=== PATIENT | male | born 1955 | race Caucasian/White ===

== ENCOUNTER 2018-08-01 08:44 | Emergency (ER) | payer OTHER ==
[2018-08-01] MEDS ORDERED: Ondansetron INJ* 2 MG/ML VIAL IV ONE (09:15)
[2018-08-01] MEDS ORDERED: NS 0.9% 1000 ML** 1,000 ML IV ONE (09:15)
[2018-08-01] MEDS ORDERED: Morphine 4 MG/ML VIAL (1 ml) 4 MG/ML VIAL IV ONE (09:15)
--- NOTE | 2018-08-01 09:15 | ED ---
Abdominal Pain/Male - HPI Summary HPI Summary: A 63 y/o male presents to [facility] with a chief complaint of abdominal pain over the past several months, worsening over the past few days. The patient reports that he has been trying to self-medicate with Tums and Pepto-Bismol, but reports no relief. The patient has a Hx of cirrhosis and claims that he stopped EtOH use cold turkey for 5-6 years, but the last few months he started drinking again to deal with pain from surgeries. At triage he rated his pain as a 4/10 in severity. He claims that he has pain from a right inguinal hernia and a knee replacement. His right inguinal hernia was operated on by Dr. Dacosta, who has reportedly retired. The patient reports left sided abdominal pain two months ago , and had a CT and x-rays done. Reportedly, Dr. Tomas, surgery, "saw something but did not believe it was something worth following up on". In the ED the patient reports feeling fatigued but denies N/V, blood in stool, fevers, chills , CP or SOB. The patient reports missing an appointment with Dr. Guillory, GI, on 07/28/18 and reports that he has not been seen by GI in a long time. He denies smoking cigarettes but admits to marijuana use. - History of Current Complaint Chief Complaint: EDAbdPain Stated Complaint: ABD PAIN Time Seen by Provider: 08/01/18 08:56 Hx Obtained From: Patient Onset/Duration: Gradual Onset, Lasting Weeks, Still Present Timing: Constant, Lasting Weeks Severity Initially: Mild Severity Currently: Moderate Pain Intensity: 4 Pain Scale Used: 0-10 Numeric Location: Diffuse Radiates: No Character: Other: - unable to describe Aggravating Factor(s): Nothing Alleviating Factor(s): Nothing Associated Signs And Symptoms: Negative: Fever, Chest Pain, Blood in Stool, Nausea, Vomiting - Allergies/Home Medications Allergies/Adverse Reactions: Allergies Allergy/AdvReac Type Severity Reaction Status Date / Time amoxicillin Allergy Fatigue Verified 08/01/18 08:50 Home Medications: Home Medications Metoprolol Succinate 1 tab PO DAILY 08/01/18 [History Confirmed 08/01/18] amLODIPine TAB* [Norvasc 5 mg TAB*] 10 mg PO DAILY 08/01/18 [History Confirmed 08/01/18] PMH/Surg Hx/FS Hx/Imm Hx Endocrine/Hematology History: Reports: Hx Anticoagulant Therapy - previous coumadin use, Hx Anemia - RECENT DIAGNOSIS,ON IRON SUPPLEMENT Denies: Hx Diabetes Cardiovascular History: Reports: Hx Deep Vein Thrombosis - used to be on coumadin Denies: Hx Hypertension Respiratory History: Reports: Hx Pulmonary Embolism - HX OF DVT AND PE - COUMADIN THERPHY FINISHED 2011, Other Respiratory Problems/Disorders - PNEUMONIA 2011 GI History: Reports: Hx Cirrhosis - Hx OF, 2011 (ALCOHOLIC, NONE SINCE 2011), Hx Gall Bladder Disease - CT shows gall stones and thickining, Hx Jaundice, Other GI Disorders - HX OF DIVERTICULOSIS OF COLON History: Reports: Other Problems/Disorders - PROSTATE ABNORMALITY Musculoskeletal History: Reports: Hx Arthritis - LEFT KNEE,, Other Musculoskeletal History - broken right hand 02/2014 Sensory History: Reports: Hx Contacts or Glasses - GLASSES FOR DISTANCE, 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 Opthamlomology History: Reports: Hx Contacts or Glasses - GLASSES FOR DISTANCE Psychiatric History: Reports: Hx Substance Abuse - smoke marijuana, ALCOHOLISM, Other Psychiatric Issues/Disorders - Recovering alcoholic - Surgical History Surgery Procedure, Year, and Place: 2014 right inguinal hernia repair- [facility] Hx Anesthesia Reactions: No Infectious Disease History: No Infectious Disease History: Denies: Hx Hepatitis, Hx Human Immunodeficiency Virus (HIV), Hx Shingles, Hx Tuberculosis, Traveled Outside the [place] in Last 30 Days - Family History Known Family History: Positive: Other Family History: Mother - breast CA. Father - Cardiac dz. - Social History Alcohol Use: "almost every day" Alcohol Amount: NONE SINCE 2011 (WAS HEAVY DRINKER) Hx Substance Use: Yes Substance Use Type: Reports: Marijuana Substance Use Comment - Amount & Last Used: OCCASSIONAL Hx Tobacco Use: No Smoking Status (MU): Never Smoked Tobacco Have You Smoked in the Last Year: No Review of Systems Positive: Fatigue. Negative: Fever, Chills Negative: Chest Pain Negative: Shortness Of Breath Gastrointestinal: Negative - blood in stool Positive: Abdominal Pain. Negative: Vomiting, Nausea All Other Systems Reviewed And Are Negative: Yes Physical Exam - Summary Physical Exam Summary: GENERAL: Patient is a well-developed and nourished M who is lying comfortable in the stretcher. Patient is not in any acute respiratory distress. HEAD AND FACE: Normocephalic EYES: PERRLA, EOMI x 2. EARS: Hearing grossly intact. MOUTH: Oropharynx within normal limits. NECK: Supple, trachea is midline, no adenopathy, no JVD, no carotid bruit. CHEST: Symmetric, no tenderness at palpation LUNGS: Clear to auscultation bilaterally. No wheezing or crackles. CVS: Regular rate and rhythm, S1 and S2 present, no murmurs or gallops appreciated. ABDOMEN: Mild diffuse tenderness to palpation. No rebound or guarding. Bowel sounds are normal. No abnormal abdominal pulsations. EXTREMITIES: Full ROM in all major joints, no edema, no cyanosis or clubbing. NEURO: Alert and oriented x 3. No acute neurological deficits. Speech is normal and follows commands. SKIN: Dry and warm Triage Information Reviewed: Yes Vital Signs On Initial Exam: Initial Vitals Temp Pulse Resp BP Pulse Ox 98.7 F 122 16 163/112 97 08/01/18 08:46 08/01/18 08:46 08/01/18 08:46 08/01/18 08:46 08/01/18 08:46 Vital Signs Reviewed: Yes Diagnostics - Vital Signs Vital Signs Temp Pulse Resp BP Pulse Ox 08/01/18 08:46 98.7 F 122 16 163/112 97 - Laboratory Result Diagrams: 08/01/18 09:23 08/01/18 09:23 Lab Statement: Any lab studies that have been ordered have been reviewed, and results considered in the medical decision making process. - CT abdomen/pelvis CT Interpretation Completed By: Radiologist Summary of CT Findings: 1. MILD THICKENING OF THE WALL OF THE SIGMOID COLON SUGGESTIVE OF COLITIS. 2. CIRRHOTIC MORPHOLOGY OF THE LIVER AND FINDINGS SUGGESTIVE OF PORTAL HYPERTENSION. 3. CHOLELITHIASIS. 4. HEPATIC AND RENAL CYSTS. ED physician has reviewed this imaging report. - EKG 09:04 Cardiac Rate: NL - 94 bpm EKG Rhythm: Sinus Rhythm Summary of EKG Findings: NSR at 94 bpm, normal axis. Re-Evaluation - Re-Evaluation First Eval Re-Evaluation Time: 11:54 Change: Unchanged Comment: Discussed results and plan for DC. Abdominal Pain Male Course/Dx - Course Course Of Treatment: A 63 y/o male presents to [facility] with a chief complaint of abdominal pain over the past several months, worsening over the past few days. The physical exam revealed mild, diffuse diffuse tenderness to palpation with no rebound or guarding. In the ED course the patient was given Ativan PO, Morphine IV, Zofran IV and Sodium Chloride IV. EKG at 09:04 showed NSR at 94 bpm , normal axis. Bloodwork, chemistries and urines obtained and are WNL. Serum alcohol 32. CT abdomen/pelvis impression: 1. MILD THICKENING OF THE WALL OF THE SIGMOID COLON SUGGESTIVE OF COLITIS. 2. CIRRHOTIC MORPHOLOGY OF THE LIVER AND FINDINGS SUGGESTIVE OF PORTAL HYPERTENSION. 3. CHOLELITHIASIS. 4. HEPATIC AND RENAL CYSTS. The patient will be treated with Moxifloxacin because he is alergic to penicillin and is an alcoholic. The patient will be discharged and follow up with GI and his PCP. I discussed results with patient, and he reports feeling better. He is hemodynamically stable and safe for discharge. Strict return precautions given and he will otherwise follow up with his PCP. - Diagnoses Provider Diagnoses: Cholelithiasis, Colitis, Liver cirrhosis Discharge - Sign-Out/Discharge Documenting (check all that apply): Patient Departure - DC Patient Received Moderate/Deep Sedation with Procedure: No - Discharge Plan Condition: Stable Disposition: HOME Prescriptions: Moxifloxacin HCl 400 mg PO DAILY 10 Days #10 tablet Patient Education Materials: Cirrhosis (ED), Colitis (ED) Referrals: Jose Luis Manning DO [Doctor of Osteopathy] - (1-3 days) Bella Ervin MD [Primary Care Provider] - (1-3 days) Additional Instructions: Follow up with your primary care physician and GI in 1-3 days. RETURN TO THE EMERGENCY DEPARTMENT FOR CHANGING OR WORSENING SYMPTOMS. - Billing Disposition and Condition Condition: STABLE Disposition: Home - Attestation Statements Document Initiated by Donavan: Yes Documenting Scribe: Amanuel Gallagher Provider For Whom Donavan is Documenting (Include Credential): Ramone Arredondo MD Scribe Attestation: Amanuel Mcgill, scribed for Ramone Arredondo MD on 08/01/18 at 171. Scribe Documentation Reviewed: Yes Provider Attestation: The documentation as recorded by the Amanuel busby accurately reflects the service I personally performed and the decisions made by me, Aliza Arredondo MD Status of Scribe Document: Viewed
[2018-08-01] MEDS ORDERED: LORazepam TAB(*) 1 MG PO ONE (09:16)
[2018-08-01 09:39] LABS: ABS Eosinophils 0.1 10^3/ul (0-0.6); ABS Monocytes 0.3 10^3/ul (0-0.8); ABS Neutrophils 3.6 10^3/ul (1.5-7.7); Hematocrit 45 % (42-52); Hemoglobin 15.5 g/dL (14.0-18.0); Lymphocyte % 19.6 %; Mean Corpuscular HGB Conc 35 g/dL (31-36); Mean Corpuscular Hemoglobin 31 pg (27-31); Mean Corpuscular Volume 89 fL (80-94); Mean Platelet Volume 8.6 fL (7.4-10.4); Nucleated Red Blood Cells % 0.4; Platelet Count 148 10^3/uL (150-450); Red Blood Count 5.06 10^6 /uL (4.18-5.48); Red Cell Distribution Width 15 % (10-15)
[2018-08-01 09:40] LABS: Urine Appearance Clear; Urine Bilirubin Negative (Negative); Urine Blood Negative (Negative); Urine Color Straw; Urine Glucose Negative (Negative); Urine Ketones Negative (Negative); Urine Nitrite Negative (Negative); Urine Protein Negative (Negative); Urine Specific Gravity 1.002 (1.010-1.030); Urine Urobilinogen Negative (Negative)
--- OUTSIDE RECORDS SUMMARY | 2018-08-01 09:43 | XMS REPORT | Continuity of Care Document ---
:1955 External Reference #:[id number] Author Name ZainaClaire Care Team Providers Name Role Phone Bella Ervin M.D. Primary Care Physician Unavailable Payers Date Identification Numbers Payment Provider Subscriber Effective: 2015 Policy Number: [id number] [place] Timothy Linda PayID: [id number] [address] [address] [place] [address] Problems Active Problems Provider Date Alcoholic cirrhosis Vasyl Alfred M.D. Onset: 06/14/2012 Cholelithiasis without obstruction Randy Ramirez M.D.,FACP Onset: 2018 Chronic diastolic heart failure Vasyl Alfred M.D. Onset: 06/14/2012 Inguinal hernia without obstruction Vasyl Alfred M.D. Onset: 06/21/2012 AND without gangrene Insomnia Vasyl Alfred M.D. Onset: 07/05/2012 Diverticular disease of colon Vasyl Alfred M.D. Onset: 12/12/2012 Osteoarthritis of knee Vasyl Alfred M.D. Onset: 03/08/2014 Essential hypertension Vasyl Alfred M.D. Onset: 02/05/2016 Obstructive sleep apnea syndrome Dodie Rowley DNP, RN, Onset: 04/28/2017 GERENTOLOGICAL PHYSIOTHERAPIST-BC Inactive Problems Hypo-osmolality and or hyponatremia Vasyl Alfred M.D. Onset: 06/21/2012 Inactive: 08/06/2014 Hepatic encephalopathy Vasyl Alfred M.D. Onset: 07/05/2012 Inactive: 08/06/2014 Low blood pressure reading Vasyl Alfred M.D. Onset: 08/07/2012 Inactive: 08/06/2014 Pain of breast Vasyl Alfred M.D. Onset: 08/07/2012 Inactive: 08/06/2014 Lymphedema Vasyl Alfred M.D. Onset: 08/29/2012 Inactive: 08/06/2014 Disorder of skin and/or subcutaneous tissue Vasyl Alfrde M.D. Onset: 10/2012 Inactive: 08/06/2014 Joint effusion of the lower leg Vasyl Alfred M.D. Onset: 12/12/2012 Inactive: 08/06/2014 Contusion of hand Vasyl Alfred M.D. Onset: 01/22/2014 Inactive: 08/06/2014 Other Secondary Thrombocytopenia Vasyl Alfred M.D. Onset: 05/01/2014 Inactive: 08/06/2014 H/O: sexual function problem Vasyl Alfred M.D. Onset: 01/22/2014 Inactive: 02/24/2017 Localized, primary osteoarthritis Vasyl Alfred M.D. Onset: 08/06/2014 Inactive: 02/24/2017 Other secondary thrombocytopenia Vasyl Alfred M.D. Onset: 11/26/2014 Inactive: 02/24/2017 Knee joint effusion Mavis Martin M.D. Onset: 08/15/2015 Inactive: 02/24/2017 Arthroplasty of knee Mavis Martin M.D. Onset: 10/13/2015 Inactive: 02/24/2017 Knee pain Vasyl Alfred M.D. Onset: 02/05/2016 Inactive: 02/24/2017 Lyme disease Vasyl Alfred M.D. Onset: 01/11/2017 Inactive: 02/24/2017 Resolved Problems Thromboembolic disorder Vasyl Alfred M.D. Onset: 06/14/2012 Resolved: 05/12/2018 Anemia Vasyl Alfred M.D. Onset: 06/21/2012 Resolved: 05/12/2018 Other Pancytopenia Vasyl Alfred M.D. Onset: 09/18/2012 Resolved: 05/12/2018 Acquired thrombocytopenia Vasyl Alfred M.D. Onset: 03/26/2014 Resolved: 05/12/2018 Anemia of chronic disease Vasyl Alfred M.D. Onset: 11/26/2014 Resolved: 05/12/2018 Family History Date Family Member(s) Observation Comments General Heart Disease General Cancer General Diabetes Father Heart Disease Mother Breast Cancer Siblings 7 1 sister , 2 sisters and 4 brothers living. Social History Type Date Description Comments Sex Unknown Marital Status Single Lives With Alone Occupation Construction Occupation Medically Retired Tobacco Use Start: Unknown Never Smoked Cigarettes Smoking Status Reviewed: 07/06/18 Never Smoked Cigarettes ETOH Use 2011 Has consumed alcohol in the past Tobacco Use Start: Unknown Patient has never smoked Recreational Drug Use Sporadically uses Marijuana Exercise Type/Frequency Exercises regularly Allergies, Adverse Reactions, Alerts Active Allergies Reaction Severity Comments Date Amoxicillin 06/14/2012 Medications Active Medications SIG Qnty Indications Ordering Provider Date Tramadol HCL 1 tablet by mouth 90tabs Bella Ervin MD 07/04/2018 50mg every 6 - 8 hours Tablets as needed for pain Hydrocodone-Acetamin 1 tab by mouth 30tabs M25.562 Bella Ervin MD 2018 ophen every 8- 12 hours 10-325mg as needed for Tablets severe pain only. take sparingly Daily-Bella take 1 tablet by 30tabs Bella Ervin MD 08/25/2017 Tablets mouth every day Amlodipine Besylate 1 by mouth every 30tabs I10 Gideon Bonilla, 2017 day M.DGila 10mg Tablets Metoprolol Succinate 1 by mouth every 30tabs I10 Bella Ervin MD 2016 ER day 100mg Tablets ER 24HR History Medications Tramadol HCL 1 by mouth every 90tabs Bella Ervin MD 04/26/2018 - 50mg 6-8 hours as needed 05/12/2018 Tablets for pain Multi Complete daily 30caps Vasyl 09/23/2017 - Kishor Alfred 03/20/2018 Capsules Zolpidem Tartrate 1 tab daily at 14tabs G47.00 Randy Holliday 11/11/2016 - 5mg bedtime Kishor Ramirez,FACP 03/22/2017 Tablets Ferrous Gluconate 1 by mouth 2x a day 180tabs Vasyl 09/23/2016 - Kishor Alfred 01/11/2017 324(37.5Fe) mg Tablets Amlodipine Besylate 1 by mouth every 30tabs [place] 05/27/2016 - 5mg day Kishor Alfred 06/28/2017 Tablets Amlodipine Besylate 1 by mouth every 30tabs Vasyl 04/16/2016 - day Kishor Alfred 05/27/2016 10mg Tablets Metoprolol Succinate 1 by mouth every 30tabs [place] 03/24/2016 - ER day . Kishor Alfred 11/11/2016 50mg Tablets ER 24HR Amlodipine Besylate 1 by mouth twice 60tabs Vasyl 03/08/2016 - 5mg daily Kishor Alfred 04/16/2016 Tablets Amlodipine Besylate 1 by mouth every 30tabs [place] 03/04/2016 - 5mg day in am Kishor Alfred 03/08/2016 Tablets Hydrocodone-Acetamino 1 tab by mouth 30tabs M25.56 Bella Ervin MD 2016 - phen every 8- 12 hours 2 05/12/2018 10-325mg Tablets as needed for severe pain only. take sparingly Metoprolol Succinate 1 by mouth every 30tabs Alfredo Segundo 02/25/2016 - ER day CAROL 03/02/2016 50mg Tablets ER 24HR Metoprolol Tartrate 1 by mouth twice a 60tabs I10 [place] 02/05/2016 - day Kishor Alfred 03/02/2016 25mg Tablets Oxycodone-Acetaminoph 1 tabs by mouth 60tabs [place] 01/14/2016 - en every 12 hours as Kishor Alfred 03/02/2016 5-325mg Tablets needed for pain MS Contin Take one tablet by 28tabs Gerber Sanchez 10/03/2015 - 30mg Tablets mouth two times a M.D. 01/06/2016 ER day for 14 days Docusate Sodium 1 by mouth up to 3 60caps M17.12 [place] 09/19/2015 - 100mg times a day as CAROL Mast 01/06/2016 Capsules needed for constipation Coumadin 1 by mouth daily 45tabs M17.12 [place] 09/19/2015 - 2mg Tablets post operatively or CAROL Mast 01/06/2016 as directed by cat/. do not take this medication prior to surgery Oxycodone-Acetaminoph 1 by mouth every 6 45tabs M17.12 Mavisla nena [place], 09/18 - en hours as needed for M.DGila 01/11/2016 5-325mg Tablets pain. Hydrocodone-Acetamino 12h as needed 60tabs M17.9 [place] 07/08/2015 - phen Kishor Alfred 01/06/2016 7.5-325mg Tablets Multi For Him 50+ 1 by mouth every 30tabs [place] 06/12/2015 - day Kishor Alfred 06/12/2015 Tablets Multi For Him 50+ 1 by mouth every 30tabs [place] 06/10/2015 - day Kishor Alfred 06/10/2015 Tablets Multi For Him once a day 30caps [place] 06/10/2015 - Capsules Kishor Alfred 06/10/2015 Multi Complete daily 30caps [place] 06/10/2015 - Kishor Alfred 08/29/2017 Capsules Multi For Him 50+ once a day 30tabs [place] 05/06/2015 - Kishor Alfred 06/10/2015 Tablets Lidocaine HCL apply 4 times a day 1units M25.56 [place] 05/06/2015 - 2% Gel 2 Kishor Alfred 09/18/2015 Doxycycline Hyclate 2 tabs today 2caps [place] 02/20/2015 - Kishor Alfred 05/06/2015 100mg Capsules Colace 1 by mouth every 60caps Kranthi Lugo NP 05/09/2014 - 50mg Capsules day 11/25/2014 Multi Vitamin Daily once daily 30tabs [place] 04/05/2014 - Kishor Alfred 05/06/2015 Tablets Thiamine HCL 1 by mouth every 30tabs [place] 04/05/2014 - 100mg day Kishor Alfred 08/06/2014 Tablets Vitamin B-12 once daily 30tabs [place] 03/29/2014 - Natural Kishor Alfred 08/06/2014 500mcg Tablets Voltaren apply 4gm twice 1tube [place] 03/27/2014 - 1% Gel daily to knee Kishor Alfred 09/18/2015 Hydrocodone-Acetamino Take 1 Tablet By 60tabs M17.9 Randy Holliday 2014 - phen Mouth Every 12 Kishor Ramirez,[facility] 07/08/2015 5-325mg Tablets Hours as Needed - Maximum Daily Dose Of 2 Per Day Clindamycin HCL tid 21caps 923.20 [place] 01/22/2014 - 150mg Kishor Alfred 03/08/2014 Capsules Hydrocodone-Acetamino 1 tab every 12h as 10tabs [place] 01/22/2014 - phen needed Kishor Alfred 03/08/2014 5-325mg Tablets Doxycycline Hyclate 1 by mouth 2x per 20tabs 919.4 Hayley Bird 2013 - day 10 days MOle 01/22/[address] Ferrous Gluconate 1 by mouth 2x a day 180tabs [place] 04/17/2013 - Kishor Alfred 09/23/2016 324(38Fe) mg Tablets Thiamine HCL 1 po qd 30tabs 611.71 [place] 09/18/2012 - 100mg Kishor Alfred 12/12/2012 Tablets Spironolactone 1 po qd 30tabs 457.1 [place] 08/29/2012 - 50mg Kishor Alfred 09/18/2012 Tablets Spironolactone once a day 30tabs 572.2 [place] 08/07/2012 - 25mg Kishor Alfred 08/29/2012 Tablets Amitriptyline HCL take 1 to 2 tablets 60tabs G47.00 [place] 07/05/2012 - 10mg by mouth at bedtime Kishor Alfred 06/25/2016 Tablets as needed Feosol once daily 90tabs 285.9 [place] 06/21/2012 - 200(65Fe) mg Kishor Alfred 08/29/2012 Tablets Furosemide 1 po qam 90tabs Unknown - 20mg Tablets 06/21/2012 Spironolactone 1 po qd 90tabs [place] - 50mg Kishor Alfred 08/07/2012 Tablets Potassium Chloride CR 1 po qd 90tabs Unknown - 06/21/2012 20Meq Tablets ER Propranolol HCL 1 po bid 180tabs Unknown - 10mg 08/07/2012 Tablets Thiamine HCL 1 po qd 30tabs Unknown - 100mg 09/18/2012 Tablets Tamsulosin HCL 1 by mouth every 30caps Hayley Bird, - 0.4mg day Kishor 08/07/2013 Capsules Warfarin Sodium take as directed 90tabs [place] - 2mg Kishor Alfred 08/29/2012 Tablets Lactulose 1 bid 1Bottle Unknown - 15 Solution 08/07/2012 Multi For Him 1 po qd 30caps Unknown - Capsules 05/01/2014 Ferrous Sulfate 1 by mouth every Unknown - day 08/06/2014 Tablets Diclofenac Sodium apply 1 grams on 100gm [place] - 1% wrists as needed Kishor Alfred 11/09/2016 Gel for pain. Medications Administered in Office Medication SIG Qnty Indications Ordering Provider Date Influenza,Unspecified Unknown 10/25/2017 Injection Depomedrol 40MG Mavis Martin M.D. 08/15/2015 Injection Depomedrol 80MG CAYLA Mtz 02/06/2014 Injection Depomedrol 80MG Jasen Estrada M.D. 01/08/2013 Injection Immunizations CPT Code Status Date Vaccine Reaction Lot # [id number] Given 07/28/2017 Zoster (Shingles) Vaccine (HZV), Recombinant, Subunit, Adjuvanted 79009 Given 01/11/2017 Influenza Virus Vaccine, no reaction, pt [id number] Quadrivalent, Split, tolerated well Preservative Free [id number] Given 04/20/2016 Zoster (Zostavax) [id number] Given 05/06/2015 Pneumonia Vaccine [id number] Vital Signs Date Vital Result Comment 07/06/2018 9:50am Heart Rate 76 /min BP Systolic 126 mmHg BP Diastolic 80 mmHg Respiratory Rate 18 /min Body Temperature 97.9 F 05/29/2018 10:25am Height 68 inches 5'8" Weight 156.00 lb Heart Rate 72 /min BP Systolic Sitting 122 mmHg BP Diastolic Sitting 82 mmHg Respiratory Rate 18 /min Body Temperature 97.3 F BMI (Body Mass Index) 23.7 kg/m2 05/12/2018 3:55pm Height 68 inches 5'8" Weight 151.25 lb Heart Rate 99 /min BP Systolic 139 mmHg BP Diastolic 87 mmHg Body Temperature 97.8 F O2 % BldC Oximetry 97 % BMI (Body Mass Index) 23.0 kg/m2 03/20/2018 9:48am Height 68 inches 5'8" Weight 160.00 lb Heart Rate 76 /min BP Systolic 134 mmHg BP Diastolic 82 mmHg O2 % BldC Oximetry 95 % BMI (Body Mass Index) 24.3 kg/m2 10/03/2017 1:28pm Heart Rate 72 /min BP Systolic 130 mmHg BP Diastolic 84 mmHg Respiratory Rate 18 /min Body Temperature 98.2 F 09/20/2017 8:21am Height 68 inches 5'8" Weight 150.00 lb Heart Rate 98 /min BP Systolic 140 mmHg BP Diastolic 80 mmHg O2 % BldC Oximetry 98 % BMI (Body Mass Index) 22.8 kg/m2 08/30/2017 8:05am Height 68 inches 5'8" Weight 150.00 lb Heart Rate 72 /min BP Systolic Sitting 142 mmHg BP Diastolic Sitting 90 mmHg Body Temperature 98.0 F O2 % BldC Oximetry 99 % BMI (Body Mass Index) 22.8 kg/m2 08/19/2017 10:46am Height 68 inches 5'8" Weight 160.00 lb BP Systolic 146 mmHg BP Diastolic 84 mmHg Body Temperature 97.5 F BMI (Body Mass Index) 24.3 kg/m2 08/02/2017 3:05pm Heart Rate 76 /min Respiratory Rate 16 /min Body Temperature 98.4 F 06/28/2017 8:05am Height 69 inches 5'9" Weight 156.00 lb Heart Rate 71 /min BP Systolic 140 mmHg BP Diastolic 98 mmHg O2 % BldC Oximetry 97 % BMI (Body Mass Index) 23.0 kg/m2 06/27/2017 8:00am Height 69 inches 5'9" Weight 158.12 lb Heart Rate 72 /min BP Systolic Sitting 140 mmHg Lue reg cuff BP Diastolic Sitting 100 mmHg Lue reg cuff Respiratory Rate 16 /min O2 % BldC Oximetry 97 % On Ra BMI (Body Mass Index) 23.3 kg/m2 04/28/2017 10:21am Height 69 inches 5'9" Weight 157.31 lb Heart Rate 72 /min BP Systolic Sitting 138 mmHg Lue reg cuff BP Diastolic Sitting 100 mmHg Lue reg cuff Respiratory Rate 18 /min O2 % BldC Oximetry 96 % On Ra BMI (Body Mass Index) 23.2 kg/m2 04/28/2017 7:56am Weight 157.00 lb Heart Rate 74 /min BP Systolic 140 mmHg BP Diastolic 90 mmHg Body Temperature 97.6 F O2 % BldC Oximetry 98 % 03/23/2017 8:08am Height 68 inches 5'8" Weight 166.00 lb Heart Rate 72 /min BP Systolic Sitting 120 mmHg BP Diastolic Sitting 90 mmHg Respiratory Rate 14 /min O2 % BldC Oximetry 96 % BMI (Body Mass Index) 25.2 kg/m2 Neck Circumference in inches 15.25 02/24/2017 8:03am Height 68 inches 5'8" Weight 161.25 lb Heart Rate 75 /min BP Systolic Sitting 146 mmHg BP Diastolic Sitting 86 mmHg Body Temperature 97.8 F O2 % BldC Oximetry 95 % BMI (Body Mass Index) 24.5 kg/m2 01/11/2017 8:54am Weight 159.00 lb Heart Rate 81 /min BP Systolic Sitting 140 mmHg BP Diastolic Sitting 82 mmHg O2 % BldC Oximetry 94 % 11/11/2016 7:57am Weight 153.25 lb Heart Rate 63 /min BP Systolic Sitting 142 mmHg BP Diastolic Sitting 90 mmHg Body Temperature 97.8 F O2 % BldC Oximetry 98 % 09/10/2016 8:47am Height 68 inches 5'8" Weight 151.00 lb Heart Rate 62 /min BP Systolic 126 mmHg BP Diastolic 78 mmHg Body Temperature 97.5 F O2 % BldC Oximetry 98 % BMI (Body Mass Index) 23.0 kg/m2 06/25/2016 9:31am Weight 159.00 lb Heart Rate 82 /min BP Systolic Sitting 156 mmHg BP Diastolic Sitting 90 mmHg Body Temperature 98.8 F O2 % BldC Oximetry 98 % 04/02/2016 8:28am Height 68 inches 5'8" Weight 157.00 lb Heart Rate 66 /min BP Systolic Sitting 144 mmHg BP Diastolic Sitting 94 mmHg Body Temperature 98.0 F O2 % BldC Oximetry 94 % BMI (Body Mass Index) 23.9 kg/m2 03/02/2016 10:19am Height 68 inches 5'8" Weight 152.00 lb Heart Rate 66 /min BP Systolic Sitting 160 mmHg BP Diastolic Sitting 84 mmHg Body Temperature 98.2 F O2 % BldC Oximetry 98 % BMI (Body Mass Index) 23.1 kg/m2 02/25/2016 8:11am Height 68 inches 5'8" Weight 150.00 lb BP Systolic Sitting 190 mmHg BP Diastolic Sitting 110 mmHg Respiratory Rate 18 /min Pain Level 3 BMI (Body Mass Index) 22.8 kg/m2 02/19/2016 8:25am Height 68 inches 5'8" Weight 152.12 lb Heart Rate 82 /min BP Systolic Sitting 144 mmHg BP Diastolic Sitting 106 mmHg Body Temperature 98.3 F O2 % BldC Oximetry 94 % BMI (Body Mass Index) 23.1 kg/m2 02/05/2016 9:16am Weight 149.25 lb Heart Rate 104 /min BP Systolic Sitting 174 mmHg BP Diastolic Sitting 110 mmHg Body Temperature 98.3 F O2 % BldC Oximetry 98 % 01/12/2016 2:39pm Heart Rate 107 /min BP Systolic 149 mmHg BP Diastolic 81 mmHg Pain Level 3 01/06/2016 8:27am Weight 149.50 lb Heart Rate 79 /min BP Systolic Sitting 166 mmHg BP Diastolic Sitting 97 mmHg Body Temperature 98.4 F O2 % BldC Oximetry 96 % 11/12/2015 8:16am Height 68 inches 5'8" Weight 149.00 lb Pain Level 3 BMI (Body Mass Index) 22.7 kg/m2 10/22/2015 8:29am Height 68 inches 5'8" Weight 149.00 lb Body Temperature 98.6 F Pain Level 4 BMI (Body Mass Index) 22.7 kg/m2 10/13/2015 10:43am Height 68 inches 5'8" Weight 149.00 lb Body Temperature 97.9 F BMI (Body Mass Index) 22.7 kg/m2 09/19/2015 11:15am Height 68 inches 5'8" Weight 149.00 lb Heart Rate 76 /min BP Systolic 152 mmHg BP Diastolic 94 mmHg BMI (Body Mass Index) 22.7 kg/m2 09/15/2015 1:18pm Height 68 inches 5'8" Weight 141.00 lb Heart Rate 70 /min BP Systolic Sitting 140 mmHg BP Diastolic Sitting 90 mmHg O2 % BldC Oximetry 98 % BMI (Body Mass Index) 21.4 kg/m2 09/08/2015 3:24pm Height 68 inches 5'8" Weight 141.38 lb Heart Rate 88 /min BP Systolic Sitting 132 mmHg BP Diastolic Sitting 78 mmHg O2 % BldC Oximetry 96 % BMI (Body Mass Index) 21.5 kg/m2 08/15/2015 2:54pm Height 68 inches 5'8" Weight 150.00 lb Heart Rate 93 /min BP Systolic 123 mmHg BP Diastolic 74 mmHg Pain Level 8 BMI (Body Mass Index) 22.8 kg/m2 07/08/2015 9:56am Height 65 inches 5'5" Weight 150.00 lb Heart Rate 104 /min BP Systolic Sitting 130 mmHg BP Diastolic Sitting 78 mmHg Body Temperature 98.0 F O2 % BldC Oximetry 98 % BMI (Body Mass Index) 25.0 kg/m2 05/06/2015 9:55am Height 65 inches 5'5" Weight 151.00 lb Heart Rate 80 /min BP Systolic Sitting 156 mmHg BP Diastolic Sitting 110 mmHg Body Temperature 98.7 F O2 % BldC Oximetry 98 % BMI (Body Mass Index) 25.1 kg/m2 11/26/2014 12:58pm Height 65 inches 5'5" Weight 145.38 lb Heart Rate 84 /min BP Systolic Sitting 124 mmHg BP Diastolic Sitting 72 mmHg Body Temperature 98.3 F O2 % BldC Oximetry 95 % BMI (Body Mass Index) 24.2 kg/m2 08/06/2014 8:41am Height 64.5 inches 5'4.50" Weight 146.25 lb Heart Rate 65 /min BP Systolic Sitting 151 mmHg BP Diastolic Sitting 95 mmHg Body Temperature 98.3 F O2 % BldC Oximetry 98 % BMI (Body Mass Index) 24.7 kg/m2 05/01/2014 9:59am Height 69 inches 5'9" Weight 144.38 lb Heart Rate 86 /min BP Systolic Sitting 138 mmHg BP Diastolic Sitting 90 mmHg O2 % BldC Oximetry 98 % BMI (Body Mass Index) 21.3 kg/m2 04/24/2014 9:02am Height 69 inches 5'9" Weight 152.00 lb Pain Level 10 BMI (Body Mass Index) 22.4 kg/m2 03/08/2014 8:12am Height 68 inches 5'8" Weight 139.00 lb Heart Rate 73 /min BP Systolic Sitting 118 mmHg BP Diastolic Sitting 78 mmHg Body Temperature 98.9 F O2 % BldC Oximetry 96 % BMI (Body Mass Index) 21.1 kg/m2 02/06/2014 8:35am Height 68 inches 5'8" Weight 143.00 lb Heart Rate 84 /min BP Systolic 155 mmHg BP Diastolic 76 mmHg BMI (Body Mass Index) 21.7 kg/m2 01/24/2014 3:06pm Height 68 inches 5'8" Weight 143.00 lb Heart Rate 70 /min BP Systolic 128 mmHg BP Diastolic 75 mmHg BMI (Body Mass Index) 21.7 kg/m2 01/22/2014 2:47pm Weight 143.50 lb Heart Rate 86 /min BP Systolic Sitting 122 mmHg BP Diastolic Sitting 70 mmHg Pain Level 2 O2 % BldC Oximetry 97 % 08/07/2013 1:47pm Weight 148.00 lb Heart Rate 94 /min BP Systolic Sitting 132 mmHg BP Diastolic Sitting 69 mmHg Body Temperature 99.0 F 07/17/2013 9:57am Weight 145.00 lb Heart Rate 84 /min BP Systolic Sitting 122 mmHg BP Diastolic Sitting 74 mmHg 04/26/2013 2:07pm Height 65 inches 5'5" Weight 144.75 lb Heart Rate 87 /min BP Systolic Sitting 138 mmHg BP Diastolic Sitting 71 mmHg Body Temperature 97.8 F O2 % BldC Oximetry 98 % BMI (Body Mass Index) 24.1 kg/m2 04/19/2013 9:35am Height 65 inches 5'5" Weight 146.00 lb Heart Rate 97 /min BP Systolic Sitting 118 mmHg BP Diastolic Sitting 75 mmHg Body Temperature 97.0 F BMI (Body Mass Index) 24.3 kg/m2 12/12/2012 7:58am Height 65.5 inches 5'5.50" Weight 141.50 lb Heart Rate 92 /min BP Systolic Sitting 118 mmHg BP Diastolic Sitting 70 mmHg BMI (Body Mass Index) 23.2 kg/m2 10/30/2012 8:08am Height 65.75 inches 5'5.75" Weight 160.00 lb Heart Rate 86 /min BP Systolic Sitting 152 mmHg BP Diastolic Sitting 90 mmHg BMI (Body Mass Index) 26.0 kg/m2 09/18/2012 9:13am Height 65.75 inches 5'5.75" Weight 145.75 lb Heart Rate 110 /min BP Systolic Sitting 138 mmHg BP Diastolic Sitting 74 mmHg BMI (Body Mass Index) 23.7 kg/m2 08/29/2012 2:54pm Weight 156.00 lb Heart Rate 112 /min BP Systolic Sitting 118 mmHg BP Diastolic Sitting 65 mmHg 08/07/2012 8:08am Weight 147.00 lb Heart Rate 82 /min BP Systolic Sitting 96 mmHg BP Diastolic Sitting 662 mmHg 07/05/2012 10:17am Weight 146.25 lb Heart Rate 85 /min BP Systolic Sitting 110 mmHg BP Diastolic Sitting 64 mmHg O2 % BldC Oximetry 96 % 06/21/2012 10:59am Weight 141.00 lb Heart Rate 100 /min BP Systolic Sitting 114 mmHg BP Diastolic Sitting 70 mmHg 06/14/2012 10:22am Height 65 inches 5'5" Weight 142.50 lb Heart Rate 98 /min BP Systolic Sitting 115 mmHg BP Diastolic Sitting 71 mmHg BMI (Body Mass Index) 23.7 kg/m2 Results Test Date Facility Test Result H/L Range Note Basic Metabolic 06/16/2018 [facility] Sodium 141 mmol/L N 135- 145 Panel [address] [place] [address] [phone] Potassium 3.9 mmol/L N 3.5-5.0 Chloride 108 mmol/L N 101-111 Co2 Carbon Dioxide 24 mmol/L N 22-32 Anion Gap 9 mmol/L N 2-11 Glucose 82 mg/dL N 70-100 Blood Urea Nitrogen 17 mg/dL N 6-24 Creatinine 0.96 mg/dL N 0.67-1.17 BUN/Creatinine Ratio 17.7 N 8-20 Calcium 9.0 mg/dL N 8.6-10.3 Egfr Non- 79.4 >60 Egfr 96.0 >60 1 Liver Function 06/16/2018 [facility] Total Protein 7.1 g/dL N 6.4-8.9 Panel [address] [place] [address] [phone] Albumin 4.5 g/dL N 3.2-5.2 Globulin 2.6 g/dL N 2-4 Albumin/Globulin Ratio 1.7 N 1-3 Total Bilirubin 0.30 mg/dL N 0.2-1.0 Direct Bilirubin 0.10 mg/dL N 0.03-0.18 Indirect Bilirubin 0.2 mg/dL Low 0.3-1.0 Alkaline Phosphatase 77 U/L N 34-104 Alt 15 U/L N 7-52 Ast 19 U/L N 13-39 Drug Abuse 06/16/2018 [facility] Urine Presumptive Abnormal Cutoff: 2 W/Confirm, Ur [address] Alcohol Posi <SEE [address] [place] [address] NOTE> mg/dL [phone] Urine Amphetamine Negative ng/mL 3 Urine Barbiturates Negative ng/mL 4 Urine Benzodiazepines Negative ng/mL 5 Urine Cocaine Negative ng/mL 6 Urine Methadone Negative ng/mL Negative 7 Urine Opiates Negative ng/mL Negative 8 Urine Phencyclidine Negative ng/mL Cutoff: 25 Urine Tetrahydrocannabinol Presumptive Posi <SEE NOTE> ng/mL Abnormal Cutoff : 50 9 THC Confirmation 06/16/2018 [facility] Urine Carboxy 225 ng/mL [address] [place] [address] [phone] Urine THC Interpretation Positive. 11 Ethanol, Urine 06/16/2018 [facility] Ethanol-by 85 mg/dL Cutoff: [address] [place] [address] [phone] Urine Etoh Interpretation Positive. 12 CBC Auto Diff 06/16/2018 [facility] White Blood 4.8 10^3/uL N 3.5-10.[address] [place] [address] [phone] Red Blood Count 4.38 10^6/uL N 4.18-5.48 Hemoglobin 13.3 g/dL Low 14.0-18.0 Hematocrit 39 % N 36-46 Mean Corpuscular Volume 89 fL N 80-94 Mean Corpuscular Hemoglobin 30 pg N 27-31 Mean Corpuscular HGB Conc 34 g/dL N 31-36 Red Cell Distribution Width 15 % N 10.5-15 Platelet Count 122 10^3/uL Low 150-450 Mean Platelet Volume 9.6 fL N 7.4-10.4 Abs Neutrophils 2.9 10^3/uL N 1.5-7.7 Abs Lymphocytes 1.4 10^3/uL N 1.0-4.8 Abs Monocytes 0.4 10^3/uL N 0-0.8 Abs Eosinophils 0.1 10^3/uL N 0-0.6 Abs Basophils 0 10^3/uL N 0-0.2 Abs Nucleated RBC 0 10^3/uL Granulocyte % 60.4 % Lymphocyte % 28.3 % Monocyte % 8.6 % Eosinophil % 2.2 % Basophil % 0.5 % Nucleated Red Blood Cells % 0.1 Laboratory test 04/10/2018 [facility] Testosterone 175.53 Low 240-[address] Total ng/[place] [address] [phone] PSA Diagnostic 0.249 ng/mL 0-4.0 13 Liver Function 03/24/2018 [facility] Total Protein 7.3 g/dL N 6.4-8.[address] [place] [address] [phone] Albumin 4.6 g/dL N 3.2-5.2 Globulin 2.7 g/dL N 2-4 Albumin/Globulin Ratio 1.7 N 1-3 Total Bilirubin 0.50 mg/dL N 0.2-1.0 Direct Bilirubin 0.10 mg/dL N 0.03-0.18 Indirect Bilirubin 0.4 mg/dL N 0.3-1.0 Alkaline Phosphatase 80 U/L N 34-104 Alt 13 U/L N 7-52 Ast 18 U/L N 13-39 CBC Auto Diff 03/24/2018 [facility] White Blood 5.3 10^3/uL N 3.5-10.[address] [place] [address] [phone] Red Blood Count 4.92 10^6/uL N 4.00-5.40 Hemoglobin 14.4 g/dL N 14.0-18.0 Hematocrit 43 % N 42-52 Mean Corpuscular Volume 88 fL N 80-94 Mean Corpuscular Hemoglobin 29 pg N 27-31 Mean Corpuscular HGB Conc 33 g/dL N 31-36 Red Cell Distribution Width 13 % N 10.5-15 Platelet Count 181 10^3/uL N 150-450 Mean Platelet Volume 9.4 fL N 7.4-10.4 Abs Neutrophils 3.6 10^3/uL N 1.5-7.7 Abs Lymphocytes 1.2 10^3/uL N 1.0-4.8 Abs Monocytes 0.4 10^3/uL N 0-0.8 Abs Eosinophils 0 10^3/uL N 0-0.6 Abs Basophils 0 10^3/uL N 0-0.2 Abs Nucleated RBC 0 10^3/uL Granulocyte % 67.9 % Lymphocyte % 23.1 % Monocyte % 7.8 % Eosinophil % 0.6 % Basophil % 0.6 % Nucleated Red Blood Cells % 0 Drug Abuse 03/24/2018 [facility] Urine Negative Cutoff: 10 W/Confirm, Ur [address] Alcohol mg/dL [place] [id number] [phone] Urine Amphetamine Negative ng/mL 14 Urine Barbiturates Negative ng/mL 15 Urine Benzodiazepines Negative ng/mL 16 Urine Cocaine Negative ng/mL 17 Urine Methadone Negative ng/mL Negative 18 Urine Opiates Negative ng/mL Negative 19 Urine Phencyclidine Negative ng/mL Cutoff: 25 Urine Tetrahydrocannabinol Presumptive Posi <SEE NOTE> ng/mL Abnormal Cutoff : 50 20 THC Confirmation 03/24/2018 [facility] Urine Carboxy >500.0 ng/ mL [address] [place] [address] [phone] Urine THC Interpretation Positive. 22 Drug Abuse 08/30/2017 [facility] Urine Amphetamine Negative ng/ mL 23, 24 [address] [place] [address] [phone] Urine Barbiturates Negative ng/mL 25 Urine Benzodiazepines Negative ng/mL 26 Urine Cocaine Negative ng/mL 27 Urine Phencyclidine Negative ng/mL Cutoff: 25 Urine Tetrahydrocannabinol Presumptive Posi <SEE NOTE> Abnormal Cutoff: 50 28 ng/mL Creatinine, Urine 110.1 mg/dL Specific [place] 1.010 pH 6.7 Oxidants Negative 29 Adulterants Comment Normal Codeine, Ur Not Detected ng/mL Cutoff: 25 30 Lvnbvwa-3-jenn-glucuronide, Ur Not Detected ng/mL 31 Morphine, Ur Not Detected ng/mL Cutoff: 25 32 Wqplqosu-0-zrbg-glucuronide, U Not Detected ng/mL 33 6-monoacetylmorphine, Ur Not Detected ng/mL Cutoff: 25 34 Hydrocodone, Ur Present ng/mL Abnormal Cutoff: 25 35 Norhydrocodone, Ur Present ng/mL Abnormal Cutoff: 25 36 Dihydrocodeine, Ur Present ng/mL Abnormal Cutoff: 25 37 Hydromorphone, Ur Present ng/mL Abnormal Cutoff: 25 38 Ofmdztbgyumfk5wlplegjmaiuupcs Present ng/mL Abnormal 39 Oxycodone, Ur Present ng/mL Abnormal Cutoff: 25 40 Noroxycodone, Ur Present ng/mL Abnormal Cutoff: 25 41 Oxymorphone, Ur Present ng/mL Abnormal Cutoff: 25 42 Slangnvnxho-0-qxsa-glucuronide Present ng/mL Abnormal 43 Noroxymorphone, Ur Present ng/mL Abnormal Cutoff: 25 44 Fentanyl, Ur Not Detected ng/mL Cutoff: 2 45 Norfentanyl, Ur Not Detected ng/mL Cutoff: 2 46 Meperidine, Ur Not Detected ng/mL Cutoff: 25 47 Normeperidine, Ur Not Detected ng/mL Cutoff: 25 48 Naloxone, Ur Not Detected ng/mL Cutoff: 25 49 Jbvogage-5-vubk-glucuronide, U Not Detected ng/mL 50 Methadone, Ur Not Detected ng/mL Cutoff: 25 51 Eddp, Ur Not Detected ng/mL Cutoff: 25 52 Propoxyphene, Ur Not Detected ng/mL Cutoff: 25 53 Norpropoxyphene, Ur Not Detected ng/mL Cutoff: 25 54 Tramadol, Ur Not Detected ng/mL Cutoff: 25 55 O-desmethyltramadol, Ur Not Detected ng/mL Cutoff: 25 56 Tapentadol, Ur Not Detected ng/mL Cutoff: 25 57 N-desmethyltapentadol, Ur Not Detected ng/mL Cutoff: 50 58 Apegqgsrmx-ukps-btjqhqwczlz, U Not Detected ng/mL 59 Buprenorphine, Ur Not Detected ng/mL Cutoff: 5 60 Norbuprenorphine, Ur Not Detected ng/mL Cutoff: 5 61 Norbuprenorphine glucuronide Not Detected ng/mL Cutoff: 20 62 Opioid Interpretation See Comment 63 THC Confirmation 08/30/2017 [facility] Urine Carboxy >500.0 ng/ mL [address] [place] [address] [phone] Urine THC Interpretation Positive. 65 Xray 08/30/2017 [facility] Foot Left 3+ <pending> [address] [place] [address] [phone] Comp Metabolic 08/29/2017 [facility] Sodium 143 mmol/L N 135- [address] [place] [address] [phone] Potassium 4.2 mmol/L N 3.5-5.0 Chloride 107 mmol/L N 101-111 Co2 Carbon Dioxide 31 mmol/L N 22-32 Anion Gap 5 mmol/L N 2-11 Glucose 72 mg/dL N 70-100 Blood Urea Nitrogen 11 mg/dL N 6-24 Creatinine 0.92 mg/dL N 0.67-1.17 BUN/Creatinine Ratio 12.0 N 8-20 Calcium 9.1 mg/dL N 8.6-10.3 Total Protein 7.1 g/dL N 6.4-8.9 Albumin 4.3 g/dL N 3.2-5.2 Globulin 2.8 g/dL N 2-4 Albumin/Globulin Ratio 1.5 N 1-3 Total Bilirubin 0.50 mg/dL N 0.2-1.0 Alkaline Phosphatase 67 U/L N 34-104 Alt 13 U/L N 7-52 Ast 19 U/L N 13-39 Egfr Non- 83.6 >60 Egfr 101.2 >60 66 Laboratory test 01/15/2017 [facility] Lyme Disease Negative Negative [address] [place] [address] [phone] CBC Auto Diff 01/04/2017 [facility] White Blood 6.0 10^3/uL N 3.5-10.[address] [place] [address] [phone] Red Blood Count 4.96 10^6/uL N 4.0-5.4 Hemoglobin 14.7 g/dL N 14.0-18.0 Hematocrit 44 % N 42-52 Mean Corpuscular Volume 88 fL N 80-94 Mean Corpuscular Hemoglobin 30 pg N 27-31 Mean Corpuscular HGB Conc 34 g/dL N 31-36 Red Cell Distribution Width 13 % N 10.5-15 Platelet Count 145 10^3/uL Low 150-450 Mean Platelet Volume 9 um3 N 7.4-10.4 Abs Neutrophils 4.6 10^3/uL N 1.5-7.7 Abs Lymphocytes 1.0 10^3/uL N 1.0-4.8 Abs Monocytes 0.3 10^3/uL N 0-0.8 Abs Eosinophils 0 10^3/uL N 0-0.6 Abs Basophils 0 10^3/uL N 0-0.2 Abs Nucleated RBC 0 10^3/uL Granulocyte % 76.3 % N 38-83 Lymphocyte % 17.2 % Low 25-47 Monocyte % 5.3 % N 1-9 Eosinophil % 0.8 % N 0-6 Basophil % 0.4 % N 0-2 Nucleated Red Blood Cells % 0.1 Comp Metabolic Panel 01/04/2017 [facility] Sodium 138 mmol/L N 133-145 [address] [place] [address] [phone] Potassium 4.0 mmol/L N 3.5-5.0 Chloride 104 mmol/L N 101-111 Co2 Carbon Dioxide 26 mmol/L N 22-32 Anion Gap 8 mmol/L N 2-11 Glucose 104 mg/dL High 70-100 Blood Urea Nitrogen 12 mg/dL N 6-24 Creatinine 0.82 mg/dL N 0.67-1.17 BUN/Creatinine Ratio 14.6 N 8-20 Calcium 9.7 mg/dL N 8.6-10.3 Total Protein 7.5 g/dL N 6.4-8.9 Albumin 4.6 g/dL N 3.2-5.2 Globulin 2.9 g/dL N 2-4 Albumin/Globulin Ratio 1.6 N 1-3 Total Bilirubin 0.70 mg/dL N 0.2-1.0 Alkaline Phosphatase 72 U/L N 34-104 Alt 17 U/L N 7-52 Ast 20 U/L N 13-39 Egfr Non- 95.8 >60 Egfr 123.3 >60 68 Lipid Profile 01/04/2017 [facility] Triglycerides 115 mg/dL 69 (Trig/Chol/HDL) [address] [place] [address] [phone] Cholesterol 177 mg/dL 70 HDL Cholesterol 41.1 mg/dL 71 LDL Cholesterol 113 mg/dL 72 Laboratory test 01/04/2017 [facility] PSA Screening 0.151 ng/mL N 0-4.000 73 finding [address] [place] [address] [phone] Comp Metabolic 09/09/2016 [facility] Sodium 138 mmol/L N 133- 145 Panel [address] [place] [address] [phone] Potassium 4.1 mmol/L N 3.5-5.0 Chloride 104 mmol/L N 101-111 Co2 Carbon Dioxide 27 mmol/L N 22-32 Anion Gap 7 mmol/L N 2-11 Glucose 97 mg/dL N 70-100 Blood Urea Nitrogen 14 mg/dL N 6-24 Creatinine 0.83 mg/dL N 0.67-1.17 BUN/Creatinine Ratio 16.9 N 8-20 Calcium 9.4 mg/dL N 8.6-10.3 Total Protein 7.3 g/dL N 6.4-8.9 Albumin 4.4 g/dL N 3.2-5.2 Globulin 2.9 g/dL N 2-4 Albumin/Globulin Ratio 1.5 N 1-3 Total Bilirubin 0.70 mg/dL N 0.2-1.0 Alkaline Phosphatase 71 U/L N 34-104 Alt 13 U/L N 7-52 Ast 17 U/L N 13-39 Egfr Non- 94.5 N >60 Egfr 121.5 N >60 74 CBC Auto Diff 09/09/2016 [facility] White Blood 5.0 10^3/uL N 3.5-10.[address] [place] [address] [phone] Red Blood Count 4.72 10^6/uL N 4.0-5.4 Hemoglobin 14.4 g/dL N 14.0-18.0 Hematocrit 43 % N 42-52 Mean Corpuscular Volume 91 fL N 80-94 Mean Corpuscular Hemoglobin 31 pg N 27-31 Mean Corpuscular HGB Conc 34 g/dL N 31-36 Red Cell Distribution Width 14 % N 10.5-15 Platelet Count 119 10^3/uL Low 150-450 Mean Platelet Volume 10 um3 N 7.4-10.4 Abs Neutrophils 3.5 10^3/uL N 1.5-7.7 Abs Lymphocytes 1.0 10^3/uL N 1.0-4.8 Abs Monocytes 0.3 10^3/uL N 0-0.8 Abs Eosinophils 0.1 10^3/uL N 0-0.6 Abs Basophils 0 10^3/uL N 0-0.2 Abs Nucleated RBC 0 10^3/uL N Granulocyte % 70.4 % N 38-83 Lymphocyte % 20.9 % Low 25-47 Monocyte % 6.6 % N 1-9 Eosinophil % 1.6 % N 0-6 Basophil % 0.5 % N 0-2 Nucleated Red Blood Cells % 0.1 N Lipid Profile 09/09/2016 [facility] Triglycerides 122 mg/dL N 75 (Trig/Chol/HDL) [address] [place] [address] [phone] Cholesterol 144 mg/dL N 76 HDL Cholesterol 38.6 mg/dL N 77 LDL Cholesterol 81 mg/dL N 78 Laboratory 09/09/2016 [facility] Hepatitis C Nonreactive N Nonreactive test finding [address] [place] [address] [phone] Drug Abuse 20 03/02/2016 [facility] Urine Negative N [address] Amphetamine ng/[place] [address] [phone] Urine Barbiturates Negative ng/mL N 80 Urine Benzodiazepines Negative ng/mL N 81 Urine Cocaine Negative ng/mL N 82 Urine Phencyclidine Negative ng/mL N Cutoff: 25 Urine Tetrahydrocannabinol Presumptive Posi <SEE NOTE> ng/mL N Cutoff: 50 83 Creatinine 126.0 mg/dL N Specific [place] 1.014 N pH 5.8 N Oxidants Negative N 84 Adulterants Comment Normal N Codeine, Ur Not Detected ng/mL N Cutoff: 25 85 Ponxkzd-5-qauq-glucuronide, Ur Not Detected ng/mL N 86 Morphine, Ur Present ng/mL N Cutoff: 25 87 Aqgtvtrr-6-kjlq-glucuronide, U Present ng/mL N 88 6-monoacetylmorphine, Ur Not Detected ng/mL N Cutoff: 25 89 Hydrocodone, Ur Not Detected ng/mL N Cutoff: 25 90 Norhydrocodone, Ur Not Detected ng/mL N Cutoff: 25 91 Dihydrocodeine, Ur Not Detected ng/mL N Cutoff: 25 92 Hydromorphone, Ur Not Detected ng/mL N Cutoff: 25 93 Xceysiofolovn0jwhkbcmceakiane Present ng/mL N 94 Oxycodone, Ur Present ng/mL N Cutoff: 25 95 Noroxycodone, Ur Present ng/mL N Cutoff: 25 96 Oxymorphone, Ur Present ng/mL N Cutoff: 25 97 Cnagmkcyvsp-7-vpvc-glucuronide Present ng/mL N 98 Noroxymorphone, Ur Present ng/mL N Cutoff: 25 99 Fentanyl, Ur Not Detected ng/mL N Cutoff: 2 100 Norfentanyl, Ur Not Detected ng/mL N Cutoff: 2 101 Meperidine, Ur Not Detected ng/mL N Cutoff: 25 102 Normeperidine, Ur Not Detected ng/mL N Cutoff: 25 103 Naloxone, Ur Not Detected ng/mL N Cutoff: 25 104 Kllkkker-0-qvrs-glucuronide, U Not Detected ng/mL N 105 Methadone, Ur Not Detected ng/mL N Cutoff: 25 106 Eddp, Ur Not Detected ng/mL N Cutoff: 25 107 Propoxyphene, Ur Not Detected ng/mL N Cutoff: 25 108 Norpropoxyphene, Ur Not Detected ng/mL N Cutoff: 25 109 Tramadol, Ur Not Detected ng/mL N Cutoff: 25 110 O-desmethyltramadol, Ur Not Detected ng/mL N Cutoff: 25 111 Tapentadol, Ur Not Detected ng/mL N Cutoff: 25 112 N-desmethyltapentadol, Ur Not Detected ng/mL N Cutoff: 50 113 Kqwtltokel-pqxp-uaufctzhomi, U Not Detected ng/mL N 114 Buprenorphine, Ur Not Detected ng/mL N Cutoff: 5 115 Norbuprenorphine, Ur Not Detected ng/mL N Cutoff: 5 116 Norbuprenorphine glucuronide Not Detected ng/mL N Cutoff: 20 117 Opioid Interpretation See Comment N 118 THC Confirmation 03/02/2016 [facility] Urine Carboxy >500.0 ng/ mL N [address] [place] [address] [phone] Urine THC Interpretation Positive. N 120 Comp Metabolic Panel 02/04/2016 [facility] Sodium 138 mmol/L N 133-[address] [place] [address] [phone] Potassium 4.1 mmol/L N 3.5-5.0 Chloride 105 mmol/L N 101-111 Co2 Carbon Dioxide 28 mmol/L N 22-32 Anion Gap 5 mmol/L N 2-11 Glucose 88 mg/dL N 70-100 Blood Urea Nitrogen 7 mg/dL N 6-24 Creatinine 0.89 mg/dL N 0.67-1.17 BUN/Creatinine Ratio 7.9 Low 8-20 Calcium 9.7 mg/dL N 8.6-10.3 Total Protein 7.4 g/dL N 6.4-8.9 Albumin 4.5 g/dL N 3.2-5.2 Globulin 2.9 g/dL N 2-4 Albumin/Globulin Ratio 1.6 N 1-3 Total Bilirubin 0.70 mg/dL N 0.2-1.0 Alkaline Phosphatase 67 U/L N 34-104 Alt 10 U/L N 7-52 Ast 15 U/L N 13-39 Egfr Non- 87.5 N >60 Egfr 112.5 N >60 121 CBC Auto Diff 02/04/2016 [facility] White Blood 6.2 10^3/uL N 3.5-10.[address] [place] [address] [phone] Red Blood Count 5.02 10^6/uL N 4.0-5.4 Hemoglobin 14.3 g/dL N 14.0-18.0 Hematocrit 42 % N 42-52 Mean Corpuscular Volume 84 fL N 80-94 Mean Corpuscular Hemoglobin 29 pg N 27-31 Mean Corpuscular HGB Conc 34 g/dL N 31-36 Red Cell Distribution Width 15 % N 10.5-15 Platelet Count 171 10^3/uL N 150-450 Mean Platelet Volume 9 um3 N 7.4-10.4 Abs Neutrophils 3.8 10^3/uL N 1.5-7.7 Abs Lymphocytes 1.8 10^3/uL N 1.0-4.8 Abs Monocytes 0.6 10^3/uL N 0-0.8 Abs Eosinophils 0.1 10^3/uL N 0-0.6 Abs Basophils 0 10^3/uL N 0-0.2 Abs Nucleated RBC 0 10^3/uL N Granulocyte % 60.6 % N 38-83 Lymphocyte % 28.8 % N 25-47 Monocyte % 8.9 % N 1-9 Eosinophil % 1.3 % N 0-6 Basophil % 0.4 % N 0-2 Nucleated Red Blood Cells % 0.1 N Urinalysis Profile 09/19/2015 [facility] Urine Color Yellow N [address] [place] [address] [phone] Urine Appearance Clear N Urine Specific [place] 1.010 N 1.010-1.030 Urine pH 6.0 N 5-9 Urine Urobilinogen Negative N Negative Urine Ketones Negative N Negative Urine Protein Negative N Negative Urine Leukocytes Negative N Negative Urine Blood Negative N Negative Urine Nitrite Negative N Negative Urine Bilirubin Negative N Negative Urine Glucose Negative N Negative CBC No Diff 09/19/2015 [facility] White Blood 5.3 10^3/uL N 3.5-10.[address] [place] [address] [phone] Red Blood Count 4.52 10^6/uL N 4.0-5.4 Hemoglobin 13.1 g/dL Low 14.0-18.0 Hematocrit 39 % Low 42-52 Mean Corpuscular Volume 86 fL N 80-94 Mean Corpuscular Hemoglobin 29 pg N 27-31 Mean Corpuscular HGB Conc 34 g/dL N 31-36 Red Cell Distribution Width 14 % N 10.5-15 Platelet Count 111 10^3/uL Low 150-450 Mean Platelet Volume 9 um3 N 7.4-10.4 Comp Metabolic Panel 09/19/2015 [facility] Sodium 139 mmol/L N 133-145 [address] [place] [address] [phone] Potassium 4.2 mmol/L N 3.5-5.0 Chloride 104 mmol/L N 101-111 Co2 Carbon Dioxide 30 mmol/L N 22-32 Anion Gap 5 mmol/L N 2-11 Glucose 88 mg/dL N 70-100 Blood Urea Nitrogen 11 mg/dL N 6-24 Creatinine 0.84 mg/dL N 0.67-1.17 BUN/Creatinine Ratio 13.1 N 8-20 Calcium 9.0 mg/dL N 8.6-10.3 Total Protein 6.9 g/dL N 6.4-8.9 Albumin 4.3 g/dL N 3.2-5.2 Globulin 2.6 g/dL N 2-4 Albumin/Globulin Ratio 1.7 N 1-3 Total Bilirubin 0.60 mg/dL N 0.2-1.0 Alkaline Phosphatase 84 U/L N 34-104 Alt 11 U/L N 7-52 Ast 15 U/L N 13-39 Egfr Non- 93.5 N >60 Egfr 120.3 N >60 123 Inr/Protime 09/19/2015 [facility] Inr 1.04 N 0.89-1.11 [address] [place] [address] [phone] Laboratory test 09/19/2015 [facility] Partial 29.2 seconds N 26.0-36.[address] [place] [address] Time PTT [phone] Type & Screen 09/19/2015 [facility] Patient A Positive N [address] [place] [address] [phone] Antibody Screen NEGATIVE N Urine Culture And 09/19/2015 [facility] Urine Culture SEE RESULT [address] [place] [address] [phone] Comp Metabolic 09/05/2015 [facility] Sodium 138 mmol/L N 133- [address] [place], [place] [id number] [phone] Potassium 3.8 mmol/L N 3.5-5.0 Chloride 103 mmol/L N 101-111 Co2 Carbon Dioxide 28 mmol/L N 22-32 Anion Gap 7 mmol/L N 2-11 Glucose 97 mg/dL N 70-100 Blood Urea Nitrogen 9 mg/dL N 6-24 Creatinine 0.81 mg/dL N 0.67-1.17 BUN/Creatinine Ratio 11.1 N 8-20 Calcium 9.8 mg/dL N 8.6-10.3 Total Protein 7.6 g/dL N 6.4-8.9 Albumin 4.7 g/dL N 3.2-5.2 Globulin 2.9 g/dL N 2-4 Albumin/Globulin Ratio 1.6 N 1-3 Total Bilirubin 0.90 mg/dL N 0.2-1.0 Alkaline Phosphatase 82 U/L N 34-104 Alt 16 U/L N 7-52 Ast 22 U/L N 13-39 Egfr Non- 97.5 N >60 Egfr 125.4 N >60 126 CBC Auto Diff 09/05/2015 [facility] White Blood 5.2 10^3/uL N 3.5-10.[address] [place] [address] [phone] Red Blood Count 5.27 10^6/uL N 4.0-5.4 Hemoglobin 15.1 g/dL N 14.0-18.0 Hematocrit 45 % N 42-52 Mean Corpuscular Volume 86 fL N 80-94 Mean Corpuscular Hemoglobin 29 pg N 27-31 Mean Corpuscular HGB Conc 34 g/dL N 31-36 Red Cell Distribution Width 14 % N 10.5-15 Platelet Count 133 10^3/uL Low 150-450 Mean Platelet Volume 9 um3 N 7.4-10.4 Abs Neutrophils 3.9 10^3/uL N 1.5-7.7 Abs Lymphocytes 1.0 10^3/uL N 1.0-4.8 Abs Monocytes 0.3 10^3/uL N 0-0.8 Abs Eosinophils 0 10^3/uL N 0-0.6 Abs Basophils 0 10^3/uL N 0-0.2 Abs Nucleated RBC 0.01 10^3/uL N Granulocyte % 75.0 % N 38-83 Lymphocyte % 18.4 % Low 25-47 Monocyte % 5.7 % N 1-9 Eosinophil % 0.6 % N 0-6 Basophil % 0.3 % N 0-2 Nucleated Red Blood Cells % 0.2 N Laboratory test 09/05/2015 [facility] PSA Screening 0.112 ng/mL N 0-4.000 [address] [place], [place] [id number] [phone] Laboratory test 08/15/2015 [facility] Body Fluid None Seen N [address] Crystals [place], [place] [address] [phone] Body Fluid C&S 08/15/2015 [facility] Body Fluid SEE RESULT [address] [place] [address] Stain [phone] Acid Fast 08/15/2015 [facility] Acid Fast SEE RESULT 130 Culture & Smear [address] [place] [address] Smear [phone] Laboratory test 08/15/2015 [facility] Anaerobic SEE RESULT [address] [place] [address] [phone] Body Fluid Cell 08/15/2015 [facility] Body Fluid Synovial N Count [address] Source Fluid [place], [place] [address] [phone] Body Fluid WBC 67666 /mcL N 132 Body Fluid RBC 0 /mcL N Body Fluid Neutrophils 88 % N Body Fluid Lymph 5 % N Body Fluid [place] 7 % N Body Fluid NRBC 1 N Body Fluid Total Cells Counted 100 N Body Fluid Appearance Cloudy N Body Fluid Color Yellow N Body Fluid Volume 60 mL N Body Fluid Comment (SEE NOTE) N 133 Fluid Reviewed By MD (SEE NOTE) N 134 Laboratory test 08/15/2015 [facility] Fungal Cult Other SEE RESULT [address] [place] [address] [phone] Laboratory test 08/15/2015 [facility] Fungal Cult Other SEE RESULT [address] [place] [address] [phone] Laboratory test 08/15/2015 [facility] Fungal Cult Other SEE RESULT [address] [place] [address] [phone] Laboratory test 08/15/2015 [facility] Mycobacterial See Comment N [address] [place] [address] [phone] CBC Auto Diff 07/07/2015 [facility] White Blood Count 5.1 10^3/ uL N 3.5- [address] 10.8 [place] [address] [phone] Red Blood Count 4.99 10^6/uL N 4.0-5.4 Hemoglobin 14.7 g/dL N 14.0-18.0 Hematocrit 43 % N 42-52 Mean Corpuscular Volume 87 fL N 80-94 Mean Corpuscular Hemoglobin 29 pg N 27-31 Mean Corpuscular HGB Conc 34 g/dL N 31-36 Red Cell Distribution Width 14 % N 10.5-15 Platelet Count 118 10^3/uL Low 150-450 Mean Platelet Volume 9 um3 N 7.4-10.4 Abs Neutrophils 3.6 10^3/uL N 1.5-7.7 Abs Lymphocytes 1.1 10^3/uL N 1.0-4.8 Abs Monocytes 0.3 10^3/uL N 0-0.8 Abs Eosinophils 0.1 10^3/uL N 0-0.6 Abs Basophils 0 10^3/uL N 0-0.2 Abs Nucleated RBC 0.01 10^3/uL N Granulocyte % 70.2 % N 38-83 Lymphocyte % 21.1 % Low 25-47 Monocyte % 6.4 % N 1-9 Eosinophil % 1.4 % N 0-6 Basophil % 0.9 % N 0-2 Nucleated Red Blood Cells % 0.1 N Comp Metabolic Panel 07/07/2015 [facility] Sodium 138 mmol/L N 133-[address] [place] [address] [phone] Potassium 4.1 mmol/L N 3.5-5.0 Chloride 105 mmol/L N 101-111 Co2 Carbon Dioxide 28 mmol/L N 22-32 Anion Gap 5 mmol/L N 2-11 Glucose 113 mg/dL High 70-100 Blood Urea Nitrogen 10 mg/dL N 6-24 Creatinine 0.80 mg/dL N 0.67-1.17 BUN/Creatinine Ratio 12.5 N 8-20 Calcium 9.3 mg/dL N 8.6-10.3 Total Protein 7.0 g/dL N 6.4-8.9 Albumin 4.2 g/dL N 3.2-5.2 Globulin 2.8 g/dL N 2-4 Albumin/Globulin Ratio 1.5 N 1-3 Total Bilirubin 1.00 mg/dL N 0.2-1.0 Alkaline Phosphatase 71 U/L N 34-104 Alt 14 U/L N 7-52 Ast 18 U/L N 13-39 Egfr Non- 98.9 N >60 Egfr 127.2 N >60 139 Laboratory test 05/27/2015 [facility] Troponin-I 0.00 ng/mL N <0.03 [address] (TnI) [place] [address] [phone] CBC Auto Diff 11/26/2014 [facility] White Blood 7.2 N 4.8- 10.[address] Count 10^3/[place] [address] [phone] Red Blood Count 4.83 10^6/uL N 4.0-5.4 Hemoglobin 14.4 g/dL N 14.0-18.0 Hematocrit 43 % N 42-52 Mean Corpuscular Volume 90 fL N 80-94 Mean Corpuscular Hemoglobin 30 pg N 27-31 Mean Corpuscular HGB Conc 33 g/dL N 31-36 Red Cell Distribution Width 14 % N 10.5-15 Platelet Count 153 10^3/uL N 150-450 Mean Platelet Volume 9 um3 N 7.4-10.4 Abs Neutrophils 5.0 10^3/uL N 1.5-7.7 Abs Lymphocytes 1.3 10^3/uL N 1.0-4.8 Abs Monocytes 0.6 10^3/uL N 0-0.8 Abs Eosinophils 0.3 10^3/uL N 0-0.6 Abs Basophils 0 10^3/uL N 0-0.2 Abs Nucleated RBC 0.03 10^3/uL N Granulocyte % 69.0 % N 38-83 Lymphocyte % 17.5 % Low 25-47 Monocyte % 9.0 % N 1-9 Eosinophil % 4.0 % N 0-6 Basophil % 0.5 % N 0-2 Nucleated Red Blood Cells % 0.4 N Lipid Profile 11/26/2014 [facility] Triglycerides 72 mg/dL N 142 (Trig/Chol/HDL) [address] [place], [place] [address] [phone] Cholesterol 155 mg/dL N 143 HDL Cholesterol 48.6 mg/dL N 144 LDL Cholesterol 92 mg/dL N 145 Laboratory test 11/26/2014 [facility] Glucose 98 mg/dL N 70- [address] [place], [place] [address] [phone] Laboratory test 08/14/2014 [facility] PSA Screening 0.138 N 0- 4.000 146, finding [address] ng/mL 147 [place], [place] [id number] [phone] Glucose 104 mg/dL High 70-100 148 Comp Metabolic Panel 08/01/2014 [facility] Sodium 137 mmol/L N 133-[address] [place], [place] [id number] [phone] Potassium 3.9 mmol/L N 3.5-5.0 Chloride 104 mmol/L N 101-111 Co2 Carbon Dioxide 27 mmol/L N 22-32 Anion Gap 6 mmol/L N 2-11 Glucose 136 mg/dL High 70-100 Blood Urea Nitrogen 9 mg/dL N 6-24 Creatinine 0.92 mg/dL N 0.67-1.17 BUN/Creatinine Ratio 9.8 N 8-20 Calcium 8.8 mg/dL N 8.6-10.3 Total Protein 7.1 g/dL N 6.4-8.9 Albumin 4.2 g/dL N 3.2-5.2 Globulin 2.9 g/dL N 2-4 Albumin/Globulin Ratio 1.4 N 1-3 Total Bilirubin 0.70 mg/dL N 0.2-1.0 Alkaline Phosphatase 85 U/L N 34-104 Alt 17 U/L N 7-52 Ast 25 U/L N 13-39 Egfr Non- 84.5 N >60 Egfr 108.7 N >60 149 CBC Auto Diff 08/01/2014 [facility] White Blood 5.4 10^3/uL N 4.8-10.[address] [place] [address] [phone] Red Blood Count 4.45 10^6/uL N 4.0-5.4 Hemoglobin 13.2 g/dL Low 14.0-18.0 Hematocrit 40 % Low 42-52 Mean Corpuscular Volume 90 fL N 80-94 Mean Corpuscular Hemoglobin 30 pg N 27-31 Mean Corpuscular HGB Conc 33 g/dL N 31-36 Red Cell Distribution Width 15 % N 10.5-15 Platelet Count 115 10^3/uL Low 150-450 Mean Platelet Volume 9 um3 N 7.4-10.4 Abs Neutrophils 3.0 10^3/uL N 1.5-7.7 Abs Lymphocytes 1.6 10^3/uL N 1.0-4.8 Abs Monocytes 0.5 10^3/uL N 0-0.8 Abs Eosinophils 0.2 10^3/uL N 0-0.6 Abs Basophils 0 10^3/uL N 0-0.2 Abs Nucleated RBC 0 10^3/uL N Granulocyte % 56.1 % N 38-83 Lymphocyte % 30.3 % N 25-47 Monocyte % 9.2 % High 1-9 Eosinophil % 3.8 % N 0-6 Basophil % 0.6 % N 0-2 Nucleated Red Blood Cells % 0 N Comp Metabolic Panel 04/18/2014 [facility] Sodium 136 mmol/L N 133-[address] [place] [address] [phone] Potassium 3.5 mmol/L N 3.5-5.0 Chloride 104 mmol/L N 101-111 Co2 Carbon Dioxide 27 mmol/L N 22-32 Anion Gap 5 mmol/L N 2-11 Glucose 93 mg/dL N 70-100 Blood Urea Nitrogen 8 mg/dL N 6-24 Creatinine 0.72 mg/dL N 0.67-1.17 BUN/Creatinine Ratio 11.1 N 8-20 Calcium 9.4 mg/dL N 8.6-10.3 Total Protein 7.1 g/dL N 6.4-8.9 Albumin 4.1 g/dL N 3.2-5.2 Globulin 3.0 g/dL N 2-4 Albumin/Globulin Ratio 1.4 N 1-3 Total Bilirubin 0.90 mg/dL N 0.2-1.0 Alkaline Phosphatase 95 U/L N 34-104 Alt 19 U/L N 7-52 Ast 26 U/L N 13-39 Egfr Non- 112.1 N >60 Egfr 144.2 N >60 150 CBC Auto Diff 04/18/2014 [facility] White Blood 7.5 10^3/uL N 4.8-10.[address] [place] [address] [phone] Red Blood Count 4.55 10^6/uL N 4.0-5.4 Hemoglobin 13.9 g/dL Low 14.0-18.0 Hematocrit 41 % Low 42-52 Mean Corpuscular Volume 90 fL N 80-94 Mean Corpuscular Hemoglobin 31 pg N 27-31 Mean Corpuscular HGB Conc 34 g/dL N 31-36 Red Cell Distribution Width 15 % N 10.5-15 Platelet Count 106 10^3/uL Low 150-450 Mean Platelet Volume 9 um3 N 7.4-10.4 Abs Neutrophils 5.2 10^3/uL N 1.5-7.7 Abs Lymphocytes 1.6 10^3/uL N 1.0-4.8 Abs Monocytes 0.6 10^3/uL N 0-0.8 Abs Eosinophils 0.1 10^3/uL N 0-0.6 Abs Basophils 0 10^3/uL N 0-0.2 Abs Nucleated RBC 0.01 10^3/uL N Granulocyte % 68.9 % N 38-83 Lymphocyte % 21.5 % Low 25-47 Monocyte % 7.8 % N 1-9 Eosinophil % 1.4 % N 0-6 Basophil % 0.4 % N 0-2 Nucleated Red Blood Cells % 0.1 N CBC Auto Diff 03/22/2014 [facility] White Blood 4.8 10^3/uL N 4.8-10.[address] [place] [address] [phone] Red Blood Count 4.09 10^6/uL N 4.0-5.4 Hemoglobin 12.6 g/dL Low 14.0-18.0 Hematocrit 36 % Low 42-52 Mean Corpuscular Volume 89 fL N 80-94 Mean Corpuscular Hemoglobin 31 pg N 27-31 Mean Corpuscular HGB Conc 35 g/dL N 31-36 Red Cell Distribution Width 14 % N 10.5-15 Platelet Count 91 10^3/uL Low 150-450 Mean Platelet Volume 9 um3 N 7.4-10.4 Abs Neutrophils 3.0 10^3/uL N 1.5-7.7 Abs Lymphocytes 1.2 10^3/uL N 1.0-4.8 Abs Monocytes 0.5 10^3/uL N 0-0.8 Abs Eosinophils 0.1 10^3/uL N 0-0.6 Abs Basophils 0 10^3/uL N 0-0.2 Abs Nucleated RBC 0.01 10^3/uL N Granulocyte % 62.7 % N 38-83 Lymphocyte % 24.9 % Low 25-47 Monocyte % 9.4 % High 1-9 Eosinophil % 2.3 % N 0-6 Basophil % 0.7 % N 0-2 Nucleated Red Blood Cells % 0.2 N Comp Metabolic Panel 03/22/2014 [facility] Sodium 138 mmol/L N 133-145 [address] [place] [address] [phone] Potassium 3.8 mmol/L N 3.5-5.0 Chloride 105 mmol/L N 101-111 Co2 Carbon Dioxide 30 mmol/L N 22-32 Anion Gap 3 mmol/L N 2-11 Glucose 71 mg/dL N 70-100 Blood Urea Nitrogen 8 mg/dL N 6-24 Creatinine 0.86 mg/dL N 0.67-1.17 BUN/Creatinine Ratio 9.3 N 8-20 Calcium 8.9 mg/dL N 8.6-10.3 Total Protein 6.6 g/dL N 6.4-8.9 Albumin 4.0 g/dL N 3.2-5.2 Globulin 2.6 g/dL N 2-4 Albumin/Globulin Ratio 1.5 N 1-3 Total Bilirubin 0.60 mg/dL N 0.2-1.0 Alkaline Phosphatase 101 U/L N 34-104 Alt 18 U/L N 7-52 Ast 25 U/L N 13-39 Egfr Non- 91.7 N >60 Egfr 117.9 N >60 151 Laboratory test 03/22/2014 [facility] Pathologist (SEE N [address] Review NOTE) [place] [address] [phone] Testosterone 03/22/2014 [facility] Free 6.5 Abnormal 9-3 153 Free & Total [address] Testosterone ng/dL 0 [place] [address] ng/dl [phone] Testosterone 501 ng/dL N 240-950 154 Laboratory test 02/06/2014 [facility] Fluid Crystals None Seen N [address] [place], [place] [id number] [phone] Body Fluid C&S 02/06/2014 [facility] Body Fluid (SEE NOTE) [address] [place] [place] [address] Stain [phone] Comp Metabolic 01/22/2014 [facility] Sodium 138 mmol/L N 133- [address] 5 [place] [address] [phone] Potassium 3.8 mmol/L N 3.5-5.0 157 Chloride 106 mmol/L N 101-111 Co2 Carbon Dioxide 26 mmol/L N 22-32 Anion Gap 6 mmol/L N 2-11 Glucose 87 mg/dL N 70-100 Blood Urea Nitrogen 9 mg/dL N 6-24 Creatinine 0.63 mg/dL Low 0.67-1.17 BUN/Creatinine Ratio 14.3 N 8-20 Calcium 9.0 mg/dL N 8.6-10.3 Total Protein 6.8 g/dL N 6.4-8.9 Albumin 3.8 g/dL N 3.2-5.2 Globulin 3.0 g/dL N 2-4 Albumin/Globulin Ratio 1.3 N 1-3 Total Bilirubin 1.10 mg/dL High 0.2-1.0 Alkaline Phosphatase 96 U/L N 34-104 Alt 22 U/L N 7-52 Ast 28 U/L N 13-39 Egfr Non- 131.3 N >60 Egfr 168.8 N >60 158 CBC Auto Diff 01/22/2014 [facility] White Blood 6.2 10^3/uL N 4.8-10.[address] [place] [address] [phone] Red Blood Count 4.34 10^6/uL N 4.0-5.4 Hemoglobin 13.2 g/dL Low 14.0-18.0 Hematocrit 39 % Low 42-52 Mean Corpuscular Volume 89 fL N 80-94 Mean Corpuscular Hemoglobin 31 pg N 27-31 Mean Corpuscular HGB Conc 34 g/dL N 31-36 Red Cell Distribution Width 15 % N 10.5-15 Platelet Count 101 10^3/uL Low 150-450 Mean Platelet Volume 9 um3 N 7.4-10.4 Abs Neutrophils 4.1 10^3/uL N 1.5-7.7 Abs Lymphocytes 1.4 10^3/uL N 1.0-4.8 Abs Monocytes 0.5 10^3/uL N 0-0.8 Abs Eosinophils 0.2 10^3/uL N 0-0.6 Abs Basophils 0 10^3/uL N 0-0.2 Abs Nucleated RBC 0 10^3/uL N Granulocyte % 65.9 % N 38-83 Lymphocyte % 22.1 % Low 25-47 Monocyte % 8.8 % N 1-9 Eosinophil % 2.5 % N 0-6 Basophil % 0.7 % N 0-2 Nucleated Red Blood Cells % 0.1 N Testosterone Free 01/22/2014 [facility] Free Testosterone 12 ng/ dL N 9-30 159 & Total [address] [facility] ng/[place] [address] [phone] Testosterone 831 ng/dL N 240-950 160 Lipid Profile 07/17/2013 [facility] Triglycerides 48 mg/dL N 161 (Trig/Chol/HDL) [address] [place] [address] [phone] Cholesterol 155 mg/dL N 162 HDL Cholesterol 62.7 mg/dL N 163 LDL Cholesterol 83 mg/dL N 164 Iron & Iron Binding 04/26/2013 [facility] Iron 105 g/dL 50- 212 [address]acity [address] [place] [address] [phone] Unsaturated Iron Binding 139 g/dL Total Iron Binding Capacity 244 g/dL Low 250-450 % Iron Saturation 43 % 15-55 Laboratory test 04/26/2013 [facility] Ferritin 123.8 ng/mL 24 -336 finding [address] [place] [address] [phone] Folate 13.73 ng/mL >3.99 Vitamin B12 526 pg/mL 180-914 165 Platelet Count 04/25/2013 [facility] Platelet Count 79 10^3/uL Low 150-[address] [place] [address] [phone] Mean Platelet Volume 8 um3 7.4-10.4 Comp Metabolic Panel 04/19/2013 [facility] Sodium 138 mmol/L 133-[address] [place] [address] [phone] Potassium 3.9 mmol/L 3.7-5.6 Chloride 107 mmol/L 101-111 Co2 Carbon Dioxide 27 mmol/L 22-32 Anion Gap 4 mmol/L 2-11 Glucose 82 mg/dL 70-100 Blood Urea Nitrogen 9 mg/dL 6-24 Creatinine 0.64 mg/dL Low 0.67-1.17 BUN/Creatinine Ratio 14.1 8-20 Calcium 8.2 mg/dL Low 8.6-10.3 Total Protein 6.2 g/dL Low 6.4-8.9 Albumin 3.2 g/dL 3.2-5.2 Globulin 3.0 g/dL 2-4 Albumin/Globulin Ratio 1.1 1-3 Total Bilirubin 1.10 mg/dL High 0.2-1.0 Alkaline Phosphatase 102 U/L 34-104 Alt 18 U/L 7-52 Ast 28 U/L 13-39 Egfr Non- 128.9 >60 Egfr 165.8 >60 166 CBC Auto 04/19/2013 [facility] White Blood 3.1 10^3/uL Low 4.8 -10.[address] [place] [address] [phone] Red Blood Count 3.62 10^6/uL Low 4.0-5.4 Hemoglobin 11.8 g/dL Low 14.0-18.0 Hematocrit 34 % Low 42-52 Mean Corpuscular Volume 93 fL 80-94 Mean Corpuscular Hemoglobin 33 pg High 27-31 Mean Corpuscular HGB Conc 35 g/dL 31-36 Red Cell Distribution Width 15 % 10.5-15 Platelet Count (SEE NOTE) 10^3/uL 150-450 167 Abs Neutrophils 1.7 10^3/uL 1.5-7.7 Abs Lymphocytes 0.9 10^3/uL Low 1.0-4.8 Abs Monocytes 0.3 10^3/uL 0-0.8 Abs Eosinophils 0.1 10^3/uL 0-0.6 Abs Basophils 0 10^3/uL 0-0.2 Abs Nucleated RBC 0 10^3/uL Granulocyte % 55.7 % 38-83 Lymphocyte % 30.0 % 25-47 Monocyte % 8.9 % 1-9 Eosinophil % 4.3 % 0-6 Basophil % 1.1 % 0-2 Nucleated Red Blood Cells % 0.2 Laboratory test 04/19/2013 [facility] Activated 37.9 High 24.0 -36.[address] [place] [address] Thrombo Time [phone] Coagulation Factor II 43 % Abnormal 75 - 145 168 Ammonia 49 mol/L 16-53 Laboratory test 04/19/2013 [facility] In House Hemoglobin A1c 4.5 Low 5-7 finding Comp Metabolic 12/19/2012 [facility] Sodium 135 mmol/L 133- [address] [place] [address] [phone] Potassium 3.7 mmol/L 3.5-5.0 Chloride 105 mmol/L 101-111 Co2 Carbon Dioxide 27.0 mmol/L 22-32 Anion Gap 3.0 mmol/L 2-11 Glucose 121 mg/dL High 70-100 Blood Urea Nitrogen 8 mg/dL 6-24 Creatinine 0.80 mg/dL 0.50-1.40 BUN/Creatinine Ratio 10.0 8-20 Calcium 8.7 mg/dL 8.1-9.9 Total Protein 6.7 g/dL 6.2-8.1 Albumin 3.0 g/dL Low 3.6-5.4 Globulin 3.7 g/dL 2-4 Albumin/Globulin Ratio 0.8 Low 1-3 Total Bilirubin 1.8 mg/dL High 0.4-1.5 Alkaline Phosphatase 98 U/L 30-110 Alt 21 U/L 14-54 Ast 35 U/L 12-42 Egfr Non- 100.0 >60 Egfr 128.6 >60 169 Laboratory test 12/19/2012 [facility] PSA Screening 0.169 0- 4.000 [address] ng/[place] [address] [phone] Lyme Disease Serology Negative Negative 171 Surgical 11/14/2012 [facility] S RUN DATE: [address] 11/15/ <[place] [address] NOTE> [phone] CBC Auto Diff 11/09/2012 [facility] White Blood 3.4 10^3/uL Low 4.8-[address] Count .8 [place] [address] [phone] Red Blood Count 3.06 10^6/uL Low 4.0-5.4 Hemoglobin 10.6 g/dL Low 14.0-18.0 Hematocrit 30 % Low 42-52 Mean Corpuscular Volume 100 fL High 80-94 Mean Corpuscular Hemoglobin 35 pg High 27-31 Mean Corpuscular HGB Conc 35 g/dL 31-36 Red Cell Distribution Width 17 % High 10.5-15 Platelet Count 104 10^3/uL Low 150-450 Mean Platelet Volume 8 um3 7.4-10.4 Abs Neutrophils 1.6 10^3/uL 1.5-7.7 Abs Lymphocytes 1.1 10^3/uL 1.0-4.8 Abs Monocytes 0.4 10^3/uL 0-0.8 Abs Eosinophils 0.2 10^3/uL 0-0.6 Abs Basophils 0.1 10^3/uL 0-0.2 Abs Nucleated RBC 0.01 10^3/uL Granulocyte % 47.7 % 38-83 Lymphocyte % 33.6 % 25-47 Monocyte % 10.9 % High 1-9 Eosinophil % 6.2 % High 0-6 Basophil % 1.6 % 0-2 Nucleated Red Blood Cells % 0.2 Inr/Protime 11/09/2012 [facility] Inr 1.36 High 0.87-0.[address] [place] [address] [phone] Comp Metabolic 11/09/2012 [facility] Sodium 134 mmol/L 133- [address] [place] [address] [phone] Potassium 3.9 mmol/L 3.5-5.0 Chloride 104 mmol/L 101-111 Co2 Carbon Dioxide 27.0 mmol/L 22-32 Anion Gap 3.0 mmol/L 2-11 Glucose 108 mg/dL High 70-100 Blood Urea Nitrogen 7 mg/dL 6-24 Creatinine 0.80 mg/dL 0.50-1.40 BUN/Creatinine Ratio 8.8 8-20 Calcium 8.5 mg/dL 8.1-9.9 Total Protein 6.7 g/dL 6.2-8.1 Albumin 2.6 g/dL Low 3.6-5.4 Globulin 4.1 g/dL High 2-4 Albumin/Globulin Ratio 0.6 Low 1-3 Total Bilirubin 2.3 mg/dL High 0.4-1.5 Alkaline Phosphatase 101 U/L 30-110 Alt 16 U/L 14-54 Ast 39 U/L 12-42 Egfr Non- 100.0 >60 Egfr 128.6 >60 173 Laboratory test finding 11/09/2012 [facility] LDH 224 U/L High 95-185 [address] [place] [address] [phone] Iron & Iron Binding 11/09/2012 [facility] Iron 72 g/dL 45- 182 Capacity [address] [place] [address] [phone] Unsaturated Iron Binding 95 g/dL Total Iron Binding Capacity 167 g/dL Low 250-450 % Iron Saturation 43 % 15-55 Laboratory test 11/09/2012 [facility] Vitamin B12 653 pg/mL 180-914 finding [address] [place] [address] [phone] CBC No Diff 10/10/2012 [facility] White Blood 3.1 Low 4.8- 10.[address] [place] [address] Count 10^3/[place] [address] [phone] Red Blood Count 3.06 10^6/uL Low 4.0-5.4 Hemoglobin 10.3 g/dL Low 14.0-18.0 Hematocrit 30 % Low 42-52 Mean Corpuscular Volume 98 fL High 80-94 Mean Corpuscular Hemoglobin 34 pg High 27-31 Mean Corpuscular HGB Conc 34 g/dL 31-36 Red Cell Distribution Width 17 % High 10.5-15 Platelet Count 94 10^3/uL Low 150-450 Mean Platelet Volume 8 um3 7.4-10.4 Inr/Protime 10/10/2012 [facility] Inr 1.31 High 0.87-0.97 [address] [place] [address] [phone] Laboratory test 10/10/2012 [facility] Ammonia 49 umol/L High 9 -[address] [place] [address] [phone] Comp Metabolic 10/10/2012 [facility] Sodium 139 mmol/L 133- [address] [place] [address] [phone] Potassium 3.6 mmol/L 3.5-5.0 Chloride 108 mmol/L 101-111 Co2 Carbon Dioxide 25.0 mmol/L 22-32 Anion Gap 6.0 mmol/L 2-11 Glucose 120 mg/dL High 70-100 Blood Urea Nitrogen 9 mg/dL 6-24 Creatinine 0.80 mg/dL 0.50-1.40 BUN/Creatinine Ratio 11.3 8-20 Calcium 8.6 mg/dL 8.1-9.9 Total Protein 6.6 g/dL 6.2-8.1 Albumin 2.7 g/dL Low 3.6-5.4 Globulin 3.9 g/dL 2-4 Albumin/Globulin Ratio 0.7 Low 1-3 Total Bilirubin 2.5 mg/dL High 0.4-1.5 Alkaline Phosphatase 87 U/L 30-110 Alt 17 U/L 14-54 Ast 35 U/L 12-42 Egfr Non- 100.0 >60 Egfr 128.6 >60 174 Cell Morphology 09/18/2012 [facility] Macrocytosis 1+ [address] [place] [address] [phone] CBC Auto Diff 09/18/2012 [facility] White Blood Count 4.1 Low 4.8-[address] 10^3/uL .8 [place] [address] [phone] Red Blood Count 3.20 10^6/uL Low 4.0-5.4 Hemoglobin 10.4 g/dL Low 14.0-18.0 Hematocrit 31 % Low 42-52 Mean Corpuscular Volume 96 fL High 80-94 Mean Corpuscular Hemoglobin 32 pg High 27-31 Mean Corpuscular HGB Conc 34 g/dL 31-36 Red Cell Distribution Width 18 % High 10.5-15 Platelet Count 105 10^3/uL Low 150-450 Mean Platelet Volume 8 um3 7.4-10.4 Abs Neutrophils 2.3 10^3/uL 1.5-7.7 Abs Lymphocytes 1.2 10^3/uL 1.0-4.8 Abs Monocytes 0.5 10^3/uL 0-0.8 Abs Eosinophils 0.1 10^3/uL 0-0.6 Abs Basophils 0 10^3/uL 0-0.2 Abs Nucleated RBC 0 10^3/uL Granulocyte % 56.3 % 38-83 Lymphocyte % 28.8 % 25-47 Monocyte % 11.5 % High 1-9 Eosinophil % 2.6 % 0-6 Basophil % 0.8 % 0-2 Nucleated Red Blood Cells % 0 Laboratory test 09/18/2012 [facility] Ammonia 28 umol/L 9-35 finding [address] [place] [address] [phone] Comp Metabolic Panel 09/18/2012 [facility] Sodium 133 mmol/L 133-145 [address] [place] [address] [phone] Potassium 3.7 mmol/L 3.5-5.0 Chloride 105 mmol/L 101-111 Co2 Carbon Dioxide 24.0 mmol/L 22-32 Anion Gap 4.0 mmol/L 2-11 Glucose 111 mg/dL High 70-100 Blood Urea Nitrogen 11 mg/dL 6-24 Creatinine 0.70 mg/dL 0.50-1.40 BUN/Creatinine Ratio 15.7 8-20 Calcium 8.8 mg/dL 8.1-9.9 Total Protein 7.0 g/dL 6.2-8.1 Albumin 2.8 g/dL Low 3.6-5.4 Globulin 4.2 g/dL High 2-4 Albumin/Globulin Ratio 0.7 Low 1-3 Total Bilirubin 3.0 mg/dL High 0.4-1.5 Alkaline Phosphatase 89 U/L 30-110 Alt 22 U/L 14-54 Ast 49 U/L High 12-42 Egfr Non- 116.7 >60 Egfr 150.0 >60 175 Clotest 09/05/2012 [facility] Clotest (SEE NOTE) [address] [place] [address] [phone] Laboratory test 08/29/2012 [facility] Inr 1.40 High 0.87-0. finding [address] [place] [address] [phone] Comp Metabolic 08/29/2012 [facility] Sodium 138 mmol/L 133- 145 Panel [address] [place] [address] [phone] Potassium 3.7 mmol/L 3.5-5.0 Chloride 107 mmol/L 101-111 Co2 Carbon Dioxide 26.0 mmol/L 22-32 Anion Gap 5.0 mmol/L 2-11 Glucose 152 mg/dL High 70-100 Blood Urea Nitrogen 8 mg/dL 6-24 Creatinine 1.00 mg/dL 0.50-1.40 BUN/Creatinine Ratio 8.0 8-20 Calcium 8.7 mg/dL 8.1-9.9 Total Protein 6.3 g/dL 6.2-8.1 Albumin 2.7 g/dL Low 3.6-5.4 Globulin 3.6 g/dL 2-4 Albumin/Globulin Ratio 0.8 Low 1-3 Total Bilirubin 2.9 mg/dL High 0.4-1.5 Alkaline Phosphatase 86 U/L 30-110 Alt 19 U/L 14-54 Ast 42 U/L 12-42 Egfr Non- 77.3 >60 Egfr 99.4 >60 177 Iron & Iron Binding 08/29/2012 [facility] Iron 87 g/dL 45- 182 Capacity [address] [place] [address] [phone] Unsaturated Iron Binding 69 g/dL Total Iron Binding Capacity 156 g/dL Low 250-450 % Iron Saturation 56 % High 15-55 Laboratory test 08/29/2012 [facility] Ferritin 305 ng/mL 24- 336 finding [address] [place] [address] [phone] CBC With Manual 08/29/2012 [facility] White Blood 3.0 Low 4.8- 10.[address] Count 10^3/[place] [address] [phone] Red Blood Count 3.41 10^6/uL Low 4.0-5.4 Hemoglobin 10.9 g/dL Low 14.0-18.0 Hematocrit 33 % Low 42-52 Mean Corpuscular Volume 95 fL High 80-94 Mean Corpuscular Hemoglobin 32 pg High 27-31 Mean Corpuscular HGB Conc 34 g/dL 31-36 Red Cell Distribution Width 17 % High 10.5-15 Platelet Count 80 10^3/uL Low 150-450 Mean Platelet Volume 9 um3 7.4-10.4 Abs Neutrophils 1.4 10^3/uL Low 1.5-7.7 Abs Lymphocytes 1.1 10^3/uL 1.0-4.8 Abs Monocytes 0.3 10^3/uL 0-0.8 Abs Eosinophils 0.1 10^3/uL 0-0.6 Abs Basophils 0 10^3/uL 0-0.2 Abs Nucleated RBC 0 10^3/uL Neutrophil % 54 % 38-83 Lymphocytes % 29 % 25-47 Monocytes % 8 % 0-13 Eosinophils % 2 % 0-6 Basophil % 2 % 0-2 Reactive Lymph % 4 % 0-6 Metamyelocytes % 1 % 0-2 Macrocytosis 1+ Hypochromasia 1+ [place] Cells 1+ Elliptocyte 1+ Laboratory test 08/07/2012 [facility] Ammonia 38 umol/L High 9 -35 [address] [place] [address] [phone] CBC Auto Diff 08/07/2012 [facility] White Blood 4.9 10^3/uL 4.8-10.[address] [place] [address] [phone] Red Blood Count 3.56 10^6/uL Low 4.0-5.4 Hemoglobin 11.4 g/dL Low 14.0-18.0 Hematocrit 33 % Low 42-52 Mean Corpuscular Volume 93 fL 80-94 Mean Corpuscular Hemoglobin 32 pg High 27-31 Mean Corpuscular HGB Conc 34 g/dL 31-36 Red Cell Distribution Width 18 % High 10.5-15 Platelet Count 97 10^3/uL Low 150-450 Mean Platelet Volume 8 um3 7.4-10.4 Abs Neutrophils 2.7 10^3/uL 1.5-7.7 Abs Lymphocytes 1.5 10^3/uL 1.0-4.8 Abs Monocytes 0.6 10^3/uL 0-0.8 Abs Eosinophils 0.2 10^3/uL 0-0.6 Abs Basophils 0.1 10^3/uL 0-0.2 Abs Nucleated RBC 0.01 10^3/uL Granulocyte % 54.0 % 38-83 Lymphocyte % 30.0 % 25-47 Monocyte % 11.6 % High 1-9 Eosinophil % 3.3 % 0-6 Basophil % 1.1 % 0-2 Nucleated Red Blood Cells % 0.2 Comp Metabolic Panel 08/07/2012 [facility] Sodium 138 mmol/L 133-145 [address] [place] [address] [phone] Potassium 4.2 mmol/L 3.5-5.0 Chloride 108 mmol/L 101-111 Co2 Carbon Dioxide 25.0 mmol/L 22-32 Anion Gap 5.0 mmol/L 2-11 Glucose 93 mg/dL 70-100 Blood Urea Nitrogen 9 mg/dL 6-24 Creatinine 0.70 mg/dL 0.50-1.40 BUN/Creatinine Ratio 12.9 8-20 Calcium 9.1 mg/dL 8.1-9.9 Total Protein 6.7 g/dL 6.2-8.1 Albumin 2.4 g/dL Low 3.6-5.4 Globulin 4.3 g/dL High 2-4 Albumin/Globulin Ratio 0.6 Low 1-3 Total Bilirubin 2.9 mg/dL High 0.4-1.5 Alkaline Phosphatase 76 U/L 30-110 Alt 20 U/L 14-54 Ast 41 U/L 12-42 Egfr Non- 116.7 >60 Egfr 150.0 >60 179 Laboratory 08/03/2012 [facility] Ammonia 23 umol/L 9-35 test finding [address] [place] [address] [phone] Inr/Protime 07/25/2012 [facility] Inr 2.48 High 0.87-0.97 [address] [place] [address] [phone] Stool For 07/21/2012 [facility] Stool Occult (SEE NOTE) 180 Blood 101 [facility] [address] [phone] Cell 07/05/2012 [facility] RBC Morphology Normal Normal Morphology [address] [place] [address] [phone] Laboratory 07/05/2012 [facility] Ammonia 32 umol/L 9-35 test finding [address] [place] [address] [phone] CBC Auto Diff 07/05/2012 [facility] White Blood 4.6 Low 4.8- 10.[address] Count 10^3/[place] [address] [phone] Red Blood Count 3.35 10^6/uL Low 4.0-5.4 Hemoglobin 10.5 g/dL Low 14.0-18.0 Hematocrit 31 % Low 42-52 Mean Corpuscular Volume 93 fL 80-94 Mean Corpuscular Hemoglobin 31 pg 27-31 Mean Corpuscular HGB Conc 34 g/dL 31-36 Red Cell Distribution Width 20 % High 10.5-15 Platelet Count 123 10^3/uL Low 150-450 Mean Platelet Volume 8 um3 7.4-10.4 Abs Neutrophils 2.7 10^3/uL 1.5-7.7 Abs Lymphocytes 1.2 10^3/uL 1.0-4.8 Abs Monocytes 0.4 10^3/uL 0-0.8 Abs Eosinophils 0.2 10^3/uL 0-0.6 Abs Basophils 0.1 10^3/uL 0-0.2 Abs Nucleated RBC 0 10^3/uL Granulocyte % 58.1 % 38-83 Lymphocyte % 26.7 % 25-47 Monocyte % 8.5 % 1-9 Eosinophil % 4.8 % 0-6 Basophil % 1.9 % 0-2 Nucleated Red Blood Cells % 0 Inr/Protime 07/03/2012 [facility] Inr 2.28 High 0.87-0.[address] [place] [address] [phone] Comp Metabolic 07/03/2012 [facility] Sodium 134 mmol/L 133- 145 Panel [address] [place] [address] [phone] Potassium 4.1 mmol/L 3.5-5.0 Chloride 103 mmol/L 101-111 Co2 Carbon Dioxide 27.0 mmol/L 22-32 Anion Gap 4.0 mmol/L 2-11 Glucose 106 mg/dL High 70-100 Blood Urea Nitrogen 2 mg/dL Low 6-24 Creatinine 0.70 mg/dL 0.50-1.40 BUN/Creatinine Ratio 2.9 Low 8-20 Calcium 8.8 mg/dL 8.1-9.9 Total Protein 7.3 g/dL 6.2-8.1 Albumin 2.4 g/dL Low 3.6-5.4 Globulin 4.9 g/dL High 2-4 Albumin/Globulin Ratio 0.5 Low 1-3 Total Bilirubin 2.5 mg/dL High 0.4-1.5 Alkaline Phosphatase 79 U/L 30-110 Alt 23 U/L 14-54 Ast 48 U/L High 12-42 Egfr Non- 116.7 >60 Egfr 150.0 >60 181 Vitamin B12 And 07/03/2012 [facility] Vitamin B12 621 pg/mL 180-914 Folate Serum [address] [place] [address] [phone] Folate > 25.2 ng/mL High 2-16 Iron & Iron Binding 07/03/2012 [facility] Iron 123 g/dL 45- 182 Capacity [address] [place] [address] [phone] Unsaturated Iron Binding 39 g/dL Total Iron Binding Capacity 162 g/dL Low 250-450 % Iron Saturation 76 % High 15-55 Laboratory test 06/14/2012 [facility] Ammonia 30 umol/L 9-35 finding [address] [place] [address] [phone] Comp Metabolic 06/14/2012 [facility] Sodium 132 mmol/L Low 133 -145 Panel [address] [place] [address] [phone] Potassium 3.8 mmol/L 3.5-5.0 Chloride 101 mmol/L 101-111 Co2 Carbon Dioxide 26.0 mmol/L 22-32 Anion Gap 5.0 mmol/L 2-11 Glucose 130 mg/dL High 70-100 Blood Urea Nitrogen 8 mg/dL 6-24 Creatinine 0.90 mg/dL 0.50-1.40 BUN/Creatinine Ratio 8.9 8-20 Calcium 8.7 mg/dL 8.1-9.9 Total Protein 6.9 g/dL 6.2-8.1 Albumin 2.0 g/dL Low 3.6-5.4 Globulin 4.9 g/dL High 2-4 Albumin/Globulin Ratio 0.4 Low 1-3 Total Bilirubin 2.2 mg/dL High 0.4-1.5 Alkaline Phosphatase 93 U/L 30-110 Alt 21 U/L 14-54 Ast 47 U/L High 12-42 Egfr Non- 87.3 >60 Egfr 112.3 >60 182 Protime W/ Inr 06/14/2012 [facility] Prothrombin Time 28.5 Inr 2.4 1 Because ethnic data is not always readily available, this report includes an eGFR for both -Americans and non- Americans. The National Kidney Disease Education Program (NKDEP) does not endorse the use of the MDRD equation for patients that are not between the ages of 18 and 70, are , have extremes of body size, muscle mass, or nutritional status, or are non- or non-. According to the National Kidney Foundation, irrespective of diagnosis, the stage of the disease is based on the level of kidney function: Stage Description GFR(mL/min/1.73 m(2)) 1 Kidney damage with normal or decreased GFR 90 2 Kidney damage with mild decrease in GFR 60-89 3 Moderate decrease in GFR 30-59 4 Severe decrease in GFR 15-29 5 Kidney failure <15 (or dialysis) 2 Presumptive Positive Drug confirmation to follow. Presumptive Positive means that the screening method is positive, but the test needs to be run by a confirmatory method before being finalized. 3 REFERENCE VALUE Cutoff: 500 4 REFERENCE VALUE Cutoff: 200 5 REFERENCE VALUE Cutoff: 100 6 REFERENCE VALUE Cutoff: 150 7 REFERENCE VALUE Cutoff: 300 8 REFERENCE VALUE Cutoff: 300 9 Presumptive Positive Drug confirmation to follow. Presumptive Positive means that the screening method is positive, but the test needs to be run by a confirmatory method before being finalized. ADDITIONAL INFORMATION This report is intended for use in clinical monitoring or management of patients. It is not intended for use in employment-related testing. This test has been modified from the pharmacy helper's instructions. Its performance characteristics were determined by [facility] in a manner consistent with CLIA requirements. This test has not been cleared or approved by the U.S. Food and Drug Administration. Test Performed by: [facility] - [address] [id number] 10 REFERENCE VALUE Cutoff: 3.0 11 ADDITIONAL INFORMATION This report is intended for use in clinical monitoring and management of patients. It is not intended for use in employment-related testing. This test was developed and its performance characteristics determined by [facility] in a manner consistent with CLIA requirements. This test has not been cleared or approved by the U.S. Food and Drug Administration. Test Performed by: [facility] - [address] [address] ADDITIONAL INFORMATION This report is intended for use in clinical monitoring and management of patients. It is not intended for use in employment-related testing. This test was developed and its performance characteristics determined by [facility] in a manner consistent with CLIA requirements. This test has not been cleared or approved by the U.S. Food and Drug Administration. Test Performed by: [facility] [address] [place] [address] 13 Serum levels of PSA measured using the Natali[employer] Jin DXI Hybritech immunoassay should not be interpreted as absolute evidence of the presence or absence of disease. The PSA value should be used in conjunction with other pertinent clinical diagnostic procedures. A PSA value in the range of 0.1 to 0.6 ng/ml is indeterminate if being used as an indicator of recurrent or residual disease. The values obtained with different assay methods or kits cannot be used interchangeably. 14 REFERENCE VALUE Cutoff: 500 15 REFERENCE VALUE Cutoff: 200 16 REFERENCE VALUE Cutoff: 100 17 REFERENCE VALUE Cutoff: 150 18 REFERENCE VALUE Cutoff: 300 19 REFERENCE VALUE Cutoff: 300 20 Presumptive Positive Drug confirmation to follow. Presumptive Positive means that the screening method is positive, but the test needs to be run by a confirmatory method before being finalized. ADDITIONAL INFORMATION This report is intended for use in clinical monitoring or management of patients. It is not intended for use in employment-related testing. This test has been modified from the pharmacy helper's instructions. Its performance characteristics were determined by [facility] in a manner consistent with CLIA requirements. This test has not been cleared or approved by the [place] Food and Drug Administration. Test Performed by: [facility] - [address] [id number] 21 REFERENCE VALUE Cutoff: 3.0 22 ADDITIONAL INFORMATION This report is intended for use in clinical monitoring and management of patients. It is not intended for use in employment-related testing. This test was developed and its performance characteristics determined by [facility] in a manner consistent with CLIA requirements. This test has not been cleared or approved by the U.S. Food and Drug Administration. Test Performed by: [facility] - [address] [id number] [id number] REFERENCE VALUE Cutoff: 500 25 REFERENCE VALUE Cutoff: 200 26 REFERENCE VALUE Cutoff: 100 27 REFERENCE VALUE Cutoff: 150 28 Presumptive Positive Drug confirmation to follow. Presumptive Positive means that the screening method is positive, but the test needs to be run by a confirmatory method before being finalized. ADDITIONAL INFORMATION This report is intended for use in clinical monitoring or management of patients. It is not intended for use in employment-related testing. 29 REFERENCE VALUE Cutoff: 200 mg/L 30 Tylenol 3 31 Metabolite of codeine REFERENCE VALUE Cutoff: 100 32 Shani Hogan, Contin; Also a minor metabolite (10%) of codeine and can be seen in low concentrations (<2,000 ng/mL) with poppy seed ingestion. 33 Metabolite of morphine REFERENCE VALUE Cutoff: 100 34 Metabolite of heroin 35 Lortab, Ava, Vicodin; Also a very minor metabolite of codeine and impurity (<1%) of oxycodone. 36 Metabolite of hydrocodone 37 Metabolite of hydrocodone 38 Dilaudid, Exalgo; Also a metabolite of hydrocodone and a minor (<5%) metabolite of morphine. 39 Metabolite of hydromorphone REFERENCE VALUE Cutoff: 100 40 Endocet, Percocet, Oxycontin 41 Metabolite of oxycodone 42 Numorphan, Opana; Also a metabolite of oxycodone. 43 Metabolite of oxymorphone REFERENCE VALUE Cutoff: 100 44 Metabolite of oxymorphone 45 Actiq, Duragesic, Fentora 46 Metabolite of fentanyl 47 Demerol 48 Metabolite of meperidine 49 Narcan 50 Metabolite of naloxone REFERENCE VALUE Cutoff: 100 51 Dolophine 52 Metabolite of methadone 53 Darvon, Darvocet 54 Metabolite of propoxyphene 55 Tradol, Ultram, Ultracet 56 Metabolite of tramadol 57 Nucynta 58 Metabolite of tapentadol 59 Metabolite of tapentadol REFERENCE VALUE Cutoff: 100 60 Buprenex, Suboxone 61 Metabolite of buprenorphine 62 Metabolite of buprenorphine 63 Test detected the presence of hydrocodone and several of its metabolites. Suspect use of hydrocodone or possibly hydrocodone and hydromorphone within the past three days. Test detected the presence of oxycodone and several metabolites (noroxycodone, oxymorphone, noroxymorphone, and zuwrunkyugu-6-qqtr-glucuronide). Suspect use of oxycodone or possibly oxycodone and oxymorphone within the past three days. ADDITIONAL INFORMATION This test was developed and its performance characteristics determined by [facility] in a manner consistent with CLIA requirements. This test has not been cleared or approved by the U.S. Food and Drug Administration. Test Performed by: [facility] - [facility] [address] [place] [address] 64 REFERENCE VALUE Cutoff: 3.0 65 ADDITIONAL INFORMATION This report is intended for use in clinical monitoring and management of patients. It is not intended for use in employment-related testing. This test was developed and its performance characteristics determined by [facility] in a manner consistent with CLIA requirements. This test has not been cleared or approved by the U.S. Food and Drug Administration. Test Performed by: [place] [id number] 66 Because ethnic data is not always readily available, this report includes an eGFR for both -Americans and non- Americans. The National Kidney Disease Education Program (NKDEP) does not endorse the use of the MDRD equation for patients that are not between the ages of 18 and 70, are , have extremes of body size, muscle mass, or nutritional status, or are non- or non-. According to the National Kidney Foundation, irrespective of diagnosis, the stage of the disease is based on the level of kidney function: Stage Description GFR(mL/min/1.73 m(2)) 1 Kidney damage with normal or decreased GFR 90 2 Kidney damage with mild decrease in GFR 60-89 3 Moderate decrease in GFR 30-59 4 Severe decrease in GFR 15-29 5 Kidney failure <15 (or dialysis) 67 Serologic response to B. burgdorferi infection is not detected, but cannot rule out early infection during which low or undetectable antibody levels to B. burgdorferi may be present. If clinically indicated, a new serum specimen should be submitted in 7-14 days. Test Performed by: [address] [address] 68 Because ethnic data is not always readily available, this report includes an eGFR for both -Americans and non- Americans. The National Kidney Disease Education Program (NKDEP) does not endorse the use of the MDRD equation for patients that are not between the ages of 18 and 70, are , have extremes of body size, muscle mass, or nutritional status, or are non- or non-. According to the National Kidney Foundation, irrespective of diagnosis, the stage of the disease is based on the level of kidney function: Stage Description GFR(mL/min/1.73 m(2)) 1 Kidney damage with normal or decreased GFR 90 2 Kidney damage with mild decrease in GFR 60-89 3 Moderate decrease in GFR 30-59 4 Severe decrease in GFR 15-29 5 Kidney failure <15 (or dialysis) 69 Desirable: <150 Borderline High: 150-199 High: 200-499 Very High: >500 70 Desirable: <200 Borderline High: 200-239 High: >239 71 Low: <40 Desirable: 40-60 High: >60 72 Desirable: <100 Near Optimal: 100-129 Borderline High: 130-159 High: 160-189 Very High: >189 73 Serum levels of PSA measured using the Nafham DXI Hybritech immunoassay should not be interpreted as absolute evidence of the presence or absence of disease. The PSA value should be used in conjunction with other pertinent clinical diagnostic procedures. A PSA value in the range of 0.1 to 0.6 ng/ml is indeterminate if being used as an indicator of recurrent or residual disease. The values obtained with different assay methods or kits cannot be used interchangeably. 74 Because ethnic data is not always readily available, this report includes an eGFR for both -Americans and non- Americans. The National Kidney Disease Education Program (NKDEP) does not endorse the use of the MDRD equation for patients that are not between the ages of 18 and 70, are , have extremes of body size, muscle mass, or nutritional status, or are non- or non-. According to the National Kidney Foundation, irrespective of diagnosis, the stage of the disease is based on the level of kidney function: Stage Description GFR(mL/min/1.73 m(2)) 1 Kidney damage with normal or decreased GFR 90 2 Kidney damage with mild decrease in GFR 60-89 3 Moderate decrease in GFR 30-59 4 Severe decrease in GFR 15-29 5 Kidney failure <15 (or dialysis) 75 Desirable <150 Borderline high 150-199 High 200-499 Very High >500 76 Desirable <200 Borderline high 200-239 High >239 77 Low <40 Desirable: 40-60 High: >60 78 Desirable: <100 mg/dL Near Optimal: 100-129 mg/dL Borderline High: 130-159 mg/dL High: 160-189 mg/dL Very High: >189 mg/dL 79 REFERENCE VALUE Cutoff: 500 80 REFERENCE VALUE Cutoff: 200 81 REFERENCE VALUE Cutoff: 100 82 REFERENCE VALUE Cutoff: 150 83 Presumptive Positive Drug confirmation to follow. Presumptive Positive means that the screening method is positive, but the test needs to be run by a confirmatory method before being finalized. ADDITIONAL INFORMATION This report is intended for use in clinical monitoring or management of patients. It is not intended for use in employment-related testing. 84 REFERENCE VALUE Cutoff: 200 mg/L 85 Tylenol 3 86 Metabolite of codeine REFERENCE VALUE Cutoff: 100 87 Shani Hogan, Contin; Also a minor metabolite (10%) of codeine and can be seen in low concentrations (<2,000 ng/mL) with poppy seed ingestion. 88 Metabolite of morphine REFERENCE VALUE Cutoff: 100 89 Metabolite of heroin 90 Lortab, Ava, Vicodin; Also a very minor metabolite of codeine and impurity (<1%) of oxycodone. 91 Metabolite of hydrocodone 92 Metabolite of hydrocodone 93 Dilaudid, Exalgo; Also a metabolite of hydrocodone and a minor (<5%) metabolite of morphine. 94 Metabolite of hydromorphone REFERENCE VALUE Cutoff: 100 95 Endocet, Percocet, Oxycontin 96 Metabolite of oxycodone 97 Numorphan, Opana; Also a metabolite of oxycodone. 98 Metabolite of oxymorphone REFERENCE VALUE Cutoff: 100 99 Metabolite of oxymorphone 100 Actiq, Duragesic, Fentora 101 Metabolite of fentanyl 102 Demerol 103 Metabolite of meperidine 104 Narcan 105 Metabolite of naloxone REFERENCE VALUE Cutoff: 100 106 Dolophine 107 Metabolite of methadone 108 Darvon, Darvocet 109 Metabolite of propoxyphene 110 Tradol, Ultram, Ultracet 111 Metabolite of tramadol 112 Nucynta 113 Metabolite of tapentadol 114 Metabolite of tapentadol REFERENCE VALUE Cutoff: 100 115 Buprenex, Suboxone 116 Metabolite of buprenorphine 117 Metabolite of buprenorphine 118 Test detected the presence of both morphine and its metabolite (ernsvdiw-3-gkdu-glucuronide). Suspect use of morphine within the past three days. Alternatively, these results could also be suggestive of heroin use. Low levels of morphine can also be seen following poppy seed ingestion. Test detected the presence of upmshmxidkred-4-ieag-glucuronide the metabolite of hydromorphone. Suspect use of hydromorphone within the past three days. Test detected the presence of oxycodone and several metabolites (noroxycodone, oxymorphone, noroxymorphone, and rezobdckdst-2-uzag-glucuronide). Suspect use of oxycodone or possibly oxycodone and oxymorphone within the past three days. ADDITIONAL INFORMATION This test was developed and its performance characteristics determined by [facility] in a manner consistent with CLIA requirements. This test has not been cleared or approved by the U.S. Food and Drug Administration. Test Performed by: [facility] [place] [address] [employer]: Bobby Rivers II, M.D., Ph.D. 119 REFERENCE VALUE Cutoff: 3.0 120 ADDITIONAL INFORMATION This report is intended for use in clinical monitoring and management of patients. It is not intended for use in employment-related testing. This test was developed and its performance characteristics determined by [facility] in a manner consistent with CLIA requirements. This test has not been cleared or approved by the U.S. Food and Drug Administration. Test Performed by: [facility] [place] [address] [employer]: Bobby Rivers II, M.D., Ph.D. 121 Because ethnic data is not always readily available, this report includes an eGFR for both -Americans and non- Americans. The National Kidney Disease Education Program (NKDEP) does not endorse the use of the MDRD equation for patients that are not between the ages of 18 and 70, are , have extremes of body size, muscle mass, or nutritional status, or are non- or non-. According to the National Kidney Foundation, irrespective of diagnosis, the stage of the disease is based on the level of kidney function: Stage Description GFR(mL/min/1.73 m(2)) 1 Kidney damage with normal or decreased GFR 90 2 Kidney damage with mild decrease in GFR 60-89 3 Moderate decrease in GFR 30-59 4 Severe decrease in GFR 15-29 5 Kidney failure <15 (or dialysis) 122 AA 09/29 123 Because ethnic data is not always readily available, this report includes an eGFR for both -Americans and non- Americans. The National Kidney Disease Education Program (NKDEP) does not endorse the use of the MDRD equation for patients that are not between the ages of 18 and 70, are , have extremes of body size, muscle mass, or nutritional status, or are non- or non-. According to the National Kidney Foundation, irrespective of diagnosis, the stage of the disease is based on the level of kidney function: Stage Description GFR(mL/min/1.73 m(2)) 1 Kidney damage with normal or decreased GFR 90 2 Kidney damage with mild decrease in GFR 60-89 3 Moderate decrease in GFR 30-59 4 Severe decrease in GFR 15-29 5 Kidney failure <15 (or dialysis) 124 09/29 125 SEE RESULT BELOW Name: TIMOTHY LINDA : [address]: Mavis Martin MD Acct: [id number] Unit: [id number] AGE: 60 Location: [facility] Re09/19/15 SEX: M Status: REG REF SPEC: [id number] TREVER: 09/19/151436 SUBM DR: Mavis Martin MD REQ: [id number] RECD: 09/19/153267 STATUS: COMP _ SOURCE: URINE SPDESC: ORDERED: Urine Culture QUERIES: Urine Source: Clean Catch Procedure Result Reported Site Urine Culture Final 09/20/15- 1216 ML No Growth (<1,000 CFU/mL) * ML - [facility] LAB ([facility]) . END OF REPORT * ML=Testing performed at Main Lab DEPARTMENT OF PATHOLOGY, [address] [place] [address] Saeid Martin M.D. Director [facility] # [id number] 126 Because ethnic data is not always readily available, this report includes an eGFR for both -Americans and non- Americans. The National Kidney Disease Education Program (NKDEP) does not endorse the use of the MDRD equation for patients that are not between the ages of 18 and 70, are , have extremes of body size, muscle mass, or nutritional status, or are non- or non-. According to the National Kidney Foundation, irrespective of diagnosis, the stage of the disease is based on the level of kidney function: Stage Description GFR(mL/min/1.73 m(2)) 1 Kidney damage with normal or decreased GFR 90 2 Kidney damage with mild decrease in GFR 60-89 3 Moderate decrease in GFR 30-59 4 Severe decrease in GFR 15-29 5 Kidney failure <15 (or dialysis) 127 Serum levels of PSA measured using the [employer] DXI Hybritech immunoassay should not be interpreted as absolute evidence of the presence or absence of disease. The PSA value should be used in conjunction with other pertinent clinical diagnostic procedures. A PSA value in the range of 0.1 to 0.6 ng/ml is indeterminate if being used as an indicator of recurrent or residual disease. The values obtained with different assay methods or kits cannot be used interchangeably. 128 What is the body fluid source?: Synovial (Joint) Fluid If CSF, Order CSFCC instead. Initials:: N 129 SEE RESULT BELOW Name: TIMOTHY LINDA : [address]: Mavis Martin MD Acct: [id number] Unit: [id number] AGE: 60 Location: [facility] Re08/15/15 SEX: M Status: REG REF SPEC: [id number] TREVER: 08/15/[address] [facility] [address]: Mavis Martin MD REQ: [id number] RECD: 08/15/15 STATUS: COMP _ SOURCE: JOINT FLUI SPDESC: ORDERED: DAVID Johnson/GS, MRSA/SA SSTI Procedure Result Reported Site Body Fluid Gram Stain Final 08/16/15- 746 ML 4+ Neutrophils No Organisms Seen Preparation By Cytospin Smear Body Fluid Culture Final 08/19/15- 900 ML No Growth Day 4 MRSA/S. aureus SSTI PCR Final 08/16/15- 926 ML Organism 1 MRSA NEGATIVE Organism 2 S.AUREUS NEGATIVE * ML - MAIN LAB ([facility]) . END OF REPORT * ML=Testing performed at Main Lab DEPARTMENT OF PATHOLOGY, [address] [place] [address] Saeid Martin M.D. Director [facility] # [id number] 130 SEE RESULT BELOW Name: DIANA LINDARAFA Diego : [address]: Mavis Martin MD Acct: [id number] Unit: [id number] AGE: 60 Location: [facility] Re08/15/15 SEX: M Status: REG REF SPEC: [id number] TREVER: 08/15/15-5 [facility] [address]: Mavis Martin MD REQ: [id number] RECD: 08/15/15 STATUS: RES _ SOURCE: BODY FLUID SPDESC: ORDERED: Anaerobic Cult, AFB Cult Smear Procedure Result Reported Site Anaerobic Culture PENDING Acid Fast Stain - Direct Final 08/16/15- 1041 ML AFB Smear Result No Acid Fast Bacillus Present (Negative) Preparation By Cytospin Smear Due to limited sensitivity of the smear, results should be used as an adjunct in evaluating the patient's status and cultural examination is highly recommended for diagnosis. * ML - MAIN LAB ([facility]) . END OF REPORT * ML=Testing performed at Main Lab DEPARTMENT OF PATHOLOGY, [address] [place] [address] Saeid Martin M.D. Director [facility] # [id number] 131 SEE RESULT BELOW Name: TIMOTHY LINDA : [address]: Mavis Martin MD Acct: [id number] Unit: [id number] AGE: 60 Location: [facility] Re08/15/15 SEX: M Status: REG REF SPEC: [id number] TREVER: 08/15/[address] [facility] [address]: Mavis Martin MD REQ: [id number] RECD: 08/15/15 STATUS: COMP _ SOURCE: BODY FLUID SPDESC: ORDERED: Anaerobic Cult, AFB Cult Smear Procedure Result Reported Site Anaerobic Culture Final 08/19/15- 0901 ML No Growth Day 4 Acid Fast Stain - Direct Final 08/16/15- 1041 ML AFB Smear Result No Acid Fast Bacillus Present (Negative) Preparation By Cytospin Smear Due to limited sensitivity of the smear, results should be used as an adjunct in evaluating the patient's status and cultural examination is highly recommended for diagnosis. * ML - MAIN LAB ([facility]) . END OF REPORT * ML=Testing performed at Main Lab DEPARTMENT OF PATHOLOGY, [address] [place] [address] Saeid Martin M.D. Director [facility] # [id number] 132 -- REFERENCE VALUE -- Synovial: <150/mcL Peritoneal: <500/mcL Pleural: <500/mcL Pericardial: <500/mcL 133 Differential performed on concentrated smear. 134 Acute inflammation present recommend correlation with microbiologic studies. Reviewed by Dr. Martin 135 SEE RESULT BELOW Name: RUBATIMOTHY : [address]: Mavis Martin MD Acct: [id number] Unit: [id number] AGE: 60 Location: [facility] Re08/15/15 SEX: M Status: REG REF SPEC: [id number] TREVER: 08/15/15-[address] [facility] [address]: Mavis Martin MD REQ: [id number] RECD: 08/15/15 STATUS: RES _ SOURCE: MISC SOURC SPDESC: ORDERED: Fungal - Other Procedure Result Reported Site Fungal Cult - Other Sources Preliminary 08/24/15- 1357 ML No Growth Week 1 * ML - MAIN LAB ([facility]) . END OF REPORT * ML=Testing performed at Main Lab DEPARTMENT OF PATHOLOGY, [address] [place] [address] Saeid Martin M.D. Director [facility] # [id number] 136 SEE RESULT BELOW Name: TIMOTHY LINDA : [address]: Mavis Martin MD Acct: [id number] Unit: [id number] AGE: 60 Location: [facility] Re08/15/15 SEX: M Status: REG REF SPEC: [id number] TREVER: 08/15/15-5 [facility] [address]: Mavis Martin MD REQ: [id number] RECD: 08/15/15 STATUS: RES _ SOURCE: [facility] SPDESC: ORDERED: Fungal - Other Procedure Result Reported Site Fungal Cult - Other Sources Preliminary 09/01/15- 1033 ML No Growth Week 2 * ML - MAIN LAB ([facility]) . END OF REPORT * ML=Testing performed at Main Lab DEPARTMENT OF PATHOLOGY, [address] [place] [id number] Saeid Martin M.D. Director [facility] # [id number] 137 SEE RESULT BELOW Name: LINDATIMOTHY : [address]: Mavis Martin MD Acct: [id number] Unit: [id number] AGE: 60 Location: [facility] Re08/15/15 SEX: M Status: REG REF SPEC: [id number] TREVER: 08/15/15-[address] [facility] [address]: Mavis Martin MD REQ: [id number] RECD: 08/15/15 STATUS: COMP _ SOURCE: JACOBC SOURC SPDESC: ORDERED: Fungal - Other Procedure Result Reported Site Fungal Cult - Other Sources Final 09/15/15- 1051 ML No Growth Week 4 * ML - [facility] ([facility]) . END OF REPORT * ML=Testing performed at Main Lab DEPARTMENT OF PATHOLOGY, [address] [place] [address] Saeid Martin M.D. Director [facility] # [id number] 138 SOURCE: KNEE, LT KNEE JOINT FLUID MYCOBACTERIAL CULTURE FINAL No growth after 60 days of incubation. Test Performed by: [facility] [place] [address] Live [employer]anny: Bobby Rivers II, M.D., Ph.D. 139 Because ethnic data is not always readily available, this report includes an eGFR for both -Americans and non- Americans. The National Kidney Disease Education Program (NKDEP) does not endorse the use of the MDRD equation for patients that are not between the ages of 18 and 70, are , have extremes of body size, muscle mass, or nutritional status, or are non- or non-. According to the National Kidney Foundation, irrespective of diagnosis, the stage of the disease is based on the level of kidney function: Stage Description GFR(mL/min/1.73 m(2)) 1 Kidney damage with normal or decreased GFR 90 2 Kidney damage with mild decrease in GFR 60-89 3 Moderate decrease in GFR 30-59 4 Severe decrease in GFR 15-29 5 Kidney failure <15 (or dialysis) 140 Reference Range and Interpretation: TnI (ng/mL) Interpretation Less Than 0.03 ng/mL Not supportive of diagnosis of [place] 0.03 - 0.50 ng/mL Indeterminate: suggest serial studies if clinically indicated. Greater than 0.5 ng/mL Consistent with diagnosis of IN 141 TESTED 11/26/14 1656 [id number] 142 Desirable <150 Borderline high 150-199 High 200-499 Very High >500 143 Desirable <200 Borderline high 200-239 High >239 144 Low <40 Desirable: 40-60 High: >60 145 Desirable: <100 mg/dL Near Optimal: 100-129 mg/dL Borderline High: 130-159 mg/dL High: 160-189 mg/dL Very High: >189 mg/dL 146 PT IS FASTING 147 Serum levels of PSA measured using the [employer] DXI Hybritech immunoassay should not be interpreted as absolute evidence of the presence or absence of disease. The PSA value should be used in conjunction with other pertinent clinical diagnostic procedures. A PSA value in the range of 0.1 to 0.6 ng/ml is indeterminate if being used as an indicator of recurrent or residual disease. The values obtained with different assay methods or kits cannot be used interchangeably. 148 PT IS FASTING 149 Because ethnic data is not always readily available, this report includes an eGFR for both -Americans and non- Americans. The National Kidney Disease Education Program (NKDEP) does not endorse the use of the MDRD equation for patients that are not between the ages of 18 and 70, are , have extremes of body size, muscle mass, or nutritional status, or are non- or non-. According to the National Kidney Foundation, irrespective of diagnosis, the stage of the disease is based on the level of kidney function: Stage Description GFR(mL/min/1.73 m(2)) 1 Kidney damage with normal or decreased GFR 90 2 Kidney damage with mild decrease in GFR 60-89 3 Moderate decrease in GFR 30-59 4 Severe decrease in GFR 15-29 5 Kidney failure <15 (or dialysis) 150 Because ethnic data is not always readily available, this report includes an eGFR for both -Americans and non- Americans. The National Kidney Disease Education Program (NKDEP) does not endorse the use of the MDRD equation for patients that are not between the ages of 18 and 70, are , have extremes of body size, muscle mass, or nutritional status, or are non- or non-. According to the National Kidney Foundation, irrespective of diagnosis, the stage of the disease is based on the level of kidney function: Stage Description GFR(mL/min/1.73 m(2)) 1 Kidney damage with normal or decreased GFR 90 2 Kidney damage with mild decrease in GFR 60-89 3 Moderate decrease in GFR 30-59 4 Severe decrease in GFR 15-29 5 Kidney failure <15 (or dialysis) 151 Because ethnic data is not always readily available, this report includes an eGFR for both -Americans and non- Americans. The National Kidney Disease Education Program (NKDEP) does not endorse the use of the MDRD equation for patients that are not between the ages of 18 and 70, are , have extremes of body size, muscle mass, or nutritional status, or are non- or non-. According to the National Kidney Foundation, irrespective of diagnosis, the stage of the disease is based on the level of kidney function: Stage Description GFR(mL/min/1.73 m(2)) 1 Kidney damage with normal or decreased GFR 90 2 Kidney damage with mild decrease in GFR 60-89 3 Moderate decrease in GFR 30-59 4 Severe decrease in GFR 15-29 5 Kidney failure <15 (or dialysis) 152 Normochromic, normocytic anemia noted. Thrombocytopenia with no evidence of platelet clumping and satellitosis. Clinical pathologic correlation recommended. Reviewed by Dr. Martin 153 ADDITIONAL INFORMATION Testing performed by [facility]. 154 ADDITIONAL INFORMATION Testing performed by Liquid Chromatography-Tandem Mass Spectrometry (LC-MS/MS). Test Performed by: [facility] [address] [address] Live Out Nanny: Tyler Majano M.D. 155 Synovial (Joint) Fluid 156 RUN DATE: 02/10/14 [facility] LAB LIVE PAGE 1 RUN TIME: [address], [place], [place] [address] Specimen Inquiry Name: RUBATIMOTHY : [address]: Sandra NAIDU Acct: [id number] Unit: [id number] AGE: 58 Location: [facility] Re02/06/14 SEX: M Status: REG REF SPEC: [id number] TREVER: 02/06/14 [facility] [address]: Sandra NAIDU REQ: [id number] RECD: 02/06/14 STATUS: COMP _ SOURCE: VIRAL SEPULVEDA SPDESC: ORDERED: DAVID Johnson/MEGAN Procedure Result Verified Site Body Fluid Gram Stain Final 02/06/14- 1406 ML 4+ Neutrophils No Organisms Seen Preparation By Direct Smear Body Fluid Culture Final 02/10/14- 1107 ML No Growth Day 4 END OF REPORT * ML=Testing performed at Main Lab DEPARTMENT OF PATHOLOGY, [address] [place] [address] Saeid Martin M.D. Director [facility] # [id number] 157 Potassium reference range changed effective 12/23/13 158 Because ethnic data is not always readily available, this report includes an eGFR for both -Americans and non- Americans. The National Kidney Disease Education Program (NKDEP) does not endorse the use of the MDRD equation for patients that are not between the ages of 18 and 70, are , have extremes of body size, muscle mass, or nutritional status, or are non- or non-. According to the National Kidney Foundation, irrespective of diagnosis, the stage of the disease is based on the level of kidney function: Stage Description GFR(mL/min/1.73 m(2)) 1 Kidney damage with normal or decreased GFR 90 2 Kidney damage with mild decrease in GFR 60-89 3 Moderate decrease in GFR 30-59 4 Severe decrease in GFR 15-29 5 Kidney failure <15 (or dialysis) 159 ADDITIONAL INFORMATION Testing performed by [facility]. 160 ADDITIONAL INFORMATION Testing performed by Liquid Chromatography-Tandem Mass Spectrometry (LC-MS/MS). Test Performed by: [place] [address] Live Out Nanny: Tyler Majano M.D. 161 Desirable <150 Borderline high 150-199 High 200-499 Very High >500 162 Desirable <200 Borderline high 200-239 High >239 163 Low <40 Desirable: 40-60 High: >60 164 Desirable <100 Near Optimal 100-129 Borderline high 130-159 High 160-189 Very High >189 165 Normal Range 180 to 914 Indeterminate Range 145 to 180 Deficient Range <145 166 Because ethnic data is not always readily available, this report includes an eGFR for both -Americans and non- Americans. The National Kidney Disease Education Program (NKDEP) does not endorse the use of the MDRD equation for patients that are not between the ages of 18 and 70, are , have extremes of body size, muscle mass, or nutritional status, or are non- or non-. According to the National Kidney Foundation, irrespective of diagnosis, the stage of the disease is based on the level of kidney function: Stage Description GFR(mL/min/1.73 m(2)) 1 Kidney damage with normal or decreased GFR 90 2 Kidney damage with mild decrease in GFR 60-89 3 Moderate decrease in GFR 30-59 4 Severe decrease in GFR 15-29 5 Kidney failure <15 (or dialysis) 167 Platelets clumped. Unable to perform accurate count. 168 Test Performed by: [place] [address] Live Out Nanny: Eugenio Germain III, M.D. 169 Because ethnic data is not always readily available, this report includes an eGFR for both -Americans and non- Americans. The National Kidney Disease Education Program (NKDEP) does not endorse the use of the MDRD equation for patients that are not between the ages of 18 and 70, are , have extremes of body size, muscle mass, or nutritional status, or are non- or non-. According to the National Kidney Foundation, irrespective of diagnosis, the stage of the disease is based on the level of kidney function: Stage Description GFR(mL/min/1.73 m(2)) 1 Kidney damage with normal or decreased GFR 90 2 Kidney damage with mild decrease in GFR 60-89 3 Moderate decrease in GFR 30-59 4 Severe decrease in GFR 15-29 5 Kidney failure <15 (or dialysis) 170 Serum levels of PSA measured using the [employer] [place] DXI Hybritech immunoassay should not be interpreted as absolute evidence of the presence or absence of disease. The PSA value should be used in conjunction with other pertinent clinical diagnostic procedures. A PSA value in the range of 0.1 to 0.6 ng/ml is indeterminate if being used as an indicator of recurrent or residual disease. The values obtained with different assay methods or kits cannot be used interchangeably. 171 Serologic response to B. burgdorferi infection is not detected, but cannot rule out early infection during which low or undetectable antibody levels to B. burgdorferi may be present. If clinically indicated, a new serum specimen should be submitted in 7-14 days. Test Performed by: [address] [address] Live Out Nanny: Eugenio Germain III, M.D. 172 RUN DATE: 11/15/12 [facility] LAB LIVE PAGE 1 RUN TIME: [address] [place] [address] Specimen Inquiry Name: RAFAEL LINDAORE : [address]: Lars Guillory MD Acct: [id number] Unit: [id number] AGE: 57 Location: [facility] Re11/14/12 SEX: M Status: REG REF SPEC: [id number] TREVER: 11/14/12- SUBM DR: Lars Guillory MD REQ: [id number] RECD: 11/14/12-1007 STATUS: TAYLER OWEN DR: Vasyl Alfred MD _ ORDERED: LEVEL IV FINAL DIAGNOSIS Colon, sigmoid, biopsy: Colonic mucosa with surface hyperplasia. CLINICAL HISTORY Routine screening colonoscopy with anemia. First exam POST-OPERATIVE DIAGNOSIS Screening colonoscopy to cecum - gnarled 3+ sigmoid tics (left greater than right). On withdrawal - thickened fold biopsied x2 GROSS DESCRIPTION The specimen is received in formalin labeled [place], Biopsy Sigmoid Thickened Fold, and consists of two portions of green-white tissue that measures 0.4 x 0.3 x 0.2 cm. and 0.3 x 0.3 x 0.2 cm. Submitted entirely, one cassette. Signed (signature on file) Lashae Samuel MD 1639 END OF REPORT * ML=Testing performed at Main Lab DEPARTMENT OF PATHOLOGY, [address] [place] [address] Saeid Martin M.D. Director [facility] Permit #[id number] 173 Because ethnic data is not always readily available, this report includes an eGFR for both -Americans and non- Americans. The National Kidney Disease Education Program (NKDEP) does not endorse the use of the MDRD equation for patients that are not between the ages of 18 and 70, are , have extremes of body size, muscle mass, or nutritional status, or are non- or non-. According to the National Kidney Foundation, irrespective of diagnosis, the stage of the disease is based on the level of kidney function: Stage Description GFR(mL/min/1.73 m(2)) 1 Kidney damage with normal or decreased GFR 90 2 Kidney damage with mild decrease in GFR 60-89 3 Moderate decrease in GFR 30-59 4 Severe decrease in GFR 15-29 5 Kidney failure <15 (or dialysis) 174 Because ethnic data is not always readily available, this report includes an eGFR for both -Americans and non- Americans. The National Kidney Disease Education Program (NKDEP) does not endorse the use of the MDRD equation for patients that are not between the ages of 18 and 70, are , have extremes of body size, muscle mass, or nutritional status, or are non- or non-. According to the National Kidney Foundation, irrespective of diagnosis, the stage of the disease is based on the level of kidney function: Stage Description GFR(mL/min/1.73 m(2)) 1 Kidney damage with normal or decreased GFR 90 2 Kidney damage with mild decrease in GFR 60-89 3 Moderate decrease in GFR 30-59 4 Severe decrease in GFR 15-29 5 Kidney failure <15 (or dialysis) 175 Because ethnic data is not always readily available, this report includes an eGFR for both -Americans and non- Americans. The National Kidney Disease Education Program (NKDEP) does not endorse the use of the MDRD equation for patients that are not between the ages of 18 and 70, are , have extremes of body size, muscle mass, or nutritional status, or are non- or non-. According to the National Kidney Foundation, irrespective of diagnosis, the stage of the disease is based on the level of kidney function: Stage Description GFR(mL/min/1.73 m(2)) 1 Kidney damage with normal or decreased GFR 90 2 Kidney damage with mild decrease in GFR 60-89 3 Moderate decrease in GFR 30-59 4 Severe decrease in GFR 15-29 5 Kidney failure <15 (or dialysis) 176 RUN DATE: 09/06/12 [facility] LAB LIVE PAGE 1 RUN TIME: [address] [place] [address] Specimen Inquiry Name: TIMOTHY LINDA : [address]: Lars Guillory MD Acct: [id number] Unit: [id number] AGE: 57 Location: ENDO Re09/05/12 SEX: M Status: REG REF SPEC: [id number] TREVER: 09/05/12 [facility] DR: Lars Guillory MD REQ: [id number] RECD: 09/05/12 STATUS: STANTON OWEN DR: Vasyl Fine MD, MD _ SOURCE: GAS ANTRUM SPDESC: ORDERED: Clotest Procedure Result Verified Site Clotest Final 09/06/12- 02 ML Clotest Negative END OF REPORT * ML=Testing performed at Main Lab DEPARTMENT OF PATHOLOGY, [address] [place] [address] Saeid Martin M.D. Director [facility] Permit #[id number] 177 Because ethnic data is not always readily available, this report includes an eGFR for both -Americans and non- Americans. The National Kidney Disease Education Program (NKDEP) does not endorse the use of the MDRD equation for patients that are not between the ages of 18 and 70, are , have extremes of body size, muscle mass, or nutritional status, or are non- or non-. According to the National Kidney Foundation, irrespective of diagnosis, the stage of the disease is based on the level of kidney function: Stage Description GFR(mL/min/1.73 m(2)) 1 Kidney damage with normal or decreased GFR 90 2 Kidney damage with mild decrease in GFR 60-89 3 Moderate decrease in GFR 30-59 4 Severe decrease in GFR 15-29 5 Kidney failure <15 (or dialysis) 178 [email or web address].JF 179 Because ethnic data is not always readily available, this report includes an eGFR for both -Americans and non- Americans. The National Kidney Disease Education Program (NKDEP) does not endorse the use of the MDRD equation for patients that are not between the ages of 18 and 70, are , have extremes of body size, muscle mass, or nutritional status, or are non- or non-. According to the National Kidney Foundation, irrespective of diagnosis, the stage of the disease is based on the level of kidney function: Stage Description GFR(mL/min/1.73 m(2)) 1 Kidney damage with normal or decreased GFR 90 2 Kidney damage with mild decrease in GFR 60-89 3 Moderate decrease in GFR 30-59 4 Severe decrease in GFR 15-29 5 Kidney failure <15 (or dialysis) 180 RUN DATE: 07/21/12 [facility] LAB LIVE PAGE 1 RUN TIME: [address] [place] [address] Specimen Inquiry Name: TIMOTHY LINDA : [address]: Vasyl Alfred MD Acct: [id number] Unit: [id number] AGE: 57 Location: [facility] Re07/21/12 SEX: M Status: REG REF SPEC: [id number] TREVER: 07/21/[address] [facility] [address]: Vasyl Alfred MD REQ: [id number] RECD: 07/21/12 STATUS: COMP LEXIE DR: Brenda Dacosta MD _ SOURCE: [facility]: ORDERED: Hemoccult QUERIES: Medent Number [id number] Procedure Result Verified Site Stool Specimen Description Final 07/21/12- 1547 ML Test not performed Stool Occult Blood Final 07/21/12- 1547 ML Stool Occult Blood Positive END OF REPORT * ML=Testing performed at Main Lab DEPARTMENT OF PATHOLOGY, [address] [place] [address] Saeid Martin M.D. Director [facility] Permit #[id number] 181 Because ethnic data is not always readily available, this report includes an eGFR for both -Americans and non- Americans. The National Kidney Disease Education Program (NKDEP) does not endorse the use of the MDRD equation for patients that are not between the ages of 18 and 70, are , have extremes of body size, muscle mass, or nutritional status, or are non- or non-. According to the National Kidney Foundation, irrespective of diagnosis, the stage of the disease is based on the level of kidney function: Stage Description GFR(mL/min/1.73 m(2)) 1 Kidney damage with normal or decreased GFR 90 2 Kidney damage with mild decrease in GFR 60-89 3 Moderate decrease in GFR 30-59 4 Severe decrease in GFR 15-29 5 Kidney failure <15 (or dialysis) 182 Because ethnic data is not always readily available, this report includes an eGFR for both -Americans and non- Americans. The National Kidney Disease Education Program (NKDEP) does not endorse the use of the MDRD equation for patients that are not between the ages of 18 and 70, are , have extremes of body size, muscle mass, or nutritional status, or are non- or non-. According to the National Kidney Foundation, irrespective of diagnosis, the stage of the disease is based on the level of kidney function: Stage Description GFR(mL/min/1.73 m(2)) 1 Kidney damage with normal or decreased GFR 90 2 Kidney damage with mild decrease in GFR 60-89 3 Moderate decrease in GFR 30-59 4 Severe decrease in GFR 15-29 5 Kidney failure <15 (or dialysis) Procedures Date Code Description Status 08/26/2017 54431 Polysomnography Sleep Staging 4+ Parameters W/Cpap Completed 04/21/2017 56742 Polysomnography Sleep Staging 4+ Parameters Completed 09/30/2015 97506 TKR Total Knee Replacement Completed 09/30/2015 69224 TKR Total Knee Replacement Completed 09/15/2015 54844 EKG Tracing & Interpretation Completed 08/15/2015 20877 Inject/Drain Joint/Bursa Major W/O US Completed 02/06/2014 53599 Inject/Drain Joint/Bursa Major W/O US Completed 07/22/2013 82998957 Colonoscopy Completed 04/26/2013 93474 EKG Tracing & Interpretation Completed 01/08/2013 34444 Rad Exam; Both Knees, Standing Ap Completed 01/08/2013 36947 Inject/Drain Joint/Bursa Major W/O US Completed 05/10/2012 91484 EKG, Interpretation Only Completed 04/28/2012 29375 Abdominal Paracentesis W/Out Imaging Guidance Completed 04/25/2012 62095 Echocardiogram, Limited Study Completed 04/21/2012 19579 EKG, Interpretation Only Completed 04/19/2012 32003 Insert Non-Tunneled Venous Catether Completed 04/16/2012 29534 Abdominal Paracentesis W/Out Imaging Guidance Completed 2012 35497 Color Flow Doppler/Interp & Reprt Completed 2012 42820 Pulse Wave/Continuous-Interp.RPT Completed 2012 64307 ECHO Transthorasic Realtime 2D W Doppler & Color Flow Completed Hosp Encounters Type Date Location Provider Dx Diagnosis Office Visit 05/29/2018 [facility] Mikhail Tomas, R10.2 Pelvic and 10:30a Of [facility] DAVID LOUISE perineal pain Office Visit 05/12/2018 [facility] Internal Randy Holliday K41.90 Unil femoral 3:20p Medicine - [place] Jorge Ramirez M.D.,FACP hernia, w/o obst or gangrene, not spcf as recur M16.11 Unilateral primary osteoarthritis, right hip Office Visit 03/20/2018 9:40a [facility] Internal Bella Ervin MD I10 Essential (primary) Medicine - [place] hypertension Rd M25.562 Pain in left knee K70.30 Alcoholic cirrhosis of liver without ascites Office Visit 10/03/2017 1:30p Surgical Brenda Maria R10.31 Right lower Associates Of MD Praneeth quadrant pain [facility] Office Visit 09/20/2017 8:20a [facility] Internal Vasyl M25.562 Pain in left knee Medicine - [place] Jroge Alfred M.D. Office Visit 08/30/2017 8:00a [facility] Internal Vasyl I10 Essential Medicine - [place] Tima, (primary) Jorge Iverson hypertension M25.562 Pain in left knee M79.672 Pain in left foot Office Visit 08/19/2017 10:15a [facility] Mavis Mario, M25.562 Pain in left Of C.M.A. M.D. knee Z96.652 Presence of left artificial knee joint W18.49xA Oth slipping, tripping and stumbling w/o falling, init M22.8x2 Other disorders of patella, left knee Office Visit 08/02/2017 3:00p Surgical Brenda Maria R10.31 Right lower [facility] Of Tiffanie Dacosta MD quadrant pain Office Visit 06/28/2017 8:00a [facility] Internal Vasyl I10 Essential Medicine - [place] Tima, (primary) Jorge Iverson hypertension K70.30 Alcoholic cirrhosis of liver without ascites M25.562 Pain in left knee Office Visit 06/27/2017 Pulmonology And Dodie G47.33 Obstructive sleep 8:00a Sleep Services Of JUDITH Rowley, RN, apnea (adult) Neurology Professor GERENTOLOGICAL PHYSIOTHERAPIST-BC (pediatric) Office Visit 04/28/2017 [facility] Dodie G47.33 Obstructive sleep 10:30a [facility] Of JUDITH Rowley, RN, apnea (adult) [facility] (pediatric) Office Visit 04/28/2017 [facility] Internal Vasyl I10 Essential 8:00a Medicine - [place] Kishor Alfred (primary) Rd hypertension K70.30 Alcoholic cirrhosis of liver without ascites M25.562 Pain in left knee Office Visit 03/23/2017 8:00a Pulmonology And Viki G47.9 Sleep disorder, Sleep Services Of MD Yuval unspecified [facility] R40.0 Somnolence G47.50 Parasomnia, unspecified Office Visit 02/24/2017 8:00a [facility] Internal Vasyl Alfred, I10 Essential (primary) Medicine - M.D. hypertension [place] [address] K70.30 Alcoholic cirrhosis of liver without ascites M25.562 Pain in left knee Office Visit 01/11/2017 9:00a [facility] Internal Vasyl Alfred, Z00.01 Encounter for Medicine - M.D. general adult [place] [address] medical exam w abnormal findings G47.00 Insomnia, unspecified A69.20 Lyme disease, unspecified Z23 Encounter for immunization Z00.00 Encntr for general adult medical exam w/o abnormal findings Office Visit 11/11/2016 8:00a [facility] Internal Vasyl Alfred, I10 Essential (primary) Medicine - M.D. hypertension [place] [address] D69.6 Thrombocytopenia, unspecified M25.562 Pain in left knee G47.00 Insomnia, unspecified Z12.5 Encounter for screening for malignant neoplasm of prostate Office Visit 09/10/2016 8:40a [facility] Internal Vasyl Alfred, I10 Essential (primary) Medicine - M.D. hypertension [place] [address] M25.562 Pain in left knee Office Visit 06/25/2016 9:40a [facility] Internal Vasyl Alfred, I10 Essential (primary) Medicine - M.D. hypertension [place] [address] Z96.652 Presence of left artificial knee joint K70.30 Alcoholic cirrhosis of liver without ascites Z11.59 Encounter for screening for other viral diseases Office Visit 04/15/2016 9:00a [facility] Internal Nurse Visit Z23 Encounter for Medicine - [place] immunization [place] [address] Office Visit 04/02/2016 8:40a [facility] Internal [place] M25.562 Pain in left knee Medicine - [place], [place] [address] M.D. I10 Essential (primary) hypertension Office Visit 03/02/2016 10:20a [facility] Internal [place] Tima, M25.562 Pain in left Medicine - [place] M.D. knee Rd I10 Essential (primary) hypertension Office Visit 02/25/2016 8:00a [facility] Services Mavis Martin, M25.562 Pain in left Of C.M.A. M.D. knee Z96.652 Presence of left artificial knee joint Office Visit 02/19/2016 8:20a [facility] Internal Vasyl Pachjeromyra, I10 Essential (primary) Medicine - M.D. hypertension [place] [address] Office Visit 02/05/2016 9:40a [facility] Internal [place] Pachika, I10 Essential (primary) Medicine - M.D. hypertension [place] [address] M25.562 Pain in left knee Office Visit 01/12/2016 2:45p [facility] Mavis Martin, M25.562 Pain in left Of C.M.A. M.D. knee Z96.652 Presence of left artificial knee joint Z47.1 Aftercare following joint replacement surgery Office Visit 01/06/2016 8:40a [facility] Internal Vasyl [place], K70.30 Alcoholic Medicine - M.D. cirrhosis of [place] [address] liver without ascites D69.6 Thrombocytopenia, unspecified C44.311 Basal cell carcinoma of skin of nose M25.562 Pain in left knee I10 Essential (primary) hypertension Office Visit 10/03/2015 [facility] Meghan D69.6 Thrombocytopenia, 10:38a Assoc,jeevan Echols, D.O. unspecified Hospitalists K70.30 Alcoholic cirrhosis of liver without ascites E87.1 Hypo-osmolality and hyponatremia Z96.652 Presence of left artificial knee joint Office Visit 10/01/2015 10:38a [facility] Meghan K70.30 Alcoholic Assoc,jeevan Echols, D.O. cirrhosis of Hospitalists liver without ascites D69.6 Thrombocytopenia, unspecified D64.9 Anemia, unspecified Z96.652 Presence of left artificial knee joint Office Visit 09/30/2015 10:37[facility] K70.30 Alcoholic Assoc,pc Danny, N.P. cirrhosis of Hospitalists liver without ascites D69.6 Thrombocytopenia, unspecified D64.9 Anemia, unspecified Z96.652 Presence of left artificial knee joint Office Visit 09/15/2015 [facility] Internal Vasyl Z01.818 Encounter for other 1:20p Kirk Alfred M.D. preprocedural [address] examination K70.30 Alcoholic cirrhosis of liver without ascites G47.00 Insomnia, unspecified D64.9 Anemia, unspecified D69.6 Thrombocytopenia, unspecified M17.12 Unilateral primary osteoarthritis, left knee Office Visit 09/08/2015 3:20p [facility] Internal Vasyl Alfred Z00.00 Encntr for Medicine - M.D. 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 M.D. knee K70.30 Alcoholic cirrhosis of liver without ascites M17.12 Unilateral primary osteoarthritis, left knee M25.462 Effusion, left knee Office Visit 07/08/2015 10:00a [facility] Internal Vasyl Alfred, K70.30 Alcoholic Medicine - M.D. cirrhosis of [place] [address] liver without ascites G47.00 Insomnia, unspecified M17.12 Unilateral primary osteoarthritis, left knee Z12.5 Encounter for screening for malignant neoplasm of prostate Office Visit 05/06/2015 10:00a [facility] Internal Vasyl Alfred, K70.30 Alcoholic Medicine - M.D. 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 Cirrhosis Of [place] [address] Liver 715.16 Osteoarthrosis Localized Prim Lower Leg 285.9 Anemia Unspec 780.52 Insomnia Unspecified V70.0 Examination General Medical Routine AT Health Care Facility V77.91 Screening For Lipoid Disorders V77.1 Screening Diabetes Mellitus V76.44 Screening For Malig Dave Prostate 796.2 Blood Pressure Reading Elevated W/O Hypertension Office Visit 05/01/2014 10:00a [facility] Internal Vasyl Alfred, 571.2 Alcoholic Medicine - M.D. Cirrhosis Of [place] [address] Liver 285.9 Anemia Unspec 287.49 Other Secondary Thrombocytopenia V76.44 Screening For Malig Dave Prostate Office Visit 04/24/2014 9:00a Orthopedic Jasen Estrada, 715.16 Osteoarthrosis Services Of M.DGila Localized Prim Lower C.M.A. Leg Office Visit 03/08/2014 8:00a [facility] Vasyl 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 Medicine [place], Of Liver M.D. 715.96 Osteoarthrosis Unspec Genlzd Or Localized Lower Leg Office Visit 02/06/2014 Orthopedic Sandra Calderon, 715.96 Osteoarthrosis 8:30a Services Of RPA-C Unspec Genlzd Or C.M.A. Localized Lower Leg Office Visit 01/24/2014 Orthopedic Karishma 927.3 Crushing Injury 2:45p Services Of Kishor Muñoz Finger(S) C.M.A. 816.11 FX One Or More Middle Proximal Phalanx Or Phalang Open Office Visit 01/22/2014 2:40p [facility] Primitivo Alfred, 923.20 Contusion Medicine M.DGila Hand(S) 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 Of Liver V41.7 Sexual Function Problem Office Visit 08/07/2013 1:40p [facility] Internal Hayley Bird 919.4 Injury Superficial Medicine M.D. Insect Bite Oth Mult Unsp Nonv W/O Infect Office Visit 07/17/2013 9:40a [facility] Internal Hayley Bird 571.2 Alcoholic Medicine M.DGila Cirrhosis Of Liver 790.6 Abnormal Blood Chemistry Other 285.9 Anemia Unspec Office Visit 04/26/2013 2:00p [facility] Internal Hayley Bird, V72.84 Examination Medicine M.DGila Preoperative Unspec 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 Of Liver 840.5 Sprains & Strains Subscapularis (Muscle) Office Visit 04/19/2013 9:20a [facility] Internal Hayley Bird, 571.2 Alcoholic Medicine Kishor Cirrhosis Of Liver 790.6 Abnormal Blood Chemistry Other 453.9 Embolism & Thrombosis Venous Unspec Site 285.9 Anemia Unspec Office Visit 01/08/2013 8:30a Orthopedic Jasen Estrada, 716.96 Arthropathy Unspec Services Of Kishor Lower Leg C.M.A. 719.06 Effusion Joint Lower Leg Office Visit 12/12/2012 8:00a [facility] Internal Vasyl Alfred 571.2 Alcoholic Medicine Kishor Cirrhosis Of Liver 562.10 Diverticulosis Colon W/O Hemorrhage V70.0 Examination General Medical Routine AT Health Care Facility V76.44 Screening For Malig Daev Prostate 719.06 Effusion Joint Lower Leg Office Visit 10/30/2012 8:00a [facility] Internal Vasyl Alfred, 571.2 Alcoholic Medicine Kishor Cirrhosis Of Liver 284.19 Other Pancytopenia 709.9 Skin & Subcutaneous Tissue Disorders Unspec V76.44 Screening For Malig Dave Prostate Office Visit 09/18/2012 9:00a [facility] Internal Vasyl Alfred, 571.2 Alcoholic Medicine Kishor Cirrhosis Of Liver 284.19 Other Pancytopenia 611.71 Mastodynia Office Visit 08/29/2012 Tiffanie Fallon 457.1 Lymphedema Other 2:40p Kirk Alfred M.D. Office Visit 08/07/2012 Tiffanie Fallon 572.2 Hepatic 8:00a Kirk Alfred M.D. Encephalopathy 453.9 Embolism & Thrombosis Venous Unspec Site 285.9 Anemia Unspec 796.3 Blood Pressure Reading Low Nonspecified 611.71 Mastodynia Office Visit 07/05/2012 10:20a Tiffanie Alfred, 285.9 Anemia Unspec Medicine Kishor 572.2 Hepatic Encephalopathy 780.52 Insomnia Unspecified Office Visit 06/21/2012 11:00a Tiffanie Alfred, 550.90 Hernia Inguinal Medicine Kihsor W/O Obstruct Or Gangrene Unilateral Unspec 276.1 Hyposmolality & Or Hyponatremia 285.9 Anemia Unspec Office Visit 06/14/2012 10:20a [facility] Heart Tima, 571.2 Alcoholic Medicine Kishor Cirrhosis Of Liver 453.9 Embolism & Thrombosis Venous Unspec Site 428.32 Diastolic Heart Failure Chronic Office Visit 05/15/2012 11:24a [facility] Alek Silvestre, 571.2 Alcoholic Assjeevan velez M.D. Cirrhosis Of Hospitalists Liver 453.9 Embolism & Thrombosis Venous Unspec Site 572.2 Hepatic Encephalopathy 780.97 Altered Mental Status Office Visit 05/14/2012 11:[facility], 571.2 Alcoholic Assjeevan velez M.D. Cirrhosis Of Hospitalists Liver 453.9 Embolism & Thrombosis Venous Unspec Site 572.2 Hepatic Encephalopathy 780.97 Altered Mental Status Office Visit 05/13/2012 11:23a [facility], 571.2 Alcoholic Assjeevan velez M.D. Cirrhosis Of Hospitalists Liver 453.9 Embolism & Thrombosis Venous Unspec Site 572.2 Hepatic Encephalopathy 780.97 Altered Mental Status Office Visit 05/12/2012 11:[facility]olic Assjeevan velez M.D. Cirrhosis Of Hospitalists Liver 453.9 Embolism & Thrombosis Venous Unspec Site 572.2 Hepatic Encephalopathy Office Visit 05/11/2012 11:22a [facility] 571.2 Alcoholic Assjeevan velez M.D. Cirrhosis Of Hospitalists Liver 453.9 Embolism & Thrombosis Venous Unspec Site 572.2 Hepatic Encephalopathy Office Visit 05/10/2012 11:22a [facility] 571.2 Alcoholic Assocjeevan M.D. Cirrhosis Of Hospitalists Liver 453.9 Embolism & Thrombosis Venous Unspec Site 572.2 Hepatic Encephalopathy Office Visit 05/09/2012 11:21a [facility] 571.2 Alcoholic Assocjeevan M.D. Cirrhosis Of Hospitalists Liver 453.9 Embolism & Thrombosis Venous Unspec Site 572.2 Hepatic Encephalopathy Office Visit 05/08/2012 11:21a [facility] 571.2 Alcoholic Assocjeevan M.D. Cirrhosis Of Hospitalists Liver 453.9 Embolism & Thrombosis Venous Unspec Site 780.97 Altered Mental Status Office Visit 05/07/2012 11:20a [facility] Alek Silvestre, 571.2 Alcoholic Assocjeevan M.D. Cirrhosis Of Hospitalists Liver 453.9 Embolism & Thrombosis Venous Unspec Site 780.97 Altered Mental Status 287.49 Other Secondary Thrombocytopenia Office Visit 05/06/2012 11:20a [facility] Alek Silvestre, 571.2 Alcoholic Assjeevan velez M.D. Cirrhosis Of Hospitalists Liver 453.9 Embolism & Thrombosis Venous Unspec Site 780.97 Altered Mental Status 287.49 Other Secondary Thrombocytopenia Office Visit 05/05/2012 11:19a [facility] Alek Silvestre, 571.2 Alcoholic Assocjeevan M.D. 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 Encephalopathy Hospitalists 276.0 Hyperosmolality & Or Hypernatremia 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 Of Liver 453.9 Embolism & Thrombosis Venous Unspec Site Office Visit 04/26/2012 [facility] Lars Pack, 572.2 Hepatic 11:08a Assoc,pc D.O. 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 Encephalopathy Hospitalists 276.0 Hyperosmolality & Or Hypernatremia 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 Of Liver 453.9 Embolism & Thrombosis Venous Unspec Site Office Visit 04/24/2012 11:07a [facility] Lars Pack, 780.97 Altered Mental Assoc,pc D.O. Status Hospitalists 453.9 Embolism & Thrombosis Venous Unspec Site 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 Of Liver 276.0 Hyperosmolality & Or Hypernatremia Office Visit 04/23/2012 11:07a [facility] Lars Pack, 780.97 Altered Mental Assoc,pc D.O. 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 Status Hospitalists 481 Pneumonia Pneumococcal 453.9 Embolism & Thrombosis Venous Unspec Site 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 Of Liver Office Visit 04/21/2012 11:06a [facility] Lars Pack, 780.97 Altered Mental Assoc,pc D.O. 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 Of Liver 276.1 Hyposmolality & Or Hyponatremia Office Visit 04/16/2012 8:56a [facility] Amanuel Thomas, 291.0 Alcoholic Assoc,jeevan Iverson Withdrawal Hospitalists Delirium 276.1 Hyposmolality & Or Hyponatremia 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 Office Visit 04/15/2012 10:34a [facility] Amanuel Thomas, 291.0 Alcoholic Assoc,pc M.Miya Withdrawal Hospitalists Delirium 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 Of Liver 276.1 Hyposmolality & Or Hyponatremia 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 Breath Hospitalists 782.4 Jaundice Unspec Not [place] 303.90 Alcohol Dependence Other & Unspec 276.1 Hyposmolality & Or Hyponatremia Plan of Treatment 07/06/2018 - Mikhail Tomas MD, FACSR10.2 Pelvic and perineal painFollow up: None [id number] Nonspecific lymphadenitis, unspecified
[2018-08-01 09:51] LABS: Activated Partial Thrombo Time 28.8 seconds (26.0-38.0); INR 1.01 (0.82-1.09)
[2018-08-01 10:06] LABS: ALT 14 U/L (7-52); AST 20 U/L (13-39); Albumin 4.7 g/dL (3.2-5.2); Albumin/Globulin Ratio 1.6 (1-3); Alkaline Phosphatase 87 U/L (34-104); Amylase 32 U/L (29-103); Anion Gap 11 mmol/L (2-11); BUN/Creatinine Ratio 14.6 (8-20); Blood Urea Nitrogen 12 mg/dL (6-24); C Reactive Protein < 1.00 mg/L (<8.01); CO2 Carbon Dioxide 25 mmol/L (22-32); Calcium 9.9 mg/dL (8.6-10.3); Chloride 104 mmol/L (101-111); EGFR African American 115.2 (>60); EGFR Non-African American 95.2 (>60); Glucose 98 mg/dL (70-100); Magnesium 2.1 mg/dL (1.9-2.7); Potassium 3.4 mmol/L (3.5-5.0); Sodium 140 mmol/L (135-145); Total Protein 7.7 g/dL (6.4-8.9)
[2018-08-01 10:16] LABS: Alcohol 32 mg/dL (<10)
[2018-08-01] MEDS ORDERED: Iohexol 300* (CONTRAST) 10 ML SDV IV ONE (10:23)
[2018-08-01 10:43] LABS: HIV 4th Generation Negative (Negative)
[2018-08-01 11:59] VITALS: BP 144/88
== END 2018-08-01 11:59 | disposition home or self-care (01) ==
LOC: ED 08:44
DX: K80.20 Calculus of gallbladder without cholecystitis without obstruction (principal); K52.9 Noninfective gastroenteritis and colitis, unspecified; K70.30 Alcoholic cirrhosis of liver without ascites; N28.1 Cyst of kidney, acquired; D64.9 Anemia, unspecified; Z88.0 Allergy status to penicillin
CPT/HCPCS: 36415; 74177; 80053; 80320; 81003; 82140; 82150; 83605; 83690; 83735; 84484; 85025; 85610; 85730; 86140; 87040; 87389; 93005; 96361; 96374; 96375; 99283; A9270-GY; G0480; J2270; J2405; Q9967

== ENCOUNTER 2018-08-14 17:28 | Emergency (ER) | payer OTHER ==
--- OUTSIDE RECORDS SUMMARY | 2018-08-14 17:40 | XMS REPORT | Continuity of Care Document ---
:1955 External Reference #:[id number] Author Name Charisse Mcdermott Care Team Providers Name Role Phone Bella Ervin M.D. Primary Care Physician Unavailable Payers Date Identification Numbers Payment Provider Subscriber Effective: Policy Number: [id number] [place] Reece Linda 2015 Medicaid PayID: [id number] [address] [address] [place] [address] Problems Active Problems Provider Date Alcoholic cirrhosis Vasyl Alfred M.D. Onset: 06/14/2012 Cholelithiasis without obstruction Randy Ramirez M.D.,[facility] Onset: 2018 Chronic diastolic heart failure Vasyl lAfred M.D. Onset: 06/14/2012 Inguinal hernia without obstruction Vasyl Alfred M.D. Onset: 06/21/2012 AND without gangrene Insomnia Vasyl Alfred M.D. Onset: 07/05/2012 Diverticular disease of colon Vasyl Alfred M.D. Onset: 12/12/2012 Note: CT in ER July 2018 felt + for diverticulitis so given moxifloxacin 400 Osteoarthritis of knee Vasyl Alfred M.D. Onset: 03/08/2014 Essential hypertension Vasyl Alfred M.D. Onset: 02/05/2016 Obstructive sleep apnea syndrome Dodie Rowley, JUDITH, RN, [employer] Onset: 09/2017 Chronic alcoholism in remission Lars Guillory MD Onset: 08/07/1996 Note: In 2012 he was admitted for 5 weeks and had liver failure with hepatic encephalopathy with an albumin as low as 1.2 chronically early April 2012; his alcohol history is outlined (released his perception of it) and psychiatry consult with Dr Burch 05/10/18 where he is being considered for fpc placement to stabilize sobriety; he did stay sober and had follow-up appointments fall 2012 with me; he states he was actually sober for 5 years and now has a couple of beers on weekends. His first serum alcohol level in 6 years August 01, 2018 was 32 (<10) - his platelet count has come up to normal at 149 on 08/01/18 Inactive Problems Hypo-osmolality and or hyponatremia Vasyl Alfred M.D. Onset: 06/21/2012 Inactive: 08/06/2014 Hepatic encephalopathy Vasyl Alfred M.D. Onset: 07/05/2012 Inactive: 08/06/2014 Low blood pressure reading Vasyl Alfred M.D. Onset: 08/07/2012 Inactive: 08/06/2014 Pain of breast Vasyl Alfred M.D. Onset: 08/07/2012 Inactive: 08/06/2014 Lymphedema Vasyl Alfred M.D. Onset: 08/29/2012 Inactive: 08/06/2014 Disorder of skin and/or subcutaneous tissue Vasyl Alfred M.D. Onset: 10/2012 Inactive: 08/06/2014 Joint effusion [...] Observation Comments General Heart Disease General Cancer no history of gastric or colon cancer as of 2018 General Diabetes Father Heart Disease Mother Breast Cancer Siblings 7 1 sister , 2 sisters and 4 brothers living. : (2010) First Sister due to Breast eldest sister Cancer Social History Type Date Description Comments Sex Unknown Marital Status Single Lives With Alone Occupation Construction Occupation Medically Retired Tobacco Use Start: Unknown Never Smoked Cigarettes Smoking Status Reviewed: 08/09/18 Never Smoked Cigarettes ETOH Use 2012 Has consumed alcohol in the past Tobacco Use Start: Unknown Patient has never smoked Recreational Drug Use Sporadically uses Marijuana Exercise Type/Frequency Exercises regularly Allergies, Adverse Reactions, Alerts Active Allergies Reaction Severity Comments Date Amoxicillin 06/14/2012 Medications Active Medications SIG Qnty Indications Ordering Date Provider Hyoscyamine Sulfate one by mouth three 90tabs R10.84 Bella Ervin MD 08/09 times a day as 0.125mg Tablets needed for abdominal pain Omeprazole 1 by mouth every 30caps R10.84 Bella Ervin MD 08/09/[address] Tramadol HCL 1 tablet by mouth 90tabs Bella Ervin MD 07/04/2018 50mg every 6 - 8 hours Tablets as needed for pain Daily-Bella take 1 tablet by 30tabs Bella Ervin MD 08/25/2017 Tablets mouth every day Amlodipine Besylate Take 1 Tablet By 30tabs Fareed Ervin MD 06/28/2017 Mouth Every Day 10mg Tablets Metoprolol Succinate 1 by mouth every 30tabs I10 Bella Ervin MD 2016 ER day 100mg Tablets ER 24HR Moxifloxacin HCL Take 1 Tablet By Unknown 400mg Mouth Every Day Tablets History Medications Hydrocodone-Acetaminophen 1 tab by mouth 30tabs M25.562 Bella Ervin, 05/12 - 10-325mg every 8- 12 08/09/2018 Tablets hours as needed for severe pain only. take sparingly Tramadol HCL 1 by mouth 90tabs Bella Ervin, 04/26/2018 - 50mg Tablets every 6-8 hours 05/12/2018 as needed for pain Multi Complete daily 30caps Vasyl 09/23/2017 - Capsules Tima, 03/20/2018 M.D. Zolpidem Tartrate 1 tab daily at 14tabs G47.00 Randy Holliday 11/11/2016 - 5mg Tablets bedtime Ashley, 03/22/2017 M.D.,FACP Ferrous Gluconate 1 by mouth 2x a 180tabs [place] 09/23/2016 - 324(37.5Fe) mg day Tima, 01/11/2017 Tablets M.D. Amlodipine Besylate 1 by mouth 30tabs Vasyl 05/27/2016 - 5mg Tablets every day Tima, 06/28/2017 M.D. Amlodipine Besylate 1 by mouth 30tabs Vasyl 04/16/2016 - 10mg Tablets every day Tima, 05/27/2016 M.D. Metoprolol Succinate ER 1 by mouth 30tabs Vasyl 03/24/2016 - 50mg Tablets ER every day . Tima, 11/11/2016 24HR M.D. Amlodipine Besylate 1 by mouth 60tabs Vasyl 03/08/2016 - 5mg Tablets twice daily Tima, 04/16/2016 M.D. Amlodipine Besylate 1 by mouth 30tabs Vasyl 03/04/2016 - 5mg Tablets every day in am [facility], 03/08/2016 M.D. Hydrocodone-Acetaminophen 1 tab by mouth 30tabs M25.562 Bella Ervin, 03/02 - 10-325mg every 8- 12 MD 05/12/2018 Tablets hours as needed for severe pain only. take sparingly Metoprolol Succinate ER 1 by mouth 30tabs Alfredo 02/25/2016 - 50mg Tablets ER every day CAROL Segundo 03/02/2016 24HR Metoprolol Tartrate 1 by mouth 60tabs I10 [place] 02/05/2016 - 25mg Tablets twice a day [facility], 03/02/2016 M.D. Oxycodone-Acetaminophen 1 tabs by mouth 60tabs [place] 01/14/2016 - 5-325mg Tablets every 12 hours [facility], 03/02/2016 as needed for M.D. pain MS Contin Take one tablet 28tabs Gerber 10/03/2015 - 30mg Tablets ER by mouth two Laura, 01/06/2016 times a day for M.D. 14 days Docusate Sodium 1 by mouth up 60caps M17.12 Lashae 09/19/2015 - 100mg Capsules to 3 times a CAROL Mast 01/06/2016 day as needed for constipation Coumadin 1 by mouth 45tabs M17.12 Lashae 09/19/2015 - 2mg Tablets daily post CAROL Mast 01/06/2016 operatively or as directed by vns/. do not take this medication prior to surgery Oxycodone-Acetaminophen 1 by mouth 45tabs M17.12 Mavis 09/19/2015 - 5-325mg Tablets every 6 hours Kishor Martin 01/11/2016 as needed for pain. Hydrocodone-Acetaminophen 12h as needed 60tabs M17.9 [place] 07/08/2015 - 7.5-325mg [facility], 01/06/2016 Tablets M.DGila Multi For Him 50+ 1 by mouth 30tabs [place] 06/12/2015 - Tablets every day [place], 06/12/2015 M.DGila Multi For Him 50+ 1 by mouth 30tabs [place] 06/10/2015 - Tablets every day [place], 06/10/2015 M.D. Multi For Him once a day 30caps [place] 06/10/2015 - Capsules [place], 06/10/2015 M.D. Multi Complete daily 30caps [place] 06/10/2015 - Capsules [place], 08/29/2017 M.D. Multi For Him 50+ once a day 30tabs [place] 05/06/2015 - Tablets [place], 06/10/2015 M.D. Lidocaine HCL apply 4 times a 1units M25.562 [place] 05/06/2015 - 2% Gel day [place], 09/18/2015 M.D. Doxycycline Hyclate 2 tabs today 2caps [place] 02/20/2015 - 100mg Capsules [place], 05/06/2015 M.D. Colace 1 by mouth 60caps Kranthi Lugo, 05/09/2014 - 50mg Capsules every day [employer] 11/25/2014 Multi Vitamin Daily once daily 30tabs [place] 04/05/2014 - Tablets [place], 05/06/2015 M.D. Thiamine HCL 1 by mouth 30tabs [place] 04/05/2014 - 100mg Tablets every day [place], 08/06/2014 M.D. Vitamin B-12 once daily 30tabs [place] 03/29/2014 - Natural [place], 08/06/2014 500mcg Tablets M.D. Voltaren apply 4gm twice 1tube [place] 03/27/2014 - 1% Gel daily to knee [facility], 09/18/2015 M.D. Hydrocodone-Acetaminophen Take 1 Tablet 60tabs M17.9 Randy Holliday 2014 - 5-325mg By Mouth Every [place], 07/08/2015 Tablets 12 Hours as M.D.,FACP Needed - Maximum Daily Dose Of 2 Per Day Clindamycin HCL tid 21caps 923.20 [place] 01/22/2014 - 150mg Capsules [place], 03/08/2014 M.D. Hydrocodone-Acetaminophen 1 tab every 12h 10tabs [place] 01/22/2014 - 5-325mg as needed [place], 03/08/2014 Tablets M.D. Doxycycline Hyclate 1 by mouth 2x 20tabs 919.4 Hayley 08/07/2013 - 100mg Tablets DR per day 10 days Kishor Bird 01/22/2014 Ferrous Gluconate 1 by mouth 2x a 180tabs [place] 04/17/2013 - 324(38Fe) mg Tablets day [facility], 09/23/2016 M.DGila Thiamine HCL 1 po qd 30tabs 611.71 [place] 09/18/2012 - 100mg Tablets [facility], 12/12/2012 M.D. Spironolactone 1 po qd 30tabs 457.1 [place] 08/29/2012 - 50mg Tablets [facility], 09/18/2012 M.D. Spironolactone once a day 30tabs 572.2 [place] 08/07/2012 - 25mg Tablets [facility], 08/29/2012 M.D. Amitriptyline HCL take 1 to 2 60tabs G47.00 [place] 07/05/2012 - 10mg Tablets tablets by [facility], 06/25/2016 mouth at M.D. bedtime as needed Feosol once daily 90tabs 285.9 [place] 06/21/2012 - 200(65Fe) mg Tablets [facility], 08/29/2012 M.D. Furosemide 1 po qam 90tabs Unknown - 20mg Tablets 06/21/2012 Spironolactone 1 po qd 90tabs [place] - 50mg Tablets [facility], 08/07/2012 M.D. Potassium Chloride CR 1 po qd 90tabs Unknown - 20Meq Tablets ER 06/21/2012 Propranolol HCL 1 po bid 180tabs Unknown - 10mg Tablets 08/07/2012 Thiamine HCL 1 po qd 30tabs Unknown - 100mg Tablets 09/18/2012 Tamsulosin HCL 1 by mouth 30caps Hayley - 0.4mg Capsules every day Kishor Bird 08/07/2013 Warfarin Sodium take as 90tabs [place] - 2mg Tablets directed [facility], 08/29/2012 M.D. Lactulose 1 bid 1Bottle Unknown - 15 Solution 08/07/2012 Multi For Him 1 po qd 30caps Unknown - Capsules 05/01/2014 Ferrous Sulfate 1 by mouth Unknown - Tablets every day 08/06/2014 Diclofenac Sodium apply 1 grams 100gm Vasyl - 1% Gel on wrists as [place], 11/09/2016 needed for M.D. pain. Ibuprofen taking every 4 Unknown - 400mg Tablets hours 08/09/2018 Medications Administered in Office Medication SIG Qnty Indications Ordering Provider Date Influenza,Unspecified Unknown 10/25/2017 Injection Depomedrol 40MG Mavis Martin M.D. 08/15/2015 Injection Depomedrol 80MG CAYLA Mtz 02/06/2014 Injection Depomedrol 80MG Jasen Estrada M.D. 01/08/2013 Injection Immunizations CPT Code Status Date Vaccine Reaction Lot # [id number] Given 07/28/2017 Zoster (Shingles) Vaccine (HZV), Recombinant, Subunit, Adjuvanted 55230 Given 01/11/2017 Influenza Virus Vaccine, no reaction, pt [id number] Quadrivalent, Split, tolerated well Preservative Free 66009 Given 04/20/2016 Zoster (Zostavax) [id number] Given 05/06/2015 Pneumonia Vaccine [id number] Vital Signs Date Vital Result Comment 08/09/2018 2:15pm Height 68 inches 5'8" Weight 152.12 lb Heart Rate 93 /min BP Systolic 140 mmHg BP Diastolic 82 mmHg Body Temperature 98.8 F O2 % BldC Oximetry 98 % BMI (Body Mass Index) 23.1 kg/m2 08/07/2018 2:11pm Weight 134.00 lb Heart Rate 80 /min BP Systolic 137 mmHg BP Diastolic 82 mmHg O2 % BldC Oximetry 98 % 07/06/2018 9:50am Heart Rate 76 /min BP [...] Date Facility Test Result H/L Range Note Laboratory test 08/01/2018 [facility] Partial 28.8 seconds N 26.0-38.[address] [place] [address] PTT [phone] HIV 4th Generation Self Ref Negative Negative Blood Culture SEE RESULT BELOW 1 Inr/Protime 08/01/2018 [facility] Inr 1.01 N 0.82-1.[address] [place] [address] [phone] Laboratory test 08/01/2018 [facility] Magnesium 2.1 mg/dL N 1.9-2.[address] [place] [address] [phone] Amylase 32 U/L N 29-103 Lipase 33 U/L N 11.0-82.0 C Reactive Protein < 1.00 mg/L N <8.01 Alcohol 32 mg/dL High <10 CBC Auto Diff 08/01/2018 [facility] White Blood 5.0 10^3/uL N 3.5-10.[address] [place] [address] [phone] Red Blood Count 5.06 10^6/uL N 4.18-5.48 Hemoglobin 15.5 g/dL N 14.0-18.0 Hematocrit 45 % N 42-52 Mean Corpuscular Volume 89 fL N 80-94 Mean Corpuscular Hemoglobin 31 pg N 27-31 Mean Corpuscular HGB Conc 35 g/dL N 31-36 Red Cell Distribution Width 15 % N 10-15 Platelet Count 148 10^3/uL Low 150-450 Mean Platelet Volume 8.6 fL N 7.4-10.4 Abs Neutrophils 3.6 10^3/uL N 1.5-7.7 Abs Lymphocytes 1.0 10^3/uL N 1.0-4.8 Abs Monocytes 0.3 10^3/uL N 0-0.8 Abs Eosinophils 0.1 10^3/uL N 0-0.6 Abs Basophils 0.0 10^3/uL N 0-0.2 Abs Nucleated RBC 0.0 10^3/uL Granulocyte % 72.5 % Lymphocyte % 19.6 % Monocyte % 6.6 % Eosinophil % 1.0 % Basophil % 0.3 % Nucleated Red Blood Cells % 0.4 Urinalysis Profile 08/01/2018 [facility] Urine Color Straw [address] [place] [address] [phone] Urine Appearance Clear Urine Specific [place] 1.002 Low 1.010-1.030 Urine pH 6.0 N 5-9 Urine Urobilinogen Negative Negative Urine Ketones Negative Negative Urine Protein Negative Negative Urine Leukocytes Negative Negative Urine Blood Negative Negative Urine Nitrite Negative Negative Urine Bilirubin Negative Negative Urine Glucose Negative Negative Comp Metabolic Panel 08/01/2018 [facility] Sodium 140 mmol/L N 135-145 [address] [place] [address] [phone] Potassium 3.4 mmol/L Low 3.5-5.0 Chloride 104 mmol/L N 101-111 Co2 Carbon Dioxide 25 mmol/L N 22-32 Anion Gap 11 mmol/L N 2-11 Glucose 98 mg/dL N 70-100 Blood Urea Nitrogen 12 mg/dL N 6-24 Creatinine 0.82 mg/dL N 0.67-1.17 BUN/Creatinine Ratio 14.6 N 8-20 Calcium 9.9 mg/dL N 8.6-10.3 Total Protein 7.7 g/dL N 6.4-8.9 Albumin 4.7 g/dL N 3.2-5.2 Globulin 3.0 g/dL N 2-4 Albumin/Globulin Ratio 1.6 N 1-3 Total Bilirubin 0.90 mg/dL N 0.2-1.0 Alkaline Phosphatase 87 U/L N 34-104 Alt 14 U/L N 7-52 Ast 20 U/L N 13-39 Egfr Non- 95.2 >60 Egfr 115.2 >60 3 Laboratory test finding 08/01/2018 [facility] Ammonia 53 mcmol/ L N 16-53 [address] [place] [address] [phone] Lactic Acid 2.0 mmol/L N 0.5-2.0 4 Troponin-I (TnI) 0.00 ng/mL <0.04 5 CBC Auto Diff 06/16/2018 [facility] White Blood 4.8 10^3/uL N 3.5-10.[address] [place] [address] [phone] Red Blood Count 4.38 10^6/uL N 4.18-5.48 [...] % Nucleated Red Blood Cells % 0.1 Ethanol, Urine 06/16/2018 [facility] Ethanol-by 85 mg/dL Cutoff: [address] [place] [address] [phone] Urine Etoh Interpretation Positive. 6 Basic Metabolic Panel 06/16/2018 [facility] Sodium 141 mmol/L N 135-[address] [place] [address] [phone] Potassium 3.9 mmol/L N 3.5-5.0 Chloride 108 mmol/L N 101-111 Co2 Carbon Dioxide 24 mmol/L N 22-32 Anion Gap 9 mmol/L N 2-11 Glucose 82 mg/dL N 70-100 Blood Urea Nitrogen 17 mg/dL N 6-24 Creatinine 0.96 mg/dL N 0.67-1.17 BUN/Creatinine Ratio 17.7 N 8-20 Calcium 9.0 mg/dL N 8.6-10.3 Egfr Non- 79.4 >60 Egfr 96.0 >60 7 Liver Function 06/16/2018 [facility] Total Protein 7.1 g/dL N 6.4-8.[address] [place] [address] [phone] Albumin 4.5 g/dL N 3.2-5.2 Globulin 2.6 g/dL N 2-4 Albumin/Globulin Ratio 1.7 N 1-3 Total Bilirubin 0.30 mg/dL N 0.2-1.0 Direct Bilirubin 0.10 mg/dL N 0.03-0.18 Indirect Bilirubin 0.2 mg/dL Low 0.3-1.0 Alkaline Phosphatase 77 U/L N 34-104 Alt 15 U/L N 7-52 Ast 19 U/L N 13-39 THC Confirmation 06/16/2018 [facility] Urine Carboxy 225 ng/mL [address] [place] [address] [phone] Urine THC Interpretation Positive. 9 Drug Abuse 06/16/2018 [facility] Urine Presumptive Abnormal Cutoff: 10 W/Confirm, Ur [address] Alcohol Posi <SEE 10 [place] [address] NOTE> mg/dL [phone] Urine Amphetamine Negative ng/mL 11 Urine Barbiturates Negative ng/mL 12 Urine Benzodiazepines Negative ng/mL 13 Urine Cocaine Negative ng/mL 14 Urine Methadone Negative ng/mL Negative 15 Urine Opiates Negative ng/mL Negative 16 Urine Phencyclidine Negative ng/mL Cutoff: 25 Urine Tetrahydrocannabinol Presumptive Posi <SEE NOTE> ng/mL Abnormal Cutoff : 50 17 Laboratory test 04/10/2018 [facility] Testosterone 175.53 Low 240-[address] Total ng/[place] [address] [phone] PSA Diagnostic 0.249 ng/mL 0-4.0 18 Liver Function 03/24/2018 [facility] Total Protein 7.3 g/dL N 6.4-8.[address] [place] [address] [phone] Albumin 4.6 g/dL N 3.2-5.2 Globulin 2.7 g/dL N 2-4 Albumin/Globulin Ratio 1.7 N 1-3 Total Bilirubin 0.50 mg/dL N 0.2-1.0 Direct Bilirubin 0.10 mg/dL N 0.03-0.18 Indirect Bilirubin 0.4 mg/dL N 0.3-1.0 Alkaline Phosphatase 80 U/L N 34-104 Alt 13 U/L N 7-52 Ast 18 U/L N 13-39 CBC Auto Diff 03/24/2018 [facility] White Blood 5.3 10^3/uL N 3.5-10.[address] [place] [address] [phone] Red Blood Count 4.92 10^6/uL N 4.00-5.40 [...] Blood Cells % 0 Drug Abuse 03/24/2018 [facility] Urine Negative Cutoff: 10 W/Confirm, Ur [address] Alcohol mg/[place] [address] [phone] Urine Amphetamine Negative ng/mL 19 Urine Barbiturates Negative ng/mL 20 Urine Benzodiazepines Negative ng/mL 21 Urine Cocaine Negative ng/mL 22 Urine Methadone Negative ng/mL Negative 23 Urine Opiates Negative ng/mL Negative 24 Urine Phencyclidine Negative ng/mL Cutoff: 25 Urine Tetrahydrocannabinol Presumptive Posi <SEE NOTE> ng/mL Abnormal Cutoff : 50 25 THC Confirmation 03/24/2018 [facility] Urine Carboxy >500.0 ng/ mL [address] [place] [address] [phone] Urine THC Interpretation Positive. 27 Xray 08/30/2017 [facility] Foot Left 3+ VWS <pending> [address] [place] [address] [phone] Drug Abuse 08/30/2017 [facility] Urine Amphetamine Negative ng/ mL 28, 29 [address] [place] [address] [phone] Urine Barbiturates Negative ng/mL 30 Urine Benzodiazepines Negative ng/mL 31 Urine Cocaine Negative ng/mL 32 Urine Phencyclidine Negative ng/mL Cutoff: 25 Urine Tetrahydrocannabinol Presumptive Posi <SEE NOTE> Abnormal Cutoff: 50 33 ng/mL Creatinine, Urine 110.1 mg/dL Specific [place] 1.010 pH 6.7 Oxidants Negative 34 Adulterants Comment Normal Codeine, Ur Not Detected ng/mL Cutoff: 25 35 Cxfured-6-ntrx-glucuronide, Ur Not Detected ng/mL 36 Morphine, Ur Not Detected ng/mL Cutoff: 25 37 Mfnjsmaz-5-sumk-glucuronide, U Not Detected ng/mL 38 6-monoacetylmorphine, Ur Not Detected ng/mL Cutoff: 25 39 Hydrocodone, Ur Present ng/mL Abnormal Cutoff: 25 40 Norhydrocodone, Ur Present ng/mL Abnormal Cutoff: 25 41 Dihydrocodeine, Ur Present ng/mL Abnormal Cutoff: 25 42 Hydromorphone, Ur Present ng/mL Abnormal Cutoff: 25 43 Rierjwevuqbhl5znqtwqkrranwnpr Present ng/mL Abnormal 44 Oxycodone, Ur Present ng/mL Abnormal Cutoff: 25 45 Noroxycodone, Ur Present ng/mL Abnormal Cutoff: 25 46 Oxymorphone, Ur Present ng/mL Abnormal Cutoff: 25 47 Lcluzqogkge-3-yivx-glucuronide Present ng/mL Abnormal 48 Noroxymorphone, Ur Present ng/mL Abnormal Cutoff: 25 49 Fentanyl, Ur Not Detected ng/mL Cutoff: 2 50 Norfentanyl, Ur Not Detected ng/mL Cutoff: 2 51 Meperidine, Ur Not Detected ng/mL Cutoff: 25 52 Normeperidine, Ur Not Detected ng/mL Cutoff: 25 53 Naloxone, Ur Not Detected ng/mL Cutoff: 25 54 Rsbvxtfm-9-ofuo-glucuronide, U Not Detected ng/mL 55 Methadone, Ur Not Detected ng/mL Cutoff: 25 56 Eddp, Ur Not Detected ng/mL Cutoff: 25 57 Propoxyphene, Ur Not Detected ng/mL Cutoff: 25 58 Norpropoxyphene, Ur Not Detected ng/mL Cutoff: 25 59 Tramadol, Ur Not Detected ng/mL Cutoff: 25 60 O-desmethyltramadol, Ur Not Detected ng/mL Cutoff: 25 61 Tapentadol, Ur Not Detected ng/mL Cutoff: 25 62 N-desmethyltapentadol, Ur Not Detected ng/mL Cutoff: 50 63 Uwdtfwgihd-vzak-rbiyjqrfbxb, U Not Detected ng/mL 64 Buprenorphine, Ur Not Detected ng/mL Cutoff: 5 65 Norbuprenorphine, Ur Not Detected ng/mL Cutoff: 5 66 Norbuprenorphine glucuronide Not Detected ng/mL Cutoff: 20 67 Opioid Interpretation See Comment 68 THC Confirmation 08/30/2017 [facility] Urine Carboxy >500.0 ng/ mL [address] [place] [address] [phone] Urine THC Interpretation Positive. 70 Comp Metabolic Panel 08/29/2017 [facility] Sodium 143 mmol/L N 135-[address] [place] [address] [phone] Potassium 4.2 mmol/L N 3.5-5.0 Chloride 107 [...] Egfr Non- 83.6 >60 Egfr 101.2 >60 71 Laboratory test 01/15/2017 [facility] Lyme Disease Negative Negative [address] [place] [address] [phone] CBC Auto Diff 01/04/2017 [facility] White Blood 6.0 10^3/uL N 3.5-10.[address] [place] [address] [phone] Red Blood Count 4.96 10^6/uL N 4.0-5.4 [...] Cells % 0.1 Comp Metabolic Panel 01/04/2017 [facility] Sodium 138 mmol/L N 133-[address] [place] [address] [phone] Potassium 4.0 mmol/L N 3.5-5.0 Chloride 104 [...] Egfr Non- 95.8 >60 Egfr 123.3 >60 73 Lipid Profile 01/04/2017 [facility] Triglycerides 115 mg/dL 74 (Trig/Chol/HDL) [address] [place] [address] [phone] Cholesterol 177 mg/dL 75 HDL Cholesterol 41.1 mg/dL 76 LDL Cholesterol 113 mg/dL 77 Laboratory test 01/04/2017 [facility] PSA Screening 0.151 ng/mL N 0-4.000 78 finding [address] [place] [address] [phone] Comp Metabolic 09/09/2016 [facility] Sodium 138 mmol/L N 133- 145 Panel [address] [place] [address] [phone] Potassium 4.1 mmol/L N 3.5-5.0 Chloride 104 [...] 94.5 N >60 Egfr 121.5 N >60 79 CBC Auto Diff 09/09/2016 [facility] White Blood 5.0 10^3/uL N 3.5-10.[address] [place] [address] [phone] Red Blood Count 4.72 10^6/uL N 4.0-5.4 [...] Cells % 0.1 N Lipid Profile 09/09/2016 [facility] Triglycerides 122 mg/dL N 80 (Trig/Chol/HDL) [address] [place] [address] [phone] Cholesterol 144 mg/dL N 81 HDL Cholesterol 38.6 mg/dL N 82 LDL Cholesterol 81 mg/dL N 83 Laboratory 09/09/2016 [facility] Hepatitis C Nonreactive N Nonreactive test finding [address] [place] [address] [phone] Drug Abuse 20 03/02/2016 [facility] Urine Negative N [address] Amphetamine ng/[place] [address] [phone] Urine Barbiturates Negative ng/mL N 85 Urine Benzodiazepines Negative ng/mL N 86 Urine Cocaine Negative ng/mL N 87 Urine Phencyclidine Negative ng/mL N Cutoff: 25 Urine Tetrahydrocannabinol Presumptive Posi <SEE NOTE> ng/mL N Cutoff: 50 88 Creatinine 126.0 mg/dL N Specific [place] 1.014 N pH 5.8 N Oxidants Negative N 89 Adulterants Comment Normal N Codeine, Ur Not Detected ng/mL N Cutoff: 25 90 Cyhxtzq-5-zkzo-glucuronide, Ur Not Detected ng/mL N 91 Morphine, Ur Present ng/mL N Cutoff: 25 92 Yckzxalv-8-rmiv-glucuronide, U Present ng/mL N 93 6-monoacetylmorphine, Ur Not Detected ng/mL N Cutoff: 25 94 Hydrocodone, Ur Not Detected ng/mL N Cutoff: 25 95 Norhydrocodone, Ur Not Detected ng/mL N Cutoff: 25 96 Dihydrocodeine, Ur Not Detected ng/mL N Cutoff: 25 97 Hydromorphone, Ur Not Detected ng/mL N Cutoff: 25 98 Aihppaooojykj9biqipqjcixzpxlv Present ng/mL N 99 Oxycodone, Ur Present ng/mL N Cutoff: 25 100 Noroxycodone, Ur Present ng/mL N Cutoff: 25 101 Oxymorphone, Ur Present ng/mL N Cutoff: 25 102 Aalhwplwhba-3-gnjx-glucuronide Present ng/mL N 103 Noroxymorphone, Ur Present ng/mL N Cutoff: 25 104 Fentanyl, Ur Not Detected ng/mL N Cutoff: 2 105 Norfentanyl, Ur Not Detected ng/mL N Cutoff: 2 106 Meperidine, Ur Not Detected ng/mL N Cutoff: 25 107 Normeperidine, Ur Not Detected ng/mL N Cutoff: 25 108 Naloxone, Ur Not Detected ng/mL N Cutoff: 25 109 Hgwbywrt-5-xjwe-glucuronide, U Not Detected ng/mL N 110 Methadone, Ur Not Detected ng/mL N Cutoff: 25 111 Eddp, Ur Not Detected ng/mL N Cutoff: 25 112 Propoxyphene, Ur Not Detected ng/mL N Cutoff: 25 113 Norpropoxyphene, Ur Not Detected ng/mL N Cutoff: 25 114 Tramadol, Ur Not Detected ng/mL N Cutoff: 25 115 O-desmethyltramadol, Ur Not Detected ng/mL N Cutoff: 25 116 Tapentadol, Ur Not Detected ng/mL N Cutoff: 25 117 N-desmethyltapentadol, Ur Not Detected ng/mL N Cutoff: 50 118 Ihifyrdrtc-tjpk-cpaozmulqmp, U Not Detected ng/mL N 119 Buprenorphine, Ur Not Detected ng/mL N Cutoff: 5 120 Norbuprenorphine, Ur Not Detected ng/mL N Cutoff: 5 121 Norbuprenorphine glucuronide Not Detected ng/mL N Cutoff: 20 122 Opioid Interpretation See Comment N 123 THC Confirmation 03/02/2016 [facility] Urine Carboxy >500.0 ng/ mL N [address] [place] [address] [phone] Urine THC Interpretation Positive. N 125 Comp Metabolic Panel 02/04/2016 [facility] Sodium 138 mmol/L N 133-[address] [place] [address] [phone] Potassium 4.1 mmol/L N 3.5-5.0 Chloride 105 [...] 87.5 N >60 Egfr 112.5 N >60 126 CBC Auto Diff 02/04/2016 [facility] White Blood 6.2 10^3/uL N 3.5-10.[address] [place] [address] [phone] Red Blood Count 5.02 10^6/uL N 4.0-5.4 [...] Cells % 0.1 N Urinalysis Profile 09/19/2015 [facility] Urine Color Yellow N [address] [place] [address] [phone] Urine Appearance Clear N Urine Specific [place] 1.010 N 1.010-1.030 Urine pH 6.0 N 5-9 Urine Urobilinogen Negative N Negative Urine Ketones Negative N Negative Urine Protein Negative N Negative Urine Leukocytes Negative N Negative Urine Blood Negative N Negative Urine Nitrite Negative N Negative Urine Bilirubin Negative N Negative Urine Glucose Negative N Negative CBC No Diff 09/19/2015 [facility] White Blood 5.3 10^3/uL N 3.5-10.[address] [place] [address] [phone] Red Blood Count 4.52 10^6/uL N 4.0-5.4 [...] um3 N 7.4-10.4 Comp Metabolic Panel 09/19/2015 [facility] Sodium 139 mmol/L N 133-[address] [place] [address] [phone] Potassium 4.2 mmol/L N 3.5-5.0 Chloride 104 [...] 93.5 N >60 Egfr 120.3 N >60 128 Inr/Protime 09/19/2015 [facility] Inr 1.04 N 0.89-1.[address] [place] [address] [phone] Laboratory test 09/19/2015 [facility] Partial 29.2 seconds N 26.0-36.3 [address] [place] [address] Time PTT [phone] Type & Screen 09/19/2015 [facility] Patient A Positive N [address] [place] [address] [phone] Antibody Screen NEGATIVE N Urine Culture And 09/19/2015 [facility] Urine Culture SEE RESULT [address] [place] [address] [phone] Comp Metabolic 09/05/2015 [facility] Sodium 138 mmol/L N 133- [address] 45 [place] [address] [phone] Potassium 3.8 mmol/L N 3.5-5.0 Chloride 103 [...] 97.5 N >60 Egfr 125.4 N >60 131 CBC Auto Diff 09/05/2015 [facility] White Blood 5.2 10^3/uL N 3.5-10.[address] [place] [address] [phone] Red Blood Count 5.27 10^6/uL N 4.0-5.4 [...] Cells % 0.2 N Laboratory test 09/05/2015 [facility] PSA Screening 0.112 ng/mL N 0-4.000 [address] [place] [address] [phone] Laboratory test 08/15/2015 [facility] Body Fluid None Seen N [address] [place] [address] [phone] Body Fluid C&S 08/15/2015 [facility] Body Fluid SEE RESULT [address] [place] [address] Stain [phone] Acid Fast 08/15/2015 [facility] Acid Fast SEE RESULT 135 Culture & Smear [address] [place] [address] Smear [phone] Laboratory test 08/15/2015 [facility] Anaerobic SEE RESULT [address] Culture BELOW [place], [place] [id number] [phone] Body Fluid Cell 08/15/2015 [facility] Body Fluid Synovial N Count [address] Source Fluid [place], [place] [address] [phone] Body Fluid WBC 30370 /mcL N 137 Body Fluid RBC 0 /mcL N Body Fluid Neutrophils 88 % N Body Fluid Lymph 5 % N Body Fluid Anderson 7 % N Body Fluid NRBC 1 N Body Fluid Total Cells Counted 100 N Body Fluid Appearance Cloudy N Body Fluid Color Yellow N Body Fluid Volume 60 mL N Body Fluid Comment (SEE NOTE) N 138 Fluid Reviewed By MD (SEE NOTE) N 139 Laboratory test 08/15/2015 [facility] Fungal Cult Other SEE RESULT [address] [address] [phone] Laboratory test 08/15/2015 [facility] Fungal Cult Other SEE RESULT [address] Sources BELOW [place], [place] [address] [phone] Laboratory test 08/15/2015 [facility] Fungal Cult Other SEE RESULT [address] Sources BELOW [place], [place] [address] [phone] Laboratory test 08/15/2015 [facility] Mycobacterial See Comment N [address] [place] [address] [phone] Comp Metabolic 07/07/2015 [facility] Sodium 138 mmol/L N 133- Panel [address] 145 [place] [address] [phone] Potassium 4.1 mmol/L N 3.5-5.0 Chloride 105 [...] 98.9 N >60 Egfr 127.2 N >60 144 CBC Auto Diff 07/07/2015 [facility] White Blood 5.1 10^3/uL N 3.5-10.[address] [place] [address] [phone] Red Blood Count 4.99 10^6/uL N 4.0-5.4 [...] Nucleated Red Blood Cells % 0.1 N Laboratory test 05/27/2015 [facility] Troponin-I 0.00 ng/mL N <0.03 [address] (TnI) [place] [address] [phone] CBC Auto Diff 11/26/2014 [facility] White Blood 7.2 N 4.8- 10.[address] Count 10^3/[place] [address] [phone] Red Blood Count 4.83 10^6/uL N 4.0-5.4 [...] Cells % 0.4 N Lipid Profile 11/26/2014 [facility] Triglycerides 72 mg/dL N 147 (Trig/Chol/HDL) [address] [place] [address] [phone] Cholesterol 155 mg/dL N 148 HDL Cholesterol 48.6 mg/dL N 149 LDL Cholesterol 92 mg/dL N 150 Laboratory test 11/26/2014 [facility] Glucose 98 mg/dL N 70- [address] [place] [address] [phone] Laboratory test 08/14/2014 [facility] PSA Screening 0.138 N 0- 4.000 151, finding [address] ng/mL 152 [place] [address] [phone] Glucose 104 mg/dL High 70-100 153 CBC Auto Diff 08/01/2014 [facility] White Blood 5.4 10^3/uL N 4.8-10.[address] [place] [address] [phone] Red Blood Count 4.45 10^6/uL N 4.0-5.4 [...] Cells % 0 N Comp Metabolic Panel 08/01/2014 [facility] Sodium 137 mmol/L N 133-[address] [place] [address] [phone] Potassium 3.9 mmol/L N 3.5-5.0 Chloride 104 [...] 84.5 N >60 Egfr 108.7 N >60 154 Comp Metabolic Panel 04/18/2014 [facility] Sodium 136 mmol/L N 133-[address] [place] [address] [phone] Potassium 3.5 mmol/L N 3.5-5.0 Chloride 104 [...] 112.1 N >60 Egfr 144.2 N >60 155 CBC Auto Diff 04/18/2014 [facility] White Blood 7.5 10^3/uL N 4.8-10.[address] [place] [address] [phone] Red Blood Count 4.55 10^6/uL N 4.0-5.4 [...] Red Blood Cells % 0.1 N Testosterone 03/22/2014 [facility] Free 6.5 Abnormal 9-30 156 Free & Total [address] Testosterone ng/[place] [address] ng/dl [phone] Testosterone 501 ng/dL N 240-950 157 CBC Auto Diff 03/22/2014 [facility] White Blood 4.8 10^3/uL N 4.8-10.[address] [place] [address] [phone] Red Blood Count 4.09 10^6/uL N 4.0-5.4 [...] % 0.2 N Comp Metabolic Panel 03/22/2014 [facility] Sodium 138 mmol/L N 133-[address] [place] [address] [phone] Potassium 3.8 mmol/L N 3.5-5.0 Chloride 105 [...] 91.7 N >60 Egfr 117.9 N >60 158 Laboratory test 03/22/2014 [facility] Pathologist (SEE NOTE) N [address] [place] [address] [phone] Laboratory test 02/06/2014 [facility] Fluid Crystals None Seen N [address] [place] [address] [phone] Body Fluid C&S 02/06/2014 [facility] Body Fluid Cult (SEE NOTE) [address] [place] [place] [address] [phone] Comp Metabolic 01/22/2014 [facility] Sodium 138 mmol/L N 133- [address] 45 [place] [address] [phone] Potassium 3.8 mmol/L N 3.5-5.0 162 Chloride 106 mmol/L N 101-111 Co2 Carbon [...] 131.3 N >60 Egfr 168.8 N >60 163 CBC Auto Diff 01/22/2014 [facility] White Blood 6.2 10^3/uL N 4.8-10.[address] [place] [address] [phone] Red Blood Count 4.34 10^6/uL N 4.0-5.4 [...] Cells % 0.1 N Testosterone Free 01/22/2014 [facility] Free Testosterone 12 ng/ dL N 9-30 164 & Total [address] [facility] ng/dl [place], [place] [address] [phone] Testosterone 831 ng/dL N 240-950 165 Lipid Profile 07/17/2013 [facility] Triglycerides 48 mg/dL N 166 (Trig/Chol/HDL) [address] [place] [address] [phone] Cholesterol 155 mg/dL N 167 HDL Cholesterol 62.7 mg/dL N 168 LDL Cholesterol 83 mg/dL N 169 Iron & Iron Binding 04/26/2013 [facility] Iron 105 g/dL 50- [address] [place] [address] [phone] Unsaturated Iron Binding 139 g/dL Total Iron Binding Capacity 244 g/dL Low 250-450 % Iron Saturation 43 % 15-55 Laboratory test 04/26/2013 [facility] Ferritin 123.8 ng/mL 24 -336 finding [address] [place] [address] [phone] Folate 13.73 ng/mL >3.99 Vitamin B12 526 pg/mL 180-914 170 Platelet Count 04/25/2013 [facility] Platelet Count 79 10^3/uL Low 150-[address] [place] [address] [phone] Mean Platelet Volume 8 um3 7.4-10.4 Comp Metabolic Panel 04/19/2013 [facility] Sodium 138 mmol/L 133-[address] [place] [address] [phone] Potassium 3.9 mmol/L 3.7-5.6 Chloride 107 mmol/L [...] Egfr Non- 128.9 >60 Egfr 165.8 >60 171 CBC Auto 04/19/2013 [facility] White Blood 3.1 10^3/uL Low 4.8 -10.[address] [place] [address] [phone] Red Blood Count 3.62 10^6/uL Low 4.0-5.4 Hemoglobin 11.8 g/dL Low 14.0-18.0 Hematocrit 34 % Low 42-52 Mean Corpuscular Volume 93 fL 80-94 Mean Corpuscular Hemoglobin 33 pg High 27-31 Mean Corpuscular HGB Conc 35 g/dL 31-36 Red Cell Distribution Width 15 % 10.5-15 Platelet Count (SEE NOTE) 10^3/uL 150-450 172 Abs Neutrophils 1.7 10^3/uL 1.5-7.7 Abs Lymphocytes [...] Blood Cells % 0.2 Laboratory test 04/19/2013 [facility] Activated 37.9 High 24.0 -36.[address] [place] [address] Thrombo Time [phone] Coagulation Factor II 43 % Abnormal 75 - 145 173 Ammonia 49 mol/L 16-53 Laboratory test 04/19/2013 [facility] Hemoglobin A1c 4.5 Low 5-7 finding Comp Metabolic 12/19/2012 [facility] Sodium 135 mmol/L 133- [address] [place] [address] [phone] Potassium 3.7 mmol/L 3.5-5.0 Chloride 105 mmol/L [...] Non- 100.0 >60 Egfr 128.6 >60 174 Laboratory test 12/19/2012 [facility] PSA Screening 0.169 0- 4.[address] ng/[place] [address] [phone] Lyme Disease Serology Negative Negative 176 Surgical 11/14/2012 [facility] S RUN DATE: [address] 11/15/ <[place] [address] NOTE> [phone] Laboratory test 11/09/2012 [facility] Vitamin B12 653 pg/mL 180-[address] 4 [place] [address] [phone] Comp Metabolic 11/09/2012 [facility] Sodium 134 mmol/L 133- [address] 5 [place] [address] [phone] Potassium 3.9 mmol/L 3.5-5.0 Chloride 104 mmol/L [...] Egfr Non- 100.0 >60 Egfr 128.6 >60 178 Laboratory test 11/09/2012 [facility] LDH 224 U/L High 95-[address] [place] [address] [phone] CBC Auto Diff 11/09/2012 [facility] White Blood 3.4 Low 4.8- 10.[address] Count 10^3/[place] [address] [phone] Red Blood Count 3.06 10^6/uL Low 4.0-5.4 [...] Red Blood Cells % 0.2 Inr/Protime 11/09/2012 [facility] Inr 1.36 High 0.87-0.97 [address] [place] [address] [phone] Iron & Iron Binding 11/09/2012 [facility] Iron 72 g/dL 45- 182 Capacity [address] [place] [address] [phone] Unsaturated Iron Binding 95 g/dL Total Iron Binding Capacity 167 g/dL Low 250-450 % Iron Saturation 43 % 15-55 Comp Metabolic Panel 10/10/2012 [facility] Sodium 139 mmol/L 133-[address] [place] [address] [phone] Potassium 3.6 mmol/L 3.5-5.0 Chloride 108 mmol/L [...] Egfr Non- 100.0 >60 Egfr 128.6 >60 179 Inr/Protime 10/10/2012 [facility] Inr 1.31 High 0.87-0.[address] [place] [address] [phone] CBC No Diff 10/10/2012 [facility] White Blood 3.1 10^3/uL Low 4.8-10.[address] [place] [address] [phone] Red Blood Count 3.06 10^6/uL Low 4.0-5.4 Hemoglobin 10.3 g/dL Low 14.0-18.0 Hematocrit 30 % Low 42-52 Mean Corpuscular Volume 98 fL High 80-94 Mean Corpuscular Hemoglobin 34 pg High 27-31 Mean Corpuscular HGB Conc 34 g/dL 31-36 Red Cell Distribution Width 17 % High 10.5-15 Platelet Count 94 10^3/uL Low 150-450 Mean Platelet Volume 8 um3 7.4-10.4 Laboratory test 10/10/2012 [facility] Ammonia 49 umol/L High 9 -[address] [place] [address] [phone] Comp Metabolic 09/18/2012 [facility] Sodium 133 mmol/L 133- 145 Panel [address] [place] [address] [phone] Potassium 3.7 mmol/L 3.5-5.0 Chloride 105 mmol/L [...] Egfr Non- 116.7 >60 Egfr 150.0 >60 180 CBC Auto 09/18/2012 [facility] White Blood 4.1 10^3/uL Low 4.8 -10.[address] [place] [address] [phone] Red Blood Count 3.20 10^6/uL Low 4.0-5.4 [...] 0-2 Nucleated Red Blood Cells % 0 Cell Morphology 09/18/2012 [facility] Macrocytosis 1+ [address] [place] [address] [phone] Laboratory test 09/18/2012 [facility] Ammonia 28 umol/L 9-35 finding [address] [place] [address] [phone] Clotest 09/05/2012 [facility] Clotest (SEE 181 [address] [facility] NOTE) [place] [address] [phone] Iron & Iron 08/29/2012 [facility] Iron 87 g/dL 45-182 Binding Capacity [address] [place] [address] [phone] Unsaturated Iron Binding 69 g/dL Total Iron Binding Capacity 156 g/dL Low 250-450 % Iron Saturation 56 % High 15-55 Laboratory test 08/29/2012 [facility] Ferritin 305 ng/mL 24- 336 finding [address] [place] [address] [phone] Comp Metabolic Panel 08/29/2012 [facility] Sodium 138 mmol/L 133-145 [address] [place] [address] [phone] Potassium 3.7 mmol/L 3.5-5.0 Chloride 107 mmol/L [...] Egfr Non- 77.3 >60 Egfr 99.4 >60 182 Laboratory test 08/29/2012 [facility] Inr 1.40 High 0.87-0.[address] [place] [address] [phone] CBC With Manual 08/29/2012 [facility] White Blood 3.0 Low 4.8- 10.[address] Count 10^3/[place] [address] [phone] Red Blood Count 3.41 10^6/uL Low 4.0-5.4 [...] 1 % 0-2 Macrocytosis 1+ Hypochromasia 1+ Cyrus Cells 1+ Elliptocyte 1+ Laboratory test 08/07/2012 [facility] Ammonia 38 umol/L High 9 -35 [address] [place] [address] [phone] CBC Auto Diff 08/07/2012 [facility] White Blood 4.9 10^3/uL 4.8-10.[address] [place] [address] [phone] Red Blood Count 3.56 10^6/uL Low 4.0-5.4 [...] Cells % 0.2 Comp Metabolic Panel 08/07/2012 [facility] Sodium 138 mmol/L 133-[address] [place] [address] [phone] Potassium 4.2 mmol/L 3.5-5.0 Chloride 108 mmol/L [...] Egfr Non- 116.7 >60 Egfr 150.0 >60 184 Laboratory test 08/03/2012 [facility] Ammonia 23 umol/L 9-[address] [place] [address] [phone] Inr/Protime 07/25/2012 [facility] Inr 2.48 High 0.87-0.[address] [place] [address] [phone] Stool For Blood 07/21/2012 [facility] Stool Occult (SEE NOTE) [address] [place] [address] [phone] CBC Auto Diff 07/05/2012 [facility] White Blood 4.6 10^3/uL Low 4.8-10.[address] [place] [address] [phone] Red Blood Count 3.35 10^6/uL Low 4.0-5.4 [...] Red Blood Cells % 0 Laboratory test 07/05/2012 [facility] Ammonia 32 umol/L 9-35 finding [address] [place] [address] [phone] Cell Morphology 07/05/2012 [facility] RBC Morphology Normal Normal [address] [place] [address] [phone] Comp Metabolic 07/03/2012 [facility] Sodium 134 mmol/L 133- 145 Panel [address] [place] [address] [phone] Potassium 4.1 mmol/L 3.5-5.0 Chloride 103 mmol/L [...] Egfr Non- 116.7 >60 Egfr 150.0 >60 186 Inr/Protime 07/03/2012 [facility] Inr 2.28 High 0.87-0.97 [address] [place] [address] [phone] Iron & Iron Binding 07/03/2012 [facility] Iron 123 g/dL 45- [address] [place] [address] [phone] Unsaturated Iron Binding 39 g/dL Total Iron Binding Capacity 162 g/dL Low 250-450 % Iron Saturation 76 % High 15-55 Vitamin B12 And 07/03/2012 [facility] Vitamin B12 621 pg/mL 180-914 Folate Serum [address] [place] [address] [phone] Folate > 25.2 ng/mL High 2-16 Comp Metabolic Panel 06/14/2012 [facility] Sodium 132 mmol/L Low 133-145 [address] [place] [address] [phone] Potassium 3.8 mmol/L 3.5-5.0 Chloride 101 mmol/L [...] Egfr Non- 87.3 >60 Egfr 112.3 >60 187 Laboratory test 06/14/2012 [facility] Ammonia 30 umol/L 9-35 finding [address] [place] [address] [phone] Protime W/ Inr 06/14/2012 [facility] In House Prothrombin Time 28.5 Inr 2.4 1 SEE RESULT BELOW Name: REECE LINDA : [address]: Aliza Arredondo MD Acct: [id number] Unit: [id number] AGE: 63 Location: ED Re08/01/18 SEX: M Status: DEP ER SPEC: [id number] TREVER: 08/01/18 [facility] DR: Ramone Arredondo MD REQ: [id number] RECD: 08/01/18 STATUS: COMP UZMAHR DR: Bella Ervin MD _ SOURCE: BLOOD,VENO SPDES: ORDERED: Blood Cult Procedure Result Reported Site Aerobic Culture Bottle Final 08/06/18- 937 ML No Growth Day 5 Anaerobic Culture Bottle Final 08/06/18- 937 ML No Growth Day 5 * ML - Main Lab . END OF REPORT DEPARTMENT OF PATHOLOGY, [address] [place] [address] Saeid Martin M.D. Director [facility] # [id number] 2 Standard intensity warfarin therapeutic range: 2.0-3.0 High intensity warfarin therapeutic range: 2.5-3.5 3 Because ethnic data is not always readily [...] 15-29 5 Kidney failure <15 (or dialysis) 4 [facility] Severe Sepsis and Septic Shock Management Bundle Measure requires all lactic acids initially measuring >2.0 mmol/L be repeated. 5 Troponin-I testing on Plasma Separator Tubes (PST) has a known false positive rate of 0.20-0.40%. All positive troponins reflex immediately to secondary confirmatory testing. Using the [employer] DxI 800 Access Immunoassay systems, the 99th percentile upper reference limit was demonstrated to be < 0.03 ng/mL. 6 ADDITIONAL INFORMATION This report is intended for use in clinical monitoring and management of patients. It is not intended for use in employment-related testing. This test was developed and its performance characteristics determined by [facility] in a manner consistent with CLIA requirements. This test has not been cleared or approved by the U.S. Food and Drug Administration. Test Performed by: [facility] - [address] [address] 7 Because ethnic data is not always readily [...] 15-29 5 Kidney failure <15 (or dialysis) 8 REFERENCE VALUE Cutoff: 3.0 9 ADDITIONAL INFORMATION This report is intended for use in clinical monitoring and management of patients. It is not intended for use in employment-related testing. This test was developed and its performance characteristics determined by [facility] in a manner consistent with CLIA requirements. This test has not been cleared or approved by the U.S. Food and Drug Administration. Test Performed by: [facility] - [address] [address] 10 Presumptive Positive Drug confirmation to follow. Presumptive Positive means that the screening method is positive, but the test needs to be run by a confirmatory method before being finalized. 11 REFERENCE VALUE Cutoff: 500 12 REFERENCE VALUE Cutoff: 200 13 REFERENCE VALUE Cutoff: 100 14 REFERENCE VALUE Cutoff: 150 15 REFERENCE VALUE Cutoff: 300 16 REFERENCE VALUE Cutoff: 300 17 Presumptive Positive Drug confirmation to follow. Presumptive Positive means that the screening method is positive, but the test needs to be run by a confirmatory method before being finalized. ADDITIONAL INFORMATION This report is intended for use in clinical monitoring or management of patients. It is not intended for use in employment-related testing. This test has been modified from the road oiling truck driver's instructions. Its performance characteristics were determined by [facility] in a manner consistent with CLIA requirements. This test has not been cleared or approved by the U.S. Food and Drug Administration. Test Performed by: [facility] - [address] [id number] [place] [address] 18 Serum levels of PSA measured using the Nataliia [place] DXI Hybritech immunoassay should not be interpreted [...] methods or kits cannot be used interchangeably. 19 REFERENCE VALUE Cutoff: 500 20 REFERENCE VALUE Cutoff: 200 21 REFERENCE VALUE Cutoff: 100 22 REFERENCE VALUE Cutoff: 150 23 REFERENCE VALUE Cutoff: 300 24 REFERENCE VALUE Cutoff: 300 25 Presumptive Positive Drug confirmation to follow. Presumptive Positive means that the screening method is positive, but the test needs to be run by a confirmatory method before being finalized. ADDITIONAL INFORMATION This report is intended for use in clinical monitoring or management of patients. It is not intended for use in employment-related testing. This test has been modified from the road oiling truck driver's instructions. Its performance characteristics were determined by [facility] in a manner consistent with CLIA requirements. This test has not been cleared or approved by the U.S. Food and Drug Administration. Test Performed by: [facility] - [facility] [address] [place] [address] 26 REFERENCE VALUE Cutoff: 3.0 27 ADDITIONAL INFORMATION This report is intended for use in clinical monitoring and management of patients. It is not intended for use in employment-related testing. This test was developed and its performance characteristics determined by [facility] in a manner consistent with CLIA requirements. This test has not been cleared or approved by the U.S. Food and Drug Administration. Test Performed by: [facility] - [facility] [address] [place] [address] 28 [id number] REFERENCE VALUE Cutoff: 500 30 REFERENCE VALUE Cutoff: 200 31 REFERENCE VALUE Cutoff: 100 32 REFERENCE VALUE Cutoff: 150 33 Presumptive Positive Drug confirmation to follow. Presumptive Positive means that the screening method is positive, but the test needs to be run by a confirmatory method before being finalized. ADDITIONAL INFORMATION This report is intended for use in clinical monitoring or management of patients. It is not intended for use in employment-related testing. 34 REFERENCE VALUE Cutoff: 200 mg/L 35 Tylenol 3 36 Metabolite of codeine REFERENCE VALUE Cutoff: 100 37 Shani Hogan MS Contin; Also a minor metabolite (10%) of codeine and can be seen in low concentrations (<2,000 ng/mL) with poppy seed ingestion. 38 Metabolite of morphine REFERENCE VALUE Cutoff: 100 39 Metabolite of heroin 40 Lortab, Grandin, Vicodin; Also a very minor metabolite of codeine and impurity (<1%) of oxycodone. 41 Metabolite of hydrocodone 42 Metabolite of hydrocodone 43 Dilaudid, Exalgo; Also a metabolite of hydrocodone and a minor (<5%) metabolite of morphine. 44 Metabolite of hydromorphone REFERENCE VALUE Cutoff: 100 45 Endocet, Percocet, Oxycontin 46 Metabolite of oxycodone 47 Numorphan, Opana; Also a metabolite of oxycodone. 48 Metabolite of oxymorphone REFERENCE VALUE Cutoff: 100 49 Metabolite of oxymorphone 50 Actiq, Duragesic, Fentora 51 Metabolite of fentanyl 52 Demerol 53 Metabolite of meperidine 54 Narcan 55 Metabolite of naloxone REFERENCE VALUE Cutoff: 100 56 Dolophine 57 Metabolite of methadone 58 Darvon, Darvocet 59 Metabolite of propoxyphene 60 Tradol, Ultram, Ultracet 61 Metabolite of tramadol 62 Nucynta 63 Metabolite of tapentadol 64 Metabolite of tapentadol REFERENCE VALUE Cutoff: 100 65 Buprenex, Suboxone 66 Metabolite of buprenorphine 67 Metabolite of buprenorphine 68 Test detected the presence of hydrocodone and several of its metabolites. Suspect use of hydrocodone or possibly hydrocodone and hydromorphone within the past three days. Test detected the presence of oxycodone and several metabolites (noroxycodone, oxymorphone, noroxymorphone, and gbleczqzjgw-3-alby-glucuronide). Suspect use of oxycodone or possibly oxycodone and oxymorphone within the past three days. ADDITIONAL INFORMATION This test was developed and its performance characteristics determined by [facility] in a manner consistent with CLIA requirements. This test has not been cleared or approved by the U.S. Food and Drug Administration. Test Performed by: [facility] - [address] [address] 69 REFERENCE VALUE Cutoff: 3.0 70 ADDITIONAL INFORMATION This report is intended for use in clinical monitoring and management of patients. It is not intended for use in employment-related testing. This test was developed and its performance characteristics determined by [facility] in a manner consistent with CLIA requirements. This test has not been cleared or approved by the U.S. Food and Drug Administration. Test Performed by: [facility] - [facility] [address] [place] [address] 71 Because ethnic data is not always readily [...] 15-29 5 Kidney failure <15 (or dialysis) 72 Serologic response to B. burgdorferi infection is not detected, but cannot rule out early infection during which low or undetectable antibody levels to B. burgdorferi may be present. If clinically indicated, a new serum specimen should be submitted in 7-14 days. Test Performed by: [facility] [address] [place] [address] 73 Because ethnic data is not always readily [...] 15-29 5 Kidney failure <15 (or dialysis) 74 Desirable: <150 Borderline High: 150-199 High: 200-499 Very High: >500 75 Desirable: <200 Borderline High: 200-239 High: >239 76 Low: <40 Desirable: 40-60 High: >60 77 Desirable: <100 Near Optimal: 100-129 Borderline High: 130-159 High: 160-189 Very High: >189 78 Serum levels of PSA measured using the Appboy DXI Hybritech immunoassay should not be interpreted [...] methods or kits cannot be used interchangeably. 79 Because ethnic data is not always readily [...] 15-29 5 Kidney failure <15 (or dialysis) 80 Desirable <150 Borderline high 150-199 High 200-499 Very High >500 81 Desirable <200 Borderline high 200-239 High >239 82 Low <40 Desirable: 40-60 High: >60 83 Desirable: <100 mg/dL Near Optimal: 100-129 mg/dL Borderline High: 130-159 mg/dL High: 160-189 mg/dL Very High: >189 mg/dL 84 REFERENCE VALUE Cutoff: 500 85 REFERENCE VALUE Cutoff: 200 86 REFERENCE VALUE Cutoff: 100 87 REFERENCE VALUE Cutoff: 150 88 Presumptive Positive Drug confirmation to follow. Presumptive Positive means that the screening method is positive, but the test needs to be run by a confirmatory method before being finalized. ADDITIONAL INFORMATION This report is intended for use in clinical monitoring or management of patients. It is not intended for use in employment-related testing. 89 REFERENCE VALUE Cutoff: 200 mg/L 90 Tylenol 3 91 Metabolite of codeine REFERENCE VALUE Cutoff: 100 92 Shani Hogan MS Contin; Also a minor metabolite (10%) of codeine and can be seen in low concentrations (<2,000 ng/mL) with poppy seed ingestion. 93 Metabolite of morphine REFERENCE VALUE Cutoff: 100 94 Metabolite of heroin 95 Lortab, Grandin, Vicodin; Also a very minor metabolite of codeine and impurity (<1%) of oxycodone. 96 Metabolite of hydrocodone 97 Metabolite of hydrocodone 98 Dilaudid, Exalgo; Also a metabolite of hydrocodone and a minor (<5%) metabolite of morphine. 99 Metabolite of hydromorphone REFERENCE VALUE Cutoff: 100 10 Endocet, Percocet, Oxycontin 0 10 Metabolite of oxycodone 1 10 Numorphan, Opana; Also a metabolite of oxycodone. 2 10 Metabolite of oxymorphone 3 REFERENCE VALUE Cutoff: 100 10 Metabolite of oxymorphone 4 10 Actiq, Duragesic, Fentora 5 10 Metabolite of fentanyl 6 10 Demerol 7 10 Metabolite of meperidine 8 10 Narcan 9 11 Metabolite of naloxone 0 REFERENCE VALUE Cutoff: 100 11 Dolophine 1 11 Metabolite of methadone 2 11 Darvon, Darvocet 3 11 Metabolite of propoxyphene 4 11 Tradol, Ultram, Ultracet 5 11 Metabolite of tramadol 6 11 Nucynta 7 11 Metabolite of tapentadol 8 11 Metabolite of tapentadol 9 REFERENCE VALUE Cutoff: 100 12 Buprenex, Suboxone 0 12 Metabolite of buprenorphine 1 12 Metabolite of buprenorphine 2 12 Test detected the presence of both morphine and its 3 metabolite (bbxlgjsc-4-zzsr-glucuronide). Suspect use of morphine within the past three days. Alternatively, these results could also be suggestive of heroin use. Low levels of morphine can also be seen following poppy seed ingestion. Test detected the presence of yxxmwtjgkbicd-8-dtja-glucuronide the metabolite of hydromorphone. Suspect use of hydromorphone within the past three days. Test detected the presence of oxycodone and several metabolites (noroxycodone, oxymorphone, noroxymorphone, and caoghgpohnv-0-njpp-glucuronide). Suspect use of oxycodone or possibly oxycodone and oxymorphone within the past three days. ADDITIONAL INFORMATION This test was developed and its performance characteristics determined by [facility] in a manner consistent with CLIA requirements. This test has not been cleared or approved by the U.S. Food and Drug Administration. Test Performed by: [facility] [place] [address] Heating Equipment Installer: Bobby Rivers II, M.D., Ph.D. 12 REFERENCE VALUE 4 Cutoff: 3.0 12 ADDITIONAL INFORMATION 5 This report is intended for use in clinical monitoring and management of patients. It is not intended for use in employment-related testing. This test was developed and its performance characteristics determined by [facility] in a manner consistent with CLIA requirements. This test has not been cleared or approved by the U.S. Food and Drug Administration. Test Performed by: [facility] [place] [address] Heating Equipment Installer: Bobyb Rivers II, M.D., Ph.D. 12 Because ethnic data is not always readily available, 6 this report includes an eGFR for both [...] 15-29 5 Kidney failure <15 (or dialysis) 12 9 7 12 Because ethnic data is not always readily available, 8 this report includes an eGFR for both [...] 15-29 5 Kidney failure <15 (or dialysis) 12 09/29 9 13 SEE RESULT BELOW 0 Name: RAFAEL LINDADARELL Diego : [address]: Mavis Martin MD Acct: [id number] Unit: [id number] AGE: 60 Location: [facility] Re09/19/15 SEX: M Status: REG REF SPEC: [id number] TREVER: 09/19/15-[address]: Mavis Martin MD REQ: [id number] RECD: 09/19/155205 STATUS: COMP _ SOURCE: URINE SPDESC: ORDERED: Urine Culture QUERIES: Urine Source: Clean Catch Procedure Result Reported Site Urine Culture Final 09/20/15- 1216 ML No Growth (<1,000 CFU/mL) * ML - MAIN LAB ([facility]) . END OF REPORT * ML=Testing performed at Main Lab DEPARTMENT OF PATHOLOGY, [address] [place] [address] Saeid Martin M.D. Director [facility] # [id number] 13 Because ethnic data is not always readily available, 1 this report includes an eGFR for both [...] 15-29 5 Kidney failure <15 (or dialysis) 13 Serum levels of PSA measured using the Appboy 2 DXI Hybritech immunoassay should not be interpreted [...] methods or kits cannot be used interchangeably. 13 What is the body fluid source?: Synovial (Joint) Fluid 3 If CSF, Order CSFCC instead. Initials:: N 13 SEE RESULT BELOW 4 Name: REECE LINDA : [address]: Mavis Martin MD Acct: [id number] Unit: [id number] AGE: 60 Location: [facility] Re08/15/15 SEX: M Status: REG REF SPEC: [id number] TREVER: 08/15/15-[address] [facility] [address]: Mavis Mratin MD REQ: [id number] RECD: 08/15/15 STATUS: COMP _ SOURCE: JOINT FLUI [facility]: ORDERED: BF Alex/GS, MRSA/SA SSTI Procedure Result Reported Site Body Fluid Gram Stain Final 08/16/15746 ML 4+ Neutrophils No Organisms Seen Preparation By Cytospin Smear Body Fluid Culture Final 08/19/15- 900 ML No Growth Day 4 MRSA/S. aureus SSTI PCR Final 08/16/15926 ML Organism 1 MRSA NEGATIVE Organism 2 S.AUREUS NEGATIVE * ML - MAIN LAB ([facility]) . END OF REPORT * ML=Testing performed at Main Lab DEPARTMENT OF PATHOLOGY, [address] [place] [address] Saeid Martin M.D. Director [facility] # [id number] 13 SEE RESULT BELOW 5 Name: REECE LINDA : [address]: Mavis Martin MD Acct: [id number] Unit: [id number] AGE: 60 Location: [facility] Re08/15/15 SEX: M Status: REG REF SPEC: [id number] TREVER: 08/15/15-[address] [facility] [address]: Mavis Martin MD REQ: [id number] RECD: 08/15/15 STATUS: RES _ SOURCE: BODY [...] for diagnosis. * ML - MAIN LAB ([facility]) . END OF REPORT * ML=Testing performed at Main Lab DEPARTMENT OF PATHOLOGY, [address] [place] [address] Saeid Martin M.D. Director [facility] # [id number] 13 SEE RESULT BELOW 6 Name: REECE LINDA Brandie : [address]: Mavis Martin MD Acct: [id number] Unit: [id number] AGE: 60 Location: [facility] Re08/15/15 SEX: M Status: REG REF SPEC: [id number] TREVER: 08/15/15-[address] [facility] [address]: Mavis Martin MD REQ: [id number] RECD: 08/15/15 STATUS: COMP _ SOURCE: BODY [...] for diagnosis. * ML - MAIN LAB ([facility]) . END OF REPORT * ML=Testing performed at Main Lab DEPARTMENT OF PATHOLOGY, [address] [place] [address] Saeid Martin M.D. Director [facility] # [id number] 13 -- REFERENCE VALUE -- 7 Synovial: <150/mcL Peritoneal: <500/mcL Pleural: <500/mcL Pericardial: <500/mcL 13 Differential performed on concentrated smear. 8 13 Acute inflammation present recommend correlation with 9 microbiologic studies. Reviewed by Dr. Martin 14 SEE RESULT BELOW 0 Name: REECE LINDA rBandie : [address]: Mavis Martin MD Acct: [id number] Unit: [id number] AGE: 60 Location: [facility] Re08/15/15 SEX: M Status: REG REF SPEC: [id number] TREVER: 08/15/15-77[address] [facility] [address]: Mavis Martin MD REQ: [id number] RECD: 08/15/15 STATUS: RES _ SOURCE: MISC SOURC SPDESC: ORDERED: Fungal - Other Procedure Result Reported Site Fungal Cult - Other Sources Preliminary 08/24/15- 1357 ML No Growth Week 1 * ML - [facility] ([facility]) . END OF REPORT * ML=Testing performed at Main Lab DEPARTMENT OF PATHOLOGY, [address] [place] [address] Saeid Martin M.D. Director [facility] # [id number] 14 SEE RESULT BELOW 1 Name: DIANA LINDARAFA Diego : [address]: Mavis Martin MD Acct: [id number] Unit: [id number] AGE: 60 Location: [facility] Re08/15/15 SEX: M Status: REG REF SPEC: [id number] TREVER: 08/15/15-15[address] [facility] [address]: Mavis Martin MD REQ: [id number] RECD: 08/15/15 STATUS: RES _ SOURCE: MIS SOUR SPDESC: ORDERED: Fungal - Other Procedure Result Reported Site Fungal Cult - Other Sources Preliminary 09/01/15- 1033 ML No Growth Week 2 * ML - MAIN LAB ([facility]) . END OF REPORT * ML=Testing performed at Main Lab DEPARTMENT OF PATHOLOGY, [address] [place] [address] Saeid Martin M.D. Director [facility] # [id number] 14 SEE RESULT BELOW 2 Name: REECE LINDA : [address]: Mavis Martin MD Acct: [id number] Unit: [id number] AGE: 60 Location: [facility] Re08/15/15 SEX: M Status: REG REF SPEC: [id number] TREVER: 08/15/15-[address]: Mavis Martin MD REQ: [id number] RECD: 08/15/15 STATUS: COMP _ SOURCE: MISC SOUR SPDESC: ORDERED: Fungal - Other Procedure Result Reported Site Fungal Cult - Other Sources Final 09/15/15- 1051 ML No Growth Week 4 * ML - MAIN LAB ([facility]) . END OF REPORT * ML=Testing performed at Main Lab DEPARTMENT OF PATHOLOGY, [address] [place] [address] Saeid Martin M.D. Director [facility] # [id number] 14 SOURCE: KNEE, LT KNEE JOINT FLUID 3 MYCOBACTERIAL CULTURE FINAL No growth after 60 days of incubation. Test Performed by: [place] [address] Heating Equipment Installer: Bobby Rivers II, M.D., Ph.D. 14 Because ethnic data is not always readily available, 4 this report includes an eGFR for both [...] 15-29 5 Kidney failure <15 (or dialysis) 14 Reference Range and Interpretation: 5 TnI (ng/mL) Interpretation Less Than 0.03 ng/mL Not supportive of diagnosis of NM 0.03 - 0.50 ng/mL Indeterminate: suggest serial studies if clinically indicated. Greater than 0.5 ng/mL Consistent with diagnosis of NM 14 TESTED 11/26/14 1656 [id number] 6 14 Desirable <150 7 Borderline high 150-199 High 200-499 Very High >500 14 Desirable <200 8 Borderline high 200-239 High >239 14 Low <40 9 Desirable: 40-60 High: >60 15 Desirable: <100 mg/dL 0 Near Optimal: 100-129 mg/dL Borderline High: 130-159 mg/dL High: 160-189 mg/dL Very High: >189 mg/dL 15 PT IS FASTING 1 15 Serum levels of PSA measured using the Appboy 2 DXI Hybritech immunoassay should not be interpreted [...] methods or kits cannot be used interchangeably. 15 PT IS FASTING 3 15 Because ethnic data is not always readily available, 4 this report includes an eGFR for both [...] 15-29 5 Kidney failure <15 (or dialysis) 15 Because ethnic data is not always readily available, 5 this report includes an eGFR for both [...] 15-29 5 Kidney failure <15 (or dialysis) 15 ADDITIONAL INFORMATION 6 Testing performed by [facility]. 15 ADDITIONAL INFORMATION 7 Testing performed by Liquid Chromatography-Tandem Mass Spectrometry (LC-MS/MS). Test Performed by: [address] [address] Heating Equipment Installer: Tyler Majano M.D. 15 Because ethnic data is not always readily available, 8 this report includes an eGFR for both [...] 15-29 5 Kidney failure <15 (or dialysis) 15 Normochromic, normocytic anemia noted. Thrombocytopenia 9 with no evidence of platelet clumping and satellitosis. Clinical pathologic correlation recommended. Reviewed by Dr. Martin 16 Synovial (Joint) Fluid 0 16 RUN DATE: 02/10/14 [facility] LAB LIVE PAGE 1 1 RUN TIME: 6393 [address] [place], [place] [address] Specimen Inquiry Name: REECE LINDA : [address]: Sandra NAIDU Acct: [id number] Unit: [id number] AGE: 58 Location: [facility] Re02/06/14 SEX: M Status: REG REF SPEC: [id number] TREVER: 02/06/14-[address]: Sandra NAIDU REQ: [id number] RECD: 02/06/14 STATUS: COMP _ SOURCE: JOINT FLUI SPDESC: ORDERED: BF Cult/GS Procedure Result Verified Site Body Fluid Gram Stain Final 02/06/14- 1406 ML 4+ Neutrophils No Organisms Seen Preparation By Direct Smear Body Fluid Culture Final 02/10/14- 1107 ML No Growth Day 4 END OF REPORT * ML=Testing performed at Main Lab DEPARTMENT OF PATHOLOGY, [address] [place] [address] Saeid Martin M.D. Director [facility] # [id number] 16 Potassium reference range changed effective 12/23/13 2 16 Because ethnic data is not always readily available, 3 this report includes an eGFR for both [...] 15-29 5 Kidney failure <15 (or dialysis) 16 ADDITIONAL INFORMATION 4 Testing performed by [facility]. 16 ADDITIONAL INFORMATION 5 Testing performed by Liquid Chromatography-Tandem Mass Spectrometry (LC-MS/MS). Test Performed by: [address] [address] Heating Equipment Installer: Tyler Majano M.D. 16 Desirable <150 6 Borderline high 150-199 High 200-499 Very High >500 16 Desirable <200 7 Borderline high 200-239 High >239 16 Low <40 8 Desirable: 40-60 High: >60 16 Desirable <100 9 Near Optimal 100-129 Borderline high 130-159 High 160-189 Very High >189 17 Normal Range 180 to 914 0 Indeterminate Range 145 to 180 Deficient Range <145 17 Because ethnic data is not always readily available, 1 this report includes an eGFR for both [...] 15-29 5 Kidney failure <15 (or dialysis) 17 Platelets clumped. Unable to perform accurate count. 2 17 Test Performed by: [address] [place] [address] Heating Equipment Installer: Eugenio Germain III, M.D. 17 Because ethnic data is not always readily available, 4 this report includes an eGFR for both [...] 15-29 5 Kidney failure <15 (or dialysis) 17 Serum levels of PSA measured using the Appboy 5 DXI Hybritech immunoassay should not be interpreted [...] methods or kits cannot be used interchangeably. 17 Serologic response to B. burgdorferi infection is not 6 detected, but cannot rule out early infection during which low or undetectable antibody levels to B. burgdorferi may be present. If clinically indicated, a new serum specimen should be submitted in 7-14 days. Test Performed by: [facility] [address] [address] Heating Equipment Installer: Eugenio Germain III, M.D. 17 RUN DATE: 11/15/12 [facility] LAB LIVE PAGE 1 7 RUN TIME: [address] [place] [address] Specimen Inquiry Name: REECE LINDA : [address]: Lars Guillory MD Acct: [id number] Unit: [id number] AGE: 57 Location: ENDO Re11/14/12 SEX: M Status: REG REF SPEC: [id number] TREVER: 11/14/12- SUBM DR: Lars Guillory MD REQ: [id number] RECD: 11/14/12 STATUS: TAYLER OWEN DR: Vasyl Alfred MD _ ORDERED: LEVEL IV FINAL DIAGNOSIS Colon, sigmoid, biopsy: Colonic mucosa with surface hyperplasia. CLINICAL HISTORY Routine screening colonoscopy with anemia. First exam POST-OPERATIVE DIAGNOSIS Screening colonoscopy to cecum - gnarled 3+ sigmoid tics (left greater than right). On withdrawal - thickened fold biopsied x2 GROSS DESCRIPTION The specimen is received in formalin labeled Reece Linda, Biopsy Sigmoid Thickened Fold, and consists of two portions of green-white tissue that measures 0.4 x 0.3 x 0.2 cm. and 0.3 x 0.3 x 0.2 cm. Submitted entirely, one cassette. Signed (signature on file) Lashae Samuel MD [id number] END OF REPORT * ML=Testing performed at Main Lab DEPARTMENT OF PATHOLOGY, [address] [place] [address] Saeid Martin M.D. Director [facility] Permit #[id number] 17 Because ethnic data is not always readily available, 8 this report includes an eGFR for both [...] 15-29 5 Kidney failure <15 (or dialysis) 17 Because ethnic data is not always readily available, 9 this report includes an eGFR for both [...] 15-29 5 Kidney failure <15 (or dialysis) 18 Because ethnic data is not always readily available, 0 this report includes an eGFR for both [...] 15-29 5 Kidney failure <15 (or dialysis) 18 RUN DATE: 09/06/12 [facility] LAB LIVE PAGE 1 1 RUN TIME: [address] [place] [address] Specimen Inquiry Name: REECE LINDA : [address]: Lars Guillory MD Acct: [id number] Unit: [id number] AGE: 57 Location: ENDO Re09/05/12 SEX: M Status: REG REF SPEC: [id number] TREVER: 09/05/[address]: Lars Guillory MD REQ: [id number] RECD: 09/05/12 STATUS: COMP UZMA DR: Vasyl Fine MD, MD _ SOURCE: GAS ANTRUM SPDESC: ORDERED: Clotest Procedure Result Verified Site Clotest Final 09/06/12801 ML Clotest Negative END OF REPORT * ML=Testing performed at Main Lab DEPARTMENT OF PATHOLOGY, [address] [place] [address] Saeid Martin M.D. Director [facility] Permit #[id number] 18 Because ethnic data is not always readily available, 2 this report includes an eGFR for both [...] 15-29 5 Kidney failure <15 (or dialysis) 18 RE-DRAW.JF 3 18 Because ethnic data is not always readily available, 4 this report includes an eGFR for both [...] 15-29 5 Kidney failure <15 (or dialysis) 18 RUN DATE: 07/21/12 [facility] LAB LIVE PAGE 1 5 RUN TIME: [address] [place] [address] Specimen Inquiry Name: REECE LINDA : [address]: Vasyl Alfred MD Acct: [id number] Unit: [id number] AGE: 57 Location: [facility] Re07/21/12 SEX: M Status: REG REF SPEC: [id number] TREVER: 07/21/[address] [facility] [address]: Vasyl Alfred MD REQ: [id number] RECD: 07/21/12 STATUS: STANTON OWEN DR: Brenda Dacosta MD _ SOURCE: STOOL SPDESC: ORDERED: Hemoccult QUERIES: Medent Number [id number] Procedure Result Verified Site Stool Specimen Description Final 07/21/12- 1547 ML Test not performed Stool Occult Blood Final 07/21/12- 1547 ML Stool Occult Blood Positive END OF REPORT * ML=Testing performed at Main Lab DEPARTMENT OF PATHOLOGY, [address] [place] [address] Saeid Martin M.D. Director [facility] Permit #[id number] 18 Because ethnic data is not always readily available, 6 this report includes an eGFR for both [...] 15-29 5 Kidney failure <15 (or dialysis) 18 Because ethnic data is not always readily available, 7 this report includes an eGFR for both [...] dialysis) Procedures Date Code Description Status 08/26/2017 53835 Polysomnography Sleep Staging 4+ Parameters W/Cpap Completed 04/21/2017 50201 Polysomnography Sleep Staging 4+ Parameters Completed 09/30/2015 82680 TKR Total Knee Replacement Completed 09/30/2015 80883 TKR Total Knee Replacement Completed 09/15/2015 28963 EKG Tracing & Interpretation Completed 08/15/2015 78809 Inject/Drain Joint/Bursa Major W/O US Completed 02/06/2014 01004 Inject/Drain Joint/Bursa Major W/O US Completed 07/22/2013 69788218 Colonoscopy Completed 04/26/2013 30872 EKG Tracing & Interpretation Completed 01/08/2013 98604 Rad Exam; Both Knees, Standing Ap Completed 01/08/2013 91686 Inject/Drain Joint/Bursa Major W/O US Completed 05/10/2012 79797 EKG, Interpretation Only Completed 04/28/2012 27428 Abdominal Paracentesis W/Out Imaging Guidance Completed 04/25/2012 14627 Echocardiogram, Limited Study Completed 04/21/2012 26914 EKG, Interpretation Only Completed 04/19/2012 77213 Insert Non-Tunneled Venous Catether Completed 04/16/2012 82164 Abdominal Paracentesis W/Out Imaging Guidance Completed 2012 21326 Color Flow Doppler/Interp & Reprt Completed 2012 45860 Pulse Wave/Continuous-Interp.RPT Completed 2012 52413 ECHO Transthorasic Realtime 2D W Doppler & Color Flow Completed Hosp Encounters Type Date Location Provider Dx Diagnosis Office Visit 07/06/2018 [facility], R10.2 Pelvic and 9:45a Of [facility] LOUISE, FACS perineal pain I88.9 Nonspecific lymphadenitis, unspecified Office Visit 05/29/2018 10:30a [facility] Mikhail Santana R10.2 [facility] MD Genoveva, perineal pain FACS Office Visit 05/12/2018 3:20p [facility] Internal Randy Holliday K41.90 Unil femoral Medicine - [address] [place], hernia, w/o M.D.,FACP obst or gangrene, not spcf as recur M16.11 Unilateral primary osteoarthritis, right hip Office Visit 03/20/2018 9:40a [facility] Internal Bella Ervin MD I10 Essential (primary) Medicine - Suite hypertension R M25.562 Pain in left knee K70.30 Alcoholic cirrhosis of liver without ascites Office Visit 10/03/2017 1:30p Surgical Brenda Maria R10.31 Right lower Associates [facility] MD Praneeth quadrant pain Pairer Office Visit 09/20/2017 8:20a [facility] Internal Vasyl M25.562 Pain in left knee Medicine - Suite Alyssa Alfred M.D. Office Visit 08/30/2017 8:00a [facility] Internal Vasyl I10 Essential Medicine - [address] [place], (primary) R M.D. hypertension M25.562 Pain in left knee M79.672 [...] MD quadrant pain Office Visit 06/28/2017 8:00a [facility] Internal Vasyl I10 Essential Medicine - [address] [place] (primary) R M.DGila hypertension K70.30 Alcoholic cirrhosis of liver without ascites M25.562 Pain in left knee Office Visit 06/27/2017 [facility] G47.33 Obstructive sleep 8:00a [facility], JUDITH, RN, apnea (adult) [facility]YER-[facility] (pediatric) Office Visit 04/28/2017 [facility] Internal Vasyl I10 Essential 8:00a Medicine - Suite Kishor Alfred (primary) R hypertension K70.30 Alcoholic cirrhosis of liver without ascites M25.562 Pain in left knee Office Visit 04/28/2017 [facility] G47.33 Obstructive sleep 10:30a Sleep Services Of JUDITH Rowley, RN, apnea (adult) [facility] WOOL DYER-BC (pediatric) Office Visit 03/23/2017 Pulmonology And Viki Barakat, G47.9 Sleep disorder, 8:00a Sleep Services Of unspecified [facility] R40.0 Somnolence G47.50 Parasomnia, unspecified Office Visit 02/24/2017 8:00a [facility] Internal Vasyl Alfred, I10 Essential (primary) Medicine - M.DGila hypertension Suite R K70.30 Alcoholic cirrhosis of liver without ascites M25.562 Pain in left knee Office Visit 01/11/2017 9:00a [facility] Vasyl Alfred, Z00.01 Encounter for Medicine - M.DGila general adult Suite R medical exam w abnormal findings G47.00 Insomnia, unspecified A69.20 Lyme disease, unspecified Z23 Encounter for immunization Z00.00 Encntr for general adult medical exam w/o abnormal findings Office Visit 11/11/2016 8:00a [facility] Vasyl Alfred, I10 Essential (primary) Medicine - M.DGila hypertension Suite R D69.6 Thrombocytopenia, unspecified M25.562 Pain in left knee G47.00 Insomnia, unspecified Z12.5 Encounter for screening for malignant neoplasm of prostate Office Visit 09/10/2016 8:40a [facility] Internal Vasyl Alfred, I10 Essential (primary) Medicine - M.D. hypertension Suite R M25.562 Pain in left knee Office Visit 06/25/2016 9:40a [facility] Internal Vasyl Alfred, I10 Essential (primary) Medicine - M.D. hypertension Suite R Z96.652 Presence of left artificial knee joint K70.30 Alcoholic cirrhosis of liver without ascites Z11.59 Encounter for screening for other viral diseases Office Visit 04/15/2016 9:00a [facility] Internal Nurse Visit Z23 Encounter for Medicine - Drasco immunization Suite R Office Visit 04/02/2016 8:40a [facility] Internal Vasyl M25.562 Pain in left knee Medicine - Pachik[place], Suite R M.D. I10 Essential (primary) hypertension Office Visit 03/02/2016 10:20a [facility] Internal [place] Tima, M25.562 Pain in left Medicine - Suite M.D. knee R I10 Essential (primary) hypertension Office Visit 02/25/2016 8:00a Orthopedic Services Mavis Martin, M25.562 Pain in left Of C.M.A. M.D. knee Z96.652 Presence of left artificial knee joint Office Visit 02/19/2016 8:20a [facility] Internal [place] Pachikara, I10 Essential (primary) Medicine - M.D. hypertension Suite R Office Visit 02/05/2016 9:40a [facility] Internal Vasyl Pachikara, I10 Essential (primary) Medicine - M.D. hypertension Suite R M25.562 Pain in left knee Office Visit 01/12/2016 2:45p Orthopedic Services Mavis Martin, M25.562 Pain in left Of C.M.A. M.D. knee Z96.652 Presence of left artificial knee joint Z47.1 Aftercare following joint replacement surgery Office Visit 01/06/2016 8:40a [facility] Internal [place] Tima, K70.30 Alcoholic Medicine - M.D. cirrhosis of Suite R liver without ascites D69.6 Thrombocytopenia, unspecified C44.311 Basal cell carcinoma of skin of nose M25.562 Pain in left knee I10 Essential (primary) hypertension Office Visit 10/03/2015 [facility] D69.6 Thrombocytopenia, 10:38a Assoc,jeevan Echols D.O. unspecified Hospitalists K70.30 Alcoholic cirrhosis of liver without ascites E87.1 Hypo-osmolality and hyponatremia Z96.652 Presence of left artificial knee joint Office Visit 10/01/2015 10:38a [facility] Meghan K70.30 Alcoholic Assoc,jeevan Echols D.O. cirrhosis of Hospitalists liver without ascites D69.6 Thrombocytopenia, unspecified D64.9 Anemia, unspecified Z96.652 Presence of left artificial knee joint Office Visit 09/30/2015 10:37a [facility] Fadi K70.30 Alcoholic Assoc,jeevan Delgado, N.P. cirrhosis of Hospitalists liver without ascites D69.6 Thrombocytopenia, unspecified D64.9 Anemia, unspecified Z96.652 Presence of left artificial knee joint Office Visit 09/15/2015 [facility] Internal Vasyl Z01.818 Encounter for other 1:20p Kirk Alfred M.D. 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 M.D. 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 G47.00 Insomnia, unspecified M25.562 Pain in left knee M17.12 Unilateral primary osteoarthritis, left knee Z23 Encounter for immunization Office Visit 11/26/2014 8:00a [facility] Internal Vasyl Alfred, Z13.220 Encounter for Medicine - M.DGila screening for Suite R lipoid disorders K70.30 Alcoholic cirrhosis of liver without ascites D63.8 Anemia in other chronic diseases classified elsewhere 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 M17.12 Unilateral primary osteoarthritis, left knee Office Visit 08/06/2014 8:40a [facility] Internal Vasyl Alfred, 571.2 Alcoholic Medicine - M.DGila Cirrhosis Of Suite R Liver 715.16 Osteoarthrosis Localized Prim Lower Leg 285.9 Anemia Unspec 780.52 Insomnia Unspecified V70.0 Examination General Medical Routine AT Health Care Facility V77.91 Screening For Lipoid Disorders V77.1 Screening Diabetes Mellitus V76.44 Screening For Malig Dave Prostate 796.2 Blood Pressure Reading Elevated W/O Hypertension Office Visit 05/01/2014 10:00a [facility] Internal Vasyl Alfred, 571.2 Alcoholic Medicine - M.DGila Cirrhosis Of Suite R Liver 285.9 Anemia Unspec 287.49 Other Secondary Thrombocytopenia V76.44 Screening For Malig Dave Prostate Office Visit 04/24/2014 9:00a Orthopedic Jasen Estrada, 715.16 Osteoarthrosis Services Of M.DGila Localized Prim Lower C.M.A. Leg Office Visit 03/08/2014 8:00a [facility] Internal Vasyl 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 Of Liver M.DGila 715.96 Osteoarthrosis Unspec Genlzd Or Localized Lower Leg Office Visit 02/06/2014 Orthopedic Sandra Calderon, 715.96 Osteoarthrosis 8:30a Services Of RPA-C Unspec Genlzd Or C.M.A. Localized Lower Leg Office Visit 01/24/2014 Orthopedic Karishma 927.3 Crushing Injury 2:45p Services Of Kishor Muñoz Finger(S) C.M.A. 816.11 FX One Or More Middle Proximal Phalanx Or Phalang Open Office Visit 01/22/2014 2:40p [facility] Primitivo Alfred, 923.20 Contusion Medicine - Kishor Hand(S) Brandieob 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 Of Liver V41.7 Sexual Function Problem Office Visit 08/07/2013 1:40p [facility] Internal Hayley Bird, 919.4 Injury Superficial Medicine - Brandieob MGilaDGila Insect Bite Oth Mult Unsp Nonv W/O Infect Office Visit 07/17/2013 9:40a [facility] Internal Hayley Bird 571.2 Alcoholic Medicine - Brandieob MGilaDGila Cirrhosis Of Liver 790.6 Abnormal Blood Chemistry Other 285.9 Anemia Unspec Office Visit 04/26/2013 2:00p [facility] Internal Hayley Bird V72.84 Examination Medicine - M.D. Preoperative Unspec Ccmob 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 Of Liver 840.5 Sprains & Strains Subscapularis (Muscle) Office Visit 04/19/2013 9:20a [facility] Internal Hayley Bird 571.2 Alcoholic Medicine - Cher M.DGila Cirrhosis Of Liver 790.6 Abnormal Blood Chemistry Other 453.9 Embolism & Thrombosis Venous Unspec Site 285.9 Anemia Unspec Office Visit 01/08/2013 8:30a Orthopedic Jasen Estrada, 716.96 Arthropathy Unspec Services Of M.Miya Lower Leg C.M.A. 719.06 Effusion Joint Lower Leg Office Visit 12/12/2012 8:00a [facility] Internal Vasyl Alfred, 571.2 Alcoholic Medicine - MOle Cirrhosis Of Ccmob Liver 562.10 Diverticulosis Colon W/O Hemorrhage V70.0 Examination General Medical Routine AT Health Care Facility V76.44 Screening For Malig Dave Prostate 719.06 Effusion Joint Lower Leg Office Visit 10/30/2012 8:00a [facility] Internal Vasyl Alfred 571.2 Alcoholic Medicine - MOle Cirrhosis Of Ccmob Liver 284.19 Other Pancytopenia 709.9 Skin & Subcutaneous Tissue Disorders Unspec V76.44 Screening For Malig Dave Prostate Office Visit 09/18/2012 9:00a [facility] Internal Vasyl Alfred 571.2 Alcoholic Medicine - MOle Cirrhosis Of Ccmob Liver 284.19 Other Pancytopenia 611.71 Mastodynia Office Visit 08/29/2012 [facility] Internal Vasyl 457.1 Lymphedema Other 2:40p Kirk Alfred M.D. Ccmob Office Visit 08/07/2012 [facility] Primitivo Fallon 572.2 Hepatic 8:00a Kirk Alfred M.D. Encephalopathy Ccmob 453.9 Embolism & Thrombosis Venous Unspec Site 285.9 Anemia Unspec 796.3 Blood Pressure Reading Low Nonspecified 611.71 Mastodynia Office Visit 07/05/2012 10:20a [facility] Internal Vasyl Alfred 285.9 Anemia Unspec Medicine - Cher Frances.Miya 572.2 Hepatic Encephalopathy 780.52 Insomnia Unspecified Office Visit 06/21/2012 11:00a [facility] Internal Vasyl Alfred, 550.90 Hernia Inguinal Medicine - Kishor W/O Obstruct Or Ccmob Gangrene Unilateral Unspec 276.1 Hyposmolality & Or Hyponatremia 285.9 Anemia Unspec Office Visit 06/14/2012 10:20a [facility] Tima, 571.2 Alcoholic Kirk Romero M.D. Cirrhosis Of Ccmob Liver 453.9 Embolism & Thrombosis Venous Unspec Site 428.32 Diastolic Heart Failure Chronic Office Visit 05/15/2012 11:24a [facility] Alek Silvestre, 571.2 Alcoholic Assocjeevan M.D. Cirrhosis Of Hospitalists Liver 453.9 Embolism & Thrombosis Venous Unspec Site 572.2 Hepatic Encephalopathy 780.97 Altered Mental Status Office Visit 05/14/2012 11:23a [facility] Konrad, 571.2 Alcoholic Assjeevan velez M.D. Cirrhosis Of Hospitalists Liver 453.9 Embolism & Thrombosis Venous Unspec Site 572.2 Hepatic Encephalopathy 780.97 Altered Mental Status Office Visit [facility]/13[facility]2012 [facility] 571.2 Alcoholic Assjeevan velez M.D. Cirrhosis Of Hospitalists Liver 453.9 Embolism & Thrombosis Venous Unspec Site 572.2 Hepatic Encephalopathy 780.97 Altered Mental Status Office Visit 05/12/2012 [facility] Assocjeevan M.D. Cirrhosis Of Hospitalists Liver 453.9 Embolism & Thrombosis Venous Unspec Site 572.2 Hepatic Encephalopathy Office Visit 05/11/2012 11:22a [facility] Yaquelin 571.2 Alcoholic Assjeevan velez M.D. Cirrhosis Of Hospitalists Liver 453.9 Embolism & Thrombosis Venous Unspec Site 572.2 Hepatic Encephalopathy Office Visit 05/10/2012 11:22a [facility] 571.2 Alcoholic Assocjeevan M.D. Cirrhosis Of Hospitalists Liver 453.9 Embolism & Thrombosis Venous Unspec Site 572.2 Hepatic Encephalopathy Office Visit 05/09/2012 11:21a [facility] 571.2 Alcoholic Assocjeevan M.D. Cirrhosis Of Hospitalists Liver 453.9 Embolism & Thrombosis Venous Unspec Site 572.2 Hepatic Encephalopathy Office Visit 05/08/2012 11:21a [facility] Yaquelin 571.2 Alcoholic Assocjeevan M.D. Cirrhosis Of Hospitalists Liver 453.9 Embolism & Thrombosis Venous Unspec Site 780.97 Altered Mental Status Office Visit 05/07/2012 11:20a [facility] 571.2 Alcoholic Assocjeevan M.D. Cirrhosis Of Hospitalists Liver 453.9 Embolism & Thrombosis Venous Unspec Site 780.97 Altered Mental Status 287.49 Other Secondary Thrombocytopenia Office Visit 05/06/2012 11:20a [facility] Alek Silvestre, 571.2 Alcoholic Assjeevan velez M.D. Cirrhosis Of Hospitalists Liver 453.9 Embolism & Thrombosis Venous Unspec Site 780.97 Altered Mental Status 287.49 Other Secondary Thrombocytopenia Office Visit 05/05/2012 11:19a [facility] Alek Silvestre, 571.2 Alcoholic Assjeevan velez M.D. Cirrhosis Of Hospitalists Liver 453.9 Embolism & Thrombosis Venous Unspec Site 780.97 Altered Mental Status 287.49 Other Secondary Thrombocytopenia Office Visit 05/04/2012 11:18a [facility] Alek Silvestre, 453.9 Embolism & Assocjeevan M.D. Thrombosis Hospitalists Venous Unspec Site 780.97 Altered Mental Status 287.49 Other Secondary Thrombocytopenia Office Visit 05/03/2012 11:16a [facility], 571.2 Alcoholic Assjeevan velez M.D. Cirrhosis Of Hospitalists Liver 453.9 Embolism & Thrombosis Venous Unspec Site 780.97 Altered Mental Status 287.49 Other Secondary Thrombocytopenia Office Visit 05/02/2012 11:14a [facility] Alek Silvestre, 571.2 Alcoholic jeevan Gomez M.D. Cirrhosis Of Hospitalists Liver 453.9 Embolism & Thrombosis Venous Unspec Site 780.97 Altered Mental Status 287.49 Other Secondary Thrombocytopenia Office Visit 05/01/2012 11:12a [facility], 571.2 Alcoholic Assjeevan velez M.D. Cirrhosis Of Hospitalists Liver 453.9 Embolism & Thrombosis Venous Unspec Site 780.97 Altered Mental Status 287.49 Other Secondary Thrombocytopenia Office Visit 04/30/2012 [facility] Randy Holliday 571.2 Alcoholic 11:11a jeevan Gomez M.D. Cirrhosis Of Hospitalists Hospitalist Liver 453.9 Embolism & Thrombosis Venous Unspec Site 780.97 Altered Mental Status 287.49 Other Secondary Thrombocytopenia Office Visit 04/29/2012 [facility] Randy Holliday 572.2 Hepatic 11:08a Assjeevan velez M.D. Encephalopathy Hospitalists Hospitalist 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 Of Liver 453.9 Embolism & Thrombosis Venous Unspec Site 780.97 Altered Mental Status Office Visit 04/28/2012 [facility] Phillip Toure 572.2 Hepatic 8:58a Assoc,jeevan Liu, Encephalopathy Hospitalists Kishor 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 Of Liver 276.0 Hyperosmolality & Or Hypernatremia 453.9 Embolism & Thrombosis Venous Unspec Site Office Visit 04/27/2012 [facility] Lars Pack, 572.2 Hepatic 11:08a Assoc,pc D.O. Encephalopathy Hospitalists 276.0 Hyperosmolality & Or Hypernatremia 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 Of Liver 453.9 Embolism & Thrombosis Venous Unspec Site Office Visit 04/26/2012 [facility] Lars Pack, 572.2 Hepatic 11:08a Assoc,pc D.O. Encephalopathy Hospitalists 276.0 Hyperosmolality & Or Hypernatremia 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 Of Liver 453.9 Embolism & Thrombosis Venous Unspec Site Office Visit 04/25/2012 [facility] Lars Pack, 572.2 Hepatic 11:07a Assoc,pc D.O. Encephalopathy Hospitalists 276.0 Hyperosmolality & Or Hypernatremia 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 Of Liver 453.9 Embolism & Thrombosis Venous Unspec Site Office Visit 04/24/2012 11:07a [facility] Lars Pack, 780.97 Altered Mental Assoc,pc D.O. Status Hospitalists 453.9 Embolism & Thrombosis Venous Unspec Site 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 Of Liver 276.0 Hyperosmolality & Or Hypernatremia Office Visit 04/23/2012 11:07a [facility] Lars Pack, 780.97 Altered Mental Assoc,pc D.O. Status Hospitalists 453.9 Embolism & Thrombosis Venous Unspec Site 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 Of Liver 276.0 Hyperosmolality & Or Hypernatremia Office Visit 04/22/2012 11:06a [facility] Lars Pack, 780.97 Altered Mental Assoc,pc D.O. Status Hospitalists 481 Pneumonia Pneumococcal 453.9 Embolism & Thrombosis Venous Unspec Site 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 Of Liver Office Visit 04/21/2012 11:06a [facility] Lars Pack, 780.97 Altered Mental Assoc,pc D.O. Status Hospitalists 481 Pneumonia Pneumococcal 453.9 Embolism & Thrombosis Venous Unspec Site 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 Of Liver Office Visit 04/20/2012 11:05a [facility] Amanuel Thomas, 453.9 Embolism & Assoc,pc Leonela. Thrombosis Hospitalists Venous Unspec Site 291.0 Alcoholic Withdrawal Delirium 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 Of Liver 481 Pneumonia Pneumococcal Office Visit 04/18/2012 10:36a [facility] Amanuel Thomas, 291.0 Alcoholic Assoc,pc M.D. Withdrawal Hospitalists Delirium 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 Of Liver 276.1 Hyposmolality & Or Hyponatremia Office Visit 04/17/2012 10:35a [facility] Amanuel Thomas, 291.0 Alcoholic Assoc,pc M.D. Withdrawal Hospitalists Delirium 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 Of Liver 276.1 Hyposmolality & Or Hyponatremia Office Visit 04/16/2012 8:56a [facility] Amanuel Thomas, 291.0 Alcoholic Assoc,pc M.DGila Withdrawal Hospitalists Delirium 276.1 Hyposmolality & Or Hyponatremia 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 Office Visit 04/15/2012 10:34a [facility] Amanuel Thomas, 291.0 Alcoholic Assoc,pc M.D. Withdrawal Hospitalists Delirium 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 Of Liver 276.1 Hyposmolality & Or Hyponatremia 287.49 Other Secondary Thrombocytopenia Office Visit 04/14/2012 10:31a [facility] Amanuel Thomas, 291.0 Alcoholic Assoc,pc M.D. Withdrawal Hospitalists Delirium 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 Of Liver 276.1 Hyposmolality & Or Hyponatremia 287.49 Other Secondary Thrombocytopenia Office Visit 2012 8:[facility]a [facility] 786.05 Shortness Of Assoc,pc Onesimo DGilaO. Breath Hospitalists 782.4 Jaundice Unspec Not [place] 303.90 Alcohol Dependence Other & Unspec 276.1 Hyposmolality & Or Hyponatremia Plan of Treatment Future Appointment(s):02/07/2019 8:20 am - [facility] - Bella Ervin MDK52.3 Indeterminate colitisComments: follow up with Dr. Sarmiento10 Essential (primary) hypertensionComments:Continue with your current medication.Follow up:PE in 6 taeksrW24.84 Generalized abdominal painNew Medication:Hyoscyamine Sulfate 0.125 mg - one by mouth three times a day as needed for abdominal painOmeprazole 20 mg - 1 by mouth every dayComments:Please abstain from all alcohol consumption
[2018-08-14 19:45] VITALS: BP 142/94
== END 2018-08-14 21:05 | disposition left against medical advice (07) ==
LOC: ED 17:28
DX: R10.9 Unspecified abdominal pain (principal); Z53.21 Procedure and treatment not carried out due to patient leaving prior to being seen by health care provider

== ENCOUNTER 2018-08-15 08:19 | Emergency (ER) | payer OTHER ==
--- NOTE | 2018-08-15 08:34 | ED ---
Abdominal Pain/Male - HPI Summary HPI Summary: The patient is a 63 y/o M presenting to [facility] with a chief complaint of gradual onset diffuse low abd pain for the last few months worsening over the last three days with a constant occurrence. Over the course of having the pain, he has also been experiencing chills, testicular pressure, difficulty with urination with a straining sensation, diarrhea, increased flatulence, and decreased oral intake. He denies CP, nausea, and vomiting. The cramping pain is currently rated 8/10 in severity. There are no aggravating or alleviating factors. He reports that he's had similar pain in the past, and he has hx of diverticulosis, gallstones, and cirrhosis, and repair of right inguinal hernia. He has gone to his PCP for medications, but they aren't helping. He has also consulted Dr. Guillory for an endsocopy, but he hasn't gotten an appointment yet. Hx of anemia, DVT, PE. No other surgical hx. Nonsmoker, former EtOH use, occasional marijuana use. - History of Current Complaint Chief Complaint: EDAbdPain Stated Complaint: STOMACH PAIN PER PT Time Seen by Provider: 08/15/18 08:29 Hx Obtained From: Patient Onset/Duration: Gradual Onset, Lasting Weeks - starting a few months ago, Still Present, Worse Since - last few days Timing: Constant, Lasting Weeks Severity Initially: Mild Severity Currently: Moderate Pain Intensity: 8 Pain Scale Used: 0-10 Numeric Location: Other - low abd Radiates: No Character: Cramping Aggravating Factor(s): Nothing Alleviating Factor(s): Nothing Associated Signs And Symptoms: Positive: Urinary Symptoms - testicular pressure , difficulty with urination with a straining sensation, Diarrhea, Other - POSITIVE: chills, increased flatulence, decreased oral intake; NEGATIVE:. Negative: Fever, Chest Pain, Nausea, Vomiting - Allergies/Home Medications Allergies/Adverse Reactions: Allergies Allergy/AdvReac Type Severity Reaction Status Date / Time amoxicillin Allergy Fatigue Verified 08/15/18 08:20 Home Medications: Home Medications Omeprazole 20 mg PO DAILY 08/15/18 [History Confirmed 08/15/18] PMH/Surg Hx/FS Hx/Imm Hx Endocrine/Hematology History: Reports: Hx Anticoagulant Therapy - previous coumadin use, Hx Anemia - RECENT DIAGNOSIS,ON IRON SUPPLEMENT Denies: Hx Diabetes Cardiovascular History: Reports: Hx Deep Vein Thrombosis - used to be on coumadin Denies: Hx Hypertension Respiratory History: Reports: Hx Pulmonary Embolism - HX OF DVT AND PE - COUMADIN THERPHY FINISHED 2011, Other Respiratory Problems/Disorders - PNEUMONIA 2011 GI History: Reports: Hx Cirrhosis - Hx OF, 2012 (ALCOHOLIC, NONE SINCE 2011), Hx Gall Bladder Disease - CT shows gall stones and thickining, Hx Jaundice, Other GI Disorders - HX OF DIVERTICULOSIS OF COLON History: Reports: Other Problems/Disorders - PROSTATE ABNORMALITY Denies: Hx Renal Disease Musculoskeletal History: Reports: Hx Arthritis - LEFT KNEE,, Other Musculoskeletal History - broken right hand 02/2014 Sensory History: Reports: Hx Contacts or Glasses - GLASSES FOR DISTANCE, 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 Opthamlomology History: Reports: Hx Contacts or Glasses - GLASSES FOR DISTANCE Psychiatric History: Reports: Hx Substance Abuse - smoke marijuana, ALCOHOLISM, Other Psychiatric Issues/Disorders - Recovering alcoholic - Surgical History Surgery Procedure, Year, and Place: 2014 right inguinal hernia repair- [facility] Hx Anesthesia Reactions: No Infectious Disease History: No Infectious Disease History: Denies: Hx Hepatitis, Hx Human Immunodeficiency Virus (HIV), Hx Shingles, Hx Tuberculosis, Traveled Outside the [place] in Last 30 Days - Family History Known Family History: Positive: Cardiac Disease - father, Other - breast CA in mother - Social History Alcohol Use: "almost every day" Alcohol Amount: NONE SINCE 2011 (WAS HEAVY DRINKER) Hx Substance Use: Yes Substance Use Type: Reports: Marijuana Substance Use Comment - Amount & Last Used: OCCASSIONAL Hx Tobacco Use: No Smoking Status (MU): Never Smoked Tobacco Type: Cigarettes Have You Smoked in the Last Year: No Review of Systems Positive: Chills. Negative: Fever Negative: Chest Pain Positive: Abdominal Pain - lower abd, occasional epigastric, Diarrhea, Other - decreased oral intake, increased flatulence. Negative: Vomiting, Nausea Positive: other - occasional straining with urination, testicular pressure All Other Systems Reviewed And Are Negative: Yes Physical Exam - Summary Physical Exam Summary: Appearance: Well-appearing, Well-nourished, lying in bed comfortably Skin: Warm, dry, no obvious rash Eyes: sclera anicteric, no conjunctival pallor ENT: mucous membranes moist, pharynx appears normal Neck: Supple, nontender Respiratory: Clear to auscultation, no signs of respiratory distress Cardiovascular: Tachycardia with HR in the 120s. No murmurs. Normal distal pulses in tibial and radial bilaterally. Abdomen: Soft, nontender, normal active bowel sounds present. No inguinal hernias or palpable masses in the groin. Musculoskeletal: Normal, Strength/ROM Intact Neurological: A&Ox3, awake and alert, mentation is normal, speech is fluent and appropriate Psychiatric: affect is normal, does not appear anxious or depressed Triage Information Reviewed: Yes Vital Signs On Initial Exam: Initial Vitals Temp Pulse Resp BP Pulse Ox 98.5 F 115 20 133/88 98 08/15/18 08:21 08/15/18 08:21 08/15/18 08:21 08/15/18 08:21 08/15/18 08:21 Vital Signs Reviewed: Yes Diagnostics - Vital Signs Vital Signs Temp Pulse Resp BP Pulse Ox 08/15/18 08:21 98.5 F 115 20 133/88 98 - Laboratory Result Diagrams: 08/15/18 08:46 08/15/18 08:46 Lab Statement: Any lab studies that have been ordered have been reviewed, and results considered in the medical decision making process. Re-Evaluation - Re-Evaluation First Eval Re-Evaluation Time: 10:28 Comment: I discussed lab results with the patient. We discussed discharge home and need for follow up with Dr. Guillory for the endoscopy. Abdominal Pain Male Course/Dx - Course Course Of Treatment: The patient is a 63 y/o M presenting to [facility] with a chief complaint of gradual onset diffuse low abd cramping for the last few months worsening over the last three days with a constant occurrence with additional symptoms of chills, testicular pressure, difficulty with urination with a straining sensation, diarrhea, increased flatulence, and decreased oral intake. Denies CP, nausea, and vomiting. Similar experiences in past with hx of diverticulosis, gallstones, and cirrhosis, and repair of right inguinal hernia. He has gone to his PCP for medications that havent relieved the pain, and consult with Dr. Guillory for endoscopy without appointment scheduled yet. Hx of anemia, DVT, PE. No other surgical hx. Nonsmoker, former EtOH use, occasional marijuana use. Upon physical exam, the patient exhibits tachycardia with HR in the 120s, the abd is soft, and there are no inguinal hernias or palpable masses in the groin. In the ED course, the patient was administered Ns. Blood work reveals potassium of 3.0, anion gap of 12, glucose of 112, and lactic acid of 2.3. UA is negative. Since the patient has been having abdominal pain for months with and insignificant work-up thus far in the ED, it is best for the patient to be discharged with follow-up with Dr. Guillory for the endoscopy and continuing the medication he was previously prescribed. He is diagnosed with chronic abdominal pain. He agrees with this plan and understands the need for return to the ED for any new or worsening symptoms. - Diagnoses Provider Diagnoses: Chronic abdominal pain Discharge - Sign-Out/Discharge Documenting (check all that apply): Patient Departure - Patient will be discharged home. Patient Received Moderate/Deep Sedation with Procedure: No - Discharge Plan Condition: Good Disposition: HOME Patient Education Materials: Chronic Abdominal Pain (ED) Referrals: Lars Guillory MD [Medical Doctor] - 3 Days Additional Instructions: The lab work we did this morning did not show anything worrisome. I think the solution to your problem is going to come from Dr. Guillory, I recommend continuing what he prescribed and calling his office to check on when they can schedule your endoscopy. RETURN TO THE EMERGENCY DEPARTMENT FOR ANY NEW OR WORSENING SYMPTOMS. - Billing Disposition and Condition Condition: GOOD Disposition: Home - Attestation Statements Document Initiated by Donavan: Yes Documenting Scribe: Kelly Harper Provider For Whom Donavan is Documenting (Include Credential): Dr. Lam Fulton MD Scribe Attestation: Kelly Mcgill scribed for Dr. Lam Fulton MD on 08/18/18 at 0258. Scribe Documentation Reviewed: Yes Provider Attestation: The documentation as recorded by the Kelly busby accurately reflects the service I personally performed and the decisions made by me, Dr. Lam Fulton MD Status of Scrkenya Document: Viewed
[2018-08-15 09:02] LABS: ABS Basophils 0.1 10^3/ul (0-0.2); ABS Eosinophils 0.1 10^3/ul (0-0.6); ABS Lymphocytes 1.2 10^3/ul (1.0-4.8); ABS Monocytes 0.5 10^3/ul (0-0.8); ABS Neutrophils 3.7 10^3/ul (1.5-7.7); Eosinophil % 1.3 %; Hematocrit 43 % (42-52); Hemoglobin 15.1 g/dL (14.0-18.0); Lymphocyte % 21.7 %; Mean Corpuscular HGB Conc 35 g/dL (31-36); Mean Corpuscular Hemoglobin 31 pg (27-31); Mean Corpuscular Volume 89 fL (80-94); Nucleated Red Blood Cells % 0.1; Platelet Count 178 10^3/uL (150-450); Red Blood Count 4.88 10^6 /uL (4.18-5.48); Red Cell Distribution Width 14 % (10-15); White Blood Count 5.6 10^3/uL (3.5-10.8)
[2018-08-15] MEDS: NS 0.9% 1000 ML** 2,000 ML IV ONE (09:02)
[2018-08-15 09:17] LABS: Albumin 4.5 g/dL (3.2-5.2); Albumin/Globulin Ratio 1.4 (1-3); BUN/Creatinine Ratio 14.3 (8-20); Calcium 9.6 mg/dL (8.6-10.3); EGFR African American 138.3 (>60); EGFR Non-African American 114.3 (>60); Globulin 3.2 g/dL (2-4); Total Bilirubin 0.8 mg/dL (0.2-1.0); Total Protein 7.7 g/dL (6.4-8.9)
[2018-08-15 09:39] LABS: Urine Appearance Clear; Urine Bilirubin Negative (Negative); Urine Blood Negative (Negative); Urine Color Yellow; Urine Glucose Negative (Negative); Urine Ketones Negative (Negative); Urine Nitrite Negative (Negative); Urine Protein Negative (Negative); Urine Specific Gravity 1.011 (1.010-1.030); Urine Urobilinogen Negative (Negative)
[2018-08-15 10:38] VITALS: BP 156/103
== END 2018-08-15 10:37 | disposition home or self-care (01) ==
LOC: ED 08:19
DX: R10.9 Unspecified abdominal pain (principal); G89.29 Other chronic pain
CPT/HCPCS: 36415; 80053; 81003; 83605; 83690; 85025; 96360; 96361; 99282

== ENCOUNTER 2019-01-08 21:38 | Emergency (ER) | payer OTHER ==
--- OUTSIDE RECORDS SUMMARY | 2019-01-08 22:14 | XMS REPORT | Continuity of Care Document ---
:1955 External Reference #:[id number] Author Name Josue Vivas MD (transmitted by agent of provider Charisse Mendez) Address [address] [place] [address] Care Team Providers Name Role Phone [facility] Care Team Information Industrial Nurse [phone] Diagnostic Brenda Dacosta MD - Surgery Care Team Information Industrial Nurse [phone] Josue Vivas MD - Hospitalist Care Team Information Industrial Nurse [phone] Problems Active Problems Provider Date Alcoholic cirrhosis Vasyl Alfred M.D. Onset: 06/14/2012 Cholelithiasis without obstruction Randy Ramirez M.D.,[facility] Onset: 2018 Chronic diastolic heart failure Vasyl [...] sleep apnea syndrome Dodie Rowley DNP, RN, MEDICAL OFFICE PROFESSIONAL INSTRUCTOR[employer] Onset: 09/2017 Chronic alcoholism in remission Lars Guillory MD Onset: 08/07/1996 Note: In 2012 he was admitted for 5 weeks and had liver failure with hepatic encephalopathy with an albumin as low as 1.2 chronically early April 2012; his alcohol history is outlined (released his perception of it) and psychiatry consult with Dr Burch 05/10/18 where he is being considered for usp placement to stabilize sobriety; he did stay sober and had follow-up appointments fall 2012 with me; he states he was actually sober for 5 years and now has a couple of beers on weekends. His first serum alcohol level in 6 years August 01, 2018 was 32 (<10) - his platelet count has come up to normal at 149 on 08/01/18 Social History Type Date Description Comments Sex Unknown Tobacco Use Start: Unknown Never Smoked Cigarettes Smoking Status Reviewed: 12/25/18 Never Smoked Cigarettes ETOH Use 2012 Has consumed alcohol in the past Tobacco Use Start: Unknown Patient has never smoked Recreational Drug Use Sporadically uses Marijuana Exercise Type/Frequency Exercises regularly Allergies, Adverse Reactions, Alerts Active Allergies Reaction Severity Comments Date Amoxicillin fatigue 06/14/2012 Medications Active Medications SIG Qnty Indications Ordering Date Provider Sertraline HCL take 1 tab daily. 30tabs F39 Josue Vivas MD 12/25/2018 50mg Tablets Multi Complete 1 by mouth every 90caps Bella Ervin MD 10/04/2018 day Capsules Hyoscyamine Sulfate one by mouth three 90tabs R10.84 Bella Ervin MD 08/09 times a day as 0.125mg Tablets needed for abdominal pain Omeprazole 1 by mouth every 30caps R10.84 Bella Ervin MD 08/09/[address] Buckleyadol HCL 1 tablet by mouth 90tabs Bella Ervin MD 07/04/2018 50mg every 6 - 8 hours Tablets as needed for pain Daily-Bella take 1 tablet by 30tabs Bella Ervin MD 08/25/2017 Tablets mouth every day Amlodipine Besylate take 1 tablet by 90tabs I10 Bella Ervin MD 06/28/2017 mouth every day 10mg Tablets Metoprolol Succinate 1 by mouth every 30tabs I10 Carline Hall, 2016 ER day M.D. 100mg Tablets ER 24HR Moxifloxacin HCL Take 1 Tablet By Unknown 400mg Mouth Every Day Tablets Medications Administered in Office Medication SIG Qnty Indications Ordering Provider Date Influenza,Unspecified Unknown 10/25/2017 Injection Depomedrol 40MG Mavis Martin M.D. 08/15/2015 Injection Depomedrol 80MG CAYLA Mtz 02/06/2014 Injection Depomedrol 80MG Jasen Estrada M.D. 01/08/2013 Injection Immunizations CPT Code Status Date Vaccine Reaction Lot # [id number] Given 07/28/2017 Zoster (Shingles) Vaccine (HZV), Recombinant, Subunit, Adjuvanted 86053 Given 01/11/2017 Influenza Virus Vaccine, no reaction, pt [id number] Quadrivalent, Split, tolerated well Preservative Free [id number] Given 04/20/2016 Zoster (Zostavax) [id number] 04535 Given 05/06/2015 Pneumonia Vaccine [id number] Vital Signs Date Vital Result Comment 12/25/2018 3:22pm Height 68 inches 5'8" Weight 154.00 lb Heart Rate 126 /min BP Systolic Sitting 156 mmHg Left arm BP Diastolic Sitting 104 mmHg Left arm BP Systolic Standing 157 mmHg Right arm 7 min. later BP Diastolic Standing 104 mmHg Right arm 7 min. later Body Temperature 99.4 F O2 % BldC Oximetry 98 % BMI (Body Mass Index) 23.4 kg/m2 08/09/2018 2:15pm Height 68 inches 5'8" Weight 152.12 lb Heart Rate 93 /min BP Systolic 140 mmHg BP Diastolic 82 mmHg Body Temperature 98.8 F O2 % BldC Oximetry 98 % BMI (Body Mass Index) 23.1 kg/m2 Results Test Acquired Date Facility Test Result H/L Range Note Laboratory test 09/01/2018 [facility] Clotest SEE RESULT [address] [place] [address] [phone] Laboratory test 09/01/2018 [facility] Surgical SEE RESULT [address] [place] [address] [phone] CBC Auto Diff 08/15/2018 [facility] White Blood 5.6 Normal 3.5 -10.[address] Count 10^3/[place] [address] [phone] Red Blood Count 4.88 10^6/uL Normal 4.18-5.48 Hemoglobin 15.1 g/dL Normal 14.0-18.0 Hematocrit 43 % Normal 42-52 Mean Corpuscular Volume 89 fL Normal 80-94 Mean Corpuscular Hemoglobin 31 pg Normal 27-31 Mean Corpuscular HGB Conc 35 g/dL Normal 31-36 Red Cell Distribution Width 14 % Normal 10-15 Platelet Count 178 10^3/uL Normal 150-450 Mean Platelet Volume 9.0 fL Normal 7.4-10.4 Abs Neutrophils 3.7 10^3/uL Normal 1.5-7.7 Abs Lymphocytes 1.2 10^3/uL Normal 1.0-4.8 Abs Monocytes 0.5 10^3/uL Normal 0-0.8 Abs Eosinophils 0.1 10^3/uL Normal 0-0.6 Abs Basophils 0.1 10^3/uL Normal 0-0.2 Abs Nucleated RBC 0.0 10^3/uL Granulocyte % 66.9 % Lymphocyte % 21.7 % Monocyte % 8.5 % Eosinophil % 1.3 % Basophil % 1.6 % Nucleated Red Blood Cells % 0.1 Laboratory 08/15/2018 [facility] Lactic 2.3 mmol/L Critical 0.5-2.0 3 test finding [address] [place] [address] [phone] Comp Metabolic 08/15/2018 [facility] Sodium 139 mmol/L Normal 135-[address] [place] [address] [phone] Potassium 3.0 mmol/L Low 3.5-5.0 Chloride 105 mmol/L Normal 101-111 Co2 Carbon Dioxide 22 mmol/L Normal 22-32 Anion Gap 12 mmol/L High 2-11 Glucose 113 mg/dL High 70-100 Blood Urea Nitrogen 10 mg/dL Normal 6-24 Creatinine 0.70 mg/dL Normal 0.67-1.17 BUN/Creatinine Ratio 14.3 Normal 8-20 Calcium 9.6 mg/dL Normal 8.6-10.3 Total Protein 7.7 g/dL Normal 6.4-8.9 Albumin 4.5 g/dL Normal 3.2-5.2 Globulin 3.2 g/dL Normal 2-4 Albumin/Globulin Ratio 1.4 Normal 1-3 Total Bilirubin 0.80 mg/dL Normal 0.2-1.0 Alkaline Phosphatase 91 U/L Normal 34-104 Alt 14 U/L Normal 7-52 Ast 23 U/L Normal 13-39 Egfr Non- 114.3 >60 Egfr 138.3 >60 4 Laboratory test 08/15/2018 [facility] Lipase 46 U/L Normal 11.0-82.0 finding [address] [place] [address] [phone] Urinalysis 08/15/2018 [facility] Urine Color Yellow Profile [address] [place] [address] [phone] Urine Appearance Clear Urine Specific Alton 1.011 Normal 1.010-1.030 Urine pH 6.0 Normal 5-9 Urine Urobilinogen Negative Negative Urine Ketones Negative Negative Urine Protein Negative Negative Urine Leukocytes Negative Negative Urine Blood Negative Negative Urine Nitrite Negative Negative Urine Bilirubin Negative Negative Urine Glucose Negative Negative CBC Auto 08/01/2018 [facility] White Blood 5.0 10^3/uL Normal 3.5-10.[address] [place] [address] [phone] Red Blood Count 5.06 10^6/uL Normal 4.18-5.48 Hemoglobin 15.5 g/dL Normal 14.0-18.0 Hematocrit 45 % Normal 42-52 Mean Corpuscular Volume 89 fL Normal 80-94 Mean Corpuscular Hemoglobin 31 pg Normal 27-31 Mean Corpuscular HGB Conc 35 g/dL Normal 31-36 Red Cell Distribution Width 15 % Normal 10-15 Platelet Count 148 10^3/uL Low 150-450 Mean Platelet Volume 8.6 fL Normal 7.4-10.4 Abs Neutrophils 3.6 10^3/uL Normal 1.5-7.7 Abs Lymphocytes 1.0 10^3/uL Normal 1.0-4.8 Abs Monocytes 0.3 10^3/uL Normal 0-0.8 Abs Eosinophils 0.1 10^3/uL Normal 0-0.6 Abs Basophils 0.0 10^3/uL Normal 0-0.2 Abs Nucleated RBC 0.0 10^3/uL Granulocyte % 72.5 % Lymphocyte % 19.6 % Monocyte % 6.6 % Eosinophil % 1.0 % Basophil % 0.3 % Nucleated Red Blood Cells % 0.4 Urinalysis Profile 08/01/2018 [facility] Urine Color Straw [address] [place] [address] [phone] Urine Appearance Clear Urine Specific Alton 1.002 Low 1.010-1.030 Urine pH 6.0 Normal 5-9 Urine Urobilinogen Negative Negative Urine Ketones Negative Negative Urine Protein Negative Negative Urine Leukocytes Negative Negative Urine Blood Negative Negative Urine Nitrite Negative Negative Urine Bilirubin Negative Negative Urine Glucose Negative Negative Laboratory test 08/01/2018 [facility] Ammonia 53 mcmol/L Normal 16-53 finding [address] [place] [address] [phone] Lactic Acid 2.0 mmol/L Normal 0.5-2.0 5 Troponin-I (TnI) 0.00 ng/mL <0.04 6 Comp Metabolic 08/01/2018 [facility] Sodium 140 mmol/L Normal 135-145 Panel [address] [place] [address] [phone] Potassium 3.4 mmol/L Low 3.5-5.0 Chloride 104 mmol/L Normal 101-111 Co2 Carbon Dioxide 25 mmol/L Normal 22-32 Anion Gap 11 mmol/L Normal 2-11 Glucose 98 mg/dL Normal 70-100 Blood Urea Nitrogen 12 mg/dL Normal 6-24 Creatinine 0.82 mg/dL Normal 0.67-1.17 BUN/Creatinine Ratio 14.6 Normal 8-20 Calcium 9.9 mg/dL Normal 8.6-10.3 Total Protein 7.7 g/dL Normal 6.4-8.9 Albumin 4.7 g/dL Normal 3.2-5.2 Globulin 3.0 g/dL Normal 2-4 Albumin/Globulin Ratio 1.6 Normal 1-3 Total Bilirubin 0.90 mg/dL Normal 0.2-1.0 Alkaline Phosphatase 87 U/L Normal 34-104 Alt 14 U/L Normal 7-52 Ast 20 U/L Normal 13-39 Egfr Non- 95.2 >60 Egfr 115.2 >60 7 Laboratory test 08/01/2018 [facility] Magnesium 2.1 mg/dL Normal 1.9-2.7 finding [address] [place] [address] [phone] Amylase 32 U/L Normal 29-103 Lipase 33 U/L Normal 11.0-82.0 C Reactive Protein < 1.00 mg/L Normal <8.01 Alcohol 32 mg/dL High <10 Inr/Protime 08/01/2018 [facility] Inr 1.01 Normal 0.82-1.[address] [place], [place] [address] [phone] Laboratory test 08/01/2018 [facility] Partial 28.8 Normal 26.0 -38.[address] [address] Time PTT [phone] HIV 4th Generation Self Ref Negative Negative Blood Culture SEE RESULT BELOW 9 1 SEE RESULT BELOW Name: TIMOTHY LINDA : [address]: Lars Guillory MD Acct: [id number] Unit: [id number] AGE: 63 Location: ENDO Re09/01/18 SEX: M Status: REG REF SPEC: [id number] TREVER: 09/01/18-[address] [facility] [address]: Lars Guillory MD REQ: [id number] RECD: 09/01/18-1506 STATUS: STANTON OWEN DR: Bella Ervin MD _ SOURCE: GAS ANTRUM SPDESC: ORDERED: Clotest Procedure Result Reported Site Clotest Final 09/02/18- 743 ML Clotest Negative * ML - Main Lab . END OF REPORT DEPARTMENT OF PATHOLOGY, [address] [place] [address] Saeid Martin M.D. Director [facility] # [id number] 2 SEE RESULT BELOW Name: TIMOTHY LINDA : [address]: Lars Guillory MD Acct: [id number] Unit: [id number] AGE: 63 Location: ENDO Re09/01/18 SEX: M Status: DEP REF SPEC: [id number] TREVER: 09/01/18-[address] [facility] [address]: Lars Guillory MD REQ: [id number] RECD: 09/01/188483 STATUS: TAYLER OWEN DR: Bella Ervin MD _ ORDERED: LEVEL 4, IMMUNO-FIRST ADDENDUM An H. pylori immunohistochemical stain, with appropriately reacting controls , was performed and is negative for Helicobacter organisms. Addendum Signed (signature on file) Lashae Samuel MD 1546 FINAL DIAGNOSIS Stomach, antrum, biopsy: -- Gastric antral mucosa with mild chronic inflammation. -- No active gastritis nor Helicobacter pylori-like organisms identified on H E microscopy. See comment. Comment: An immunohistochemical stain for Helicobacter pylori-like organisms is pending and will be reported in an addendum. CLINICAL HISTORY Abdominal pain POST-OPERATIVE DIAGNOSIS EGD: esophagus-normal to 38 cm, small to medium hiatal hernia, slight ring, no erosion; stomach-mild irritation proximal antrum; duodenum-normal; conclusion/plan: hiatal hernia, gastritis, abdominal pain CONTINUED ON NEXT PAGE DEPARTMENT OF PATHOLOGY, [address] [place] [address] Saeid Martin M.D. Director [facility] # [id number] RUN DATE: 09/05/18 [facility] LAB LIVE PAGE 2 Patient: RUBATIMOTHY Diego [id number] (Continued) GROSS DESCRIPTION (Continued) GROSS DESCRIPTION The specimen is received in formalin labeled, Gastric Antrum Biopsy, and consists of two green-pink irregular to polypoid soft tissue fragments averaging 0.5 x 0.3 x 0.3 cm which are entirely submitted in one cassette. Signed by and Reported on: Saeid Martin MD 1321 END OF REPORT DEPARTMENT OF PATHOLOGY, [address] [place] [address] Saeid Martin M.D. Director [facility] # [id number] 3 Critical Result LACT:2.3 Called to ZOHREH at: 09:19:35 by:TOSIN Read back by:ZOHREH ESCAMILLA Severe Sepsis and Septic Shock Management Bundle Measure requires all lactic acids initially measuring >2.0 mmol/L be repeated. 4 Because ethnic data is not always readily [...] 15-29 5 Kidney failure <15 (or dialysis) 5 [facility] Severe Sepsis and Septic Shock Management Bundle Measure requires all lactic acids initially measuring >2.0 mmol/L be repeated. 6 Troponin-I testing on Plasma Separator Tubes (PST) has a known false positive rate of 0.20-0.40%. All positive troponins reflex immediately to secondary confirmatory testing. Using the [employer] DxI 800 Access Immunoassay systems, the 99th percentile upper reference limit was demonstrated to be < 0.03 ng/mL. 7 Because ethnic data is not always [...] 5 Kidney failure <15 (or dialysis) 8 Standard intensity warfarin therapeutic range: 2.0-3.0 High intensity warfarin therapeutic range: 2.5-3.5 9 SEE RESULT BELOW Name: RUBATIMOTHY : [address]: Aliza Arredondo MD Acct: [id number] Unit: [id number] AGE: 63 Location: ED Re08/01/18 SEX: M Status: DEP ER SPEC: [id number] TREVER: 08/01/[address] [facility] [address]: Ramone Arredondo MD REQ: [id number] RECD: 08/01/18 STATUS: STANTON OWEN DR: Bella Ervin MD _ SOURCE: BLOOD,VENO SPDESC: ORDERED: Blood Cult Procedure Result Reported Site Aerobic Culture Bottle Final 08/06/18- 0938 ML No Growth Day 5 Anaerobic Culture Bottle Final 08/06/18- 0938 ML No Growth Day 5 * ML - Main Lab . END OF REPORT DEPARTMENT OF PATHOLOGY, [address] [place] [address] Saeid Martin M.D. Director [facility] # [id number] Procedures Date Code Description Status 09/01/2018 34869 Endoscopy Upper GI Biopsy Completed 07/22/2013 82619111 Colonoscopy Completed 11/14/2012 59426915 Colonoscopy Completed Medical Devices Description No Information Available Encounters Type Date Location Provider Dx Diagnosis Office Visit 08/09/2018 [facility] Internal Bella Ervin MD K52.3 Indeterminate colitis 2:00p Medicine - Ccmob I10 Essential (primary) hypertension R10.84 Generalized abdominal pain M25.562 Pain in left knee Office Visit 08/07/2018 [facility] Gastroenterology Lars Lara R10.13 Epigastric pain 2:00p MD Kahlil K57.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 R10.2 [facility] MD Genoveva, perineal pain FACS I88.9 Nonspecific lymphadenitis, unspecified Assessments Date Code Description Provider 12/25/2018 F39 Unspecified mood [affective] disorder Josue Vivas MD 12/25/2018 I10 Essential (primary) hypertension Josue Vivas MD 09/01/2018 K29.50 Unspecified chronic gastritis without Lars Guillory MD bleeding 09/01/2018 R10.84 Generalized abdominal pain Lars Guillory MD 09/01/2018 K44.9 Diaphragmatic hernia without obstruction Lars Guillory MD or gangrene 09/01/2018 F10.20 Alcohol dependence, uncomplicated Lars Guillory MD 08/09/2018 K52.3 Indeterminate colitis Bella Ervin MD 08/09/2018 I10 Essential (primary) hypertension Bella Ervin MD 08/09/2018 R10.84 Generalized abdominal pain Bella Ervin MD 08/09/2018 M25.562 Pain in left knee Bella Ervin MD 08/07/2018 R10.13 Epigastric pain Lars Guillory MD 08/07/2018 K57.30 Diverticulosis of large intestine without Lars Guillory MD perforation or abs 07/06/2018 R10.2 Pelvic and perineal pain Mikhail Tomas MD, FACS 07/06/2018 I88.9 Nonspecific lymphadenitis, unspecified Mikhail Tomas MD, FACS Plan of Treatment Future Appointment(s):02/02/2019 10:20 am - Josue Vivas MD at [facility] Internal Medicine - [address]/24/2018 - Josue Vivas MDF39 Unspecified mood [affective] disorderNew Medication:Sertraline HCL 50 mg - take 1 tab daily.Follow up:4 weeks.I10 Essential (primary) hypertensionComments:Please restart the metoprolol and the amlodipine. Functional Status Description No Information Available Mental Status Description No Information Available Referrals Refer to Dr Reason for Referral Status Appt Date Lars Guillory MD pt with alcoholic cirrhosis and liver cysts Sent [address], has not been evaluated by GI so far. asymptomatic [address] [place] [address] [phone]
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
[2019-01-08] MEDS ORDERED: Lidocaine 1% MPF ** 5 ML VIAL ONE (23:06)
[2019-01-08 23:56] VITALS: BP 164/91
== END 2019-01-08 23:55 | disposition home or self-care (01) ==
LOC: ED 21:38
DX: S01.81XA Laceration without foreign body of other part of head, initial encounter (principal); W19.XXXA Unspecified fall, initial encounter; Y92.9 Unspecified place or not applicable; I10 Essential (primary) hypertension; Z79.01 Long term (current) use of anticoagulants; Z86.718 Personal history of other venous thrombosis and embolism; Z86.711 Personal history of pulmonary embolism
CPT/HCPCS: 12013; 99282

== ENCOUNTER 2019-02-06 15:18 | Inpatient (IN) | payer OTHER ==
--- OUTSIDE RECORDS SUMMARY | 2019-02-06 15:56 | XMS REPORT | Continuity of Care Document ---
:1955 External Reference #:[id number] Author Name Lisbet Hernandez MD (transmitted by agent of provider Christie Hunter) Address [address], [place] [address] Care Team Providers Name Role Phone [facility] Sleep Clinic - Sleep Disorder Care Team Information [employer] Technician Diagnostic Brenda Dacosta MD - Surgery Care Team Information [employer] Technician [phone] Josue Vivas MD - Hospitalist Care Team Information [employer] Technician [phone] Problems Active Problems Provider Date Alcoholic cirrhosis Vasyl Alfred M.D. Onset: 06/14/2012 Cholelithiasis without obstruction Randy Ramirez M.D.,[facility] Onset: 2018 Chronic diastolic heart failure Vasyl [...] sleep apnea syndrome Dodie Rowley DNP, RN, [employer] Onset: 09/2017 Chronic alcoholism in remission Lars Guillory MD Onset: 08/07/1996 Note: In 2012 he was admitted for 5 weeks and had liver failure with hepatic encephalopathy with an albumin as low as 1.2 chronically early April 2012; his alcohol history is outlined (released his perception of it) and psychiatry consult with Dr Burch 05/10/18 where he is being considered for [facility] placement to stabilize sobriety; he did stay [...] Unknown Never Smoked Cigarettes Smoking Status Reviewed: 01/15/19 Never Smoked Cigarettes ETOH Use 2011 Has consumed alcohol in the past Tobacco Use Start: Unknown Patient has never smoked Recreational Drug Use Sporadically uses Marijuana Exercise Type/Frequency Exercises regularly Allergies, Adverse Reactions, Alerts Active Allergies Reaction Severity Comments Date Amoxicillin fatigue 06/14/2012 Medications Active Medications SIG Qnty Indications Ordering Date Provider Escitalopram Oxalate take one tablet 30tabs F39 Lisbet Hernandez, 2018 once daily 10mg Tablets Multi Complete 1 by mouth every 90caps Bella Ervin MD 10/04/2018 day Capsules Hyoscyamine Sulfate one by mouth three 90tabs R10.84 Bella Ervin MD 08/09 times a day as 0.125mg Tablets needed for abdominal pain Omeprazole 1 by mouth every 30caps R10.84 Bella Ervin MD 08/09/[address] Buckleyadol HCL 1 tablet by mouth 90tabs Lupe Hdez, 07/04/2018 50mg every 6 - 8 hours DO Tablets as needed for pain Daily-Bella take [...] 400mg Mouth Every Day Tablets History Medications Sertraline HCL take 1 tab daily. 30tabs F39 Josue Vivas MD 12/25/2018 - 50mg 01/15/2019 Tablets Medications Administered in Office Medication SIG Qnty Indications Ordering Provider Date Influenza,Unspecified Unknown 10/25/2017 Injection Depomedrol 40MG Mavis Martin M.D. 08/15/2015 Injection Depomedrol 80MG CAYLA Mtz 02/06/2014 Injection Depomedrol 80MG Jasen Estrada M.D. 01/08/2013 Injection Immunizations CPT Code Status Date Vaccine Reaction Lot # [id number] Given 07/28/2017 Zoster (Shingles) Vaccine (HZV), Recombinant, Subunit, Adjuvanted 81045 Given 01/11/2017 Influenza Virus Vaccine, no reaction, pt [id number] Quadrivalent, Split, tolerated well Preservative Free 47766 Given 04/20/2016 Zoster (Zostavax) [id number] 11850 Given 05/06/2015 Pneumonia Vaccine [id number] Vital Signs Date Vital Result Comment 01/15/2019 9:01am Height 68 inches 5'8" Weight 154.00 lb Heart Rate 88 /min BP Systolic 125 mmHg BP Diastolic 80 mmHg Body Temperature 98.3 F O2 % BldC Oximetry 96 % BMI (Body Mass Index) 23.4 kg/m2 12/25/2018 3:22pm Height 68 inches 5'8" Weight 154.00 lb Heart Rate 126 /min BP Systolic Sitting 156 mmHg Left arm BP Diastolic Sitting 104 mmHg Left arm BP Systolic Standing 157 mmHg Right arm 7 min. later BP Diastolic Standing 104 mmHg Right arm 7 min. later Body Temperature 99.4 F O2 % BldC Oximetry 98 % BMI (Body Mass Index) 23.4 kg/m2 Results Test Acquired Date Facility Test Result H/L Range Note Laboratory test 09/01/2018 [facility] Clotest SEE RESULT [address] [place] [address] [phone] Laboratory test 09/01/2018 [facility] Surgical SEE RESULT [address] [place] [address] [phone] CBC Auto Diff 08/15/2018 [facility] White Blood 5.6 Normal 3.5 -10.[address] Count 10^3/[place] [address] [phone] Red Blood Count 4.88 10^6/uL Normal 4.18-5.48 [...] Red Blood Cells % 0.1 Laboratory 08/15/2018 [facility] Lactic 2.3 mmol/L Critical 0.5-2.0 3 test finding [address] [place] [address] [phone] Comp Metabolic 08/15/2018 [facility] Sodium 139 mmol/L Normal 135-[address] [place] [address] [phone] Potassium 3.0 mmol/L Low 3.5-5.0 Chloride 105 [...] Egfr 138.3 >60 4 Laboratory test 08/15/2018 [facility] Lipase 46 U/L Normal 11.0-82.[address] [place] [address] [phone] Urinalysis 08/15/2018 [facility] Urine Color Yellow Profile [address] [place] [address] [phone] Urine Appearance Clear Urine Specific [place] 1.011 Normal 1.010-1.030 Urine pH 6.0 Normal 5-9 Urine Urobilinogen Negative Negative Urine Ketones Negative Negative Urine Protein Negative Negative Urine Leukocytes Negative Negative Urine Blood Negative Negative Urine Nitrite Negative Negative Urine Bilirubin Negative Negative Urine Glucose Negative Negative CBC Auto 08/01/2018 [facility] White Blood 5.0 10^3/uL Normal 3.5-10.[address] [place] [address] [phone] Red Blood Count 5.06 10^6/uL Normal 4.18-5.48 [...] Blood Cells % 0.4 Urinalysis Profile 08/01/2018 [facility] Urine Color Straw [address] [place] [address] [phone] Urine Appearance Clear Urine Specific [place] 1.002 Low 1.010-1.030 Urine pH 6.0 Normal 5-9 Urine Urobilinogen Negative Negative Urine Ketones Negative Negative Urine Protein Negative Negative Urine Leukocytes Negative Negative Urine Blood Negative Negative Urine Nitrite Negative Negative Urine Bilirubin Negative Negative Urine Glucose Negative Negative Laboratory test 08/01/2018 [facility] Ammonia 53 mcmol/L Normal 16-53 finding [address] [place] [address] [phone] Lactic Acid 2.0 mmol/L Normal 0.5-2.0 5 Troponin-I (TnI) 0.00 ng/mL <0.04 6 Comp Metabolic 08/01/2018 [facility] Sodium 140 mmol/L Normal 135-145 Panel [address] [place] [address] [phone] Potassium 3.4 mmol/L Low 3.5-5.0 Chloride 104 [...] Egfr 115.2 >60 7 Laboratory test 08/01/2018 [facility] Magnesium 2.1 mg/dL Normal 1.9-2.7 finding [address] [place] [address] [phone] Amylase 32 U/L Normal 29-103 Lipase 33 U/L Normal 11.0-82.0 C Reactive Protein < 1.00 mg/L Normal <8.01 Alcohol 32 mg/dL High <10 Inr/Protime 08/01/2018 [facility] Inr 1.01 Normal 0.82-1.[address] [place] [address] [phone] Laboratory test 08/01/2018 [facility] Partial 28.8 Normal 26.0 -38.[address] [place] [address] Time PTT [phone] HIV 4th Generation Self Ref Negative Negative Blood Culture SEE RESULT BELOW 9 1 SEE RESULT BELOW Name: TIMOTHY LINDA : [address]: Lars Guillory MD Acct: [id number] Unit: [id number] AGE: 63 Location: ENDO Re09/01/18 SEX: M Status: REG REF SPEC: [id number] TREVER: 09/01/18-1235 [facility] DR: Lars Guillory MD REQ: [id number] RECD: 09/01/18562 STATUS: STANTON OWEN DR: Bella Ervin MD _ SOURCE: GAS ANTRUM SPDESC: ORDERED: Clotest Procedure Result Reported Site Clotest Final 09/02/18- 0744 ML Clotest Negative * ML - Main Lab . END OF REPORT DEPARTMENT OF PATHOLOGY, [address] [place] [address] Saeid Martin M.D. Director [facility] # [id number] 2 SEE RESULT BELOW Name: TIMOTHY LINDA : [address]: Lars Guillory MD Acct: [id number] Unit: [id number] AGE: 63 Location: ENDO Re09/01/18 SEX: M Status: DEP REF SPEC: [id number] TREVER: 09/01/18-1226 [facility] DR: Lars Guillory MD REQ: [id number] RECD: 09/01/18 STATUS: TAYLER OWEN DR: Bella Ervin MD [...] CONTINUED ON NEXT PAGE DEPARTMENT OF PATHOLOGY, [address] [place], [place] [address] Saeid Martin M.D. Director [facility] # [id number] RUN DATE: 09/05/18 [facility] LAB LIVE PAGE 2 Patient: TIMOTHY LINDA [id number] (Continued) GROSS DESCRIPTION (Continued) GROSS DESCRIPTION The specimen is received in formalin labeled, Gastric Antrum Biopsy, and consists of two green-pink irregular to polypoid soft tissue fragments averaging 0.5 x 0.3 x 0.3 cm which are entirely submitted in one cassette. Signed by and Reported on: Saeid Martin MD 1321 END OF REPORT DEPARTMENT OF PATHOLOGY, [facility] [address] [place], [place] [address] Saeid Martin M.D. Director [facility] # [id number] 3 Critical Result LACT:2.3 Called to [id number] at: 09:19:35 by:[id number] Read back by:ZOHREH [facility] Severe Sepsis and Septic Shock Management Bundle [...] 5 Kidney failure <15 (or dialysis) 5 [facility] Severe Sepsis and Septic Shock Management Bundle Measure requires all lactic acids initially measuring >2.0 mmol/L be repeated. 6 Troponin-I testing on Plasma Separator Tubes (PST) has a known false positive rate of 0.20-0.40%. All positive troponins reflex immediately to secondary confirmatory testing. Using the [employer] DxI 800 Access Immunoassay systems, the 99th [...] range: 2.5-3.5 9 SEE RESULT BELOW Name: LINDATIMOTHY : [address]: Aliza Arredondo MD Acct: [id number] Unit: [id number] AGE: 63 Location: ED Re08/01/18 SEX: M Status: DEP ER SPEC: [id number] TREVER: 08/01/18 [facility] DR: Ramone Arredondo MD REQ: [id number] RECD: 08/01/18 STATUS: STANTON OWEN DR: Bella Ervin MD _ SOURCE: BLOOD,VENO SPDESC: ORDERED: Blood Cult Procedure Result Reported Site Aerobic Culture Bottle Final 08/06/18- 38 ML No Growth Day 5 Anaerobic Culture Bottle Final 08/06/18- 38 ML No Growth Day 5 * ML - Main Lab . END OF REPORT DEPARTMENT OF PATHOLOGY, [address] [place] [address] Saeid Martin M.D. Director [facility] # [id number] Procedures Date Code Description Status 09/01/2018 81048 Endoscopy Upper GI Biopsy Completed 07/22/2013 56451050 Colonoscopy Completed 11/14/2012 00844759 Colonoscopy Completed Medical Devices Description No Information Available Encounters Type Date Location Provider Dx Diagnosis Office Visit 12/25/2018 [facility] Internal Josue Vivas MD F39 Unspecified mood 3:00p Medicine - Suite R [affective] disorder I10 Essential (primary) hypertension Office Visit 08/09/2018 2:00p [facility] Internal Bella Ervin K52.3 Indeterminate Medicine - colitis Ccmob I10 Essential (primary) hypertension R10.84 Generalized abdominal pain M25.562 Pain in left knee Office Visit 08/07/2018 [facility] Gastroenterology Peter T. R10.13 Epigastric pain 2:00p MD Kahlil K57.30 Dvrtclos of lg int w/o perforation or abscess w/o bleeding Assessments Date Code Description Provider 01/15/2019 F39 Unspecified mood [affective] disorder Lisbet Hernandez MD 01/15/2019 I10 Essential (primary) hypertension Lisbet Hernandez MD 01/15/2019 Z48.02 Encounter for removal of sutures Lisbet Hernandez MD 12/25/2018 F39 Unspecified mood [affective] disorder Josue Vivas MD 12/25/2018 I10 Essential (primary) hypertension Josue Vivas MD 09/01/2018 K29.50 Unspecified chronic gastritis without Lars Guillory MD bleeding 09/01/2018 R10.84 Generalized abdominal pain Lars Guillory MD 09/01/2018 K44.9 Diaphragmatic hernia without obstruction or Lars Guillory MD gangrene 09/01/2018 F10.20 Alcohol dependence, uncomplicated Lars Guillory MD 08/09/2018 K52.3 Indeterminate colitis Bella Ervin MD 08/09/2018 I10 Essential (primary) hypertension Bella Ervin MD 08/09/2018 R10.84 Generalized abdominal pain Bella Ervin MD 08/09/2018 M25.562 Pain in left knee Bella Ervin MD 08/07/2018 R10.13 Epigastric pain Lars Guillory MD 08/07/2018 K57.30 Diverticulosis of large intestine without Lars Guillory MD perforation or abs Plan of Treatment Future Appointment(s):02/02/2019 10:20 am - Josue Vivas MD at [facility] Internal Medicine - [address]/17/2018 - Lisbet Hernandez MDF39 Unspecified mood [ affective] disorderNew Medication:Escitalopram Oxalate 10 mg - take one tablet once dailyComments:1. Stop taking sertaline.2. Start Lexapro 10 mg one tablet daily.Follow up:in 02/02/2019.I10 Essential (primary) hypertensionComments:1. Continue taking your meds daily.2. Do not miss the dose.Z48.02 Encounter for removal of sutures Functional Status Description No Information Available Mental Status Description No Information Available Referrals Description No Information Available
[2019-02-06 16:05] LABS: ABS Lymphocytes 2.3 10^3/ul (1.0-4.8); ABS Monocytes 0.4 10^3/ul (0-0.8); ABS Neutrophils 2.8 10^3/ul (1.5-7.7); Eosinophil % 0.9 %; Hematocrit 45 % (42-52); Hemoglobin 15.5 g/dL (14.0-18.0); Lymphocyte % 40.6 %; Mean Corpuscular HGB Conc 35 g/dL (31-36); Mean Corpuscular Hemoglobin 32 pg (27-31); Mean Corpuscular Volume 92 fL (80-94); Mean Platelet Volume 8.1 fL (7.4-10.4); Nucleated Red Blood Cells % 0.4; Platelet Count 259 10^3/uL (150-450); Red Cell Distribution Width 14 % (10-15); White Blood Count 5.6 10^3/uL (3.5-10.8)
[2019-02-06] MEDS ORDERED: NS 0.9% 1000 ML** 1,000 ML IV ONE (16:07)
--- NOTE | 2019-02-06 16:13 | ED ---
Altered Mental Status - HPI Summary HPI Summary: Pt is a 63 y/o M presenting to the ED with a chief complaint of confusion. Pt states he feels strange, like he is out of his body, per triage note. Pt states he has been feeling that his mind doesnt focus correctly. He doesnt feel safe driving, has not eaten or drank over the past few days, and states this has been happening for about 1 week now. Pt denies nausea, vomiting. Denies kilpatrick, vision changes. No fever, chills, rash. No cp, sob, abd pain. Pts friend/ roommate states he has frequently been yelling, crying, and fighting in his sleep and then waking up without memory of it. States approx 3 weeks ago pt was sleep walking when he fell and cut his chin - pt came to ED for evaluation and received stitches to his chin. She also notes he has been sleeping much more frequently. He denies pain, nausea, or SOB. Patient's medications reviewed this visit. Patient does state he has a history of alcohol use and alcohol cirrhosis. Patient states he quit drinking about 5 years ago. Patient states he still has occasional drink but hasn't had anything in 3-4 days. Patient states he does not drink to intoxication. Patient denies any illicit substances. - History Of Current Complaint Chief Complaint: EDPsychosocial Stated Complaint: GENERAL ILLNESS PER PT Time Seen by Provider: 02/06/19 15:33 Hx Obtained From: Patient Onset/Duration: Still Present, Gradually Timing: Constant, Lasting Weeks Severity Initially: Mild Severity Currently: Moderate Character: Confusion Aggravating Factor(s): Unknown Alleviating Factor(s): Unknown Associated Signs And Symptoms: Negative: Nausea - Allergies/Home Medications Allergies/Adverse Reactions: Allergies Allergy/AdvReac Type Severity Reaction Status Date / Time amoxicillin AdvReac Fatigue Verified 02/06/19 15:29 Home Medications: Home Medications Escitalopram * [Lexapro 10 mg (NF)] 10 mg PO DAILY 02/06/19 [History Confirmed 02/06/19] Ferrous Sulfate TAB* 325 mg PO DAILY 02/06/19 [History Confirmed 02/06/19] Metoprolol Succinate XL TAB* [Toprol XL TAB*] 100 mg PO DAILY 02/06/19 [History Confirmed 02/06/19] Multivitamins/Minerals TAB* [Theragran/minerals TAB*] 1 tab PO DAILY 02/06/19 [ History Confirmed 02/06/19] Omeprazole CAP (NF) [Prilosec CAP* 20 MG] 20 mg PO DAILY 02/06/19 [History Confirmed 02/06/19] PMH/Surg Hx/FS Hx/Imm Hx Previously Healthy: Yes Endocrine/Hematology History: Reports: Hx Anticoagulant Therapy - previous coumadin use, Hx Anemia - RECENT DIAGNOSIS,ON IRON SUPPLEMENT Denies: Hx Diabetes Cardiovascular History: Reports: Hx Deep Vein Thrombosis - used to be on coumadin Denies: Hx Hypertension Respiratory History: Reports: Hx Pulmonary Embolism - HX OF DVT AND PE - COUMADIN THERPHY FINISHED 2011, Other Respiratory Problems/Disorders - PNEUMONIA 2011 GI History: Reports: Hx Cirrhosis - Hx OF, 2011 (ALCOHOLIC, NONE SINCE 2011), Hx Gall Bladder Disease - CT shows gall stones and thickining, Hx Jaundice, Other GI Disorders - HX OF DIVERTICULOSIS OF COLON History: Reports: Other Problems/Disorders - PROSTATE ABNORMALITY Denies: Hx Renal Disease Musculoskeletal History: Reports: Hx Arthritis - LEFT KNEE,, Other Musculoskeletal History - broken right hand 02/2014 Sensory History: Reports: Hx Contacts or Glasses - GLASSES FOR DISTANCE, 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 Opthamlomology History: Reports: Hx Contacts or Glasses - GLASSES FOR DISTANCE Psychiatric History: Reports: Hx Substance Abuse - smoke marijuana, ALCOHOLISM, Other Psychiatric Issues/Disorders - Recovering alcoholic - Surgical History Surgery Procedure, Year, and Place: 2014 right inguinal hernia repair- [facility] Hx Anesthesia Reactions: No Infectious Disease History: No Infectious Disease History: Denies: Hx Hepatitis, Hx Human Immunodeficiency Virus (HIV), Hx Shingles, Hx Tuberculosis, Traveled Outside the [place] in Last 30 Days - Family History Known Family History: Positive: Cardiac Disease - father, Other - breast CA in mother Family History: Mother - breast CA. Father - Cardiac dz. - Social History Alcohol Use: Occasionally Alcohol Amount: NONE SINCE 2011 (WAS HEAVY DRINKER) Hx Substance Use: Yes Substance Use Type: Reports: Marijuana Substance Use Comment - Amount & Last Used: OCCASSIONAL Hx Tobacco Use: No Smoking Status (MU): Never Smoked Tobacco Type: Cigarettes Have You Smoked in the Last Year: No Review of Systems Positive: Fatigue - increased sleep, Other - decreased appetite, not eating, not drinking Negative: Shortness Of Breath Negative: Nausea Negative: Myalgia Neurological: Other - confused, disoriented All Other Systems Reviewed And Are Negative: Yes Physical Exam - Summary Physical Exam Summary: Vital Signs Reviewed: Yes A+Ox3, no distress, appropriate Eyes: Conjunctiva Clear, KRISTIN. EOM intact and full ENT: Hearing grossly normal TM x 2 clear, mmoist, uvula midline, no exudate, no erythema Neck: Positive: Supple Respiratory: Positive: No respiratory distress, No accessory muscle use + CTA throughout no w/r Cardiovascular: RRR nl s1, s2 no m/r CBT <2 sec abd soft + BS nd, mild RUQ pain - no guarding, no distension, no cva Musculoskeletal Exam: CHAVEZ x 4 without difficulty Strength Intact, ROM Intact Neurological: Positive: Alert, + sensation throughout, pt with noted tremor - states intermittent Psychological: Positive: Normal Response To examiner Skin: Positive: no rash, no ecchymosis Triage Information Reviewed: Yes Vital Signs On Initial Exam: Initial Vitals Temp Pulse Resp BP Pulse Ox 97.2 F 89 15 127/97 97 02/06/19 15:20 02/06/19 15:20 02/06/19 15:20 02/06/19 15:20 02/06/19 15:20 Vital Signs Reviewed: Yes - Dereje Coma Scale Best Eye Response: 4 - Spontaneous Best Motor Response: 6 - Obeys Commands Best Verbal Response: 5 - Oriented Coma Scale Total: 15 Procedures - Sedation Patient Received Moderate/Deep Sedation with Procedure: No Diagnostics - Vital Signs Vital Signs Temp Pulse Resp BP Pulse Ox 02/06/19 15:20 97.2 F 89 15 127/97 97 - Laboratory Lab Results: Lab Results 02/06/19 Range/Units 15:45 WBC 5.6 (3.5-10.8) 10^3/uL RBC 4.90 (4.18-5.48) 10^6 /uL Hgb 15.5 (14.0-18.0) g/dL Hct 45 (42-52) % MCV 92 (80-94) fL MCH 32 H (27-31) pg MCHC 35 (31-36) g/dL RDW 14 (10-15) % Plt Count 259 (150-450) 10^3/uL MPV 8.1 (7.4-10.4) fL Neut % (Auto) 49.9 % Lymph % (Auto) 40.6 % [place] % (Auto) 7.8 % Eos % (Auto) 0.9 % Baso % (Auto) 0.8 % Absolute Neuts (auto) 2.8 (1.5-7.7) 10^3/ul Absolute Lymphs (auto) 2.3 (1.0-4.8) 10^3/ul Absolute Monos (auto) 0.4 (0-0.8) 10^3/ul Absolute Eos (auto) 0.0 (0-0.6) 10^3/ul Absolute Basos (auto) 0.0 (0-0.2) 10^3/ul Absolute Nucleated RBC 0.0 10^3/ul Nucleated RBC % 0.4 Result Diagrams: 02/12/19 06:22 02/12/19 06:22 Lab Statement: Any lab studies that have been ordered have been reviewed, and results considered in the medical decision making process. - Radiology CXR Radiology Interpretation Completed By: Radiologist Summary of Radiographic Findings: No acute cardiopulmonary process by radiograph. ED physician has reviewed this report. - CT Brain CT CT Interpretation Completed By: Radiologist Summary of CT Findings: 1. No acute intracranial abnormality is identified. 2. Mild chronic small vessel ischemic disease is likely. 3. Mild cerebral volume loss. 4. Right maxillary sinus mucosal disease. ED physician has reviewed this report. - Ultrasound Abdomen US Ultrasound Interpretation Completed By: Radiologist Summary of Ultrasound Findings: 1. A 3.9 cm hypoechoic focus near the gallbladder fossa could be focal fat sparing. However, further characterization by triphasic CT or MRI is recommended in the context of cirrhotic morphology. 2. The gallbladder contains sludge and punctate calculi. There is no intra or extrahepatic biliary ductal dilatation. ED physician has reviewed this report. - EKG 1545 Cardiac Rate: NL - 85bpm EKG Rhythm: Sinus Rhythm ST Segment: Normal Ectopy: None Summary of EKG Findings: EKG at 1545 shows NSR at 85bpm with no acute ST/T-wave changes. Dr. Dixon has reviewed and interpreted this EKG. Re-Evaluation - Re-Evaluation First Eval Comment: Evaluation of lab work shows that the patient has been elevated alcohol level CCC. Patient's heart rate and blood pressure will significantly increased since he's been here. Patient is more tremulous and had difficulty walking to the bathroom. I confronted patient regarding his alcohol level. Patient's significant other was surprised and upset. Patient admits that he has been drinking heavily. I'm suspicious that some of his symptoms were withdrawn related to alcohol. 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 Review of recent alcohol shows it was under 100 and his last 2 presentations to the hospital. Discussed with patient about admitting for detox. Patient in agreement with this plan. Will give Ativan, CIWA, and banana bag. Will discuss with the hospitalist who is in agreement to admit the patient Altered Mental Statu Course/Dx - Course Course Of Treatment: Patient presents to ED with his SO. Patient has been having increased episodes of confusion and shakiness. Patient has been having vivid dreams that are causing him to sleep off per his significant other. Patient has been somewhat insidious in his feet. Patient fell and injured his chin approximately 3 weeks ago and sustained a laceration which require sutures. Patient concerned may be related to his medication but is unclear so he came here. On exam vital signs are stable. Patient is noted to have a slight tremor. He is alert and oriented with nothing obvious on the neuro exam. Will check CT imaging of the head chest x-ray urine patient does have a upper quadrant pain so we will check an ultrasound. Of note, patient does have a history of alcohol cirrhosis. Patient states he quit drinking 5 years ago. Patient states occasionally he still does have a drink with the last one was approximately 3 days ago. We'll give fluids and reassess. - Diagnoses Provider Diagnoses: Confusion, Alcohol withdrawal - Provider Notifications Discussed Care Of Patient With: Josue Vivas Time Discussed With Above Provider: 17:24 Instructed by Provider To: Admit As Inpatient Discharge ED - Sign-Out/Discharge Documenting (check all that apply): Patient Departure - Discharge Plan Condition: Stable Disposition: ADMITTED TO [facility] - Billing Disposition and Condition Condition: STABLE Disposition: Admitted to [facility] - Attestation Statements Document Initiated by Scribe: Yes Documenting Scribe: Isamar Mattson Provider For Whom Scribe is Documenting (Include Credential): Mila Dixon MD. Scribe Attestation: Isamar Mcgill, scribed for Mila Dixon MD. on 02/14/19 at 1315. Scribe Documentation Reviewed: Yes Provider Attestation: The documentation as recorded by the kehinde, Isamar Mattson accurately reflects the service I personally performed and the decisions made by me, Mila Dixon MD. Status of Kehinde Document: Viewed Consult Consult: [id number] - I spoke with Dr. Vivas about the pt's presenting condition who will be evaluating the pt for admission.
[2019-02-06 16:30] LABS: Albumin 4.5 g/dL (3.2-5.2); Albumin/Globulin Ratio 1.3 (1-3); BUN/Creatinine Ratio 13.2 (8-20); Calcium 8.9 mg/dL (8.6-10.3); EGFR African American 85.7 (>60); EGFR Non-African American 70.8 (>60); Globulin 3.5 g/dL (2-4); Potassium 3.7 mmol/L (3.5-5.0); Total Bilirubin 0.7 mg/dL (0.2-1.0)
[2019-02-06 16:36] LABS: TSH (Thyroid Stimulating Horm) 1.34 mcIU/mL (0.34-5.60)
[2019-02-06] MEDS ORDERED: Thiamine INJ* 100 MG, Folic Acid IV* 1 MG, Multiple Vitamin IV ADULT* 10 ML in NS 0.9% ... IV ONE (17:27)
[2019-02-06] MEDS ORDERED: LORazepam INJ* 2 MG/ML 1 ML VIAL IV PUSH ONE (17:42)
[2019-02-06] MEDS ORDERED: Lorazepam PYXIS KEY PRN (17:42)
[2019-02-06] MEDS ORDERED: NS 0.9% 1000 ML** 1,000 ML ONE (18:02)
[2019-02-06] MEDS: Enoxaparin(*) 40 MG/0.4 ML SYR SUBCUT SCH (20:48)
[2019-02-06] MEDS: LORazepam TAB(*) 1 MG PO SCH (20:51)
[2019-02-06 22:43] LABS: Urine Appearance Clear; Urine Bilirubin Negative (Negative); Urine Blood Negative (Negative); Urine Color Yellow; Urine Glucose Negative (Negative); Urine Ketones Negative (Negative); Urine Nitrite Negative (Negative); Urine Protein Negative (Negative); Urine Specific Gravity 1.012 (1.010-1.030); Urine Urobilinogen Negative (Negative)
[2019-02-07 01:19] LABS: Urine Benzodiazepine Screen None Detected (None Detect); Urine Opiates Screen None Detected (None Detect)
[2019-02-07] MEDS: LORazepam TAB(*) 1 MG PO SCH ×8 (04:25→19:55)
[2019-02-07 05:34] LABS: Albumin 3.8 g/dL (3.2-5.2); Albumin/Globulin Ratio 1.3 (1-3); Globulin 2.9 g/dL (2-4); Indirect Bilirubin 1.2 mg/dL (0.3-1.0); Total Bilirubin 1.6 mg/dL (0.2-1.0); Total Protein 6.7 g/dL (6.4-8.9)
[2019-02-07] MEDS: Escitalopram * 10 MG TAB PO SCH (08:09)
[2019-02-07] MEDS: Metoprolol Succinate XL TAB* 100 MG PO SCH (08:09)
[2019-02-07] MEDS: Folic Acid TAB* 1 MG PO SCH (08:09)
[2019-02-07] MEDS: amLODIPine TAB* 5 MG PO SCH (08:09)
[2019-02-07] MEDS: Thiamine TAB* 100 MG TAB PO SCH (08:10)
[2019-02-07] MEDS: Pantoprazole TAB * 40 MG TAB PO SCH (08:10)
[2019-02-07] MEDS: Ferrous Sulfate TAB* 325 MG PO SCH (08:10)
[2019-02-07] MEDS: Multivitamins/Minerals TAB PO SCH (08:10)
--- NOTE | 2019-02-07 09:15 | HP ---
CC: Dr. Ervin * ADMISSION HISTORY AND PHYSICAL: DATE OF ADMISSION: 02/06/19 CHIEF COMPLAINT: Confusion. HISTORY OF PRESENT ILLNESS: Mr. Linda is a 63-year-old man with a history of alcoholism, who was brought to the emergency department by a friend, who reports confusion. The patient when asked says he feels sick and not right, but cannot define things further. The patient states he has been drinking 3 to 4, may be more, cocktails per day in the last month. He states he does not drink everyday and that he is trying to quit alcohol, but he has had severe shaking in the last week when he tries to quit. The review of medical records shows that he was admitted to this hospital in 04/13/12 through 05/16/12 with severe delirium tremens. He was in ICU, ventilated. He has no memory of a month in his life. It is unclear whether he had any seizures during this time, but he states he was "in a coma." The patient's other medication changes recently he reports that Dr. Vivas started him on one SSRI about a month or 6 weeks ago. When taking this medication, which he thinks is sertraline, he had increased sleepwalking and parasomnias. He stopped this medication, started a different SSRI within the last few weeks. The patient also states he ran out of tramadol a few days ago and has not refilled it. PAST MEDICAL HISTORY: Includes cholelithiasis, osteoarthritis of the knees, hypertension, obstructive sleep apnea, insomnia, heart failure with preserved ejection fraction, history of diverticulitis, inguinal hernia repair on the right, history of DVT when in ICU 2012. PAST SURGICAL HISTORY: Right inguinal hernia repair 2013 with some chronic pain in the area with the mesh since then. He had a left total knee replacement. MEDICATIONS ON ADMISSION: 1. Amlodipine 10 mg p.o. daily. 2. Escitalopram 10 mg p.o. daily. 3. Ferrous sulfate 325 mg p.o. daily. 4. Toprol-XL 100 mg p.o. daily. 5. Multivitamin 1 tab p.o. daily. 6. Omeprazole 20 mg p.o. daily. 7. Tramadol 50 mg p.o. q.6 hours p.r.n. pain. ALLERGIES: AMOXICILLIN. FAMILY HISTORY: Notable for mother, who of breast cancer. Sister also of breast cancer. SOCIAL HISTORY: He is disabled. He is single. He is not . He has no children. He is here with a friend, Katie. His healthcare proxy is his brother, Isaías. He does not smoke tobacco. He drinks alcohol as above. 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 He smokes marijuana occasionally. REVIEW OF SYSTEMS: The patient has had no fevers at home and he reports a decreased appetite, however. The patient denies any chest pain or palpitations. The patient denies any cough or shortness of breath. He does report some abdominal pain, which he states feels better when he drinks. The patient denies any vomiting, but has had nausea in the last few days, which he attributes to the new SSRI. He has had no hematuria or dysuria. His roommate, Katie reports that he has increased sleepwalking, yelling, crying, and screaming overnight, which he does remember in the morning. The patient denies any anxiety and hallucinations, but does admit to depression. Remainder of a 14- point review of systems is negative other than that mentioned in the HPI. PHYSICAL EXAMINATION GENERAL: He is alert, in no acute distress. VITAL SIGNS: Temperature is 96.2, pulse 89, respirations 21, blood pressure is 127/97, O2 sat is 97% on room air. HEENT: Head is normocephalic, atraumatic. Sclerae anicteric. Pupils are equal , round, reactive to light and accommodation. Oropharynx is moist. No lesions. NECK: No JVD. No carotid bruits. No thyromegaly. LUNGS: Clear to auscultation to percussion bilaterally. HEART: Regular rate and rhythm. No murmurs or gallops. ABDOMEN: Soft, nontender. Positive bowel sounds. No hepatosplenomegaly. EXTREMITIES: No peripheral edema. Dorsalis pedis pulses are absent bilaterally. SKIN: No rashes. NEUROLOGIC: Alert, oriented x3. He has action tremors in both hands. DIAGNOSTIC STUDIES/LAB DATA: Sodium 141, potassium 3.7, chloride 105, bicarb 27, BUN 14, creatinine 1.06, glucose 103. Calcium 8.9, magnesium 2, albumin 4.5 , AST 137, ALT 62, bilirubin 0.7, alcohol level 302, ammonia level 56, TSH 1.34 , white count 5.6, hemoglobin 15.5, hematocrit 45%, platelets 259. EKG shows a normal sinus rhythm. Normal axis. No ST or T-wave changes to suggest ischemia. Chest x-ray is negative. Head CT shows mild cerebral volume loss. No acute infarct or hemorrhage. Abdominal ultrasound shows 3.9 cm hyperdense, hypoechoic lesion in the liver near the gallbladder. The gallbladder also has sludge and gallstones. ASSESSMENT AND PLAN: 1. A 63-year-old man presenting with alcohol withdrawal. He is at high risk of delirium tremens and seizures given his history 5 or 6 years ago. The patient will be initiated on WA protocol with seizure prophylaxis as standing plus as needed Ativan. The patient will be monitored for delirium tremens, may require ICU transfer. 2. The patient has hypertension, continue him on his amlodipine, monitor and adjust as needed. 3. For his liver lesion seen on the ultrasound, the patient should have a 3- phase CT scan looking for hemangiomas versus cirrhosis related neoplasm when he is more stable. 4. Code status is full. 5. DVT prophylaxis. He is at very high risk due to his past history DVT. He will have sequential compression devices and Lovenox. [id number]/[facility] #: [id number] WILLEM
--- NOTE | 2019-02-07 17:01 | PN ---
Subjective Date of Service: 02/07/19 Interval History: Mr. Linda states that he is "better than yesterday." He states he was confused yesterday, but feels this has subsided, although his housemate sitting at bedside feels he is still somewhat confused. He states he is anxious with chills and shaking. Denies palpitations, diaphoresis, nausea/vomiting. He has no other complaints today. Objective Active Medications: Acetaminophen (Tylenol Tab*) 650 mg PO Q4H PRN PRN Reason: MILD PAIN or TEMP > 100.4 Amlodipine Besylate (Norvasc Tab*) 10 mg PO DAILY [facility] Last Admin: 02/07/19 08:09 Dose: 10 mg Enoxaparin Sodium (Lovenox(*)) 40 mg SUBCUT Q24H [facility] Last Admin: 02/06/19 20:48 Dose: 40 mg Escitalopram Oxalate (Lexapro *) 10 mg PO DAILY [facility] Last Admin: 02/07/19 08:09 Dose: 10 mg Ferrous Sulfate (Ferrous Sulfate Tab*) 325 mg PO DAILY [facility] Last Admin: 02/07/19 08:10 Dose: 325 mg Folic Acid (Folvite Tab*) 1 mg PO DAILY [facility] Last Admin: 02/07/19 08:09 Dose: 1 mg Lorazepam (Ativan Tab(*)) 0 - 6 mg PO .PER [facility] PROTOCOL [facility]; Protocol Last Admin: 02/07/19 16:00 Dose: 3 mg Lorazepam (Ativan Tab(*)) 2 mg PO Q12H [facility]; Taper Stop: 02/09/19 15:59 Last Admin: 02/07/19 11:59 Dose: 2 mg Metoprolol Succinate (Toprol Xl Tab*) 100 mg PO DAILY [facility] Last Admin: 02/07/19 08:09 Dose: 100 mg Miscellaneous (Ativan Pyxis Olsen) 1 ea N/A .ATIVAN IV OLSEN PRN PRN Reason: PYXIS OLSEN Multivitamins/Minerals (Theragran/Minerals Tab*) 1 tab PO DAILY [facility] Last Admin: 02/07/19 08:10 Dose: 1 tab Pantoprazole Sodium (Protonix Tab*) 40 mg PO DAILY [facility] Last Admin: 02/07/19 08:10 Dose: 40 mg Thiamine HCl (Vitamin B-1 Tab*) 100 mg PO DAILY [facility] Last Admin: 02/07/19 08:10 Dose: 100 mg Vital Signs: Temp Pulse Resp BP Pulse Ox 98.7 F 107 16 140/83 98 02/07/19 15:29 02/07/19 15:29 02/07/19 16:13 02/07/19 15:29 02/07/19 15:29 Oxygen Devices in Use Now: None Appearance: Mr. Linda is a middle-aged white male who is sitting up in bed; he appears somewhat older than his stated age. He has UE tremors. He is appropriate, cooperative. Eyes: No Scleral Icterus, PERRLA Ears/Nose/Mouth/Throat: NL Teeth, Lips, Gums, Clear Oropharnyx, Mucous Membranes Moist Neck: NL Appearance and Movements; NL JVP, Trachea Midline Respiratory: Symmetrical Chest Expansion and Respiratory Effort, Clear to Auscultation Cardiovascular: NL Sounds; No Murmurs; No JVD, No Edema, - - Sinus tachycardia Abdominal: No Hepatosplenomegaly, - - non-distended; BS in all quadrants; mildly tender to palpation throughout Extremities: No Edema, No Clubbing, Cyanosis Neurological: Alert and Oriented x 3 Result Diagrams: 02/06/19 15:45 02/06/19 15:45 Additional Lab and Data: Lab Results 02/06/19 Range/Units 15:45 WBC 5.6 (3.5-10.8) 10^3/uL RBC 4.90 (4.18-5.48) 10^6 /uL Hgb 15.5 (14.0-18.0) g/dL Hct 45 (42-52) % MCV 92 (80-94) fL MCH 32 H (27-31) pg MCHC 35 (31-36) g/dL RDW 14 (10-15) % Plt Count 259 (150-450) 10^3/uL MPV 8.1 (7.4-10.4) fL Neut % (Auto) 49.9 % Lymph % (Auto) 40.6 % [place] % (Auto) 7.8 % Eos % (Auto) 0.9 % Baso % (Auto) 0.8 % Absolute Neuts (auto) 2.8 (1.5-7.7) 10^3/ul Absolute Lymphs (auto) 2.3 (1.0-4.8) 10^3/ul Absolute Monos (auto) 0.4 (0-0.8) 10^3/ul Absolute Eos (auto) 0.0 (0-0.6) 10^3/ul Absolute Basos (auto) 0.0 (0-0.2) 10^3/ul Absolute Nucleated RBC 0.0 10^3/ul Nucleated RBC % 0.4 Assess/Plan/Problems-Billing Assessment: 63yom PMHx alcoholism, HFpEF, HTN, [place], h/o DVT presents with confusion and alcohol withdrawal. - Patient Problems (1) Alcohol withdrawal Comment: -h/o alcoholism with 2012 admission for DT, withdrawal -presents with withdrawal symptoms, AMS -CT head unremarkable -continue WAM protocol -continue thiamine, folate -seizure precautions (2) Acute metabolic encephalopathy Comment: -pt presents with confusion -CT brain without acute intracranial abnormality -no evidence of infectious etiology -serum EtOH 302 at admission; suspect that this is cause of confusion/AMS -pt improving, but reportedly still not at baseline (3) Liver lesion Comment: -liver lesion noted on liver US -recommend 3-phase CT once stable (4) HTN (hypertension) Comment: -SBP 120-140's -continue amlodipine, metoprolol (5) Diastolic heart failure Comment: -continue metoprolol, amlodipine (6) DVT prophylaxis Comment: -lovenox (7) Full code status Status and Disposition: Inpatient. Discharge when stable.
[2019-02-07] MEDS: Enoxaparin(*) 40 MG/0.4 ML SYR SUBCUT SCH (19:57)
[2019-02-07] MEDS ORDERED: Lorazepam PYXIS KEY PRN (21:41)
[2019-02-07] MEDS ORDERED: Lorazepam PYXIS KEY ONE (21:45)
[2019-02-07] MEDS: LORazepam INJ* 2 MG/ML 1 ML VIAL IV PUSH SCH (21:56)
[2019-02-08] MEDS: LORazepam TAB(*) 1 MG PO SCH ×2 (00:07→11:56)
[2019-02-08] MEDS: LORazepam INJ* 2 MG/ML 1 ML VIAL IV PUSH SCH ×6 (00:08→22:19)
[2019-02-08 06:11] LABS: ABS Lymphocytes 0.9 10^3/ul (1.0-4.8); ABS Monocytes 0.4 10^3/ul (0-0.8); ABS Neutrophils 1.8 10^3/ul (1.5-7.7); Eosinophil % 1.6 %; Hematocrit 40 % (42-52); Hemoglobin 13.9 g/dL (14.0-18.0); Lymphocyte % 27.4 %; Mean Corpuscular HGB Conc 35 g/dL (31-36); Mean Corpuscular Hemoglobin 32 pg (27-31); Mean Corpuscular Volume 92 fL (80-94); Mean Platelet Volume 8.3 fL (7.4-10.4); Platelet Count 102 10^3/uL (150-450); Red Cell Distribution Width 14 % (10-15); White Blood Count 3.1 10^3/uL (3.5-10.8)
[2019-02-08 06:44] LABS: BUN/Creatinine Ratio 13.2 (8-20); Calcium 9.2 mg/dL (8.6-10.3); EGFR African American 125.8 (>60); EGFR Non-African American 103.9 (>60); Potassium 3.5 mmol/L (3.5-5.0)
[2019-02-08] MEDS: Multivitamins/Minerals TAB PO SCH (08:25)
[2019-02-08] MEDS: Ferrous Sulfate TAB* 325 MG PO SCH (08:25)
[2019-02-08] MEDS: Escitalopram * 10 MG TAB PO SCH (08:25)
[2019-02-08] MEDS: Pantoprazole TAB * 40 MG TAB PO SCH (08:25)
[2019-02-08] MEDS: Folic Acid TAB* 1 MG PO SCH (08:25)
[2019-02-08] MEDS: amLODIPine TAB* 5 MG PO SCH (08:25)
[2019-02-08] MEDS: Thiamine TAB* 100 MG TAB PO SCH (08:25)
[2019-02-08] MEDS: Metoprolol Succinate XL TAB* 100 MG PO SCH (08:25)
[2019-02-08] MEDS ORDERED: Influenza VAC *QUAD* 2019-20* 0.5 ML SYRINGE IM ONE (09:00)
[2019-02-08] MEDS ORDERED: PROCHLORPERAZINE INJ 5 MG/ML 2 ML VIAL IV PRN (09:49)
--- NOTE | 2019-02-08 17:02 | PN ---
Subjective Date of Service: 02/08/19 Interval History: Mr. Linda states he is anxious and has tremors. He denies, n/v, abd pain, palpitations, diaphoresis. He has reportedly been agitated throughout the day and night. He currently has a safety monitor in room with him at all times. Objective Active Medications: Acetaminophen (Tylenol Tab*) 650 mg PO Q4H PRN PRN Reason: MILD PAIN or TEMP > 100.4 Amlodipine Besylate (Norvasc Tab*) 10 mg PO DAILY [facility] Last Admin: 02/08/19 08:25 Dose: 10 mg Enoxaparin Sodium (Lovenox(*)) 40 mg SUBCUT Q24H [facility] Last Admin: 02/07/19 19:57 Dose: Not Given Escitalopram Oxalate (Lexapro *) 10 mg PO DAILY [facility] Last Admin: 02/08/19 08:25 Dose: 10 mg Ferrous Sulfate (Ferrous Sulfate Tab*) 325 mg PO DAILY [facility] Last Admin: 02/08/19 08:25 Dose: 325 mg Folic Acid (Folvite Tab*) 1 mg PO DAILY [facility] Last Admin: 02/08/19 08:25 Dose: 1 mg Lorazepam (Ativan Tab(*)) 2 mg PO Q12H [facility]; Taper Stop: 02/09/19 15:59 Last Admin: 02/08/19 11:56 Dose: 2 mg Lorazepam (Ativan Inj*) 0 - 3 mg IV PUSH .PER [facility] PROTOCOL [facility]; Protocol Last Admin: 02/08/19 10:18 Dose: 1.5 mg Metoprolol Succinate (Toprol Xl Tab*) 100 mg PO DAILY [facility] Last Admin: 02/08/19 08:25 Dose: 100 mg Miscellaneous (Ativan Pyxis Olsen) 1 ea N/A .PYXIS OLSEN PRN PRN Reason: PER PROTOCOL Multivitamins/Minerals (Theragran/Minerals Tab*) 1 tab PO DAILY [facility] Last Admin: 02/08/19 08:25 Dose: 1 tab Pantoprazole Sodium (Protonix Tab*) 40 mg PO DAILY [facility] Last Admin: 02/08/19 08:25 Dose: 40 mg Prochlorperazine Edisylate (Compazine Inj*) 2.5 mg IV Q6H PRN PRN Reason: NAUSEA/VOMITING Last Admin: 12/19/19 10:18 Dose: 2.5 mg Thiamine HCl (Vitamin B-1 Tab*) 100 mg PO DAILY [facility] Last Admin: 02/08/19 08:25 Dose: 100 mg Vital Signs: Temp Pulse Resp BP Pulse Ox 97.6 F 95 15 135/92 99 02/08/19 15:56 02/08/19 15:56 02/08/19 15:56 02/08/19 15:56 02/08/19 15:56 Oxygen Devices in Use Now: None Appearance: Mr. Linda is a middle aged white male who is laying in bed asleep; he wakes easily. He is tremulous and restless. Eyes: No Scleral Icterus, PERRLA Ears/Nose/Mouth/Throat: NL Teeth, Lips, Gums, Clear Oropharnyx, Mucous Membranes Moist Neck: NL Appearance and Movements; NL JVP, Trachea Midline Respiratory: Symmetrical Chest Expansion and Respiratory Effort, Clear to Auscultation Cardiovascular: NL Sounds; No Murmurs; No JVD, No Edema, - - sinus tachycardia Abdominal: NL Sounds; No Tenderness; No Distention, No Hepatosplenomegaly Extremities: No Edema, No Clubbing, Cyanosis Neurological: Alert and Oriented x 3 Result Diagrams: 02/08/19 05:57 02/08/19 05:57 Additional Lab and Data: Lab Results 02/06/19 Range/Units 15:45 WBC 5.6 (3.5-10.8) 10^3/uL RBC 4.90 (4.18-5.48) 10^6 /uL Hgb 15.5 (14.0-18.0) g/dL Hct 45 (42-52) % MCV 92 (80-94) fL MCH 32 H (27-31) pg MCHC 35 (31-36) g/dL RDW 14 (10-15) % Plt Count 259 (150-450) 10^3/uL MPV 8.1 (7.4-10.4) fL Neut % (Auto) 49.9 % Lymph % (Auto) 40.6 % [place] % (Auto) 7.8 % Eos % (Auto) 0.9 % Baso % (Auto) 0.8 % Absolute Neuts (auto) 2.8 (1.5-7.7) 10^3/ul Absolute Lymphs (auto) 2.3 (1.0-4.8) 10^3/ul Absolute Monos (auto) 0.4 (0-0.8) 10^3/ul Absolute Eos (auto) 0.0 (0-0.6) 10^3/ul Absolute Basos (auto) 0.0 (0-0.2) 10^3/ul Absolute Nucleated RBC 0.0 10^3/ul Nucleated RBC % 0.4 Assess/Plan/Problems-Billing Assessment: 63yom PMHx alcoholism, HFpEF, HTN, [place], h/o DVT presents with confusion and alcohol withdrawal. - Patient Problems (1) Alcohol withdrawal Comment: -h/o alcoholism with 2012 admission for DT, withdrawal -presents with withdrawal symptoms, AMS -CT head unremarkable -continue WAM protocol -continue thiamine, folate -seizure precautions (2) Acute metabolic encephalopathy Comment: -pt presents with confusion -CT brain without acute intracranial abnormality -no evidence of infectious etiology -serum EtOH 302 at admission; suspect that this is cause of confusion/AMS -pt improving, but reportedly still not at baseline (3) Liver lesion Comment: -liver lesion noted on liver US -recommend 3-phase CT once stable (4) HTN (hypertension) Comment: -SBP 130-140's -continue amlodipine, metoprolol (5) Diastolic heart failure Comment: -does not appear to be in exacerbation -continue metoprolol (6) DVT prophylaxis Comment: -lovenox (7) Full code status Status and Disposition: Inpatient. Discharge when stable.
[2019-02-08] MEDS: Enoxaparin(*) 40 MG/0.4 ML SYR SUBCUT SCH (20:03)
[2019-02-09] MEDS: LORazepam TAB(*) 1 MG PO SCH ×2 (00:09→12:11)
[2019-02-09] MEDS: LORazepam INJ* 2 MG/ML 1 ML VIAL IV PUSH SCH ×9 (02:04→23:46)
[2019-02-09 06:27] LABS: ABS Basophils 0.1 10^3/ul (0-0.2); ABS Eosinophils 0.1 10^3/ul (0-0.6); ABS Lymphocytes 1.3 10^3/ul (1.0-4.8); ABS Monocytes 0.5 10^3/ul (0-0.8); ABS Neutrophils 3.8 10^3/ul (1.5-7.7); Eosinophil % 2.3 %; Hematocrit 42 % (42-52); Hemoglobin 14.6 g/dL (14.0-18.0); Lymphocyte % 22.2 %; Mean Corpuscular HGB Conc 35 g/dL (31-36); Mean Corpuscular Hemoglobin 32 pg (27-31); Mean Corpuscular Volume 93 fL (80-94); Mean Platelet Volume 9.1 fL (7.4-10.4); Platelet Count 121 10^3/uL (150-450); Red Blood Count 4.51 10^6 /uL (4.18-5.48); Red Cell Distribution Width 14 % (10-15); White Blood Count 5.9 10^3/uL (3.5-10.8)
[2019-02-09 06:55] LABS: Calcium 9.4 mg/dL (8.6-10.3); EGFR African American 100.9 (>60); EGFR Non-African American 83.4 (>60); Potassium 3.8 mmol/L (3.5-5.0)
[2019-02-09] MEDS: Folic Acid TAB* 1 MG PO SCH (08:35)
[2019-02-09] MEDS: Pantoprazole TAB * 40 MG TAB PO SCH (08:36)
[2019-02-09] MEDS: Thiamine TAB* 100 MG TAB PO SCH (08:36)
[2019-02-09] MEDS: amLODIPine TAB* 5 MG PO SCH (08:36)
[2019-02-09] MEDS: Metoprolol Succinate XL TAB* 100 MG PO SCH (08:36)
[2019-02-09] MEDS: Escitalopram * 10 MG TAB PO SCH (08:36)
[2019-02-09] MEDS: Multivitamins/Minerals TAB PO SCH (08:36)
[2019-02-09] MEDS: Ferrous Sulfate TAB* 325 MG PO SCH (08:36)
--- NOTE | 2019-02-09 12:36 | PN ---
Subjective Date of Service: 02/09/19 Interval History: Mr. Linda states he is "feeling better," but is tired. He denies tremors, hallucinations, palpitations, nausea, vomiting. He states he feels "weird" and as if her were in a daze. He has no other complaints today. Objective Active Medications: Acetaminophen (Tylenol Tab*) 650 mg PO Q4H PRN PRN Reason: MILD PAIN or TEMP > 100.4 Amlodipine Besylate (Norvasc Tab*) 10 mg PO DAILY [facility] Last Admin: 02/09/19 08:36 Dose: 10 mg Enoxaparin Sodium (Lovenox(*)) 40 mg SUBCUT Q24H [facility] Last Admin: 02/08/19 20:03 Dose: 40 mg Escitalopram Oxalate (Lexapro *) 10 mg PO DAILY [facility] Last Admin: 02/09/19 08:36 Dose: 10 mg Ferrous Sulfate (Ferrous Sulfate Tab*) 325 mg PO DAILY [facility] Last Admin: 02/09/19 08:36 Dose: 325 mg Folic Acid (Folvite Tab*) 1 mg PO DAILY [facility] Last Admin: 02/09/19 08:35 Dose: 1 mg Lorazepam (Ativan Tab(*)) 1 mg PO Q12H [facility]; Taper Stop: 02/09/19 15:59 Last Admin: 02/09/19 12:11 Dose: 1 mg Lorazepam (Ativan Inj*) 0 - 3 mg IV PUSH .PER [facility] PROTOCOL [facility]; Protocol Last Admin: 02/09/19 08:30 Dose: 2 mg Metoprolol Succinate (Toprol Xl Tab*) 100 mg PO DAILY [facility] Last Admin: 02/09/19 08:36 Dose: 100 mg Miscellaneous (Ativan Pyxis Olsen) 1 ea N/A .PYXIS OLSEN PRN PRN Reason: PER PROTOCOL Multivitamins/Minerals (Theragran/Minerals Tab*) 1 tab PO DAILY [facility] Last Admin: 02/09/19 08:36 Dose: 1 tab Pantoprazole Sodium (Protonix Tab*) 40 mg PO DAILY [facility] Last Admin: 02/09/19 08:36 Dose: 40 mg Prochlorperazine Edisylate (Compazine Inj*) 2.5 mg IV Q6H PRN PRN Reason: NAUSEA/VOMITING Last Admin: 12/19/19 10:18 Dose: 2.5 mg Thiamine HCl (Vitamin B-1 Tab*) 100 mg PO DAILY [facility] Last Admin: 02/09/19 08:36 Dose: 100 mg Vital Signs: Temp Pulse Resp BP Pulse Ox 97.6 F 94 18 159/99 98 02/09/19 16:00 02/09/19 16:00 02/09/19 16:00 02/09/19 16:00 02/09/19 16:00 Oxygen Devices in Use Now: None Appearance: Mr. Linda is a middle-aged white male who is sitting in bed sleeping ; he wakes easily. He is somewhat disheveled, but appears to be in no acute distress. Tremors have decreased in intensity. Eyes: No Scleral Icterus, PERRLA Ears/Nose/Mouth/Throat: NL Teeth, Lips, Gums, Clear Oropharnyx, Mucous Membranes Moist Neck: NL Appearance and Movements; NL JVP, Trachea Midline Respiratory: Symmetrical Chest Expansion and Respiratory Effort, Clear to Auscultation Cardiovascular: NL Sounds; No Murmurs; No JVD, RRR, No Edema Abdominal: NL Sounds; No Tenderness; No Distention, No Hepatosplenomegaly Neurological: Alert and Oriented x 3 Result Diagrams: 02/09/19 06:18 02/09/19 06:18 Additional Lab and Data: Lab Results 02/06/19 Range/Units 15:45 WBC 5.6 (3.5-10.8) 10^3/uL RBC 4.90 (4.18-5.48) 10^6 /uL Hgb 15.5 (14.0-18.0) g/dL Hct 45 (42-52) % MCV 92 (80-94) fL MCH 32 H (27-31) pg MCHC 35 (31-36) g/dL RDW 14 (10-15) % Plt Count 259 (150-450) 10^3/uL MPV 8.1 (7.4-10.4) fL Neut % (Auto) 49.9 % Lymph % (Auto) 40.6 % [place] % (Auto) 7.8 % Eos % (Auto) 0.9 % Baso % (Auto) 0.8 % Absolute Neuts (auto) 2.8 (1.5-7.7) 10^3/ul Absolute Lymphs (auto) 2.3 (1.0-4.8) 10^3/ul Absolute Monos (auto) 0.4 (0-0.8) 10^3/ul Absolute Eos (auto) 0.0 (0-0.6) 10^3/ul Absolute Basos (auto) 0.0 (0-0.2) 10^3/ul Absolute Nucleated RBC 0.0 10^3/ul Nucleated RBC % 0.4 Assess/Plan/Problems-Billing Assessment: 63yom PMHx alcoholism, HFpEF, HTN, [place], h/o DVT presents with confusion and alcohol withdrawal. - Patient Problems (1) Alcohol withdrawal Comment: -h/o alcoholism with 2013 admission for DT, withdrawal -presents with withdrawal symptoms, AMS -CT head unremarkable -LFTs improving -continue WAM protocol -continue thiamine, folate -seizure precautions (2) Acute metabolic encephalopathy Comment: -pt presents with confusion; still intermittently confused, but oriented x3 -CT brain without acute intracranial abnormality -no evidence of infectious etiology -serum EtOH 302 at admission; suspect that this is cause of confusion/AMS -pt improving, but reportedly still not at baseline (3) Pancytopenia Comment: -pancytopenia yesterday, consistent with previous hospital visit -resolved except platelets, which are trending up -monitor (4) Liver lesion Comment: -liver lesion noted on liver US -recommend 3-phase CT once stable (5) HTN (hypertension) Comment: -SBP 140-160's -slowly climbing, likely secondary to withdrawals -continue amlodipine, metoprolol and monitor need for additional agents (6) Diastolic heart failure Comment: -does not appear to be in exacerbation -continue metoprolol (7) DVT prophylaxis Comment: -lovenox (8) Full code status Status and Disposition: Inpatient. Discharge when stable.
[2019-02-09 17:06] LABS: Albumin 4.5 g/dL (3.2-5.2); Albumin/Globulin Ratio 1.4 (1-3); Globulin 3.2 g/dL (2-4); Indirect Bilirubin 0.9 mg/dL (0.3-1.0); Total Bilirubin 1.2 mg/dL (0.2-1.0); Total Protein 7.7 g/dL (6.4-8.9)
[2019-02-09] MEDS: Enoxaparin(*) 40 MG/0.4 ML SYR SUBCUT SCH (20:20)
[2019-02-10] MEDS: LORazepam INJ* 2 MG/ML 1 ML VIAL IV PUSH SCH ×3 (02:47→06:00)
[2019-02-10] MEDS ORDERED: Ziprasidone IM INJ* 20 MG/ML VIAL IM ONE (04:36)
[2019-02-10 07:50] LABS: ABS Eosinophils 0.1 10^3/ul (0-0.6); ABS Monocytes 0.4 10^3/ul (0-0.8); ABS Neutrophils 2.4 10^3/ul (1.5-7.7); Eosinophil % 2.4 %; Hematocrit 38 % (42-52); Hemoglobin 13.7 g/dL (14.0-18.0); Lymphocyte % 24.3 %; Mean Corpuscular HGB Conc 36 g/dL (31-36); Mean Corpuscular Hemoglobin 32 pg (27-31); Mean Corpuscular Volume 90 fL (80-94); Red Blood Count 4.23 10^6 /uL (4.18-5.48); Red Cell Distribution Width 14 % (10-15); White Blood Count 3.9 10^3/uL (3.5-10.8)
[2019-02-10 08:34] LABS: Mean Platelet Volume 8.7 fL (7.4-10.4); Platelet Count 82 10^3/uL (150-450)
--- NOTE | 2019-02-10 10:34 | PN ---
Subjective Date of Service: 02/10/19 Interval History: Mr. Linda states that he has been having "weird dreams," but denies hallucinations. He c/o tremors, but notes that they have decreased in intensity. He denies palpitations, diaphoresis. Objective Active Medications: Acetaminophen (Tylenol Tab*) 650 mg PO Q4H PRN PRN Reason: MILD PAIN or TEMP > 100.4 Amlodipine Besylate (Norvasc Tab*) 10 mg PO DAILY [facility] Last Admin: 02/09/19 08:36 Dose: 10 mg Enoxaparin Sodium (Lovenox(*)) 40 mg SUBCUT Q24H [facility] Last Admin: 02/09/19 20:20 Dose: 40 mg Escitalopram Oxalate (Lexapro *) 10 mg PO DAILY [facility] Last Admin: 02/09/19 08:36 Dose: 10 mg Ferrous Sulfate (Ferrous Sulfate Tab*) 325 mg PO DAILY [facility] Last Admin: 02/09/19 08:36 Dose: 325 mg Folic Acid (Folvite Tab*) 1 mg PO DAILY [facility] Last Admin: 02/09/19 08:35 Dose: 1 mg Lorazepam (Ativan Inj*) 0 - 3 mg IV PUSH .PER [facility] PROTOCOL [facility]; Protocol Last Admin: 02/10/19 06:00 Dose: 2.5 mg Metoprolol Succinate (Toprol Xl Tab*) 100 mg PO DAILY [facility] Last Admin: 02/09/19 08:36 Dose: 100 mg Miscellaneous (Ativan Pyxis Olsen) 1 ea N/A .PYXIS OLSEN PRN PRN Reason: PER PROTOCOL Multivitamins/Minerals (Theragran/Minerals Tab*) 1 tab PO DAILY [facility] Last Admin: 02/09/19 08:36 Dose: 1 tab Pantoprazole Sodium (Protonix Tab*) 40 mg PO DAILY [facility] Last Admin: 02/09/19 08:36 Dose: 40 mg Prochlorperazine Edisylate (Compazine Inj*) 2.5 mg IV Q6H PRN PRN Reason: NAUSEA/VOMITING Last Admin: 02/08/19 10:18 Dose: 2.5 mg Thiamine HCl (Vitamin B-1 Tab*) 100 mg PO DAILY [facility] Last Admin: 02/09/19 08:36 Dose: 100 mg Vital Signs: Temp Pulse Resp BP Pulse Ox 97.9 F 79 18 119/75 97 02/10/19 14:00 02/10/19 14:00 02/10/19 14:00 02/10/19 14:00 02/10/19 14:00 Oxygen Devices in Use Now: None Appearance: Mr. Linda is a middle-aged white male who is somewhat disheveled, seen eating lunch in room. He is mildly tremulous in UE, but in no acute distress. Eyes: No Scleral Icterus, PERRLA Ears/Nose/Mouth/Throat: NL Teeth, Lips, Gums, Clear Oropharnyx, Mucous Membranes Moist Neck: NL Appearance and Movements; NL JVP, Trachea Midline Respiratory: Symmetrical Chest Expansion and Respiratory Effort, Clear to Auscultation Cardiovascular: NL Sounds; No Murmurs; No JVD, RRR, No Edema Abdominal: NL Sounds; No Tenderness; No Distention, No Hepatosplenomegaly Extremities: No Edema, No Clubbing, Cyanosis Neurological: Alert and Oriented x 3 Result Diagrams: 02/10/19 07:13 02/09/19 06:18 Additional Lab and Data: Lab Results 02/06/19 Range/Units 15:45 WBC 5.6 (3.5-10.8) 10^3/uL RBC 4.90 (4.18-5.48) 10^6 /uL Hgb 15.5 (14.0-18.0) g/dL Hct 45 (42-52) % MCV 92 (80-94) fL MCH 32 H (27-31) pg MCHC 35 (31-36) g/dL RDW 14 (10-15) % Plt Count 259 (150-450) 10^3/uL MPV 8.1 (7.4-10.4) fL Neut % (Auto) 49.9 % Lymph % (Auto) 40.6 % [place] % (Auto) 7.8 % Eos % (Auto) 0.9 % Baso % (Auto) 0.8 % Absolute Neuts (auto) 2.8 (1.5-7.7) 10^3/ul Absolute Lymphs (auto) 2.3 (1.0-4.8) 10^3/ul Absolute Monos (auto) 0.4 (0-0.8) 10^3/ul Absolute Eos (auto) 0.0 (0-0.6) 10^3/ul Absolute Basos (auto) 0.0 (0-0.2) 10^3/ul Absolute Nucleated RBC 0.0 10^3/ul Nucleated RBC % 0.4 Assess/Plan/Problems-Billing Assessment: 63yom PMHx alcoholism, HFpEF, HTN, [place], h/o DVT presents with confusion and alcohol withdrawal. - Patient Problems (1) Alcohol withdrawal Comment: -h/o alcoholism with 2013 admission for DT, withdrawal -presents with withdrawal symptoms, AMS -CT head unremarkable -LFTs improving -continue WAM protocol -attempting to wean ativan and added hydralazine prn anxiety/withdrawal symptoms -continue thiamine, folate -seizure precautions (2) Acute metabolic encephalopathy Comment: -pt presents with confusion; still intermittently confused, but oriented x3 -CT brain without acute intracranial abnormality -no evidence of infectious etiology -serum EtOH 302 at admission; suspect that this is cause of confusion/AMS -pt improving, but reportedly still not at baseline (3) Pancytopenia Comment: -pancytopenia, consistent with previous hospital visit -resolved except with continued thrombocytopenia -continue to monitor (4) Liver lesion Comment: -liver lesion noted on liver US -recommend 3-phase CT once stable (5) HTN (hypertension) Comment: -SBP 110-140's, improving from yesterday -continue amlodipine, metoprolol (6) Diastolic heart failure Comment: -does not appear to be in exacerbation -continue metoprolol (7) DVT prophylaxis Comment: -lovenox (8) Full code status Status and Disposition: Inpatient. Discharge when stable.
[2019-02-10] MEDS: Multivitamins/Minerals TAB PO SCH (10:47)
[2019-02-10] MEDS: Folic Acid TAB* 1 MG PO SCH (10:47)
[2019-02-10] MEDS: Thiamine TAB* 100 MG TAB PO SCH (10:47)
[2019-02-10] MEDS: Ferrous Sulfate TAB* 325 MG PO SCH (10:47)
[2019-02-10] MEDS: Pantoprazole TAB * 40 MG TAB PO SCH (10:48)
[2019-02-10] MEDS: Metoprolol Succinate XL TAB* 100 MG PO SCH (10:48)
[2019-02-10] MEDS: Escitalopram * 10 MG TAB PO SCH (10:48)
[2019-02-10] MEDS: amLODIPine TAB* 5 MG PO SCH (13:52)
[2019-02-10] MEDS ORDERED: LORazepam TAB(*) 1 MG PO PRN (13:55)
[2019-02-10] MEDS: hydrOXYzine HCL TAB* 50 MG PO PRN (16:42)
[2019-02-10] MEDS: Enoxaparin(*) 40 MG/0.4 ML SYR SUBCUT SCH (20:41)
[2019-02-10] MEDS ORDERED: Lorazepam PYXIS KEY PRN (23:32)
[2019-02-10] MEDS ORDERED: LORazepam INJ* 2 MG/ML 1 ML VIAL IV PUSH SCH (23:45)
[2019-02-11] MEDS: hydrOXYzine HCL TAB* 50 MG PO PRN ×3 (01:12→19:48)
[2019-02-11] MEDS: Acetaminophen TAB* 325 MG PO PRN ×2 (06:07→17:36)
[2019-02-11 07:26] LABS: ABS Eosinophils 0.2 10^3/ul (0-0.6); ABS Lymphocytes 1.2 10^3/ul (1.0-4.8); ABS Monocytes 0.7 10^3/ul (0-0.8); Eosinophil % 3.5 %; Hematocrit 39 % (42-52); Hemoglobin 13.7 g/dL (14.0-18.0); Lymphocyte % 24.5 %; Mean Corpuscular HGB Conc 35 g/dL (31-36); Mean Corpuscular Hemoglobin 33 pg (27-31); Mean Corpuscular Volume 93 fL (80-94); Mean Platelet Volume 9.3 fL (7.4-10.4); Platelet Count 94 10^3/uL (150-450); Red Blood Count 4.18 10^6 /uL (4.18-5.48); Red Cell Distribution Width 14 % (10-15); White Blood Count 5.1 10^3/uL (3.5-10.8)
[2019-02-11 07:27] LABS: BUN/Creatinine Ratio 17.4 (8-20); EGFR African American 100.9 (>60); EGFR Non-African American 83.4 (>60); Potassium 3.4 mmol/L (3.5-5.0)
[2019-02-11] MEDS ORDERED: Potassium Chlor TAB* 10 MEQ TAB.ER PO ONE (08:09)
[2019-02-11] MEDS: Multivitamins/Minerals TAB PO SCH (08:18)
[2019-02-11] MEDS: Escitalopram * 10 MG TAB PO SCH (08:18)
[2019-02-11] MEDS: Metoprolol Succinate XL TAB* 100 MG PO SCH (08:18)
[2019-02-11] MEDS: Pantoprazole TAB * 40 MG TAB PO SCH (08:18)
[2019-02-11] MEDS: amLODIPine TAB* 5 MG PO SCH (08:18)
[2019-02-11] MEDS: Thiamine TAB* 100 MG TAB PO SCH (08:18)
[2019-02-11] MEDS: Folic Acid TAB* 1 MG PO SCH (08:18)
[2019-02-11] MEDS: Ferrous Sulfate TAB* 325 MG PO SCH (08:18)
--- NOTE | 2019-02-11 10:40 | PN ---
Subjective Date of Service: 02/11/19 Interval History: Mr. Linda is feeling a little better today. He is able to verbalize that he is in the hospital, but when asked why, he states he has "trouble with women." He does admit to alcohol abuse when questioned, and is agreeable to a rehab program after discharge. Denies SOB or CP. Nursing reports confusion this morning, otherwise no concerns. Family History: Unchanged from Admission Social History: Unchanged from Admission Past Medical History: Unchanged from Admission Objective Active Medications: Acetaminophen (Tylenol Tab*) 650 mg PO Q4H PRN MILD PAIN or TEMP > 100.4 Amlodipine Besylate (Norvasc Tab*) 10 mg PO DAILY [facility] Enoxaparin Sodium (Lovenox(*)) 40 mg SUBCUT Q24H [facility] Escitalopram Oxalate (Lexapro *) 10 mg PO DAILY [facility] Ferrous Sulfate (Ferrous Sulfate Tab*) 325 mg PO DAILY [facility] Folic Acid (Folvite Tab*) 1 mg PO DAILY [facility] Hydroxyzine HCl (Atarax Tab*) 50 mg PO Q4H PRN anxiety Lorazepam (Ativan Tab(*)) 1 mg PO Q4H PRN withdrawal Lorazepam (Ativan Inj*) 0 - 3 mg IV PUSH .PER [facility] PROTOCOL [facility]; Protocol Metoprolol Succinate (Toprol Xl Tab*) 100 mg PO DAILY [facility] Multivitamins/Minerals (Theragran/Minerals Tab*) 1 tab PO DAILY [facility] Pantoprazole Sodium (Protonix Tab*) 40 mg PO DAILY [facility] Prochlorperazine Edisylate (Compazine Inj*) 2.5 mg IV Q6H PRN NAUSEA/VOMITING Thiamine HCl (Vitamin B-1 Tab*) 100 mg PO DAILY [facility] Vital Signs - 8 hr 02/11/19 02/11/19 02/11/19 04:04 07:59 08:00 Temperature 98.0 F 97.2 F Pulse Rate 87 70 Respiratory 18 18 16 Rate Blood Pressure 142/103 127/88 (mmHg) O2 Sat by Pulse 100 100 Oximetry Oxygen Devices in Use Now: None Appearance: Middle-aged male lying in bed in NAD Ears/Nose/Mouth/Throat: Mucous Membranes Moist Neck: NL Appearance and Movements; NL JVP, Trachea Midline Respiratory: Symmetrical Chest Expansion and Respiratory Effort, Clear to Auscultation Cardiovascular: NL Sounds; No Murmurs; No JVD, RRR Abdominal: NL Sounds; No Tenderness; No Distention Extremities: No Edema Neurological: - - Oriented to self, place; Odd affect Lines/Tubes/Other Access: Clean, Dry and Intact Peripheral IV Nutrition: Taking PO's Result Diagrams: 02/11/19 06:44 02/11/19 06:44 Assess/Plan/Problems-Billing Assessment: Mr. Linda is a 63 yo M with PMH of alcoholism, HFpEF, HTN, [place], h/o DVT; who presented with confusion and alcohol withdrawal. - Patient Problems (1) Alcohol withdrawal Code(s): F10.239 - ALCOHOL DEPENDENCE WITH WITHDRAWAL, UNSPECIFIED Comment: - History of alcoholism with 2013 admission for DT and withdrawal; no history of withdrawal seizures - Presented with withdrawal symptoms, AMS - CT head unremarkable - LFTs improving - Seizure precautions - [place] protocol - Continue thiamine, folate (2) Acute metabolic encephalopathy Code(s): G93.41 - METABOLIC ENCEPHALOPATHY Comment: - Presented with confusion; still intermittently confused, but improved - CT brain without acute intracranial abnormality - Serum EtOH 302 at admission; suspect that this is cause of AMS - Plan as above (3) Pancytopenia Code(s): D61.818 - OTHER PANCYTOPENIA Comment: - Consistent with previous hospital visit - Resolved exception of continued thrombocytopenia which is stable - Continue to trend (4) Liver lesion Code(s): K76.9 - LIVER DISEASE, UNSPECIFIED Comment: - Liver lesion noted on liver US - Recommend 3-phase CT once stable (5) HTN (hypertension) Code(s): I10 - ESSENTIAL (PRIMARY) HYPERTENSION Comment: - Normotensive - Continue amlodipine, metoprolol (6) Diastolic heart failure Code(s): I50.30 - UNSPECIFIED DIASTOLIC (CONGESTIVE) HEART FAILURE Comment: - Chroinc, not in exacerbation - Continue metoprolol (7) DVT prophylaxis Comment: - Lovenox (8) Full code status Code(s): Z78.9 - OTHER SPECIFIED HEALTH STATUS Comment: Status and Disposition: Inpatient. Anticipate d/c home when stable. Attending: Christopher Stevens
[2019-02-11] MEDS ORDERED: Artificial Tears* 15 ML BTL BOTH EYES PRN (12:30)
[2019-02-11] MEDS: Dextran 70/Hypromellose Tears Eye Drops 15 ml BTL (for Artificials Tears) BOTH EYES PRN (15:47)
[2019-02-11] MEDS: traMADol TAB* 50 MG PO PRN (19:47)
[2019-02-11] MEDS: Enoxaparin(*) 40 MG/0.4 ML SYR SUBCUT SCH (19:51)
[2019-02-12] MEDS: traMADol TAB* 50 MG PO PRN (03:53)
[2019-02-12] MEDS: hydrOXYzine HCL TAB* 50 MG PO PRN (03:53)
[2019-02-12] MEDS: Dextran 70/Hypromellose Tears Eye Drops 15 ml BTL (for Artificials Tears) BOTH EYES PRN (04:02)
[2019-02-12 06:39] LABS: ABS Eosinophils 0.1 10^3/ul (0-0.6); ABS Lymphocytes 1.3 10^3/ul (1.0-4.8); ABS Monocytes 0.5 10^3/ul (0-0.8); ABS Neutrophils 1.8 10^3/ul (1.5-7.7); Eosinophil % 3.5 %; Hematocrit 36 % (42-52); Hemoglobin 12.7 g/dL (14.0-18.0); Mean Corpuscular HGB Conc 35 g/dL (31-36); Mean Corpuscular Hemoglobin 32 pg (27-31); Mean Corpuscular Volume 91 fL (80-94); Mean Platelet Volume 9.1 fL (7.4-10.4); Platelet Count 79 10^3/uL (150-450); Red Blood Count 3.99 10^6 /uL (4.18-5.48); Red Cell Distribution Width 14 % (10-15); White Blood Count 3.7 10^3/uL (3.5-10.8)
[2019-02-12 06:56] LABS: Albumin 3.8 g/dL (3.2-5.2); Albumin/Globulin Ratio 1.4 (1-3); BUN/Creatinine Ratio 18.7 (8-20); EGFR African American 102.1 (>60); EGFR Non-African American 84.4 (>60); Globulin 2.8 g/dL (2-4); Potassium 3.3 mmol/L (3.5-5.0); Total Bilirubin 0.6 mg/dL (0.2-1.0); Total Protein 6.6 g/dL (6.4-8.9)
[2019-02-12 07:22] VITALS: BP 137/90
[2019-02-12] MEDS: Ferrous Sulfate TAB* 325 MG PO SCH (07:58)
[2019-02-12] MEDS: Escitalopram * 10 MG TAB PO SCH (07:58)
[2019-02-12] MEDS: Metoprolol Succinate XL TAB* 100 MG PO SCH (07:58)
[2019-02-12] MEDS: amLODIPine TAB* 5 MG PO SCH (07:58)
[2019-02-12] MEDS: Folic Acid TAB* 1 MG PO SCH (07:59)
[2019-02-12] MEDS: Thiamine TAB* 100 MG TAB PO SCH (07:59)
[2019-02-12] MEDS: Multivitamins/Minerals TAB PO SCH (07:59)
[2019-02-12] MEDS: Pantoprazole TAB * 40 MG TAB PO SCH (07:59)
[2019-02-12] MEDS ORDERED: Potassium Chlor TAB* 20 MEQ TAB.ER PO ONE (08:08)
--- NOTE | 2019-02-12 21:13 | DS ---
CC: Dr. Bella Ervin* DISCHARGE SUMMARY: DATE OF ADMISSION: 02/06/19 DATE OF DISCHARGE: 02/12/19 PRIMARY CARE PROVIDER: Dr. Bella Ervin. ATTENDING PHYSICIAN: Dr. Norma Zamorano* (dictated by Merari Lee NP). PRIMARY DIAGNOSES: 1. Alcohol withdrawal. 2. Acute metabolic encephalopathy. 3. Pancytopenia. 4. Questionable cirrhosis. SECONDARY DIAGNOSES: 1. Hypertension. 2. Chronic diastolic congestive heart failure. STUDIES WHILE IN THE HOSPITAL: 1. EKG on 02/06/19 shows normal sinus rhythm with a rate of 85, QTc 443. No ST changes. 2. Brain CT on 02/06/19 reads as no acute intracranial abnormalities identified. Mild chronic small vessel ischemic disease is likely. Mild cerebral volume loss. 3. Right maxillary sinus mucosal disease. 4. Chest x-ray on 02/06/19 reads as no acute cardiopulmonary process by radiograph. 5. Abdomen ultrasound on 02/09/19 reads as a 3.9 cm hypoechoic focus near the gallbladder fossa could be focal fat sparing. However, further characterization by triphasic CT or MRI is recommended in the context of cirrhotic morphology. The gallbladder contains sludge and punctate calculi. There is no intra or extrahepatic biliary ductal dilation. HISTORY OF PRESENT ILLNESS AND HOSPITAL COURSE: Mr. Linda is a 63-year-old male with past medical history of hypertension, obstructive sleep apnea, heart failure with preserved ejection fraction and alcohol abuse who presented to the emergency room on 02/06/19 with complaints of confusion. Please see the history and physical by Dr. Ramirez for complete summary of the events leading up to this hospitalization. In short, the patient was brought into the emergency room by a friend. The patient reported feeling sick at that point and reported drinking 3 to 4 alcoholic drinks per day in the last month, though had been trying to quit drinking prior to that. In the emergency room, he was noted to have normal vitals. Lab work was unremarkable except for mildly elevated AST and ALT. Toxicology showed a serum alcohol of 302 and possible cannabinoids in the urine. Because of the need for moderate withdrawal, the patient was admitted by the hospitalist service. He was initiated on WAM protocol and seizure prophylaxis. Of note, in the emergency room, he was found to have a lesion near the liver, which was thought to be fat sparing, but it was unclear without further imaging and at that time, the patient was not able to tolerate further imaging. The patient has been successfully withdrawn from alcohol at this point and has required a moderate amount of lorazepam. He has been with Social Work and is agreeable to pursuing outpatient rehab. Blood pressure and heart rate were noted to be elevated during active withdrawal though at this point have normalized. Liver enzymes remain elevated though are improved. He has been noted to have thrombocytopenia , which is consistent with his history. There has been no bleeding episodes here in the hospital. Today, the patient reports feeling well and is anxious to return home. PHYSICAL EXAMINATION: On exam, he is alert and oriented x4. He has no focal neurological deficits. Heart has a regular rate and rhythm without murmurs, rubs or gallops. Lungs are clear to auscultation without rhonchi, wheezes, or rubs. There is no edema. Abdomen is soft, nontender to palpation. There is no hepatomegaly. Physical exam is otherwise benign. Mr. Linda is stable for discharge today. Most recent vitals are as follows: Temp 97.3, heart rate 69, respiratory rate 16, oxygen saturation 99% on room air , blood pressure 137/90. DISCHARGE MEDICATIONS: New medications: 1. Folic acid 1 mg p.o. daily. 2. Thiamine 100 mg p.o. daily. Continued medications: 1. Amlodipine 10 mg p.o. daily. 2. Escitalopram 10 mg p.o. daily. 3. Ferrous sulfate 325 mg p.o. daily. 4. Metoprolol succinate 100 mg p.o. daily. 5. Multivitamin 1 tab p.o. daily. 6. Omeprazole 20 mg p.o. daily. 7. Tramadol 50 mg p.o. q.6 to 8 hours p.r.n. pain. DISCHARGE PLAN: Mr. Linda will be discharged home. Activity will be as tolerated. Diet will be regular as tolerated. Medications are as noted above. The patient has been started on folic acid and thiamine for history of alcoholism. He has been instructed to abstain from alcohol and has been given resources for the Alcohol and [facility] [place] [facility] and Alcoh[employer]. For his thrombocytopenia, I have ordered a repeat CBC for Tuesday, . Results of that will go to the patient's PCP. He should follow up with his PCP in the next 4 to 7 days. He also as indicated above will need further imaging of this lesion noted near the gallbladder fossa, although this can be done on a nonemergent basis. He has been advised to return to the emergency room or nearest hospital for any worsening of symptoms, shortness of breath, lightheadedness, dizziness, chest discomfort, high fevers, chills, night sweats, loss of consciousness, or any other worrisome signs or symptoms. DISCHARGE CONDITION: Stable. DISCHARGE DISPOSITION: Home. This is a summarized report of a complex medical history and hospital stay. For further details, please see the entire medical record. TIME SPENT: Approximately 40 minutes was spent on this discharge. MERARI LEE, [employer] [id number]/[facility] #: [id number] [place]
== END 2019-02-12 11:15 | disposition home or self-care (01) | DRG 775 ==
LOC: ED 15:18 → MED 20:16
PROVIDERS: ADMIT Internal Medicine; ATTEND Family Medicine
DX: F10.239 Alcohol dependence with withdrawal, unspecified (principal); G93.41 Metabolic encephalopathy; D61.818 Other pancytopenia; I50.32 Chronic diastolic (congestive) heart failure; I11.0 Hypertensive heart disease with heart failure; G47.33 Obstructive sleep apnea (adult) (pediatric); Y90.8 Blood alcohol level of 240 mg/100 ml or more; G89.29 Other chronic pain; Z96.652 Presence of left artificial knee joint; M17.12 Unilateral primary osteoarthritis, left knee; K70.30 Alcoholic cirrhosis of liver without ascites; H91.92 Unspecified hearing loss, left ear; Z23 Encounter for immunization; Z79.899 Other long term (current) drug therapy; Z86.718 Personal history of other venous thrombosis and embolism; Z88.0 Allergy status to penicillin; Z86.711 Personal history of pulmonary embolism
CPT/HCPCS: 36415; 70450; 71046; 76705; 80048; 80053; 80076; 80307; 80320; 81003; 82140; 82550; 83690; 83735; 84443; 85025; 85060; 90686; 93005; 96361; 96374; 99284; A9270-GY; G0480; J0780; J1650; J2060; J3411; J3486

== ENCOUNTER 2019-09-02 10:04 | Inpatient (IN) ==
[2019-09-02] MEDS ORDERED: Thiamine 100 MG/ML 2 ml VIAL 100 MG, Folic Acid 1 MG, Multiple Vitamin IV ADULT 10 ML i... IV ONE (10:24)
[2019-09-02] MEDS ORDERED: Lorazepam PYXIS KEY ONE ×3 (10:49→21:17)
[2019-09-02] MEDS ORDERED: LORazepam 2 mg VIAL 1 ml ONE ×2 (10:49→21:18)
[2019-09-02] MEDS: LORazepam 2 mg VIAL 1 ml IV PUSH SCH ×2 (10:52→11:54)
[2019-09-02] MEDS ORDERED: Multivitamins/Minerals TAB PO SCH ×2 (11:00→13:00)
[2019-09-02 11:12] LABS: Albumin 4.4 g/dL (3.2-5.2); Albumin/Globulin Ratio 1.4 (1-3); BUN/Creatinine Ratio 12.5 (8-20); Calcium 8.5 mg/dL (8.6-10.3); EGFR African American 80.1 (>60); EGFR Non-African American 66.2 (>60); Globulin 3.1 g/dL (2-4); Magnesium 1.4 mg/dL (1.9-2.7); Potassium 3.5 mmol/L (3.5-5.0); Total Bilirubin 2.1 mg/dL (0.2-1.0); Total Protein 7.5 g/dL (6.4-8.9)
[2019-09-02] MEDS ORDERED: Lorazepam PYXIS KEY PRN ×3 (11:15→23:27)
[2019-09-02] MEDS ORDERED: Magnesium Sulfate 2 gm BAG 2 GM/50 ML BAG IVPB ONE (11:20)
[2019-09-02 11:26] LABS: Hematocrit 43 % (42-52); Hemoglobin 14.9 g/dL (14.0-18.0); Mean Corpuscular HGB Conc 35 g/dL (31-36); Mean Corpuscular Hemoglobin 33 pg (27-31); Mean Corpuscular Volume 95 fL (80-94); Red Blood Count 4.53 10^6 /uL (4.18-5.48); Red Cell Distribution Width 14 % (10-15); White Blood Count 4.9 10^3/uL (3.5-10.8)
[2019-09-02 11:37] LABS: ABS Lymphocytes 0.8 10^3/ul (1.0-4.8); ABS Monocytes 0.5 10^3/ul (0-0.8); ABS Neutrophils 3.6 10^3/ul (1.5-7.7); Eosinophil % 0.3 %; Lymphocyte % 16.6 %; Mean Platelet Volume 8.9 fL (7.4-10.4); Nucleated Red Blood Cells % 0.5; Platelet Count 70 10^3/uL (150-450)
[2019-09-02] MEDS ORDERED: Thiamine 100 MG/ML 2 ml VIAL (200 mg) IM ONE (12:06)
[2019-09-02] MEDS ORDERED: Potassium Chlor 20 meq TAB.ER PO ONE (14:51)
[2019-09-02] MEDS ORDERED: Diltiazem IV BAG D5W Premix 125 MG/125 ML BAG IV SCH (15:00)
[2019-09-02 19:11] LABS: Hepatitis B Surface Antigen Nonreactive (Nonreactive)
[2019-09-02 19:16] LABS: Hepatitis A Ab IgM Negative (Negative)
[2019-09-02 19:17] LABS: Hepatitis B Core IgM Nonreactive (Nonreactive)
[2019-09-02 19:29] LABS: Hepatitis C Antibody Negative (Negative)
[2019-09-02] MEDS: Heparin 5000 UNITS/ML 1 mL VIAL SUBCUT SCH (20:33)
[2019-09-02] MEDS ORDERED: LORazepam 2 mg VIAL 1 ml IV PUSH ONE ×2 (21:15→23:27)
[2019-09-02 23:26] LABS: Urine Benzodiazepine Screen None Detected (None Detect); Urine Cannabinoids Screen Presumptive Positive (None Detect); Urine Opiates Screen None Detected (None Detect)
[2019-09-03] MEDS: Heparin 5000 UNITS/ML 1 mL VIAL SUBCUT SCH (06:12)
[2019-09-03 07:10] LABS: Hematocrit 39 % (42-52); Mean Corpuscular HGB Conc 33 g/dL (31-36); Mean Corpuscular Hemoglobin 33 pg (27-31); Mean Corpuscular Volume 100 fL (80-94); Red Blood Count 3.92 10^6 /uL (4.18-5.48); Red Cell Distribution Width 14 % (10-15); White Blood Count 2.3 10^3/uL (3.5-10.8)
[2019-09-03 07:34] LABS: ABS Eosinophils 0.1 10^3/ul (0-0.6); ABS Lymphocytes 0.7 10^3/ul (1.0-4.8); ABS Monocytes 0.3 10^3/ul (0-0.8); ABS Neutrophils 1.3 10^3/ul (1.5-7.7); Eosinophil % 2.2 %; Lymphocyte % 30.7 %; Mean Platelet Volume 9.7 fL (7.4-10.4); Nucleated Red Blood Cells % 0.2; Platelet Count 36 10^3/uL (150-450)
[2019-09-03 07:57] LABS: CO2 Carbon Dioxide 23 mmol/L (22-32); Calcium 7.9 mg/dL (8.6-10.3); Chloride 109 mmol/L (101-111); Magnesium 1.7 mg/dL (1.9-2.7); Sodium 140 mmol/L (135-145)
[2019-09-03] MEDS ORDERED: Magnesium Sulfate 2 gm BAG 2 GM/50 ML BAG IVPB ONE (08:01)
[2019-09-03 08:03] LABS: BUN/Creatinine Ratio 17.9 (8-20); Blood Urea Nitrogen 15 mg/dL (6-24); EGFR African American 111.7 (>60); EGFR Non-African American 92.3 (>60); Glucose 76 mg/dL (70-100)
[2019-09-03] MEDS: Multivitamins/Minerals TAB PO SCH (08:43)
[2019-09-03 09:34] LABS: Anion Gap 8 mmol/L (2-11); Potassium 3.6 mmol/L (3.5-5.0)
[2019-09-03 12:22] LABS: ABS Lymphocytes 0.5 10^3/ul (1.0-4.8); ABS Monocytes 0.2 10^3/ul (0-0.8); ABS Neutrophils 1.7 10^3/ul (1.5-7.7); Eosinophil % 1.5 %; Hematocrit 38 % (42-52); Hemoglobin 13.4 g/dL (14.0-18.0); Lymphocyte % 20.3 %; Mean Corpuscular HGB Conc 35 g/dL (31-36); Mean Corpuscular Hemoglobin 33 pg (27-31); Mean Corpuscular Volume 95 fL (80-94); Mean Platelet Volume 9.6 fL (7.4-10.4); Nucleated Red Blood Cells % 0.1; Platelet Count 41 10^3/uL (150-450); Red Blood Count 4.03 10^6 /uL (4.18-5.48); Red Cell Distribution Width 14 % (10-15); White Blood Count 2.5 10^3/uL (3.5-10.8)
[2019-09-03 14:08] LABS: Folate > 20.00 ng/mL (>3.99)
[2019-09-03 14:09] LABS: Vitamin B12 409 pg/mL (180-914)
[2019-09-04] MEDS ORDERED: Lorazepam PYXIS KEY PRN ×2 (04:52→21:12)
[2019-09-04] MEDS ORDERED: LORazepam 2 mg VIAL 1 ml IV PUSH ONE ×2 (04:52→22:15)
[2019-09-04 07:28] LABS: ABS Eosinophils 0.1 10^3/ul (0-0.6); ABS Lymphocytes 0.8 10^3/ul (1.0-4.8); ABS Monocytes 0.3 10^3/ul (0-0.8); ABS Neutrophils 2.7 10^3/ul (1.5-7.7); Eosinophil % 2.3 %; Hematocrit 43 % (42-52); Hemoglobin 15.1 g/dL (14.0-18.0); Lymphocyte % 20.8 %; Mean Corpuscular HGB Conc 35 g/dL (31-36); Mean Corpuscular Hemoglobin 33 pg (27-31); Mean Corpuscular Volume 95 fL (80-94); Mean Platelet Volume 10.1 fL (7.4-10.4); Nucleated Red Blood Cells % 0.2; Platelet Count 42 10^3/uL (150-450); Red Blood Count 4.51 10^6 /uL (4.18-5.48); Red Cell Distribution Width 14 % (10-15); White Blood Count 3.9 10^3/uL (3.5-10.8)
[2019-09-04 07:29] LABS: Albumin 4.1 g/dL (3.2-5.2); Albumin/Globulin Ratio 1.2 (1-3); Calcium 8.7 mg/dL (8.6-10.3); EGFR African American 113.2 (>60); EGFR Non-African American 93.6 (>60); Globulin 3.3 g/dL (2-4); Indirect Bilirubin 1.5 mg/dL (0.3-1.0); Magnesium 1.8 mg/dL (1.9-2.7); Potassium 3.7 mmol/L (3.5-5.0); Total Bilirubin 2.3 mg/dL (0.2-1.0); Total Protein 7.4 g/dL (6.4-8.9)
[2019-09-04] MEDS: Multivitamins/Minerals TAB PO SCH (08:48)
[2019-09-04] MEDS: NS 0.9% 1000 ml BAG 1,000 ML IV SCH (09:08)
[2019-09-04] MEDS ORDERED: LORazepam 2 mg VIAL 1 ml ONE (21:43)
[2019-09-04] MEDS ORDERED: Haloperidol 5 mg/ml SDV IV/IM 5 MG/ML AMP IV SLOW PU ONE (22:09)
[2019-09-05 00:08] LABS: ALT 118 U/L (7-52); Albumin 4.1 g/dL (3.2-5.2); Albumin/Globulin Ratio 1.4 (1-3); Alkaline Phosphatase 90 U/L (34-104); BUN/Creatinine Ratio 13.3 (8-20); Blood Urea Nitrogen 11 mg/dL (6-24); CO2 Carbon Dioxide 25 mmol/L (22-32); Calcium 8.9 mg/dL (8.6-10.3); Chloride 102 mmol/L (101-111); EGFR African American 113.2 (>60); EGFR Non-African American 93.6 (>60); Globulin 2.9 g/dL (2-4); Glucose 103 mg/dL (70-100); Sodium 135 mmol/L (135-145)
[2019-09-05 00:15] LABS: ABS Eosinophils 0.1 10^3/ul (0-0.6); ABS Lymphocytes 0.5 10^3/ul (1.0-4.8); ABS Monocytes 0.3 10^3/ul (0-0.8); Eosinophil % 1.5 %; Hematocrit 41 % (42-52); Hemoglobin 13.9 g/dL (14.0-18.0); Lymphocyte % 13.5 %; Mean Corpuscular HGB Conc 34 g/dL (31-36); Mean Corpuscular Hemoglobin 33 pg (27-31); Mean Corpuscular Volume 96 fL (80-94); Mean Platelet Volume 9.3 fL (7.4-10.4); Nucleated Red Blood Cells % 0.4; Red Blood Count 4.29 10^6 /uL (4.18-5.48); Red Cell Distribution Width 13 % (10-15); White Blood Count 3.9 10^3/uL (3.5-10.8)
[2019-09-05 00:16] LABS: Anion Gap 8 mmol/L (2-11)
[2019-09-05 01:18] LABS: Potassium Redraw 3.7 mmol/L (3.5-5.0)
[2019-09-05] MEDS: NS 0.9% 1000 ml BAG 1,000 ML IV SCH (02:09)
[2019-09-05 06:36] LABS: ABS Eosinophils 0.1 10^3/ul (0-0.6); ABS Lymphocytes 1.1 10^3/ul (1.0-4.8); ABS Monocytes 0.4 10^3/ul (0-0.8); ABS Neutrophils 3.7 10^3/ul (1.5-7.7); Eosinophil % 2.2 %; Hematocrit 42 % (42-52); Hemoglobin 14.9 g/dL (14.0-18.0); Lymphocyte % 20.3 %; Mean Corpuscular HGB Conc 35 g/dL (31-36); Mean Corpuscular Hemoglobin 33 pg (27-31); Mean Corpuscular Volume 95 fL (80-94); Mean Platelet Volume 9.7 fL (7.4-10.4); Nucleated Red Blood Cells % 0.1; Red Blood Count 4.46 10^6 /uL (4.18-5.48); Red Cell Distribution Width 14 % (10-15); White Blood Count 5.4 10^3/uL (3.5-10.8)
[2019-09-05 06:49] LABS: BUN/Creatinine Ratio 11.4 (8-20); Calcium 8.6 mg/dL (8.6-10.3); EGFR African American 119.9 (>60); EGFR Non-African American 99.1 (>60); Magnesium 1.5 mg/dL (1.9-2.7); Potassium 3.8 mmol/L (3.5-5.0)
[2019-09-05] MEDS ORDERED: Magnesium Sulfate IV 3 GM in NS 0.9% 100 ml BAG 100 ML IVPB ONE (07:57)
[2019-09-05] MEDS: Multivitamins/Minerals TAB PO SCH (09:36)
[2019-09-05 10:09] LABS: Platelet Count 46 10^3/uL (150-450)
[2019-09-05 10:09] LABS: Platelet Count 37 10^3/uL (150-450)
[2019-09-06] MEDS: NS 0.9% 1000 ml BAG 1,000 ML IV SCH (00:34)
[2019-09-06 07:12] LABS: ABS Eosinophils 0.1 10^3/ul (0-0.6); ABS Lymphocytes 0.7 10^3/ul (1.0-4.8); ABS Monocytes 0.5 10^3/ul (0-0.8); ABS Neutrophils 2.6 10^3/ul (1.5-7.7); Hematocrit 39 % (42-52); Hemoglobin 13.6 g/dL (14.0-18.0); Lymphocyte % 17.9 %; Mean Corpuscular HGB Conc 35 g/dL (31-36); Mean Corpuscular Hemoglobin 33 pg (27-31); Mean Corpuscular Volume 95 fL (80-94); Mean Platelet Volume 9.8 fL (7.4-10.4); Nucleated Red Blood Cells % 0.1; Platelet Count 39 10^3/uL (150-450); Red Blood Count 4.06 10^6 /uL (4.18-5.48); Red Cell Distribution Width 14 % (10-15)
[2019-09-06 07:17] LABS: Albumin 3.6 g/dL (3.2-5.2); Albumin/Globulin Ratio 1.2 (1-3); BUN/Creatinine Ratio 10.5 (8-20); Calcium 8.2 mg/dL (8.6-10.3); EGFR African American 125.3 (>60); EGFR Non-African American 103.6 (>60); Globulin 2.9 g/dL (2-4); Magnesium 1.9 mg/dL (1.9-2.7); Potassium 3.3 mmol/L (3.5-5.0); Total Bilirubin 1.2 mg/dL (0.2-1.0); Total Protein 6.5 g/dL (6.4-8.9)
[2019-09-06] MEDS ORDERED: Potassium Chloride LIQUID 20 MEQ/15 ML LIQUID PO ONE (08:38)
[2019-09-06] MEDS: Multivitamins/Minerals TAB PO SCH (09:45)
[2019-09-06 11:26] VITALS: BP 120/80
== END 2019-09-06 11:10 | disposition home or self-care (01) | DRG 775 ==
LOC: ED 10:04 → MEDTELE 15:35
PROVIDERS: ADMIT Internal Medicine; ATTEND Internal Medicine

== ENCOUNTER 2019-10-29 15:38 | Inpatient (IN) ==
[2019-10-29 17:53] LABS: ABS Lymphocytes 1.5 10^3/ul (1.0-4.8); ABS Monocytes 0.2 10^3/ul (0-0.8); ABS Neutrophils 2.4 10^3/ul (1.5-7.7); Eosinophil % 1.2 %; Hematocrit 44 % (42-52); Hemoglobin 14.9 g/dL (14.0-18.0); Lymphocyte % 36.2 %; Mean Corpuscular HGB Conc 34 g/dL (31-36); Mean Corpuscular Hemoglobin 32 pg (27-31); Mean Corpuscular Volume 95 fL (80-94); Mean Platelet Volume 8.3 fL (7.4-10.4); Nucleated Red Blood Cells % 0.1; Platelet Count 124 10^3/uL (150-450); Red Blood Count 4.62 10^6 /uL (4.18-5.48); Red Cell Distribution Width 14 % (10-15); White Blood Count 4.2 10^3/uL (3.5-10.8)
[2019-10-29] MEDS ORDERED: Thiamine IV 100 MG, Folic Acid 1 MG, Multiple Vitamin IV ADULT 10 ML in NS 0.9% 1000 ml... IVPB ONE (18:00)
[2019-10-29 18:09] LABS: ALT 32 U/L (7-52); AST 76 U/L (13-39); Albumin 4.4 g/dL (3.2-5.2); Albumin/Globulin Ratio 1.4 (1-3); Alkaline Phosphatase 92 U/L (34-104); Anion Gap 13 mmol/L (2-11); Blood Urea Nitrogen 8 mg/dL (6-24); CO2 Carbon Dioxide 25 mmol/L (22-32); Calcium 8.6 mg/dL (8.6-10.3); Chloride 107 mmol/L (101-111); Creatine Kinase 150 U/L (10-223); EGFR African American 104.5 (>60); EGFR Non-African American 86.3 (>60); Globulin 3.1 g/dL (2-4); Glucose 98 mg/dL (70-100); Potassium 3.4 mmol/L (3.5-5.0); Sodium 145 mmol/L (135-145); Total Protein 7.5 g/dL (6.4-8.9)
[2019-10-29 18:32] LABS: Acetaminophen < 15 mcg/mL; Salicylate < 2.50 mg/dL (<30)
[2019-10-29 18:35] LABS: Alcohol, S 411 mg/dL (<10)
[2019-10-29 18:59] LABS: TSH Ultra Thyroid Stim Horm 0.28 mcIU/mL (0.34-5.60)
[2019-10-29 20:27] LABS: Urine Appearance Clear; Urine Bilirubin Negative (Negative); Urine Blood Negative (Negative); Urine Color Yellow; Urine Glucose Negative (Negative); Urine Ketones Negative (Negative); Urine Nitrite Negative (Negative); Urine Protein Negative (Negative); Urine Specific Gravity 1.004 (1.010-1.030); Urine Urobilinogen Negative (Negative)
[2019-10-29] MEDS ORDERED: NS 0.9% 1000 ml BAG 1,000 ML IV ONE (20:43)
[2019-10-29 20:46] LABS: Urine Benzodiazepine Screen None Detected (None Detect); Urine Cannabinoids Screen Presumptive Positive (None Detect); Urine Opiates Screen None Detected (None Detect)
[2019-10-30] MEDS ORDERED: LORazepam 2 mg VIAL 1 ml IV PUSH ONE (05:24)
[2019-10-30] MEDS ORDERED: Lorazepam PYXIS KEY PRN (05:24)
[2019-10-30] MEDS ORDERED: Potassium Chlor 20 meq TAB.ER PO ONE (08:34)
[2019-10-30] MEDS: LORazepam 2 mg VIAL 1 ml IV PUSH SCH ×2 (08:34→12:22)
[2019-10-30 08:55] LABS: Magnesium 1.6 mg/dL (1.9-2.7)
[2019-10-30] MEDS ORDERED: Magnesium Hydroxide LIQ 30 ML UDC PO PRN (09:00)
[2019-10-30] MEDS ORDERED: Magnesium Sulfate IV 3 GM in NS 0.9% 100 ml BAG 100 ML IVPB ONE (09:00)
[2019-10-30] MEDS ORDERED: Al Hydrox/Mg Hydrox/Simet LIQ 30 ML UDC PO PRN (09:00)
[2019-10-30] MEDS ORDERED: Ondansetron 4 mg VIAL 2 MG/ML 2 ml VIAL IV PRN (09:00)
[2019-10-30] MEDS: Enoxaparin 40 MG/0.4 ML SYR SUBCUT SCH (11:38)
[2019-10-30] MEDS: Multivitamins/Minerals TAB PO SCH (11:38)
[2019-10-31] MEDS: hydrALAZINE 20 mg/ml 1 ML Vial IV IV SLOW PU PRN ×2 (01:29→05:47)
[2019-10-31] MEDS ORDERED: Lorazepam PYXIS KEY PRN (02:32)
[2019-10-31] MEDS ORDERED: LORazepam 2 mg VIAL 1 ml IV PUSH ONE (02:33)
[2019-10-31] MEDS: Multivitamins/Minerals TAB PO SCH (08:33)
[2019-10-31] MEDS: Enoxaparin 40 MG/0.4 ML SYR SUBCUT SCH (08:33)
[2019-10-31 08:48] LABS: BUN/Creatinine Ratio 9.9 (8-20); Calcium 9.3 mg/dL (8.6-10.3); EGFR African American 135.6 (>60); EGFR Non-African American 112.1 (>60); Magnesium 1.8 mg/dL (1.9-2.7); Potassium 3.8 mmol/L (3.5-5.0)
[2019-10-31] MEDS ORDERED: Magnesium Sulfate IV 1GM/100ML 1 GM/100 ML BAG IV ONE (08:51)
[2019-10-31] MEDS ORDERED: Potassium Chloride LIQUID 20 MEQ/15 ML LIQUID PO ONE (08:51)
[2019-10-31] MEDS ORDERED: Influenza VAC *QUAD* 2020-21* 0.5 ML SYRINGE IM ONE (10:00)
[2019-10-31 12:19] VITALS: BP 180/108
== END 2019-10-31 13:30 | disposition home or self-care (01) | DRG 775 ==
LOC: ED 15:38 → MED 10-30 10:15
PROVIDERS: ADMIT Internal Medicine; ATTEND Internal Medicine

== ENCOUNTER 2019-12-03 08:11 | Inpatient (IN) ==
[2019-12-03] MEDS ORDERED: LORazepam 2 mg VIAL 1 ml IV PUSH ONE ×2 (08:34→21:10)
[2019-12-03] MEDS ORDERED: Lorazepam PYXIS KEY PRN ×2 (08:34→21:09)
[2019-12-03] MEDS ORDERED: NS 0.9% 1000 ml BAG 1,000 ML IV ONE (08:34)
[2019-12-03 09:07] LABS: ABS Lymphocytes 0.8 10^3/ul (1.0-4.8); ABS Monocytes 0.5 10^3/ul (0-0.8); ABS Neutrophils 5.8 10^3/ul (1.5-7.7); Eosinophil % 0.1 %; Hematocrit 42 % (42-52); Hemoglobin 14.4 g/dL (14.0-18.0); Lymphocyte % 11.2 %; Mean Corpuscular HGB Conc 35 g/dL (31-36); Mean Corpuscular Hemoglobin 33 pg (27-31); Mean Corpuscular Volume 95 fL (80-94); Mean Platelet Volume 8.4 fL (7.4-10.4); Platelet Count 100 10^3/uL (150-450); Red Blood Count 4.41 10^6 /uL (4.18-5.48); Red Cell Distribution Width 14 % (10-15); White Blood Count 7.2 10^3/uL (3.5-10.8)
[2019-12-03 09:24] LABS: ALT 46 U/L (7-52); AST 108 U/L (13-39); Albumin 4.5 g/dL (3.2-5.2); Albumin/Globulin Ratio 1.3 (1-3); Alkaline Phosphatase 102 U/L (34-104); Anion Gap 15 mmol/L (2-11); BUN/Creatinine Ratio 8.3 (8-20); Blood Urea Nitrogen 9 mg/dL (6-24); CO2 Carbon Dioxide 24 mmol/L (22-32); Calcium 9.3 mg/dL (8.6-10.3); Chloride 102 mmol/L (101-111); EGFR African American 83.6 (>60); EGFR Non-African American 69.1 (>60); Globulin 3.6 g/dL (2-4); Glucose 148 mg/dL (70-100); Potassium 3.2 mmol/L (3.5-5.0); Sodium 141 mmol/L (135-145); Total Protein 8.1 g/dL (6.4-8.9)
[2019-12-03] MEDS ORDERED: Potassium Chlor 20 meq TAB.ER PO ONE (09:25)
[2019-12-03] MEDS ORDERED: Thiamine 100 MG/ML 2 ml VIAL 100 MG, Folic Acid 1 MG, Multiple Vitamin IV ADULT 10 ML i... IV ONE (09:30)
[2019-12-03 09:32] LABS: Alcohol, S < 10 mg/dL (<10)
[2019-12-03] MEDS ORDERED: Thiamine 100 MG/ML 2 ml VIAL (200 mg) ONE (09:39)
[2019-12-03] MEDS ORDERED: NS 0.9% 1000 ml BAG 1,000 ML ONE (09:39)
[2019-12-03 09:49] LABS: Magnesium 1.3 mg/dL (1.9-2.7)
[2019-12-03] MEDS ORDERED: Magnesium Sulf 4 GM/100 ML IV 4,000 MG/100 ML BAG IVPB ONE (10:39)
[2019-12-03] MEDS ORDERED: Ondansetron 4 mg VIAL 2 MG/ML 2 ml VIAL IV PRN (10:59)
[2019-12-03] MEDS ORDERED: Al Hydrox/Mg Hydrox/Simet LIQ 30 ML UDC PO PRN (10:59)
[2019-12-03] MEDS: LORazepam 2 mg VIAL 1 ml IV PUSH SCH ×6 (11:27→23:54)
[2019-12-03] MEDS ORDERED: Lactated Ringers 1000 ml BAG 1,000 ML IV SCH (12:00)
[2019-12-03] MEDS: Heparin 5000 UNITS/ML 1 mL VIAL SUBCUT SCH ×2 (16:32→23:25)
[2019-12-04] MEDS ORDERED: Haloperidol 5 mg/ml SDV IV/IM 5 MG/ML AMP IV SLOW PU ONE (00:22)
[2019-12-04] MEDS: LORazepam 2 mg VIAL 1 ml IV PUSH SCH ×10 (02:12→22:11)
[2019-12-04] MEDS: Heparin 5000 UNITS/ML 1 mL VIAL SUBCUT SCH ×2 (04:08→12:17)
[2019-12-04 06:54] LABS: INR 1.04 (0.82-1.09)
[2019-12-04 06:55] LABS: ABS Lymphocytes 0.8 10^3/ul (1.0-4.8); ABS Monocytes 0.4 10^3/ul (0-0.8); ABS Neutrophils 2.2 10^3/ul (1.5-7.7); Eosinophil % 1.3 %; Hematocrit 40 % (42-52); Hemoglobin 14.1 g/dL (14.0-18.0); Lymphocyte % 23.8 %; Mean Corpuscular HGB Conc 35 g/dL (31-36); Mean Corpuscular Hemoglobin 33 pg (27-31); Mean Corpuscular Volume 95 fL (80-94); Mean Platelet Volume 8.8 fL (7.4-10.4); Nucleated Red Blood Cells % 0.2; Platelet Count 53 10^3/uL (150-450); Red Blood Count 4.25 10^6 /uL (4.18-5.48); Red Cell Distribution Width 14 % (10-15); White Blood Count 3.5 10^3/uL (3.5-10.8)
[2019-12-04 07:05] LABS: BUN/Creatinine Ratio 10.5 (8-20); Calcium 8.5 mg/dL (8.6-10.3); EGFR African American 125.3 (>60); EGFR Non-African American 103.6 (>60); Potassium 3.3 mmol/L (3.5-5.0)
[2019-12-04] MEDS: Multivitamins/Minerals TAB PO SCH (08:21)
[2019-12-04] MEDS ORDERED: Potassium Chlor 20 meq TAB.ER PO ONE (12:50)
[2019-12-05] MEDS: Dexmedetomidine 1,000 MCG in NS 0.9% 250 ml 240 ML IV SCH ×2 (03:52→21:34)
[2019-12-05 04:38] LABS: ABS Eosinophils 0.1 10^3/ul (0-0.6); ABS Lymphocytes 0.7 10^3/ul (1.0-4.8); ABS Monocytes 0.3 10^3/ul (0-0.8); ABS Neutrophils 1.9 10^3/ul (1.5-7.7); Eosinophil % 2.8 %; Hematocrit 42 % (42-52); Hemoglobin 14.4 g/dL (14.0-18.0); Lymphocyte % 23.2 %; Mean Corpuscular HGB Conc 34 g/dL (31-36); Mean Corpuscular Hemoglobin 32 pg (27-31); Mean Corpuscular Volume 94 fL (80-94); Mean Platelet Volume 8.4 fL (7.4-10.4); Platelet Count 44 10^3/uL (150-450); Red Blood Count 4.46 10^6 /uL (4.18-5.48); Red Cell Distribution Width 14 % (10-15)
[2019-12-05 04:53] LABS: BUN/Creatinine Ratio 13.8 (8-20); Calcium 8.9 mg/dL (8.6-10.3); EGFR African American 150.1 (>60); EGFR Non-African American 124.1 (>60); Potassium 3.8 mmol/L (3.5-5.0)
[2019-12-05 07:54] LABS: Phosphorus 2.8 mg/dL (2.5-5.0)
[2019-12-05] MEDS: Multivitamins/Minerals TAB PO SCH (11:43)
[2019-12-05] MEDS ORDERED: Lidocaine PATCH 5% PATCH TRANSDERM ONE (17:11)
[2019-12-05] MEDS ORDERED: ESMOLOL IV ONE (18:08)
[2019-12-05] MEDS ORDERED: Amiodarone IV 150 mg/3 ml VIAL ONE (18:08)
[2019-12-05] MEDS ORDERED: Calcium CHLORIDE 10% SYRINGE 1 GM/10 ML ONE (18:08)
[2019-12-05] MEDS ORDERED: LIDOCAINE 4 MG/ML IV ONE (18:08)
[2019-12-05] MEDS ORDERED: EPINEPHrine SYR 0.1MG/ML 10 ml SYRINGE ONE (18:08)
[2019-12-05] MEDS ORDERED: Magnesium Sulfate IV 0.5 GM/ML 2 ml VIAL (1 gm) ONE (18:08)
[2019-12-05] MEDS ORDERED: Sodium Bicarbonate 8.4% SYR 50 ml SYRINGE ONE (18:08)
[2019-12-05] MEDS ORDERED: Heparin 5000 UNITS/ML 1 mL VIAL SUBCUT SCH (21:00)
[2019-12-05] MEDS: LORazepam 2 mg VIAL 1 ml IV PUSH SCH (21:11)
[2019-12-06 04:27] LABS: ABS Eosinophils 0.1 10^3/ul (0-0.6); ABS Lymphocytes 0.7 10^3/ul (1.0-4.8); ABS Monocytes 0.4 10^3/ul (0-0.8); ABS Neutrophils 2.9 10^3/ul (1.5-7.7); Eosinophil % 2.6 %; Hematocrit 40 % (42-52); Hemoglobin 13.6 g/dL (14.0-18.0); Lymphocyte % 17.5 %; Mean Corpuscular HGB Conc 34 g/dL (31-36); Mean Corpuscular Hemoglobin 32 pg (27-31); Mean Corpuscular Volume 93 fL (80-94); Nucleated Red Blood Cells % 0.2; Platelet Count 42 10^3/uL (150-450); Red Blood Count 4.26 10^6 /uL (4.18-5.48); Red Cell Distribution Width 14 % (10-15); White Blood Count 4.2 10^3/uL (3.5-10.8)
[2019-12-06 04:42] LABS: Albumin 3.8 g/dL (3.2-5.2); Albumin/Globulin Ratio 1.2 (1-3); EGFR African American 129.3 (>60); EGFR Non-African American 106.8 (>60); Globulin 3.1 g/dL (2-4); Magnesium 1.8 mg/dL (1.9-2.7); Potassium 3.8 mmol/L (3.5-5.0); Total Bilirubin 1.5 mg/dL (0.2-1.0); Total Protein 6.9 g/dL (6.4-8.9)
[2019-12-06] MEDS ORDERED: Lidocaine Patch REMOVE PATCH PATCH OFF ONE (05:30)
[2019-12-06] MEDS ORDERED: Magnesium Sulfate IV 1GM/100ML 1 GM/100 ML BAG IV ONE (06:28)
[2019-12-06] MEDS ORDERED: Potassium Chlor 20 meq TAB.ER PO ONE (06:28)
[2019-12-06] MEDS: Multivitamins/Minerals TAB PO SCH (08:45)
[2019-12-06] MEDS: LORazepam 2 mg VIAL 1 ml IV PUSH SCH ×3 (14:51→22:18)
[2019-12-06] MEDS ORDERED: Fondaparinux 5 MG/0.4 ML SYRINGE SUBCUT ONE (21:00)
[2019-12-07] MEDS: LORazepam 2 mg VIAL 1 ml IV PUSH SCH ×7 (00:36→22:01)
[2019-12-07] MEDS: Multivitamins/Minerals TAB PO SCH (09:23)
[2019-12-08] MEDS: LORazepam 2 mg VIAL 1 ml IV PUSH SCH ×4 (00:31→04:56)
[2019-12-08] MEDS ORDERED: LORazepam 2 mg VIAL 1 ml IV PUSH ONE (04:44)
[2019-12-08] MEDS ORDERED: Lorazepam PYXIS KEY PRN (04:44)
[2019-12-08 07:29] LABS: Activated Partial Thrombo Time 28.7 seconds (26.0-38.0); INR 1.02 (0.82-1.09)
[2019-12-08 07:31] LABS: Albumin 4.3 g/dL (3.2-5.2); Albumin/Globulin Ratio 1.2 (1-3); BUN/Creatinine Ratio 12.2 (8-20); Calcium 9.8 mg/dL (8.6-10.3); EGFR African American 103.1 (>60); EGFR Non-African American 85.2 (>60); Globulin 3.5 g/dL (2-4); Potassium 3.3 mmol/L (3.5-5.0); Total Bilirubin 1.1 mg/dL (0.2-1.0); Total Protein 7.8 g/dL (6.4-8.9)
[2019-12-08] MEDS: Multivitamins/Minerals TAB PO SCH (09:22)
[2019-12-08 09:40] LABS: ABS Eosinophils 0.1 10^3/ul (0-0.6); ABS Lymphocytes 0.6 10^3/ul (1.0-4.8); ABS Monocytes 0.7 10^3/ul (0-0.8); ABS Neutrophils 3.2 10^3/ul (1.5-7.7); Eosinophil % 2.7 %; Hematocrit 39 % (42-52); Hemoglobin 13.6 g/dL (14.0-18.0); Mean Corpuscular HGB Conc 35 g/dL (31-36); Mean Corpuscular Hemoglobin 33 pg (27-31); Mean Corpuscular Volume 95 fL (80-94); Mean Platelet Volume 9.7 fL (7.4-10.4); Platelet Count 70 10^3/uL (150-450); Red Blood Count 4.11 10^6 /uL (4.18-5.48); Red Cell Distribution Width 14 % (10-15); White Blood Count 4.7 10^3/uL (3.5-10.8)
[2019-12-08 09:53] LABS: BUN/Creatinine Ratio 12.5 (8-20); Calcium 9.5 mg/dL (8.6-10.3); EGFR African American 105.8 (>60); EGFR Non-African American 87.5 (>60); Magnesium 1.8 mg/dL (1.9-2.7); Potassium 3.1 mmol/L (3.5-5.0)
[2019-12-08 11:02] VITALS: BP 145/94
[2019-12-08] MEDS ORDERED: Potassium Chlor 20 meq TAB.ER PO ONE ×2 (11:05→18:00)
[2019-12-08] MEDS ORDERED: Magnesium Sulfate 2 gm BAG 2 GM/50 ML BAG IVPB ONE (11:06)
== END 2019-12-08 12:15 | disposition left against medical advice (07) | DRG 770 ==
LOC: MED 08:11 → ED 08:11 → OBSVTOIN 10:59 → ICU 12-04 17:11 → MED 12-06 15:45
PROVIDERS: ADMIT Pediatrics; ATTEND Hospitalist

== ENCOUNTER 2020-01-30 14:37 | Inpatient (IN) ==
[2020-01-30] MEDS ORDERED: NS 0.9% 1000 ml BAG 1,000 ML IV ONE (15:03)
[2020-01-30 15:23] LABS: ABS Lymphocytes 0.7 10^3/ul (1.0-4.8); ABS Monocytes 0.5 10^3/ul (0-0.8); ABS Neutrophils 4.8 10^3/ul (1.5-7.7); Eosinophil % 0.4 %; Hematocrit 42 % (42-52); Hemoglobin 14.1 g/dL (14.0-18.0); Lymphocyte % 11.4 %; Mean Corpuscular HGB Conc 34 g/dL (31-36); Mean Corpuscular Hemoglobin 33 pg (27-31); Mean Corpuscular Volume 98 fL (80-94); Mean Platelet Volume 10.5 fL (7.4-10.4); Platelet Count 43 10^3/uL (150-450); Red Blood Count 4.26 10^6 /uL (4.18-5.48); Red Cell Distribution Width 16 % (10-15); White Blood Count 6.1 10^3/uL (3.5-10.8)
[2020-01-30 15:28] LABS: INR 1.13 (0.82-1.09)
[2020-01-30 15:39] LABS: ALT 115 U/L (7-52); AST 430 U/L (13-39); Albumin/Globulin Ratio 1.4 (1-3); Alkaline Phosphatase 106 U/L (34-104); Anion Gap 12 mmol/L (2-11); BUN/Creatinine Ratio 7.5 (8-20); Blood Urea Nitrogen 8 mg/dL (6-24); CO2 Carbon Dioxide 26 mmol/L (22-32); Calcium 8.6 mg/dL (8.6-10.3); Chloride 99 mmol/L (101-111); EGFR African American 84.5 (>60); EGFR Non-African American 69.8 (>60); Globulin 2.9 g/dL (2-4); Glucose 108 mg/dL (70-100); Magnesium 1.5 mg/dL (1.9-2.7); Potassium 2.9 mmol/L (3.5-5.0); Sodium 137 mmol/L (135-145); Total Protein 6.9 g/dL (6.4-8.9)
[2020-01-30 15:40] LABS: Acetaminophen < 15 mcg/mL; Alcohol, S 391 mg/dL (<10); Salicylate < 2.50 mg/dL (<30)
[2020-01-30 15:53] LABS: Troponin I 0.05 ng/mL (<0.03)
[2020-01-30 15:54] LABS: TSH Ultra Thyroid Stim Horm 0.76 mcIU/mL (0.34-5.60)
[2020-01-30] MEDS ORDERED: Potassium Chloride LIQUID 20 MEQ/15 ML LIQUID PO ONE (16:35)
[2020-01-30] MEDS ORDERED: KCL 20 MEQ/100 ML IVPREMIX 20 MEQ/100 ML BAG IV ONE (16:35)
[2020-01-30] MEDS ORDERED: Magnesium Sulfate IV 1GM/100ML 1 GM/100 ML BAG IV ONE (16:36)
[2020-01-30] MEDS ORDERED: Thiamine 100 MG/ML 2 ml VIAL 100 MG, Folic Acid 1 MG, Multiple Vitamin IV ADULT 10 ML i... IV ONE (16:36)
[2020-01-30 17:19] LABS: Creatine Kinase 3552 U/L (10-223)
[2020-01-30 17:39] LABS: Urine Appearance Cloudy; Urine Bilirubin Negative (Negative); Urine Blood 1+ (Negative); Urine Color Yellow; Urine Glucose Negative (Negative); Urine Ketones Negative (Negative); Urine Nitrite Positive (Negative); Urine Protein Negative (Negative); Urine Specific Gravity 1.005 (1.010-1.030); Urine Urobilinogen Negative (Negative)
[2020-01-30 17:41] LABS: Urine Bacteria 1+ (Absent); Urine Red Blood Cell 2+(6-10/hpf) (Absent); Urine White Blood Cell 2+(11-20/hpf) (Absent)
[2020-01-30] MEDS ORDERED: Magnesium Sulfate 2 gm BAG 2 GM/50 ML BAG IVPB ONE (17:47)
[2020-01-30 17:49] LABS: Urine Benzodiazepine Screen Presumptive Positive (None Detect); Urine Cannabinoids Screen Presumptive Positive (None Detect); Urine Opiates Screen None Detected (None Detect)
[2020-01-30] MEDS ORDERED: Lactated Ringers 1000 ml BAG 1,000 ML IV ONE (18:01)
[2020-01-30 18:34] LABS: Troponin I 0.05 ng/mL (<0.03)
[2020-01-30] MEDS ORDERED: Al Hydrox/Mg Hydrox/Simet LIQ 30 ML UDC PO PRN (18:54)
[2020-01-30] MEDS ORDERED: Magnesium Hydroxide LIQ 30 ML UDC PO PRN (18:59)
[2020-01-30] MEDS ORDERED: LORazepam 2 mg VIAL 1 ml IV PUSH SCH (19:00)
[2020-01-30] MEDS ORDERED: Multivitamins/Minerals TAB PO SCH (19:00)
[2020-01-30] MEDS ORDERED: Lorazepam PYXIS KEY PRN (19:10)
[2020-01-30] MEDS: Multivitamins/Minerals TAB PO SCH (23:59)
[2020-01-31 07:26] LABS: Albumin 3.7 g/dL (3.2-5.2); Albumin/Globulin Ratio 1.3 (1-3); BUN/Creatinine Ratio 9.5 (8-20); Calcium 8.3 mg/dL (8.6-10.3); EGFR African American 129.3 (>60); EGFR Non-African American 106.8 (>60); Globulin 2.8 g/dL (2-4); Magnesium 1.7 mg/dL (1.9-2.7); Potassium 3.4 mmol/L (3.5-5.0); Total Bilirubin 2.3 mg/dL (0.2-1.0); Total Protein 6.5 g/dL (6.4-8.9)
[2020-01-31 07:29] LABS: Troponin I 0.05 ng/mL (<0.03)
[2020-01-31] MEDS: Multivitamins/Minerals TAB PO SCH (07:51)
[2020-01-31] MEDS ORDERED: Magnesium Sulfate 2 gm BAG 2 GM/50 ML BAG IVPB ONE (07:54)
[2020-01-31] MEDS ORDERED: Potassium Chlor 20 meq TAB.ER PO ONE (07:55)
[2020-01-31] MEDS: LORazepam 2 mg VIAL 1 ml IV PUSH SCH ×3 (14:21→22:58)
[2020-01-31] MEDS: Ondansetron 4 mg VIAL 2 MG/ML 2 ml VIAL IV PRN (20:55)
[2020-02-01] MEDS: LORazepam 2 mg VIAL 1 ml IV PUSH SCH ×2 (00:56→13:27)
[2020-02-01 07:20] LABS: BUN/Creatinine Ratio 10.3 (8-20); Calcium 8.6 mg/dL (8.6-10.3); EGFR African American 121.6 (>60); EGFR Non-African American 100.5 (>60); Magnesium 1.7 mg/dL (1.9-2.7); Potassium 3.4 mmol/L (3.5-5.0)
[2020-02-01] MEDS ORDERED: Magnesium Sulfate 2 gm BAG 2 GM/50 ML BAG IVPB ONE (08:46)
[2020-02-01] MEDS ORDERED: Potassium Chlor 20 meq TAB.ER PO ONE (08:46)
[2020-02-01] MEDS: Multivitamins/Minerals TAB PO SCH (09:06)
[2020-02-01] MEDS: Nitrofurantoin (monohydrate/macrocrystals) 100 mg CAP PO SCH ×2 (13:28→20:05)
[2020-02-02 06:36] LABS: Albumin 3.8 g/dL (3.2-5.2); Albumin/Globulin Ratio 1.4 (1-3); BUN/Creatinine Ratio 13.8 (8-20); Calcium 9.1 mg/dL (8.6-10.3); EGFR African American 150.1 (>60); EGFR Non-African American 124.1 (>60); Globulin 2.8 g/dL (2-4); Magnesium 1.8 mg/dL (1.9-2.7); Total Bilirubin 1.8 mg/dL (0.2-1.0); Total Protein 6.6 g/dL (6.4-8.9)
[2020-02-02 06:47] LABS: Hematocrit 38 % (42-52); Hemoglobin 12.7 g/dL (14.0-18.0); Mean Corpuscular HGB Conc 34 g/dL (31-36); Mean Corpuscular Hemoglobin 33 pg (27-31); Mean Corpuscular Volume 98 fL (80-94); Mean Platelet Volume 9.7 fL (7.4-10.4); Platelet Count 27 10^3/uL (150-450); Red Blood Count 3.83 10^6 /uL (4.18-5.48); Red Cell Distribution Width 16 % (10-15); White Blood Count 2.7 10^3/uL (3.5-10.8)
[2020-02-02] MEDS: Multivitamins/Minerals TAB PO SCH (09:49)
[2020-02-02] MEDS: Nitrofurantoin (monohydrate/macrocrystals) 100 mg CAP PO SCH ×2 (09:50→21:53)
[2020-02-02] MEDS ORDERED: Magnesium Sulfate 2 gm BAG 2 GM/50 ML BAG IVPB ONE (11:39)
[2020-02-03] MEDS ORDERED: hydrALAZINE 20 mg/ml 1 ML Vial IV IV SLOW PU ONE (04:14)
[2020-02-03 05:30] LABS: BUN/Creatinine Ratio 15.1 (8-20); Calcium 9.2 mg/dL (8.6-10.3); EGFR African American 131.3 (>60); EGFR Non-African American 108.5 (>60); Magnesium 1.8 mg/dL (1.9-2.7); Potassium 4.2 mmol/L (3.5-5.0)
[2020-02-03 05:49] LABS: ABS Eosinophils 0.1 10^3/ul (0-0.6); ABS Lymphocytes 0.7 10^3/ul (1.0-4.8); ABS Monocytes 0.6 10^3/ul (0-0.8); Hematocrit 38 % (42-52); Hemoglobin 12.9 g/dL (14.0-18.0); Lymphocyte % 20.2 %; Mean Corpuscular HGB Conc 34 g/dL (31-36); Mean Corpuscular Hemoglobin 33 pg (27-31); Mean Corpuscular Volume 99 fL (80-94); Mean Platelet Volume 10.3 fL (7.4-10.4); Platelet Count 36 10^3/uL (150-450); Red Blood Count 3.88 10^6 /uL (4.18-5.48); Red Cell Distribution Width 16 % (10-15); White Blood Count 3.4 10^3/uL (3.5-10.8)
[2020-02-03] MEDS ORDERED: Magnesium Sulfate 2 gm BAG 2 GM/50 ML BAG IVPB ONE (08:00)
[2020-02-03] MEDS: Nitrofurantoin (monohydrate/macrocrystals) 100 mg CAP PO SCH ×2 (10:05→21:22)
[2020-02-03] MEDS: Multivitamins/Minerals TAB PO SCH (10:06)
[2020-02-03] MEDS: Ondansetron 4 mg VIAL 2 MG/ML 2 ml VIAL IV PRN (21:23)
[2020-02-03] MEDS: LORazepam 2 mg VIAL 1 ml IV PUSH SCH (21:36)
[2020-02-04] MEDS: LORazepam 2 mg VIAL 1 ml IV PUSH SCH (00:56)
[2020-02-04 06:27] LABS: ABS Eosinophils 0.1 10^3/ul (0-0.6); ABS Lymphocytes 0.7 10^3/ul (1.0-4.8); ABS Monocytes 0.7 10^3/ul (0-0.8); ABS Neutrophils 1.7 10^3/ul (1.5-7.7); Eosinophil % 2.6 %; Hematocrit 37 % (42-52); Hemoglobin 12.6 g/dL (14.0-18.0); Lymphocyte % 21.5 %; Mean Corpuscular HGB Conc 34 g/dL (31-36); Mean Corpuscular Hemoglobin 34 pg (27-31); Mean Corpuscular Volume 98 fL (80-94); Mean Platelet Volume 10.1 fL (7.4-10.4); Nucleated Red Blood Cells % 0.1; Platelet Count 44 10^3/uL (150-450); Red Blood Count 3.74 10^6 /uL (4.18-5.48); Red Cell Distribution Width 16 % (10-15); White Blood Count 3.2 10^3/uL (3.5-10.8)
[2020-02-04 06:43] LABS: Albumin 3.8 g/dL (3.2-5.2); Albumin/Globulin Ratio 1.2 (1-3); BUN/Creatinine Ratio 14.8 (8-20); Calcium 9.3 mg/dL (8.6-10.3); EGFR African American 116.5 (>60); EGFR Non-African American 96.2 (>60); Globulin 3.1 g/dL (2-4); Potassium 4.2 mmol/L (3.5-5.0); Total Bilirubin 1.5 mg/dL (0.2-1.0); Total Protein 6.9 g/dL (6.4-8.9)
[2020-02-04] MEDS: Multivitamins/Minerals TAB PO SCH (08:49)
[2020-02-04] MEDS: Nitrofurantoin (monohydrate/macrocrystals) 100 mg CAP PO SCH (08:49)
[2020-02-04 09:19] VITALS: BP 151/99
== END 2020-02-04 09:55 | disposition home or self-care (01) | DRG 775 ==
LOC: ED 14:37 → MED 18:54 → SSU 02-02 21:44
PROVIDERS: ADMIT Internal Medicine; ATTEND Internal Medicine

== ENCOUNTER 2020-05-19 13:42 | Inpatient (IN) ==
[2020-05-19] MEDS ORDERED: NS 0.9% 1000 ml BAG 1,000 ML IV ONE (15:38)
[2020-05-19 15:52] LABS: ABS Basophils 0.1 10^3/ul (0-0.2); ABS Lymphocytes 0.9 10^3/ul (1.0-4.8); ABS Monocytes 0.5 10^3/ul (0-0.8); ABS Neutrophils 3.3 10^3/ul (1.5-7.7); Eosinophil % 0.6 %; Hematocrit 46 % (42-52); Hemoglobin 15.9 g/dL (14.0-18.0); Lymphocyte % 19.8 %; Mean Corpuscular HGB Conc 35 g/dL (31-36); Mean Corpuscular Hemoglobin 34 pg (27-31); Mean Corpuscular Volume 99 fL (80-94); Nucleated Red Blood Cells % 0.1; Platelet Count 109 10^3/uL (150-450); Red Blood Count 4.65 10^6 /uL (4.18-5.48); Red Cell Distribution Width 15 % (10-15); White Blood Count 4.8 10^3/uL (3.5-10.8)
[2020-05-19 16:29] LABS: INR 1.02 (0.82-1.09)
[2020-05-19 16:35] LABS: ALT 121 U/L (7-52); AST 259 U/L (13-39); Albumin 4.5 g/dL (3.2-5.2); Albumin/Globulin Ratio 1.4 (1-3); Alkaline Phosphatase 104 U/L (34-104); Anion Gap 13 mmol/L (2-11); BUN/Creatinine Ratio 10.3 (8-20); Blood Urea Nitrogen 8 mg/dL (6-24); C Reactive Protein 2.45 mg/L (<8.01); CO2 Carbon Dioxide 28 mmol/L (22-32); Calcium 9.2 mg/dL (8.6-10.3); Chloride 102 mmol/L (101-111); Creatine Kinase 86 U/L (10-223); EGFR African American 121.3 (>60); EGFR Non-African American 100.2 (>60); Globulin 3.3 g/dL (2-4); Glucose 115 mg/dL (70-100); Lipase 464 U/L (11.0-82.0); Magnesium 1.6 mg/dL (1.9-2.7); Potassium 3.2 mmol/L (3.5-5.0); Sodium 143 mmol/L (135-145); Total Protein 7.8 g/dL (6.4-8.9)
[2020-05-19 16:37] LABS: Acetaminophen < 15 mcg/mL; Alcohol, S 296 mg/dL (<10)
[2020-05-19] MEDS ORDERED: Magnesium Sulfate 2 gm BAG 2 GM/50 ML BAG IVPB ONE (17:30)
[2020-05-19] MEDS ORDERED: Lorazepam PYXIS KEY PRN (17:36)
[2020-05-19] MEDS ORDERED: LORazepam 2 mg VIAL 1 ml IV PUSH ONE (17:36)
[2020-05-19] MEDS ORDERED: Lorazepam PYXIS KEY ONE (17:39)
[2020-05-19] MEDS ORDERED: LORazepam 2 mg VIAL 1 ml IV PUSH SCH (18:00)
[2020-05-19] MEDS ORDERED: Thiamine 100 MG/ML 2 ml VIAL 100 MG, Folic Acid IV 1 MG, Multiple Vitamin IV ADULT 10 M... IV ONE (20:30)
[2020-05-19] MEDS: Enoxaparin 40 MG/0.4 ML SYR SUBCUT SCH (22:24)
[2020-05-19] MEDS: KCL 20 MEQ/100 ML IVPREMIX 20 MEQ/100 ML BAG IV SCH (22:26)
[2020-05-20] MEDS: KCL 20 MEQ/100 ML IVPREMIX 20 MEQ/100 ML BAG IV SCH (03:04)
[2020-05-20 09:21] LABS: ABS Lymphocytes 0.7 10^3/ul (1.0-4.8); ABS Monocytes 0.4 10^3/ul (0-0.8); ABS Neutrophils 1.5 10^3/ul (1.5-7.7); Eosinophil % 0.7 %; Hematocrit 43 % (42-52); Hemoglobin 14.7 g/dL (14.0-18.0); Lymphocyte % 25.5 %; Mean Corpuscular HGB Conc 34 g/dL (31-36); Mean Corpuscular Hemoglobin 34 pg (27-31); Mean Corpuscular Volume 99 fL (80-94); Nucleated Red Blood Cells % 0.1; Red Blood Count 4.37 10^6 /uL (4.18-5.48); Red Cell Distribution Width 15 % (10-15); White Blood Count 2.7 10^3/uL (3.5-10.8)
[2020-05-20 09:23] LABS: INR 1.01 (0.82-1.09)
[2020-05-20 09:32] LABS: Anion Gap 9 mmol/L (2-11); BUN/Creatinine Ratio 14.3 (8-20); Blood Urea Nitrogen 10 mg/dL (6-24); CO2 Carbon Dioxide 27 mmol/L (22-32); Calcium 9.1 mg/dL (8.6-10.3); Chloride 104 mmol/L (101-111); EGFR African American 137.4 (>60); EGFR Non-African American 113.5 (>60); Glucose 99 mg/dL (70-100); Lipase 599 U/L (11.0-82.0); Potassium 3.7 mmol/L (3.5-5.0); Sodium 140 mmol/L (135-145)
[2020-05-20] MEDS: Multivitamins/Minerals TAB PO SCH (09:54)
[2020-05-20 10:48] LABS: Mean Platelet Volume 9.6 fL (7.4-10.4); Platelet Count 64 10^3/uL (150-450)
[2020-05-20 16:41] LABS: Vitamin B12 374 pg/mL (180-914)
[2020-05-20 16:42] LABS: Folate > 20.00 ng/mL (>3.99)
[2020-05-20] MEDS: Enoxaparin 40 MG/0.4 ML SYR SUBCUT SCH (20:41)
[2020-05-21] MEDS: Multivitamins/Minerals TAB PO SCH (08:29)
[2020-05-21 09:48] LABS: ABS Eosinophils 0.1 10^3/ul (0-0.6); ABS Lymphocytes 0.4 10^3/ul (1.0-4.8); ABS Monocytes 0.3 10^3/ul (0-0.8); ABS Neutrophils 2.2 10^3/ul (1.5-7.7); Eosinophil % 2.3 %; Hematocrit 42 % (42-52); Hemoglobin 14.2 g/dL (14.0-18.0); Lymphocyte % 13.6 %; Mean Corpuscular HGB Conc 34 g/dL (31-36); Mean Corpuscular Hemoglobin 34 pg (27-31); Mean Corpuscular Volume 100 fL (80-94); Mean Platelet Volume 10.3 fL (7.4-10.4); Platelet Count 60 10^3/uL (150-450); Red Blood Count 4.21 10^6 /uL (4.18-5.48); Red Cell Distribution Width 14 % (10-15); White Blood Count 3.1 10^3/uL (3.5-10.8)
[2020-05-21 10:08] LABS: Albumin/Globulin Ratio 1.4 (1-3); BUN/Creatinine Ratio 20.3 (8-20); Calcium 9.1 mg/dL (8.6-10.3); EGFR African American 128.8 (>60); EGFR Non-African American 106.5 (>60); Globulin 2.9 g/dL (2-4); Magnesium 1.4 mg/dL (1.9-2.7); Potassium 3.6 mmol/L (3.5-5.0); Total Bilirubin 2.8 mg/dL (0.2-1.0); Total Protein 6.9 g/dL (6.4-8.9)
[2020-05-21] MEDS ORDERED: Magnesium Sulfate IV 3 GM in NS 0.9% 100 ml BAG 100 ML IVPB ONE (10:48)
[2020-05-21] MEDS: Enoxaparin 40 MG/0.4 ML SYR SUBCUT SCH (19:49)
[2020-05-22 06:22] LABS: ABS Eosinophils 0.1 10^3/ul (0-0.6); ABS Lymphocytes 0.5 10^3/ul (1.0-4.8); ABS Monocytes 0.3 10^3/ul (0-0.8); ABS Neutrophils 1.9 10^3/ul (1.5-7.7); Eosinophil % 2.8 %; Hematocrit 40 % (42-52); Hemoglobin 13.8 g/dL (14.0-18.0); Lymphocyte % 18.4 %; Mean Corpuscular HGB Conc 35 g/dL (31-36); Mean Corpuscular Hemoglobin 34 pg (27-31); Mean Corpuscular Volume 99 fL (80-94); Mean Platelet Volume 9.9 fL (7.4-10.4); Nucleated Red Blood Cells % 0.1; Platelet Count 56 10^3/uL (150-450); Red Blood Count 4.05 10^6 /uL (4.18-5.48); Red Cell Distribution Width 15 % (10-15); White Blood Count 2.9 10^3/uL (3.5-10.8)
[2020-05-22 06:23] LABS: Magnesium 1.8 mg/dL (1.9-2.7); Potassium 3.3 mmol/L (3.5-5.0)
[2020-05-22 06:29] LABS: BUN/Creatinine Ratio 23.9 (8-20); EGFR African American 144.5 (>60); EGFR Non-African American 119.4 (>60)
[2020-05-22] MEDS: Multivitamins/Minerals TAB PO SCH (08:18)
[2020-05-22] MEDS ORDERED: Potassium Chlor 20 meq TAB.ER PO ONE (08:40)
[2020-05-22] MEDS ORDERED: Magnesium Sulfate 2 gm BAG 2 GM/50 ML BAG IVPB ONE (08:41)
[2020-05-22 22:29] LABS: Urine Appearance Cloudy; Urine Bilirubin Negative (Negative); Urine Blood Negative (Negative); Urine Color Amber; Urine Glucose Negative (Negative); Urine Ketones Negative (Negative); Urine Nitrite Negative (Negative); Urine Protein 1+(30 mg/dL) (Negative); Urine Specific Gravity 1.023 (1.002-1.030); Urine Urobilinogen Positive (Negative)
[2020-05-22 22:38] LABS: Urine Bacteria Absent (Absent); Urine Red Blood Cell 1+(3-5/hpf) (Absent); Urine White Blood Cell 3+(>20/hpf) (Absent)
[2020-05-23 05:19] LABS: Albumin 4.2 g/dL (3.2-5.2); Albumin/Globulin Ratio 1.4 (1-3); BUN/Creatinine Ratio 24.3 (8-20); Calcium 9.3 mg/dL (8.6-10.3); EGFR African American 137.4 (>60); EGFR Non-African American 113.5 (>60); Globulin 3.1 g/dL (2-4); Magnesium 1.6 mg/dL (1.9-2.7); Potassium 3.6 mmol/L (3.5-5.0); Total Bilirubin 1.7 mg/dL (0.2-1.0); Total Protein 7.3 g/dL (6.4-8.9)
[2020-05-23] MEDS ORDERED: Magnesium Sulfate IV 3 GM in NS 0.9% 100 ml BAG 100 ML IVPB ONE (08:14)
[2020-05-23] MEDS: Multivitamins/Minerals TAB PO SCH (08:56)
[2020-05-23 13:48] LABS: Albumin 4.1 g/dL (3.2-5.2); Albumin/Globulin Ratio 1.3 (1-3); BUN/Creatinine Ratio 23.2 (8-20); Calcium 9.3 mg/dL (8.6-10.3); EGFR African American 139.7 (>60); EGFR Non-African American 115.4 (>60); Globulin 3.1 g/dL (2-4); Potassium 3.7 mmol/L (3.5-5.0); Total Bilirubin 1.4 mg/dL (0.2-1.0); Total Protein 7.2 g/dL (6.4-8.9)
[2020-05-23 13:51] LABS: ABS Eosinophils 0.1 10^3/ul (0-0.6); ABS Lymphocytes 0.6 10^3/ul (1.0-4.8); ABS Monocytes 0.4 10^3/ul (0-0.8); ABS Neutrophils 3.4 10^3/ul (1.5-7.7); Eosinophil % 1.8 %; Hematocrit 40 % (42-52); Hemoglobin 13.9 g/dL (14.0-18.0); Lymphocyte % 12.7 %; Mean Corpuscular HGB Conc 34 g/dL (31-36); Mean Corpuscular Hemoglobin 34 pg (27-31); Mean Corpuscular Volume 98 fL (80-94); Mean Platelet Volume 10.1 fL (7.4-10.4); Nucleated Red Blood Cells % 0.1; Platelet Count 76 10^3/uL (150-450); Red Blood Count 4.11 10^6 /uL (4.18-5.48); Red Cell Distribution Width 14 % (10-15); White Blood Count 4.5 10^3/uL (3.5-10.8)
[2020-05-23] MEDS ORDERED: diPHENhydraMINE 25 mg TAB PO ONE (21:00)
[2020-05-24 06:51] LABS: Albumin 4.3 g/dL (3.2-5.2); Albumin/Globulin Ratio 1.3 (1-3); BUN/Creatinine Ratio 20.3 (8-20); Calcium 9.6 mg/dL (8.6-10.3); EGFR African American 128.8 (>60); EGFR Non-African American 106.5 (>60); Globulin 3.2 g/dL (2-4); Potassium 3.7 mmol/L (3.5-5.0); Total Bilirubin 1.6 mg/dL (0.2-1.0); Total Protein 7.5 g/dL (6.4-8.9)
[2020-05-24 07:26] LABS: ABS Eosinophils 0.1 10^3/ul (0-0.6); ABS Lymphocytes 0.9 10^3/ul (1.0-4.8); ABS Monocytes 0.7 10^3/ul (0-0.8); ABS Neutrophils 3.7 10^3/ul (1.5-7.7); Eosinophil % 2.4 %; Hematocrit 41 % (42-52); Hemoglobin 14.2 g/dL (14.0-18.0); Lymphocyte % 16.5 %; Mean Corpuscular HGB Conc 34 g/dL (31-36); Mean Corpuscular Hemoglobin 34 pg (27-31); Mean Corpuscular Volume 100 fL (80-94); Mean Platelet Volume 10.7 fL (7.4-10.4); Platelet Count 82 10^3/uL (150-450); Red Blood Count 4.15 10^6 /uL (4.18-5.48); Red Cell Distribution Width 14 % (10-15); White Blood Count 5.5 10^3/uL (3.5-10.8)
[2020-05-24] MEDS: Multivitamins/Minerals TAB PO SCH (08:16)
[2020-05-24 11:02] VITALS: BP 147/100
== END 2020-05-24 11:40 | disposition home or self-care (01) | DRG 775 ==
LOC: MED 13:42 → ED 13:42 → OBSVTOIN 21:18 → MED 22:10
PROVIDERS: ADMIT Internal Medicine; ATTEND Internal Medicine

== ENCOUNTER 2020-09-19 18:26 | Inpatient (IN) ==
[2020-09-19 20:29] LABS: ABS Lymphocytes 1.1 10^3/ul (1.0-4.8); ABS Monocytes 0.4 10^3/ul (0-0.8); ABS Neutrophils 2.9 10^3/ul (1.5-7.7); Eosinophil % 0.1 %; Hematocrit 46 % (42-52); Hemoglobin 15.4 g/dL (14.0-18.0); Lymphocyte % 24.4 %; Mean Corpuscular HGB Conc 33 g/dL (31-36); Mean Corpuscular Hemoglobin 32 pg (27-31); Mean Corpuscular Volume 98 fL (80-94); Nucleated Red Blood Cells % 0.1; Platelet Count 85 10^3/uL (150-450); Red Blood Count 4.75 10^6 /uL (4.18-5.48); Red Cell Distribution Width 16 % (10-15); White Blood Count 4.4 10^3/uL (3.5-10.8)
[2020-09-19 20:31] LABS: Albumin 4.5 g/dL (3.2-5.2); Albumin/Globulin Ratio 1.3 (1-3); Calcium 8.9 mg/dL (8.6-10.3); EGFR African American 73.8 (>60); Globulin 3.6 g/dL (2-4); Potassium 3.8 mmol/L (3.5-5.0); Total Protein 8.1 g/dL (6.4-8.9)
[2020-09-19] MEDS ORDERED: Thiamine 100 MG/ML 2 ml VIAL 100 MG, Folic Acid IV 1 MG, Multiple Vitamin IV ADULT 10 M... IV ONE (21:13)
[2020-09-20 00:10] LABS: Magnesium 1.5 mg/dL (1.9-2.7)
[2020-09-20] MEDS ORDERED: Magnesium Sulf 4 GM/100 ML IV 4,000 MG/100 ML BAG IVPB ONE (00:59)
[2020-09-20] MEDS ORDERED: Ondansetron 4 mg VIAL 2 MG/ML 2 ml VIAL IV PRN (01:02)
[2020-09-20] MEDS ORDERED: Thiamine 100 MG/ML 2 ml VIAL 100 MG, Folic Acid IV 1 MG, Multiple Vitamin IV ADULT 10 M... IV ONE (02:30)
[2020-09-20] MEDS: LORazepam 2 mg VIAL 1 ml IV PUSH SCH ×3 (04:04→16:43)
[2020-09-20 06:55] LABS: Urine Benzodiazepine Screen Presumptive Positive (None Detect); Urine Cannabinoids Screen Presumptive Positive (None Detect); Urine Opiates Screen None Detected (None Detect)
[2020-09-20 06:55] LABS: ABS Monocytes 0.6 10^3/ul (0-0.8); ABS Neutrophils 2.6 10^3/ul (1.5-7.7); Eosinophil % 0.4 %; Hematocrit 41 % (42-52); Hemoglobin 14.3 g/dL (14.0-18.0); Lymphocyte % 23.4 %; Mean Corpuscular HGB Conc 35 g/dL (31-36); Mean Corpuscular Hemoglobin 33 pg (27-31); Mean Corpuscular Volume 95 fL (80-94); Mean Platelet Volume 8.9 fL (7.4-10.4); Nucleated Red Blood Cells % 0.1; Platelet Count 61 10^3/uL (150-450); Red Blood Count 4.29 10^6 /uL (4.18-5.48); Red Cell Distribution Width 15 % (10-15); White Blood Count 4.3 10^3/uL (3.5-10.8)
[2020-09-20 07:06] LABS: Albumin 4.3 g/dL (3.2-5.2); Albumin/Globulin Ratio 1.3 (1-3); Calcium 9.1 mg/dL (8.6-10.3); Direct Bilirubin 0.4 mg/dL (0.03-0.18); EGFR Non-African American 75.2 (>60); Globulin 3.2 g/dL (2-4); Indirect Bilirubin 0.8 mg/dL (0.3-1.0); Potassium 3.7 mmol/L (3.5-5.0); Total Bilirubin 1.2 mg/dL (0.2-1.0); Total Protein 7.5 g/dL (6.4-8.9)
[2020-09-20] MEDS: Multivitamins/Minerals TAB PO SCH (08:18)
[2020-09-20] MEDS ORDERED: Metoprolol Tartrate 5 mg VIAL 5 ml VIAL (1 mg/ml) IV ONE ×3 (08:45→10:06)
[2020-09-20] MEDS ORDERED: NS 0.9% 1000 ml BAG 1,000 ML IV ONE (08:48)
[2020-09-20] MEDS ORDERED: Metoprolol Tartrate 5 mg VIAL 5 ml VIAL (1 mg/ml) ONE (08:49)
[2020-09-20] MEDS ORDERED: NON FORMULARY MED (Multivitamin Tablet) PO SCH (09:00)
[2020-09-20] MEDS ORDERED: Magnesium Sulfate IV 1GM/100ML 1 GM/100 ML BAG IV ONE (09:19)
[2020-09-20 10:42] LABS: Calcium 8.5 mg/dL (8.6-10.3); EGFR African American 111.3 (>60); Magnesium 2.8 mg/dL (1.9-2.7); Potassium 3.4 mmol/L (3.5-5.0)
[2020-09-20] MEDS ORDERED: Potassium Chlor 20 meq TAB.ER PO ONE (12:45)
[2020-09-20] MEDS: Lactated Ringers 1000 ml BAG 1,000 ML IV SCH (16:22)
[2020-09-21] MEDS: Lactated Ringers 1000 ml BAG 1,000 ML IV SCH (02:45)
[2020-09-21 06:53] LABS: ABS Lymphocytes 0.6 10^3/ul (1.0-4.8); ABS Monocytes 0.3 10^3/ul (0-0.8); ABS Neutrophils 1.1 10^3/ul (1.5-7.7); Calcium 8.5 mg/dL (8.6-10.3); EGFR African American 149.6 (>60); EGFR Non-African American 123.7 (>60); Eosinophil % 1.9 %; Hematocrit 36 % (42-52); Hemoglobin 12.6 g/dL (14.0-18.0); Lymphocyte % 28.9 %; Magnesium 1.6 mg/dL (1.9-2.7); Mean Corpuscular HGB Conc 35 g/dL (31-36); Mean Corpuscular Hemoglobin 33 pg (27-31); Mean Corpuscular Volume 95 fL (80-94); Mean Platelet Volume 8.3 fL (7.4-10.4); Phosphorus 2.5 mg/dL (2.5-5.0); Platelet Count 32 10^3/uL (150-450); Potassium 3.3 mmol/L (3.5-5.0); Red Blood Count 3.77 10^6 /uL (4.18-5.48); Red Cell Distribution Width 15 % (10-15)
[2020-09-21] MEDS: Multivitamins/Minerals TAB PO SCH (08:18)
[2020-09-21] MEDS ORDERED: Potassium Chlor 20 meq TAB.ER PO ONE ×2 (10:58→16:09)
[2020-09-21] MEDS ORDERED: Magnesium Sulfate 2 gm BAG 2 GM/50 ML BAG IVPB ONE (10:58)
[2020-09-22 06:38] LABS: ABS Eosinophils 0.1 10^3/ul (0-0.6); ABS Lymphocytes 0.6 10^3/ul (1.0-4.8); ABS Monocytes 0.3 10^3/ul (0-0.8); ABS Neutrophils 1.3 10^3/ul (1.5-7.7); Eosinophil % 2.5 %; Hematocrit 38 % (42-52); Lymphocyte % 26.1 %; Mean Corpuscular HGB Conc 34 g/dL (31-36); Mean Corpuscular Hemoglobin 33 pg (27-31); Mean Corpuscular Volume 97 fL (80-94); Mean Platelet Volume 9.2 fL (7.4-10.4); Platelet Count 32 10^3/uL (150-450); Red Blood Count 3.91 10^6 /uL (4.18-5.48); Red Cell Distribution Width 15 % (10-15); White Blood Count 2.3 10^3/uL (3.5-10.8)
[2020-09-22 06:50] LABS: Albumin 3.8 g/dL (3.2-5.2); Albumin/Globulin Ratio 1.3 (1-3); Calcium 8.8 mg/dL (8.6-10.3); EGFR African American 126.9 (>60); EGFR Non-African American 104.8 (>60); Globulin 2.9 g/dL (2-4); Potassium 4.3 mmol/L (3.5-5.0); Total Bilirubin 1.8 mg/dL (0.2-1.0); Total Protein 6.7 g/dL (6.4-8.9)
[2020-09-22] MEDS: Multivitamins/Minerals TAB PO SCH (08:53)
[2020-09-23 05:24] LABS: ABS Eosinophils 0.1 10^3/ul (0-0.6); ABS Lymphocytes 0.7 10^3/ul (1.0-4.8); ABS Monocytes 0.4 10^3/ul (0-0.8); ABS Neutrophils 1.9 10^3/ul (1.5-7.7); Eosinophil % 3.8 %; Hematocrit 37 % (42-52); Hemoglobin 13.1 g/dL (14.0-18.0); Lymphocyte % 23.5 %; Mean Corpuscular HGB Conc 35 g/dL (31-36); Mean Corpuscular Hemoglobin 34 pg (27-31); Mean Corpuscular Volume 96 fL (80-94); Nucleated Red Blood Cells % 0.2; Platelet Count 27 10^3/uL (150-450); Red Blood Count 3.87 10^6 /uL (4.18-5.48); Red Cell Distribution Width 15 % (10-15); White Blood Count 3.1 10^3/uL (3.5-10.8)
[2020-09-23 05:32] LABS: Calcium 9.2 mg/dL (8.6-10.3); EGFR African American 130.9 (>60); EGFR Non-African American 108.2 (>60); Potassium 4.2 mmol/L (3.5-5.0)
[2020-09-23] MEDS: Multivitamins/Minerals TAB PO SCH (10:29)
[2020-09-24 05:12] LABS: ABS Eosinophils 0.1 10^3/ul (0-0.6); ABS Lymphocytes 0.7 10^3/ul (1.0-4.8); ABS Monocytes 0.5 10^3/ul (0-0.8); ABS Neutrophils 2.1 10^3/ul (1.5-7.7); Hematocrit 39 % (42-52); Hemoglobin 13.2 g/dL (14.0-18.0); Lymphocyte % 21.1 %; Mean Corpuscular HGB Conc 34 g/dL (31-36); Mean Corpuscular Hemoglobin 33 pg (27-31); Mean Corpuscular Volume 97 fL (80-94); Nucleated Red Blood Cells % 0.1; Platelet Count 41 10^3/uL (150-450); Red Cell Distribution Width 16 % (10-15); White Blood Count 3.4 10^3/uL (3.5-10.8)
[2020-09-24 05:16] LABS: Calcium 9.6 mg/dL (8.6-10.3); EGFR African American 121.3 (>60); EGFR Non-African American 100.2 (>60); Magnesium 1.7 mg/dL (1.9-2.7); Potassium 4.1 mmol/L (3.5-5.0)
[2020-09-24] MEDS ORDERED: Magnesium Sulfate 2 gm BAG 2 GM/50 ML BAG IVPB ONE (06:05)
[2020-09-24 08:04] VITALS: BP 167/98
[2020-09-24] MEDS: Multivitamins/Minerals TAB PO SCH (08:11)
== END 2020-09-24 11:45 | disposition home or self-care (01) | DRG 775 ==
LOC: ED 18:26 → MEDTELE 09-20 00:58
PROVIDERS: ADMIT Student in an Organized Health Care Education/Training Program; ATTEND Student in an Organized Health Care Education/Training Program

== ENCOUNTER 2021-06-18 16:48 | Inpatient (IN) ==
[2021-06-18 18:39] LABS: Hematocrit 38 % (42-52); Hemoglobin 13.2 g/dL (14.0-18.0); Mean Corpuscular HGB Conc 35 g/dL (31-36); Mean Corpuscular Hemoglobin 38 pg (27-31); Mean Corpuscular Volume 109 fL (80-94); Red Blood Count 3.49 10^6 /uL (4.18-5.48); Red Cell Distribution Width 15 % (10-15); White Blood Count 4.5 10^3/uL (3.5-10.8)
[2021-06-18 18:45] LABS: Venous Bicarbonate HCO3 26.1 mmol/L (24-28)
[2021-06-18 18:46] LABS: Activated Partial Thrombo Time 28.2 seconds (26.0-38.0); INR 1.24 (0.86-1.15)
[2021-06-18 18:58] LABS: Ammonia 63 mcmol/L (16-53)
[2021-06-18 18:59] LABS: BNP 141 pg/mL (<=100)
[2021-06-18] MEDS ORDERED: Lactated Ringers 1000 ml BAG 1,000 ML IV ONE (19:07)
[2021-06-18 19:23] LABS: ABS Lymphocytes 0.5 10^3/ul (1.0-4.8); ABS Monocytes 0.7 10^3/ul (0-0.8); ABS Neutrophils 3.2 10^3/ul (1.5-7.7); Eosinophil % 0.3 %; Lymphocyte % 12.1 %; Mean Platelet Volume 9.2 fL (7.4-10.4); Nucleated Red Blood Cells % 0.1; Platelet Count 33 10^3/uL (150-450)
[2021-06-18 19:32] LABS: Albumin 3.5 g/dL (3.2-5.2); Albumin/Globulin Ratio 1.3 (1-3); C Reactive Protein 4.3 mg/L (<8.01); Globulin 2.7 g/dL (2-4); Potassium 3.4 mmol/L (3.5-5.0); Total Bilirubin 4.6 mg/dL (0.2-1.0); Total Protein 6.2 g/dL (6.4-8.9); eGFR CKD-EPI 57.2 (>60)
[2021-06-18 20:00] LABS: High Sensitivity Troponin 1 Hr 9 pg/mL (<20)
[2021-06-18] MEDS ORDERED: Ondansetron 4 mg VIAL 2 MG/ML 2 ml VIAL IV ONE (20:01)
[2021-06-18] MEDS ORDERED: Potassium Chlor 20 meq TAB.ER PO ONE ×2 (20:41→23:00)
[2021-06-18] MEDS ORDERED: Magnesium Sulfate 2 gm BAG 2 GM/50 ML BAG IVPB ONE (21:00)
[2021-06-18] MEDS ORDERED: Magnesium Sulfate 1 GM IV 1 GM/100 ML BAG IV ONE (22:00)
[2021-06-18] MEDS ORDERED: Lactated Ringers 1000 ml BAG 1,000 ML IV SCH (23:00)
[2021-06-18] MEDS ORDERED: Thiamine 100 MG/ML 2 ml VIAL 500 MG in NS 0.9% 250 ml 250 ML IV ONE (23:16)
[2021-06-18] MEDS ORDERED: Thiamine 100 MG/ML 2 ml VIAL (200 mg) IM ONE (23:21)
[2021-06-18] MEDS ORDERED: Enoxaparin 40 MG/0.4 ML SYR SUBCUT SCH (23:45)
[2021-06-19 00:39] LABS: Urine Appearance Cloudy; Urine Bilirubin 1+ (Negative); Urine Blood Negative (Negative); Urine Color Amber; Urine Glucose Negative (Negative); Urine Ketones Trace (Negative); Urine Nitrite Negative (Negative); Urine Protein 1+(30 mg/dL) (Negative); Urine Urobilinogen Positive (Negative)
[2021-06-19 00:53] LABS: Urine Bacteria 1+ (Absent); Urine Granular Casts Present (Absent); Urine Red Blood Cell 1+(3-5/hpf) (Absent); Urine Squamous Epithelial Cell Present (Absent); Urine White Blood Cell 3+(>20/hpf) (Absent)
[2021-06-19] MEDS: Multivitamins/Minerals TAB PO SCH ×2 (01:03→10:17)
[2021-06-19] MEDS ORDERED: Magnesium Sulfate IV 1GM/100ML 1 GM/100 ML BAG IV ONE (01:54)
[2021-06-19 02:07] LABS: HDL Cholesterol 71.9 mg/dL
[2021-06-19] MEDS ORDERED: Lactulose 30 ml UDC PO ONE (02:10)
[2021-06-19 02:34] LABS: INR 1.2 (0.86-1.15)
[2021-06-19] MEDS ORDERED: Iodixanol (CONTRAST) 320 MG/ML 100 ML SDV IV ONE (03:13)
[2021-06-19] MEDS ORDERED: Lactated Ringers 1000 ml BAG 1,000 ML IV ONE (04:56)
[2021-06-19 06:05] LABS: ABS Lymphocytes 0.4 10^3/ul (1.0-4.8); ABS Monocytes 0.5 10^3/ul (0-0.8); ABS Neutrophils 1.9 10^3/ul (1.5-7.7); Eosinophil % 0.6 %; Hematocrit 36 % (42-52); Hemoglobin 12.3 g/dL (14.0-18.0); Lymphocyte % 13.2 %; Mean Corpuscular HGB Conc 34 g/dL (31-36); Mean Corpuscular Hemoglobin 38 pg (27-31); Mean Corpuscular Volume 110 fL (80-94); Mean Platelet Volume 8.7 fL (7.4-10.4); Nucleated Red Blood Cells % 0.2; Platelet Count 18 10^3/uL (150-450); Red Blood Count 3.27 10^6 /uL (4.18-5.48); Red Cell Distribution Width 15 % (10-15); White Blood Count 2.8 10^3/uL (3.5-10.8)
[2021-06-19 07:05] LABS: Albumin 3.3 g/dL (3.2-5.2); Albumin/Globulin Ratio 1.3 (1-3); Globulin 2.6 g/dL (2-4); Potassium 4.1 mmol/L (3.5-5.0); Total Bilirubin 5.3 mg/dL (0.2-1.0); Total Protein 5.9 g/dL (6.4-8.9); eGFR CKD-EPI 75.3 (>60)
[2021-06-19] MEDS: Lactated Ringers 1000 ml BAG 1,000 ML IV SCH (07:36)
[2021-06-19] MEDS: cefTRIAXone VIAL 1,000 MG in NS 0.9% 50 ML 50 ML IVPB SCH (07:37)
[2021-06-19] MEDS ORDERED: Lorazepam PYXIS KEY ONE ×2 (09:41→09:43)
[2021-06-19] MEDS ORDERED: Lorazepam PYXIS KEY PRN ×3 (09:46→18:37)
[2021-06-19] MEDS: LORazepam 2 mg VIAL 1 ml IV PUSH PRN ×4 (10:19→18:45)
[2021-06-19 12:03] LABS: Direct Bilirubin 3.1 mg/dL (0.03-0.18); Indirect Bilirubin 2.2 mg/dL (0.3-1.0)
[2021-06-19] MEDS: Lactulose 30 ml UDC PO SCH ×3 (12:10→21:10)
[2021-06-19] MEDS ORDERED: LORazepam 2 mg VIAL 1 ml IV PUSH PRN (14:23)
[2021-06-19] MEDS ORDERED: Metoprolol Tartrate 5 mg VIAL 5 ml VIAL (1 mg/ml) IV ONE ×2 (14:24)
[2021-06-19 14:26] LABS: Hematocrit 36 % (42-52); Hemoglobin 12.3 g/dL (14.0-18.0); Mean Corpuscular HGB Conc 34 g/dL (31-36); Mean Corpuscular Hemoglobin 38 pg (27-31); Mean Corpuscular Volume 110 fL (80-94); Mean Platelet Volume 8.3 fL (7.4-10.4); Platelet Count 15 10^3/uL (150-450); Red Blood Count 3.25 10^6 /uL (4.18-5.48); Red Cell Distribution Width 15 % (10-15); White Blood Count 1.6 10^3/uL (3.5-10.8)
[2021-06-19] MEDS ORDERED: LORazepam 2 mg VIAL 1 ml ONE (16:19)
[2021-06-19] MEDS: Dexmedetomidine 1,000 MCG in NS 0.9% 250 ml 240 ML IV SCH (16:30)
[2021-06-19] MEDS ORDERED: Metoprolol Tartrate 5 mg VIAL 5 ml VIAL (1 mg/ml) IV PRN (18:36)
[2021-06-19] MEDS ORDERED: LORazepam 2 mg VIAL 1 ml IV PUSH ONE (18:37)
[2021-06-19 19:25] LABS: Blood Urea Nitrogen 20 mg/dL (6-24); CO2 Carbon Dioxide 27 mmol/L (22-32); Calcium 7.6 mg/dL (8.6-10.3); Chloride 96 mmol/L (101-111); Glucose 106 mg/dL (70-100); Sodium 132 mmol/L (135-145); eGFR CKD-EPI 98.2 (>60)
[2021-06-19 19:47] LABS: Anion Gap 9 mmol/L (2-11)
[2021-06-19 21:45] LABS: Magnesium 1.4 mg/dL (1.9-2.7); Potassium Redraw 3.7 mmol/L (3.5-5.0)
[2021-06-19] MEDS ORDERED: Magnesium Sulf 4 GM/100 ML IV 4,000 MG/100 ML BAG IVPB ONE (23:13)
[2021-06-20] MEDS: Lactated Ringers 1000 ml BAG 1,000 ML IV SCH ×4 (03:19→21:54)
[2021-06-20 05:05] LABS: ABS Lymphocytes 0.3 10^3/ul (1.0-4.8); ABS Monocytes 0.3 10^3/ul (0-0.8); ABS Neutrophils 1.4 10^3/ul (1.5-7.7); Eosinophil % 2.4 %; Hematocrit 33 % (42-52); Hemoglobin 11.3 g/dL (14.0-18.0); Lymphocyte % 15.3 %; Mean Corpuscular HGB Conc 34 g/dL (31-36); Mean Corpuscular Hemoglobin 38 pg (27-31); Mean Corpuscular Volume 111 fL (80-94); Nucleated Red Blood Cells % 0.5; Platelet Count 15 10^3/uL (150-450); Red Blood Count 2.99 10^6 /uL (4.18-5.48); Red Cell Distribution Width 15 % (10-15); White Blood Count 2.1 10^3/uL (3.5-10.8)
[2021-06-20 05:06] LABS: INR 1.18 (0.86-1.15)
[2021-06-20 05:33] LABS: Albumin 3.1 g/dL (3.2-5.2); Albumin/Globulin Ratio 1.4 (1-3); Calcium 7.8 mg/dL (8.6-10.3); Globulin 2.2 g/dL (2-4); Potassium 3.8 mmol/L (3.5-5.0); Total Bilirubin 4.8 mg/dL (0.2-1.0); Total Protein 5.3 g/dL (6.4-8.9); eGFR CKD-EPI 104.1 (>60)
[2021-06-20] MEDS ORDERED: NS 0.9% 50 ML 50 ML ONE (05:34)
[2021-06-20] MEDS: cefTRIAXone VIAL 1,000 MG in NS 0.9% 50 ML 50 ML IVPB SCH (06:10)
[2021-06-20 07:30] LABS: Protime (Maddrey) 13.1 seconds (9.5-12.8)
[2021-06-20 07:32] LABS: Total Bilirubin 4.8 mg/dL (0.2-1.0)
[2021-06-20 08:39] LABS: Magnesium 2.7 mg/dL (1.9-2.7)
[2021-06-20] MEDS ORDERED: Pantoprazole VIAL 40 MG VIAL IV SCH (10:00)
[2021-06-20] MEDS: Lactulose 30 ml UDC PO SCH ×3 (10:06→19:23)
[2021-06-20] MEDS: Multivitamins/Minerals TAB PO SCH (10:06)
[2021-06-20] MEDS: LORazepam 2 mg VIAL 1 ml IV PUSH PRN ×3 (11:46→23:12)
[2021-06-20] MEDS: Dexmedetomidine 1,000 MCG in NS 0.9% 250 ml 240 ML IV SCH (12:04)
[2021-06-21] MEDS: Metoprolol Tartrate 5 mg VIAL 5 ml VIAL (1 mg/ml) IV PRN ×2 (01:23→21:35)
[2021-06-21] MEDS: Dexmedetomidine 1,000 MCG in NS 0.9% 250 ml 240 ML IV SCH ×2 (02:26→22:26)
[2021-06-21] MEDS: LORazepam 2 mg VIAL 1 ml IV PUSH PRN ×3 (02:53→22:36)
[2021-06-21 04:58] LABS: ABS Eosinophils 0.1 10^3/ul (0-0.6); ABS Lymphocytes 0.3 10^3/ul (1.0-4.8); ABS Monocytes 0.4 10^3/ul (0-0.8); ABS Neutrophils 1.9 10^3/ul (1.5-7.7); Eosinophil % 2.4 %; Hematocrit 32 % (42-52); Hemoglobin 10.8 g/dL (14.0-18.0); Lymphocyte % 12.2 %; Mean Corpuscular HGB Conc 34 g/dL (31-36); Mean Corpuscular Hemoglobin 37 pg (27-31); Mean Corpuscular Volume 110 fL (80-94); Mean Platelet Volume 8.3 fL (7.4-10.4); Nucleated Red Blood Cells % 0.1; Platelet Count 18 10^3/uL (150-450); Red Blood Count 2.91 10^6 /uL (4.18-5.48); Red Cell Distribution Width 15 % (10-15); White Blood Count 2.7 10^3/uL (3.5-10.8)
[2021-06-21 05:15] LABS: Calcium 7.6 mg/dL (8.6-10.3); Magnesium 1.3 mg/dL (1.9-2.7); Potassium 3.8 mmol/L (3.5-5.0); eGFR CKD-EPI 108.8 (>60)
[2021-06-21] MEDS: cefTRIAXone VIAL 1,000 MG in NS 0.9% 50 ML 50 ML IVPB SCH (05:47)
[2021-06-21] MEDS ORDERED: Magnesium Sulf 4 GM/100 ML IV 4,000 MG/100 ML BAG IVPB ONE (05:51)
[2021-06-21] MEDS ORDERED: NS 0.9% 50 ML 50 ML ONE (05:56)
[2021-06-21] MEDS: Pantoprazole VIAL 40 MG VIAL IV SCH (05:58)
[2021-06-21 06:39] LABS: Albumin 2.8 g/dL (3.2-5.2); Albumin/Globulin Ratio 1.2 (1-3); Direct Bilirubin 2.4 mg/dL (0.03-0.18); Globulin 2.3 g/dL (2-4); Indirect Bilirubin 1.7 mg/dL (0.3-1.0); Total Bilirubin 4.1 mg/dL (0.2-1.0); Total Protein 5.1 g/dL (6.4-8.9)
[2021-06-21] MEDS: Lactated Ringers 1000 ml BAG 1,000 ML IV SCH ×2 (08:28→18:31)
[2021-06-21] MEDS: Multivitamins/Minerals TAB PO SCH (08:43)
[2021-06-21] MEDS: Lactulose 30 ml UDC PO SCH ×2 (08:43→13:39)
[2021-06-22] MEDS: LORazepam 2 mg VIAL 1 ml IV PUSH PRN ×3 (00:42→22:07)
[2021-06-22] MEDS: Lactated Ringers 1000 ml BAG 1,000 ML IV SCH ×2 (04:38→20:53)
[2021-06-22 05:52] LABS: Hematocrit 31 % (42-52); Hemoglobin 10.5 g/dL (14.0-18.0); Mean Corpuscular HGB Conc 34 g/dL (31-36); Mean Corpuscular Hemoglobin 38 pg (27-31); Mean Corpuscular Volume 112 fL (80-94); Mean Platelet Volume 9.7 fL (7.4-10.4); Platelet Count 25 10^3/uL (150-450); Red Blood Count 2.79 10^6 /uL (4.18-5.48); Red Cell Distribution Width 15 % (10-15); White Blood Count 3.4 10^3/uL (3.5-10.8)
[2021-06-22 06:01] LABS: Calcium 7.3 mg/dL (8.6-10.3); Potassium 3.7 mmol/L (3.5-5.0); eGFR CKD-EPI 113.9 (>60)
[2021-06-22] MEDS: Pantoprazole VIAL 40 MG VIAL IV SCH (06:51)
[2021-06-22] MEDS ORDERED: Potassium Chloride LIQUID 20 MEQ/15 ML LIQUID PO ONE (08:04)
[2021-06-22 08:20] LABS: Magnesium 1.2 mg/dL (1.9-2.7); Phosphorus 2.8 mg/dL (2.5-5.0)
[2021-06-22] MEDS ORDERED: Magnesium Sulf 4 GM/100 ML IV 4,000 MG/100 ML BAG IVPB ONE (08:27)
[2021-06-22] MEDS ORDERED: Folic Acid IV 1 MG in NS 0.9% 50 ML 50 ML IV ONE (08:58)
[2021-06-22] MEDS ORDERED: Thiamine 100 MG/ML 2 ml VIAL 500 MG in NS 0.9% 250 ml 250 ML IV ONE (08:58)
[2021-06-22] MEDS: KCL 20 MEQ/100 ML IVPREMIX 20 MEQ/100 ML BAG IV SCH ×2 (09:21→12:16)
[2021-06-22] MEDS ORDERED: [UNRECOGNIZED DRUG - OTHER] IVPB ONE (09:30)
[2021-06-22] MEDS ORDERED: THIAMINE IVPB ONE (09:30)
[2021-06-22] MEDS ORDERED: MULTIPLE VITAMIN IVPB ONE (09:30)
[2021-06-22 09:34] LABS: Albumin 2.6 g/dL (3.2-5.2); Albumin/Globulin Ratio 1.1 (1-3); Direct Bilirubin 2.2 mg/dL (0.03-0.18); Globulin 2.3 g/dL (2-4); Indirect Bilirubin 1.7 mg/dL (0.3-1.0); Total Bilirubin 3.9 mg/dL (0.2-1.0); Total Protein 4.9 g/dL (6.4-8.9)
[2021-06-22] MEDS ORDERED: Thiamine 100 MG/ML 2 ml VIAL 100 MG in NS 0.9% 50 ML 50 ML IV SCH (10:00)
[2021-06-22] MEDS ORDERED: [UNRECOGNIZED DRUG - OTHER] PO SCH (10:00)
[2021-06-22] MEDS: cefTRIAXone 1 gm/50 mL D5W 1 GM/50 ML BAG IV SCH (11:41)
[2021-06-22 17:06] LABS: Blood Urea Nitrogen 11 mg/dL (6-24); CO2 Carbon Dioxide 30 mmol/L (22-32); Calcium 7.1 mg/dL (8.6-10.3); Chloride 96 mmol/L (101-111); Glucose 83 mg/dL (70-100); Sodium 133 mmol/L (135-145); eGFR CKD-EPI 120.2 (>60)
[2021-06-22 17:27] LABS: Anion Gap 7 mmol/L (2-11)
[2021-06-22 18:52] LABS: Potassium 2.8 mmol/L (3.5-5.0); eGFR CKD-EPI 132.1 (>60)
[2021-06-22 19:21] LABS: Calcium 5.2 mg/dL (8.6-10.3)
[2021-06-22 20:50] LABS: CO2 Carbon Dioxide 27 mmol/L (22-32); Calcium 7.5 mg/dL (8.6-10.3); Chloride 95 mmol/L (101-111); Sodium 133 mmol/L (135-145)
[2021-06-22 20:56] LABS: Blood Urea Nitrogen 11 mg/dL (6-24); Glucose 87 mg/dL (70-100)
[2021-06-22 20:59] LABS: Anion Gap 11 mmol/L (2-11)
[2021-06-22 22:18] LABS: Anaplasma phagocytophilum Negative (Negative); B. miyamotoi PCR, B Negative (Negative); Babesia divergens/MO-1 Negative (Negative); Babesia ducani Negative (Negative); Ehrlichia chaffeensis Negative (Negative); Ehrlichia ewingii/canis Negative (Negative); Ehrlichia muris eauclairensis Negative (Negative)
[2021-06-23] MEDS: Metoprolol Tartrate 5 mg VIAL 5 ml VIAL (1 mg/ml) IV PRN ×2 (00:04→14:17)
[2021-06-23] MEDS: LORazepam 2 mg VIAL 1 ml IV PUSH PRN ×5 (01:03→23:21)
[2021-06-23] MEDS: Dexmedetomidine 1,000 MCG in NS 0.9% 250 ml 240 ML IV SCH (02:15)
[2021-06-23 04:20] LABS: Hematocrit 31 % (42-52); Hemoglobin 10.8 g/dL (14.0-18.0); Mean Corpuscular HGB Conc 35 g/dL (31-36); Mean Corpuscular Hemoglobin 38 pg (27-31); Mean Corpuscular Volume 109 fL (80-94); Mean Platelet Volume 9.4 fL (7.4-10.4); Platelet Count 37 10^3/uL (150-450); Red Blood Count 2.86 10^6 /uL (4.18-5.48); Red Cell Distribution Width 15 % (10-15); White Blood Count 3.5 10^3/uL (3.5-10.8)
[2021-06-23 05:02] LABS: Calcium 7.5 mg/dL (8.6-10.3); Potassium 3.4 mmol/L (3.5-5.0); eGFR CKD-EPI 114.6 (>60)
[2021-06-23] MEDS: Lactated Ringers 1000 ml BAG 1,000 ML IV SCH (05:31)
[2021-06-23] MEDS: Pantoprazole VIAL 40 MG VIAL IV SCH (06:33)
[2021-06-23] MEDS ORDERED: Potassium Chloride LIQUID 20 MEQ/15 ML LIQUID PO ONE (07:52)
[2021-06-23 08:09] LABS: Magnesium 1.4 mg/dL (1.9-2.7)
[2021-06-23] MEDS: cefTRIAXone 1 gm/50 mL D5W 1 GM/50 ML BAG IV SCH (08:44)
[2021-06-23] MEDS ORDERED: Magnesium Sulfate IV 3 GM in NS 0.9% 100 ml BAG 100 ML IVPB ONE (09:44)
[2021-06-23] MEDS ORDERED: Potassium Phosphate IV 15 MMOLE in NS 0.9% 250 ml 250 ML IVPB ONE (10:00)
[2021-06-23] MEDS ORDERED: Magnesium Sulfate 2 GM IV (Premix) IVPB ONE (10:00)
[2021-06-23] MEDS: Multivitamins ADULT w/MIN LIQ 15 ML UDC PO SCH (10:12)
[2021-06-23] MEDS ORDERED: Magnesium Sulfate 1 GM IV 1 GM/100 ML BAG IV ONE (11:00)
[2021-06-23 19:40] LABS: Calcium 7.6 mg/dL (8.6-10.3); Magnesium 1.8 mg/dL (1.9-2.7); eGFR CKD-EPI 113.2 (>60)
[2021-06-23] MEDS ORDERED: Magnesium Sulfate IV 1GM/100ML 1 GM/100 ML BAG IV ONE (21:56)
[2021-06-23] MEDS ORDERED: Sodium Phosphate IV 15 MMOLE in NS 0.9% 250 ml 250 ML IV ONE (22:15)
[2021-06-24] MEDS: Dexmedetomidine 1,000 MCG in NS 0.9% 250 ml 240 ML IV SCH (01:38)
[2021-06-24 03:34] LABS: Hematocrit 29 % (42-52); Hemoglobin 9.6 g/dL (14.0-18.0); Mean Corpuscular HGB Conc 34 g/dL (31-36); Mean Corpuscular Hemoglobin 37 pg (27-31); Mean Corpuscular Volume 110 fL (80-94); Mean Platelet Volume 9.4 fL (7.4-10.4); Platelet Count 44 10^3/uL (150-450); Red Blood Count 2.59 10^6 /uL (4.18-5.48); Red Cell Distribution Width 16 % (10-15); White Blood Count 2.2 10^3/uL (3.5-10.8)
[2021-06-24 03:58] LABS: Blood Urea Nitrogen 9 mg/dL (6-24); CO2 Carbon Dioxide 31 mmol/L (22-32); Calcium 7.2 mg/dL (8.6-10.3); Chloride 101 mmol/L (101-111); Glucose 133 mg/dL (70-100); Magnesium 1.9 mg/dL (1.9-2.7); Sodium 135 mmol/L (135-145); eGFR CKD-EPI 120.2 (>60)
[2021-06-24 04:18] LABS: Anion Gap 3 mmol/L (2-11)
[2021-06-24 05:01] LABS: Potassium Redraw 3.7 mmol/L (3.5-5.0)
[2021-06-24] MEDS: Pantoprazole VIAL 40 MG VIAL IV SCH (05:53)
[2021-06-24] MEDS ORDERED: Potassium Chloride LIQUID 20 MEQ/15 ML LIQUID PO ONE (07:23)
[2021-06-24] MEDS ORDERED: Magnesium Sulfate 2 gm BAG 2 GM/50 ML BAG IVPB ONE (07:23)
[2021-06-24] MEDS: Multivitamins ADULT w/MIN LIQ 15 ML UDC PO SCH (09:09)
[2021-06-24] MEDS: cefTRIAXone 1 gm/50 mL D5W 1 GM/50 ML BAG IV SCH (09:09)
[2021-06-24] MEDS ORDERED: Albuterol/Ipratropium NEB.SOL (2.5/0.5 MG) 3 ML NEB.SOLN INH PRN (14:30)
[2021-06-24] MEDS ORDERED: Furosemide 40 mg/4 ml IV VIAL IV SLOW PU ONE (14:30)
[2021-06-24] MEDS: Metoprolol Tartrate 5 mg VIAL 5 ml VIAL (1 mg/ml) IV PRN (15:30)
[2021-06-24] MEDS: LORazepam 2 mg VIAL 1 ml IV PUSH PRN (20:43)
[2021-06-24] MEDS ORDERED: Lactated Ringers 1000 ml BAG 500 ML IV SCH (23:00)
[2021-06-25] MEDS: LORazepam 2 mg VIAL 1 ml IV PUSH PRN ×10 (00:10→21:32)
[2021-06-25] MEDS: Metoprolol Tartrate 5 mg VIAL 5 ml VIAL (1 mg/ml) IV PRN ×3 (00:48→21:39)
[2021-06-25] MEDS ORDERED: Ondansetron 4 mg VIAL 2 MG/ML 2 ml VIAL IV PRN (01:11)
[2021-06-25 01:17] LABS: TSH Ultra Thyroid Stim Horm 1.55 mcIU/mL (0.34-5.60)
[2021-06-25 05:02] LABS: Calcium 7.6 mg/dL (8.6-10.3); Magnesium 1.4 mg/dL (1.9-2.7); Phosphorus 2.1 mg/dL (2.5-5.0); Potassium 3.9 mmol/L (3.5-5.0); eGFR CKD-EPI 112.5 (>60)
[2021-06-25 05:08] LABS: Hematocrit 30 % (42-52); Hemoglobin 10.2 g/dL (14.0-18.0); Mean Corpuscular HGB Conc 34 g/dL (31-36); Mean Corpuscular Hemoglobin 37 pg (27-31); Mean Corpuscular Volume 109 fL (80-94); Mean Platelet Volume 9.4 fL (7.4-10.4); Platelet Count 56 10^3/uL (150-450); Red Blood Count 2.76 10^6 /uL (4.18-5.48); Red Cell Distribution Width 16 % (10-15); White Blood Count 3.8 10^3/uL (3.5-10.8)
[2021-06-25] MEDS ORDERED: Magnesium Sulfate 2 gm BAG 2 GM/50 ML BAG IVPB ONE ×2 (06:19→07:15)
[2021-06-25] MEDS ORDERED: Sodium Phosphate IV 15 MMOLE in NS 0.9% 250 ml 250 ML IV ONE (06:30)
[2021-06-25] MEDS ORDERED: Potassium Chloride LIQUID 20 MEQ/15 ML LIQUID PO ONE (07:15)
[2021-06-25] MEDS: Multivitamins ADULT w/MIN LIQ 15 ML UDC PO SCH (08:09)
[2021-06-25] MEDS: cefTRIAXone 1 gm/50 mL D5W 1 GM/50 ML BAG IV SCH (08:10)
[2021-06-25] MEDS: Pantoprazole VIAL 40 MG VIAL IV SCH (08:10)
[2021-06-25] MEDS ORDERED: Thiamine 100 MG/ML 2 ml VIAL 250 MG in NS 0.9% 100 ml BAG 100 ML IV SCH (09:00)
[2021-06-25] MEDS ORDERED: Metoclopramide 5 MG/ML VIAL (10 mg) ONE (10:12)
[2021-06-25] MEDS: Metoclopramide LIQUID 1 mg/ml 10 ml ORAL.SOLN (10 mg) PO SCH ×2 (10:38→17:38)
[2021-06-25 15:05] LABS: Activated Partial Thrombo Time 27.5 seconds (26.0-38.0); INR 1.2 (0.86-1.15)
[2021-06-25] MEDS: Heparin 5000 UNITS/ML 1 mL VIAL SUBCUT SCH (20:24)
[2021-06-25] MEDS ORDERED: Lorazepam PYXIS KEY PRN (21:50)
[2021-06-25] MEDS: LORazepam 2 mg VIAL 1 ml IV PUSH SCH (23:24)
[2021-06-26] MEDS: LORazepam 2 mg VIAL 1 ml IV PUSH SCH ×2 (01:23→05:37)
[2021-06-26] MEDS: Metoclopramide LIQUID 1 mg/ml 10 ml ORAL.SOLN (10 mg) PO SCH ×3 (03:06→18:08)
[2021-06-26 05:18] LABS: ABS Lymphocytes 0.5 10^3/ul (1.0-4.8); ABS Monocytes 1.5 10^3/ul (0-0.8); ABS Neutrophils 5.1 10^3/ul (1.5-7.7); Eosinophil % 0.7 %; Hematocrit 31 % (42-52); Hemoglobin 10.3 g/dL (14.0-18.0); Lymphocyte % 6.8 %; Mean Corpuscular HGB Conc 34 g/dL (31-36); Mean Corpuscular Hemoglobin 37 pg (27-31); Mean Corpuscular Volume 111 fL (80-94); Platelet Count 65 10^3/uL (150-450); Red Blood Count 2.76 10^6 /uL (4.18-5.48); Red Cell Distribution Width 16 % (10-15); Urine Appearance Cloudy; Urine Bilirubin Negative (Negative); Urine Blood Negative (Negative); Urine Color Amber; Urine Glucose 1+(50 mg/dL) (Negative); Urine Ketones Negative (Negative); Urine Nitrite Negative (Negative); Urine Protein Negative (Negative); Urine Specific Gravity 1.012 (1.002-1.030); Urine Urobilinogen Positive (Negative); White Blood Count 7.1 10^3/uL (3.5-10.8)
[2021-06-26] MEDS: Pantoprazole VIAL 40 MG VIAL IV SCH (05:37)
[2021-06-26 05:44] LABS: Calcium 7.8 mg/dL (8.6-10.3); Magnesium 1.6 mg/dL (1.9-2.7); Phosphorus 3.6 mg/dL (2.5-5.0); Potassium 4.2 mmol/L (3.5-5.0); eGFR CKD-EPI 118.5 (>60)
[2021-06-26] MEDS ORDERED: Magnesium Sulfate 2 gm BAG 2 GM/50 ML BAG IV ONE (07:30)
[2021-06-26] MEDS ORDERED: Magnesium Sulfate 1 GM IV 1 GM/100 ML BAG IV ONE (08:30)
[2021-06-26] MEDS: Multivitamins ADULT w/MIN LIQ 15 ML UDC PO SCH (09:56)
[2021-06-26] MEDS: Heparin 5000 UNITS/ML 1 mL VIAL SUBCUT SCH ×2 (09:56→20:37)
[2021-06-26] MEDS: cefTRIAXone 1 gm/50 mL D5W 1 GM/50 ML BAG IV SCH (09:57)
[2021-06-26] MEDS ORDERED: LORazepam 2 mg VIAL 1 ml IV PUSH SCH (12:00)
[2021-06-27] MEDS: Metoclopramide LIQUID 1 mg/ml 10 ml ORAL.SOLN (10 mg) PO SCH ×3 (03:38→17:33)
[2021-06-27 04:08] LABS: ABS Eosinophils 0.1 10^3/ul (0-0.6); ABS Lymphocytes 0.4 10^3/ul (1.0-4.8); ABS Monocytes 0.9 10^3/ul (0-0.8); ABS Neutrophils 2.7 10^3/ul (1.5-7.7); Eosinophil % 2.1 %; Hematocrit 29 % (42-52); Hemoglobin 9.7 g/dL (14.0-18.0); Mean Corpuscular HGB Conc 34 g/dL (31-36); Mean Corpuscular Hemoglobin 37 pg (27-31); Mean Corpuscular Volume 111 fL (80-94); Mean Platelet Volume 9.7 fL (7.4-10.4); Platelet Count 64 10^3/uL (150-450); Red Blood Count 2.61 10^6 /uL (4.18-5.48); Red Cell Distribution Width 16 % (10-15); White Blood Count 4.1 10^3/uL (3.5-10.8)
[2021-06-27 04:37] LABS: Calcium 7.9 mg/dL (8.6-10.3); Magnesium 1.6 mg/dL (1.9-2.7); Phosphorus 2.5 mg/dL (2.5-5.0); eGFR CKD-EPI 113.9 (>60)
[2021-06-27] MEDS ORDERED: Magnesium Sulfate IV 3 GM in NS 0.9% 100 ml BAG 100 ML IVPB ONE (07:04)
[2021-06-27] MEDS ORDERED: Magnesium Sulfate 1 GM IV 1 GM/100 ML BAG IV ONE (07:30)
[2021-06-27] MEDS ORDERED: Magnesium Sulfate 2 GM IV (Premix) IVPB ONE (07:30)
[2021-06-27] MEDS ORDERED: Multivitamins/Minerals TAB PO SCH (09:00)
[2021-06-27 09:26] LABS: Albumin 2.5 g/dL (3.2-5.2); Globulin 2.4 g/dL (2-4); Total Bilirubin 3.1 mg/dL (0.2-1.0); Total Protein 4.9 g/dL (6.4-8.9)
[2021-06-27] MEDS: Pantoprazole VIAL 40 MG VIAL IV SCH (10:00)
[2021-06-27] MEDS: Multivitamins ADULT w/MIN LIQ 15 ML UDC PO SCH (10:04)
[2021-06-27] MEDS ORDERED: Furosemide 20 mg/2 ml IV VIAL IV ONE (13:20)
[2021-06-27] MEDS: Enoxaparin 40 MG/0.4 ML SYR SUBCUT SCH (14:41)
[2021-06-27] MEDS: Heparin 5000 UNITS/ML 1 mL VIAL SUBCUT SCH (14:42)
[2021-06-27 18:20] LABS: PCO2 Arterial 62 mmHg (35-45); PO2 Arterial 70 mmHg (80-100)
[2021-06-27] MEDS ORDERED: Furosemide 40 mg/4 ml IV VIAL ONE (19:00)
[2021-06-27] MEDS ORDERED: Furosemide 40 mg/4 ml IV VIAL IV SLOW PU ONE (19:10)
[2021-06-27] MEDS ORDERED: Propofol 10 mg/ml 100 ML BTL 100 ML ONE (20:02)
[2021-06-27] MEDS ORDERED: Rocuronium 50 mg VIAL 10 mg/ml 5 ml VIAL (50 mg) ONE (20:02)
[2021-06-27] MEDS ORDERED: Succinylcholine 200 mg VIAL 20 mg/ml 10 ml VIAL (200 mg) ONE (20:02)
[2021-06-27] MEDS ORDERED: Etomidate 40 mg/20 ml (2 MG/ML) 20 ml VIAL (40 mg) ONE (20:11)
[2021-06-27] MEDS ORDERED: Lactated Ringers 500 ml BAG 500 ML IV ONE ×2 (20:35→22:08)
[2021-06-27] MEDS: Propofol 10 mg/ml 100 ML BTL 100 ML IV SCH (20:56)
[2021-06-27 21:33] LABS: PCO2 Arterial 60 mmHg (35-45); PO2 Arterial 221 mmHg (80-100)
[2021-06-27] MEDS ORDERED: Midazolam 5 mg/5 ml VIAL 1 mg/ml 5 ml VIAL (5 mg) IV SLOW PU ONE (21:36)
[2021-06-27] MEDS: Chlorhexidine MOUTHWASH 0.12% 15 ML UDC TOPICAL SCH (21:46)
[2021-06-27] MEDS: Cefepime 2 GM in Dextrose 2 GM/50 ML BAG IV SCH (22:05)
[2021-06-27] MEDS: Norepinephrine 16MCG/ML BAGD5W 4,000 MCG/250 ML BAG IV SCH (22:16)
[2021-06-27 23:13] LABS: ABS Lymphocytes 0.1 10^3/ul (1.0-4.8); ABS Monocytes 0.3 10^3/ul (0-0.8); ABS Neutrophils 2.9 10^3/ul (1.5-7.7); Eosinophil % 0.4 %; Hematocrit 33 % (42-52); Hemoglobin 11.1 g/dL (14.0-18.0); Lymphocyte % 4.1 %; Mean Corpuscular HGB Conc 34 g/dL (31-36); Mean Corpuscular Hemoglobin 37 pg (27-31); Mean Corpuscular Volume 111 fL (80-94); Platelet Count 125 10^3/uL (150-450); Red Blood Count 2.97 10^6 /uL (4.18-5.48); Red Cell Distribution Width 15 % (10-15); White Blood Count 3.4 10^3/uL (3.5-10.8)
[2021-06-27] MEDS: metroNIDAZOLE IV 500 MG/100ML 500 MG/100 ML BAG IVPB SCH (23:19)
[2021-06-27 23:38] LABS: Albumin 2.5 g/dL (3.2-5.2); Albumin/Globulin Ratio 1.1 (1-3); Calcium 7.3 mg/dL (8.6-10.3); Direct Bilirubin 1.7 mg/dL (0.03-0.18); Globulin 2.2 g/dL (2-4); Indirect Bilirubin 1.4 mg/dL (0.3-1.0); Total Bilirubin 3.1 mg/dL (0.2-1.0); Total Protein 4.7 g/dL (6.4-8.9); eGFR CKD-EPI 107.7 (>60)
[2021-06-28] MEDS: Chlorhexidine MOUTHWASH 0.12% 15 ML UDC TOPICAL SCH ×6 (02:29→21:10)
[2021-06-28] MEDS: Metoclopramide LIQUID 1 mg/ml 10 ml ORAL.SOLN (10 mg) PO SCH ×3 (02:30→16:23)
[2021-06-28] MEDS: Norepinephrine 16MCG/ML BAGD5W 4,000 MCG/250 ML BAG IV SCH ×2 (03:26→07:17)
[2021-06-28] MEDS ORDERED: NS 0.9% 1,000 ML IV SCH (03:45)
[2021-06-28] MEDS: metroNIDAZOLE IV 500 MG/100ML 500 MG/100 ML BAG IVPB SCH ×4 (03:49→22:13)
[2021-06-28 05:45] LABS: PCO2 Arterial 35 mmHg (35-45); PO2 Arterial 75 mmHg (80-100)
[2021-06-28 06:08] LABS: ABS Basophils 0.1 10^3/ul (0-0.2); ABS Lymphocytes 0.5 10^3/ul (1.0-4.8); ABS Monocytes 1.7 10^3/ul (0-0.8); ABS Neutrophils 9.5 10^3/ul (1.5-7.7); Eosinophil % 0.3 %; Hematocrit 29 % (42-52); Hemoglobin 9.6 g/dL (14.0-18.0); INR 1.29 (0.86-1.15); Lymphocyte % 4.4 %; Mean Corpuscular HGB Conc 33 g/dL (31-36); Mean Corpuscular Hemoglobin 36 pg (27-31); Mean Corpuscular Volume 110 fL (80-94); Mean Platelet Volume 9.5 fL (7.4-10.4); Platelet Count 165 10^3/uL (150-450); Red Blood Count 2.64 10^6 /uL (4.18-5.48); Red Cell Distribution Width 16 % (10-15); White Blood Count 11.7 10^3/uL (3.5-10.8)
[2021-06-28 06:31] LABS: Albumin 2.3 g/dL (3.2-5.2); Calcium 7.5 mg/dL (8.6-10.3); Globulin 2.3 g/dL (2-4); Magnesium 1.2 mg/dL (1.9-2.7); Potassium 3.8 mmol/L (3.5-5.0); Total Bilirubin 3.2 mg/dL (0.2-1.0); Total Protein 4.6 g/dL (6.4-8.9)
[2021-06-28 07:15] LABS: RBC Morphology Normal (Normal)
[2021-06-28] MEDS ORDERED: Magnesium Sulfate IV 3 GM in NS 0.9% 100 ml BAG 100 ML IVPB ONE (07:33)
[2021-06-28] MEDS ORDERED: Magnesium Sulfate 2 GM IV (Premix) IVPB ONE (08:00)
[2021-06-28] MEDS: Cefepime 2 GM in Dextrose 2 GM/50 ML BAG IV SCH ×2 (08:21→21:09)
[2021-06-28] MEDS: Multivitamins ADULT w/MIN LIQ 15 ML UDC PO SCH (08:22)
[2021-06-28] MEDS: Pantoprazole VIAL 40 MG VIAL IV SCH (08:22)
[2021-06-28] MEDS: Propofol 10 mg/ml 100 ML BTL 100 ML IV SCH ×2 (08:53→16:20)
[2021-06-28] MEDS ORDERED: Enoxaparin 40 MG/0.4 ML SYR SUBCUT SCH (09:00)
[2021-06-28] MEDS ORDERED: Magnesium Sulfate 1 GM IV 1 GM/100 ML BAG IV ONE (09:00)
[2021-06-28] MEDS: Enoxaparin 40 MG/0.4 ML SYR SUBCUT SCH (11:21)
[2021-06-28] MEDS ORDERED: PHENYLEPHRINE DRIP IVPREMIX 50 MG/250 ML BAG IV ONE (12:19)
[2021-06-28] MEDS: PHENYLEPHRINE DRIP IVPREMIX 50 MG/250 ML BAG IV SCH (12:28)
[2021-06-28] MEDS ORDERED: Amiodarone 150 mg IVPREMIX 150 MG/100 ML BAG IV ONE (12:38)
[2021-06-28] MEDS ORDERED: .Amiodarone 24HR ONLY IV Protocol Order Note IV ONE (12:38)
[2021-06-28] MEDS ORDERED: Amiodarone 360 MG IVPREMIX 360 MG/200 ML BAG IV SCH (12:50)
[2021-06-28] MEDS: Lactulose 30 ml UDC PO SCH ×3 (15:30→21:10)
[2021-06-28 16:16] LABS: Calcium 7.6 mg/dL (8.6-10.3)
[2021-06-28] MEDS: Amiodarone 360 MG IVPREMIX 360 MG/200 ML BAG IV SCH (18:33)
[2021-06-28] MEDS ORDERED: NS 0.9% 500 ml BAG 500 ML IV ONE (20:15)
[2021-06-29] MEDS: Metoclopramide LIQUID 1 mg/ml 10 ml ORAL.SOLN (10 mg) PO SCH ×3 (01:41→18:10)
[2021-06-29] MEDS: Chlorhexidine MOUTHWASH 0.12% 15 ML UDC TOPICAL SCH ×6 (01:41→21:23)
[2021-06-29] MEDS: Propofol 10 mg/ml 100 ML BTL 100 ML IV SCH ×2 (01:46→10:41)
[2021-06-29] MEDS ORDERED: NS 0.9% 500 ml BAG 500 ML IV ONE ×2 (03:20→23:54)
[2021-06-29] MEDS: metroNIDAZOLE IV 500 MG/100ML 500 MG/100 ML BAG IVPB SCH ×4 (04:14→22:45)
[2021-06-29 05:28] LABS: ABS Basophils 0.1 10^3/ul (0-0.2); ABS Eosinophils 0.3 10^3/ul (0-0.6); ABS Lymphocytes 0.7 10^3/ul (1.0-4.8); ABS Monocytes 1.6 10^3/ul (0-0.8); ABS Neutrophils 8.6 10^3/ul (1.5-7.7); Eosinophil % 2.2 %; Hematocrit 26 % (42-52); Lymphocyte % 6.4 %; Mean Corpuscular HGB Conc 34 g/dL (31-36); Mean Corpuscular Hemoglobin 37 pg (27-31); Mean Corpuscular Volume 109 fL (80-94); Mean Platelet Volume 9.3 fL (7.4-10.4); Nucleated Red Blood Cells % 0.1; Platelet Count 171 10^3/uL (150-450); Red Blood Count 2.43 10^6 /uL (4.18-5.48); Red Cell Distribution Width 16 % (10-15); White Blood Count 11.2 10^3/uL (3.5-10.8)
[2021-06-29] MEDS: PHENYLEPHRINE DRIP IVPREMIX 50 MG/250 ML BAG IV SCH (05:49)
[2021-06-29 06:26] LABS: Blood Urea Nitrogen 21 mg/dL (6-24); CO2 Carbon Dioxide 27 mmol/L (22-32); Calcium 7.4 mg/dL (8.6-10.3); Chloride 100 mmol/L (101-111); Glucose 94 mg/dL (70-100); Magnesium 1.9 mg/dL (1.9-2.7); Sodium 130 mmol/L (135-145); eGFR CKD-EPI 103.6 (>60)
[2021-06-29] MEDS: Amiodarone 360 MG IVPREMIX 360 MG/200 ML BAG IV SCH (06:38)
[2021-06-29 06:46] LABS: Anion Gap 3 mmol/L (2-11)
[2021-06-29] MEDS: Multivitamins ADULT w/MIN LIQ 15 ML UDC PO SCH (08:09)
[2021-06-29] MEDS: Lactulose 30 ml UDC PO SCH (08:09)
[2021-06-29] MEDS: Pantoprazole VIAL 40 MG VIAL IV SCH (08:09)
[2021-06-29] MEDS: Cefepime 2 GM in Dextrose 2 GM/50 ML BAG IV SCH ×2 (08:09→21:23)
[2021-06-29 08:36] LABS: Phosphorus 3.4 mg/dL (2.5-5.0); Potassium Redraw 3.5 mmol/L (3.5-5.0)
[2021-06-29] MEDS ORDERED: Perflutren Lipid Microsphere 3 ML VIAL ONE (08:38)
[2021-06-29] MEDS: KCL 20 MEQ/100 ML IVPREMIX 20 MEQ/100 ML BAG IV SCH ×2 (10:41→12:09)
[2021-06-29] MEDS: Enoxaparin 40 MG/0.4 ML SYR SUBCUT SCH (13:24)
[2021-06-29 13:39] LABS: Cholesterol 82 mg/dL; HDL Cholesterol 17.3 mg/dL; Triglycerides 470 mg/dL
[2021-06-29 13:56] LABS: LDL Cholesterol Direct 49 mg/dL
[2021-06-29] MEDS ORDERED: fentaNYL 100 mcg/2 ml 50 MCG/ML VIAL ONE ×2 (15:31→15:43)
[2021-06-29] MEDS ORDERED: fentaNYL 100 mcg/2 ml 50 MCG/ML VIAL IV SLOW PU ONE (16:02)
[2021-06-29] MEDS: Anidulafungin 100 MG in NS 0.9% 100 ml BAG 100 ML IVPB SCH (19:38)
[2021-06-29] MEDS ORDERED: Lactulose 30 ml UDC PO SCH (21:00)
[2021-06-29] MEDS: Thiamine 100 MG/ML 2 ml VIAL 500 MG in NS 0.9% 250 ml 250 ML IV SCH (21:58)
[2021-06-30] MEDS: Propofol 10 mg/ml 100 ML BTL 100 ML IV SCH ×2 (00:32→14:15)
[2021-06-30] MEDS ORDERED: NS 0.9% 500 ml BAG 500 ML IV ONE (02:00)
[2021-06-30] MEDS: Metoclopramide LIQUID 1 mg/ml 10 ml ORAL.SOLN (10 mg) PO SCH ×2 (02:14→08:11)
[2021-06-30] MEDS: Chlorhexidine MOUTHWASH 0.12% 15 ML UDC TOPICAL SCH ×6 (02:14→21:44)
[2021-06-30] MEDS: metroNIDAZOLE IV 500 MG/100ML 500 MG/100 ML BAG IVPB SCH ×4 (04:33→21:32)
[2021-06-30 04:56] LABS: ABS Basophils 0.1 10^3/ul (0-0.2); ABS Eosinophils 0.1 10^3/ul (0-0.6); ABS Lymphocytes 0.6 10^3/ul (1.0-4.8); ABS Neutrophils 4.9 10^3/ul (1.5-7.7); Eosinophil % 2.1 %; Hematocrit 30 % (42-52); Hemoglobin 9.6 g/dL (14.0-18.0); Lymphocyte % 9.3 %; Mean Corpuscular HGB Conc 32 g/dL (31-36); Mean Corpuscular Hemoglobin 36 pg (27-31); Mean Corpuscular Volume 111 fL (80-94); Mean Platelet Volume 9.2 fL (7.4-10.4); Nucleated Red Blood Cells % 0.2; Platelet Count 142 10^3/uL (150-450); Red Blood Count 2.66 10^6 /uL (4.18-5.48); Red Cell Distribution Width 16 % (10-15); White Blood Count 6.7 10^3/uL (3.5-10.8)
[2021-06-30 05:09] LABS: Calcium 7.6 mg/dL (8.6-10.3); Magnesium 1.7 mg/dL (1.9-2.7); Potassium 3.9 mmol/L (3.5-5.0); eGFR CKD-EPI 105.1 (>60)
[2021-06-30] MEDS: Thiamine 100 MG/ML 2 ml VIAL 500 MG in NS 0.9% 250 ml 250 ML IV SCH ×3 (05:39→22:16)
[2021-06-30] MEDS: Pantoprazole VIAL 40 MG VIAL IV SCH (06:20)
[2021-06-30] MEDS: Multivitamins ADULT w/MIN LIQ 15 ML UDC PO SCH (08:08)
[2021-06-30] MEDS: Cefepime 2 GM in Dextrose 2 GM/50 ML BAG IV SCH ×2 (08:09→21:30)
[2021-06-30] MEDS ORDERED: Magnesium Sulfate 2 gm BAG 2 GM/50 ML BAG IVPB ONE (10:06)
[2021-06-30] MEDS: Enoxaparin 40 MG/0.4 ML SYR SUBCUT SCH (12:57)
[2021-06-30] MEDS ORDERED: Vancomycin per Pharmacy 1 EA NOTE FOLLOW UP SCH (16:00)
[2021-06-30] MEDS ORDERED: Vancomycin 1,500 MG in NS 0.9% 250 ml 250 ML IVPB ONE (17:00)
[2021-06-30] MEDS: Anidulafungin 100 MG in NS 0.9% 100 ml BAG 100 ML IVPB SCH (18:18)
[2021-07-01] MEDS: Vancomycin 1,250 MG in NS 0.9% 250 ml 250 ML IVPB SCH ×3 (00:58→19:43)
[2021-07-01] MEDS: Chlorhexidine MOUTHWASH 0.12% 15 ML UDC TOPICAL SCH ×6 (00:59→22:22)
[2021-07-01] MEDS: Propofol 10 mg/ml 100 ML BTL 100 ML IV SCH ×2 (01:01→13:02)
[2021-07-01] MEDS: metroNIDAZOLE IV 500 MG/100ML 500 MG/100 ML BAG IVPB SCH ×4 (04:27→22:12)
[2021-07-01 04:44] LABS: Hematocrit 29 % (42-52); Hemoglobin 9.4 g/dL (14.0-18.0); Mean Corpuscular HGB Conc 33 g/dL (31-36); Mean Corpuscular Hemoglobin 37 pg (27-31); Mean Corpuscular Volume 111 fL (80-94); Platelet Count 155 10^3/uL (150-450); Red Blood Count 2.57 10^6 /uL (4.18-5.48); Red Cell Distribution Width 16 % (10-15); White Blood Count 6.4 10^3/uL (3.5-10.8)
[2021-07-01 05:06] LABS: Calcium 7.7 mg/dL (8.6-10.3); Magnesium 1.9 mg/dL (1.9-2.7); eGFR CKD-EPI 106.1 (>60)
[2021-07-01 05:32] LABS: ABS Basophils 0.1 10^3/ul (0-0.2); ABS Eosinophils 0.1 10^3/ul (0-0.6); ABS Lymphocytes 0.4 10^3/ul (1.0-4.8); ABS Monocytes 0.7 10^3/ul (0-0.8); ABS Neutrophils 5.1 10^3/ul (1.5-7.7); Eosinophil % 2.1 %; Lymphocyte % 5.8 %
[2021-07-01] MEDS: Thiamine 100 MG/ML 2 ml VIAL 500 MG in NS 0.9% 250 ml 250 ML IV SCH ×3 (06:09→22:22)
[2021-07-01] MEDS: Pantoprazole VIAL 40 MG VIAL IV SCH (06:15)
[2021-07-01] MEDS: Multivitamins ADULT w/MIN LIQ 15 ML UDC PO SCH (07:52)
[2021-07-01] MEDS: Cefepime 2 GM in Dextrose 2 GM/50 ML BAG IV SCH ×2 (08:20→21:40)
[2021-07-01 11:31] LABS: Body Fluid Source Broncheoalveolar lav
[2021-07-01] MEDS: Enoxaparin 40 MG/0.4 ML SYR SUBCUT SCH (12:24)
[2021-07-01 13:55] LABS: Body Fluid Appearance Cloudy; Body Fluid Color Colorless; Body Fluid Other Cells 75; Body Fluid Total Cells Counted 200
[2021-07-01] MEDS ORDERED: Furosemide 40 mg/4 ml IV VIAL IV ONE (16:24)
[2021-07-01] MEDS ORDERED: Vancomycin Trough Check NOTE FOLLOW UP ONE (16:30)
[2021-07-01] MEDS: Anidulafungin 100 MG in NS 0.9% 100 ml BAG 100 ML IVPB SCH (19:48)
[2021-07-01] MEDS: Vancomycin 1000 MG in NS 0.9% 250 ML IVPB SCH (19:53)
[2021-07-02] MEDS: Saline FLUSH-CENTRAL 10 ML SYRINGE CENT\\PICC SCH ×3 (01:22→22:30)
[2021-07-02] MEDS: Vancomycin 1000 MG in NS 0.9% 250 ML IVPB SCH (03:49)
[2021-07-02] MEDS: metroNIDAZOLE IV 500 MG/100ML 500 MG/100 ML BAG IVPB SCH ×2 (03:49→09:57)
[2021-07-02 04:08] LABS: ABS Basophils 0.1 10^3/ul (0-0.2); ABS Eosinophils 0.1 10^3/ul (0-0.6); ABS Lymphocytes 0.5 10^3/ul (1.0-4.8); ABS Monocytes 1.1 10^3/ul (0-0.8); ABS Neutrophils 3.9 10^3/ul (1.5-7.7); Eosinophil % 2.2 %; Hematocrit 29 % (42-52); Hemoglobin 9.7 g/dL (14.0-18.0); Lymphocyte % 9.7 %; Mean Corpuscular HGB Conc 33 g/dL (31-36); Mean Corpuscular Hemoglobin 36 pg (27-31); Mean Corpuscular Volume 110 fL (80-94); Mean Platelet Volume 9.2 fL (7.4-10.4); Platelet Count 147 10^3/uL (150-450); Red Blood Count 2.65 10^6 /uL (4.18-5.48); Red Cell Distribution Width 16 % (10-15); White Blood Count 5.7 10^3/uL (3.5-10.8)
[2021-07-02 04:36] LABS: Magnesium 1.6 mg/dL (1.9-2.7); Potassium 3.8 mmol/L (3.5-5.0); eGFR CKD-EPI 108.8 (>60)
[2021-07-02] MEDS: Thiamine 100 MG/ML 2 ml VIAL 500 MG in NS 0.9% 250 ml 250 ML IV SCH ×2 (05:52→11:18)
[2021-07-02] MEDS: Pantoprazole VIAL 40 MG VIAL IV SCH (06:26)
[2021-07-02] MEDS ORDERED: Magnesium Sulf 4 GM/100 ML IV 4,000 MG/100 ML BAG IVPB ONE ×2 (06:36→07:05)
[2021-07-02] MEDS ORDERED: Furosemide 40 mg/4 ml IV VIAL IV ONE (09:21)
[2021-07-02] MEDS: Multivitamins ADULT w/MIN LIQ 15 ML UDC PO SCH (09:41)
[2021-07-02] MEDS: methylPREDNISolone SOD SUCC 40 mg/ml 1 ml VIAL IV SCH ×2 (09:57→17:46)
[2021-07-02] MEDS: Cefepime 2 GM in Dextrose 2 GM/50 ML BAG IV SCH (10:26)
[2021-07-02] MEDS: Albuterol/Ipratropium NEB.SOL (2.5/0.5 MG) 3 ML NEB.SOLN INH PRN ×2 (10:54→19:55)
[2021-07-02 10:55] LABS: PCO2 Arterial 35 mmHg (35-45); PO2 Arterial 68 mmHg (80-100)
[2021-07-02] MEDS ORDERED: Zosyn per Pharmacy NOTE FOLLOW UP SCH (11:00)
[2021-07-02] MEDS ORDERED: ZOSYN 3.375 GM x ONE DOSE over 30 miuntes IV (11:04)
[2021-07-02] MEDS: Enoxaparin 40 MG/0.4 ML SYR SUBCUT SCH (12:51)
[2021-07-02] MEDS: ZOSYN 3.375 GM Q8H per EXTENDED INFUSION IV SCH (15:20)
[2021-07-02] MEDS: Anidulafungin 100 MG in NS 0.9% 100 ml BAG 100 ML IVPB SCH (20:28)
[2021-07-02] MEDS: Metoprolol Tartrate 5 mg VIAL 5 ml VIAL (1 mg/ml) IV PRN (20:46)
[2021-07-02] MEDS ORDERED: Furosemide 40 mg/4 ml IV VIAL IV SLOW PU ONE (22:01)
[2021-07-02] MEDS: Metoprolol Tartrate 5 mg VIAL 5 ml VIAL (1 mg/ml) IV SCH (22:29)
[2021-07-02] MEDS: Acetaminophen IV 1 GM/100ML 100 ML IV PRN (23:02)
[2021-07-03] MEDS ORDERED: Haloperidol 5 mg/ml SDV IV/IM 5 MG/ML AMP IV SLOW PU ONE (01:43)
[2021-07-03] MEDS: ZOSYN 3.375 GM Q8H per EXTENDED INFUSION IV SCH ×4 (01:59→23:35)
[2021-07-03] MEDS: methylPREDNISolone SOD SUCC 40 mg/ml 1 ml VIAL IV SCH ×3 (01:59→15:15)
[2021-07-03 05:30] LABS: ABS Lymphocytes 0.3 10^3/ul (1.0-4.8); ABS Monocytes 0.3 10^3/ul (0-0.8); Eosinophil % 0.1 %; Hematocrit 30 % (42-52); Hemoglobin 10.1 g/dL (14.0-18.0); Lymphocyte % 6.1 %; Mean Corpuscular HGB Conc 34 g/dL (31-36); Mean Corpuscular Hemoglobin 36 pg (27-31); Mean Corpuscular Volume 108 fL (80-94); Platelet Count 172 10^3/uL (150-450); Red Cell Distribution Width 15 % (10-15); White Blood Count 5.7 10^3/uL (3.5-10.8)
[2021-07-03 06:16] LABS: Calcium 8.3 mg/dL (8.6-10.3); Magnesium 1.9 mg/dL (1.9-2.7); Phosphorus 2.5 mg/dL (2.5-5.0); Potassium 3.6 mmol/L (3.5-5.0); eGFR CKD-EPI 104.1 (>60)
[2021-07-03] MEDS: Pantoprazole VIAL 40 MG VIAL IV SCH (08:22)
[2021-07-03] MEDS: Metoprolol Tartrate 5 mg VIAL 5 ml VIAL (1 mg/ml) IV SCH ×2 (08:24→22:02)
[2021-07-03] MEDS: Multivitamins ADULT w/MIN LIQ 15 ML UDC PO SCH (08:24)
[2021-07-03] MEDS: Thiamine 100 MG/ML 2 ml VIAL 500 MG in NS 0.9% 250 ml 250 ML IV SCH (08:27)
[2021-07-03] MEDS: Saline FLUSH-CENTRAL 10 ML SYRINGE CENT\\PICC SCH ×2 (08:27→21:57)
[2021-07-03] MEDS: Acetaminophen IV 1 GM/100ML 100 ML IV PRN (09:45)
[2021-07-03] MEDS ORDERED: methylPREDNISolone SOD SUCC 40 mg/ml 1 ml VIAL IV SCH (11:00)
[2021-07-03] MEDS ORDERED: Vancomycin Trough Check NOTE FOLLOW UP ONE (11:30)
[2021-07-03] MEDS: Enoxaparin 40 MG/0.4 ML SYR SUBCUT SCH (12:38)
[2021-07-03] MEDS ORDERED: Haloperidol 5 mg/ml SDV IV/IM 5 MG/ML AMP IV SLOW PU PRN (19:00)
[2021-07-03] MEDS: Anidulafungin 100 MG in NS 0.9% 100 ml BAG 100 ML IVPB SCH (19:51)
[2021-07-04] MEDS: Metoprolol Tartrate 5 mg VIAL 5 ml VIAL (1 mg/ml) IV PRN (02:11)
[2021-07-04] MEDS: methylPREDNISolone SOD SUCC 40 mg/ml 1 ml VIAL IV SCH ×2 (03:16→15:08)
[2021-07-04 04:41] LABS: ABS Lymphocytes 0.4 10^3/ul (1.0-4.8); ABS Monocytes 0.9 10^3/ul (0-0.8); ABS Neutrophils 5.6 10^3/ul (1.5-7.7); Eosinophil % 0.1 %; Hematocrit 28 % (42-52); Hemoglobin 9.1 g/dL (14.0-18.0); Lymphocyte % 6.4 %; Mean Corpuscular HGB Conc 33 g/dL (31-36); Mean Corpuscular Hemoglobin 36 pg (27-31); Mean Corpuscular Volume 108 fL (80-94); Mean Platelet Volume 8.6 fL (7.4-10.4); Platelet Count 181 10^3/uL (150-450); Red Blood Count 2.54 10^6 /uL (4.18-5.48); Red Cell Distribution Width 15 % (10-15); White Blood Count 6.9 10^3/uL (3.5-10.8)
[2021-07-04 05:04] LABS: Calcium 8.1 mg/dL (8.6-10.3); Magnesium 1.7 mg/dL (1.9-2.7); Potassium 3.2 mmol/L (3.5-5.0); eGFR CKD-EPI 105.6 (>60)
[2021-07-04] MEDS ORDERED: Magnesium Sulfate 2 gm BAG 2 GM/50 ML BAG IVPB ONE (06:22)
[2021-07-04] MEDS: ZOSYN 3.375 GM Q8H per EXTENDED INFUSION IV SCH ×2 (09:07→15:08)
[2021-07-04] MEDS: Thiamine 100 MG/ML 2 ml VIAL 500 MG in NS 0.9% 250 ml 250 ML IV SCH (09:07)
[2021-07-04] MEDS: Pantoprazole VIAL 40 MG VIAL IV SCH (09:08)
[2021-07-04] MEDS: Multivitamins ADULT w/MIN LIQ 15 ML UDC PO SCH (09:08)
[2021-07-04] MEDS: Metoprolol Tartrate 5 mg VIAL 5 ml VIAL (1 mg/ml) IV SCH (09:08)
[2021-07-04] MEDS: KCL 20 MEQ/100 ML IVPREMIX 20 MEQ/100 ML BAG IV SCH ×3 (09:28→16:41)
[2021-07-04] MEDS: Saline FLUSH-CENTRAL 10 ML SYRINGE CENT\\PICC SCH ×2 (09:29→21:42)
[2021-07-04] MEDS: Enoxaparin 40 MG/0.4 ML SYR SUBCUT SCH (13:51)
[2021-07-04 15:57] LABS: PCO2 Arterial 56 mmHg (35-45); PO2 Arterial 128 mmHg (80-100)
[2021-07-04] MEDS ORDERED: KCL 20 MEQ/100 ML IVPREMIX 20 MEQ/100 ML BAG ONE (16:39)
[2021-07-04 17:45] LABS: PCO2 Arterial 52 mmHg (35-45); PO2 Arterial 77 mmHg (80-100)
[2021-07-04] MEDS: Anidulafungin 100 MG in NS 0.9% 100 ml BAG 100 ML IVPB SCH (20:11)
[2021-07-05] MEDS: ZOSYN 3.375 GM Q8H per EXTENDED INFUSION IV SCH ×3 (00:04→15:25)
[2021-07-05] MEDS: methylPREDNISolone SOD SUCC 40 mg/ml 1 ml VIAL IV SCH ×2 (04:03→15:24)
[2021-07-05 04:56] LABS: ABS Lymphocytes 0.5 10^3/ul (1.0-4.8); ABS Monocytes 0.7 10^3/ul (0-0.8); ABS Neutrophils 3.6 10^3/ul (1.5-7.7); Eosinophil % 0.2 %; Hematocrit 28 % (42-52); Hemoglobin 9.2 g/dL (14.0-18.0); Lymphocyte % 10.4 %; Mean Corpuscular HGB Conc 33 g/dL (31-36); Mean Corpuscular Hemoglobin 36 pg (27-31); Mean Corpuscular Volume 109 fL (80-94); Mean Platelet Volume 9.1 fL (7.4-10.4); Platelet Count 177 10^3/uL (150-450); Red Blood Count 2.57 10^6 /uL (4.18-5.48); Red Cell Distribution Width 15 % (10-15); White Blood Count 4.8 10^3/uL (3.5-10.8)
[2021-07-05 05:22] LABS: Calcium 7.6 mg/dL (8.6-10.3); Magnesium 1.8 mg/dL (1.9-2.7); Phosphorus 3.3 mg/dL (2.5-5.0); Potassium 3.7 mmol/L (3.5-5.0); eGFR CKD-EPI 110.6 (>60)
[2021-07-05] MEDS ORDERED: Magnesium Sulfate 2 gm BAG 2 GM/50 ML BAG IVPB ONE (06:10)
[2021-07-05] MEDS: KCL 10 MEQ/50 ML IVPREMIX 10 MEQ/50 ML BAG IV SCH ×3 (07:01→10:08)
[2021-07-05] MEDS: Pantoprazole VIAL 40 MG VIAL IV SCH (07:30)
[2021-07-05] MEDS: Saline FLUSH-CENTRAL 10 ML SYRINGE CENT\\PICC SCH ×2 (07:35→20:27)
[2021-07-05] MEDS: Multivitamins ADULT w/MIN LIQ 15 ML UDC PO SCH (07:43)
[2021-07-05] MEDS ORDERED: Succinylcholine 200 mg VIAL 20 mg/ml 10 ml VIAL (200 mg) ONE (08:49)
[2021-07-05] MEDS ORDERED: Rocuronium 50 mg VIAL 10 mg/ml 5 ml VIAL (50 mg) ONE (08:49)
[2021-07-05] MEDS ORDERED: Propofol 10 mg/ml 100 ML BTL 0 ML ONE (08:49)
[2021-07-05] MEDS: Albuterol/Ipratropium NEB.SOL (2.5/0.5 MG) 3 ML NEB.SOLN INH PRN (09:16)
[2021-07-05] MEDS: Thiamine 100 MG/ML 2 ml VIAL 500 MG in NS 0.9% 250 ml 250 ML IV SCH (10:08)
[2021-07-05] MEDS: Metoprolol Tartrate 5 mg VIAL 5 ml VIAL (1 mg/ml) IV PRN (10:56)
[2021-07-05] MEDS ORDERED: Cyanocobalamin INJ 1,000 MCG/ML VIAL 1 ML VIAL IM ONE (12:55)
[2021-07-05] MEDS: Enoxaparin 40 MG/0.4 ML SYR SUBCUT SCH (14:20)
[2021-07-05] MEDS: Anidulafungin 100 MG in NS 0.9% 100 ml BAG 100 ML IVPB SCH (19:09)
[2021-07-06] MEDS: ZOSYN 3.375 GM Q8H per EXTENDED INFUSION IV SCH ×4 (00:23→23:55)
[2021-07-06] MEDS: Metoprolol Tartrate 5 mg VIAL 5 ml VIAL (1 mg/ml) IV PRN ×2 (02:07→17:13)
[2021-07-06] MEDS: methylPREDNISolone SOD SUCC 40 mg/ml 1 ml VIAL IV SCH (04:07)
[2021-07-06 04:50] LABS: Magnesium 1.8 mg/dL (1.9-2.7); eGFR CKD-EPI 109.4 (>60)
[2021-07-06 04:55] LABS: ABS Lymphocytes 0.5 10^3/ul (1.0-4.8); ABS Monocytes 0.8 10^3/ul (0-0.8); ABS Neutrophils 5.4 10^3/ul (1.5-7.7); Eosinophil % 0.1 %; Hematocrit 28 % (42-52); Hemoglobin 9.2 g/dL (14.0-18.0); Lymphocyte % 8.2 %; Mean Corpuscular HGB Conc 33 g/dL (31-36); Mean Corpuscular Hemoglobin 36 pg (27-31); Mean Corpuscular Volume 108 fL (80-94); Mean Platelet Volume 8.9 fL (7.4-10.4); Platelet Count 159 10^3/uL (150-450); Red Cell Distribution Width 15 % (10-15); White Blood Count 6.7 10^3/uL (3.5-10.8)
[2021-07-06] MEDS: Pantoprazole VIAL 40 MG VIAL IV SCH (07:01)
[2021-07-06] MEDS ORDERED: Magnesium Sulfate IV 1GM/100ML 1 GM/100 ML BAG IV ONE (07:23)
[2021-07-06] MEDS: Thiamine 100 MG/ML 2 ml VIAL 500 MG in NS 0.9% 250 ml 250 ML IV SCH (07:54)
[2021-07-06] MEDS: Saline FLUSH-CENTRAL 10 ML SYRINGE CENT\\PICC SCH ×2 (07:55→20:47)
[2021-07-06] MEDS: Multivitamins ADULT w/MIN LIQ 15 ML UDC PO SCH (09:02)
[2021-07-06] MEDS: SPIRIVA Respimat (tiotropium) 2.5 mcg/inh Inhaler INH SCH (11:49)
[2021-07-06] MEDS: Multivitamins/Minerals TAB PO SCH (12:16)
[2021-07-06] MEDS: Enoxaparin 40 MG/0.4 ML SYR SUBCUT SCH (12:16)
[2021-07-06] MEDS ORDERED: Haloperidol 5 mg/ml SDV IV/IM 5 MG/ML AMP ONE (16:43)
[2021-07-06] MEDS ORDERED: Haloperidol 5 mg/ml SDV IV/IM 5 MG/ML AMP IV SLOW PU ONE (16:47)
[2021-07-07 06:13] LABS: Hematocrit 30 % (42-52); Mean Corpuscular HGB Conc 34 g/dL (31-36); Mean Corpuscular Hemoglobin 36 pg (27-31); Mean Corpuscular Volume 108 fL (80-94); Mean Platelet Volume 9.4 fL (7.4-10.4); Platelet Count 135 10^3/uL (150-450); Red Blood Count 2.75 10^6 /uL (4.18-5.48); Red Cell Distribution Width 15 % (10-15); White Blood Count 4.6 10^3/uL (3.5-10.8)
[2021-07-07 06:43] LABS: Calcium 8.3 mg/dL (8.6-10.3); Magnesium 1.7 mg/dL (1.9-2.7)
[2021-07-07] MEDS ORDERED: Magnesium Sulfate 2 gm BAG 2 GM/50 ML BAG IVPB ONE (07:41)
[2021-07-07] MEDS: ZOSYN 3.375 GM Q8H per EXTENDED INFUSION IV SCH ×2 (08:25→17:14)
[2021-07-07] MEDS: Multivitamins/Minerals TAB PO SCH (08:35)
[2021-07-07] MEDS: Saline FLUSH-CENTRAL 10 ML SYRINGE CENT\\PICC SCH ×2 (09:06→23:02)
[2021-07-07] MEDS ORDERED: Magnesium Sulfate 1 GM IV 1 GM/100 ML BAG IV ONE (09:15)
[2021-07-07] MEDS: SPIRIVA Respimat (tiotropium) 2.5 mcg/inh Inhaler INH SCH (12:23)
[2021-07-07] MEDS: Enoxaparin 40 MG/0.4 ML SYR SUBCUT SCH (12:32)
[2021-07-07] MEDS: Metoprolol Tartrate 5 mg VIAL 5 ml VIAL (1 mg/ml) IV PRN (17:15)
[2021-07-07] MEDS ORDERED: Nitro 2% OINT (Nitroglycerin) 1 INCH/PAK TOPICAL ONE ×2 (21:15→22:43)
[2021-07-08] MEDS: Metoprolol Tartrate 5 mg VIAL 5 ml VIAL (1 mg/ml) IV PRN (00:06)
[2021-07-08] MEDS: ZOSYN 3.375 GM Q8H per EXTENDED INFUSION IV SCH ×4 (00:07→23:34)
[2021-07-08] MEDS: Nystatin SUSPENSION 100,000 UNITS/ML UDC PO SCH ×5 (03:14→20:22)
[2021-07-08 06:28] LABS: Calcium 8.2 mg/dL (8.6-10.3); Hematocrit 28 % (42-52); Hemoglobin 9.6 g/dL (14.0-18.0); Magnesium 2.1 mg/dL (1.9-2.7); Mean Corpuscular HGB Conc 34 g/dL (31-36); Mean Corpuscular Hemoglobin 36 pg (27-31); Mean Corpuscular Volume 107 fL (80-94); Mean Platelet Volume 9.1 fL (7.4-10.4); Platelet Count 134 10^3/uL (150-450); Potassium 3.5 mmol/L (3.5-5.0); Red Blood Count 2.66 10^6 /uL (4.18-5.48); Red Cell Distribution Width 15 % (10-15); White Blood Count 4.9 10^3/uL (3.5-10.8); eGFR CKD-EPI 107.7 (>60)
[2021-07-08 08:01] LABS: Phosphorus 3.9 mg/dL (2.5-5.0)
[2021-07-08] MEDS: Multivitamins/Minerals TAB PO SCH (08:17)
[2021-07-08] MEDS: Saline FLUSH-CENTRAL 10 ML SYRINGE CENT\\PICC SCH ×2 (08:21→20:30)
[2021-07-08] MEDS: SPIRIVA Respimat (tiotropium) 2.5 mcg/inh Inhaler INH SCH (08:28)
[2021-07-08] MEDS: Enoxaparin 40 MG/0.4 ML SYR SUBCUT SCH (11:43)
[2021-07-08] MEDS ORDERED: Potassium Chlor 20 meq TAB.ER PO ONE (16:55)
[2021-07-08] MEDS ORDERED: Alteplase (CATHFLO) 2 MG VIAL IV ONE (20:44)
[2021-07-09] MEDS: Multivitamins/Minerals TAB PO SCH (08:33)
[2021-07-09] MEDS: Nystatin SUSPENSION 100,000 UNITS/ML UDC PO SCH ×4 (08:33→21:46)
[2021-07-09] MEDS: Saline FLUSH-CENTRAL 10 ML SYRINGE CENT\\PICC SCH ×2 (08:34→22:03)
[2021-07-09] MEDS: SPIRIVA Respimat (tiotropium) 2.5 mcg/inh Inhaler INH SCH (10:47)
[2021-07-09] MEDS: Enoxaparin 40 MG/0.4 ML SYR SUBCUT SCH (12:57)
[2021-07-10] MEDS: SPIRIVA Respimat (tiotropium) 2.5 mcg/inh Inhaler INH SCH (07:39)
[2021-07-10 07:57] LABS: Calcium 8.4 mg/dL (8.6-10.3); Magnesium 1.5 mg/dL (1.9-2.7); Phosphorus 3.1 mg/dL (2.5-5.0); Potassium 3.3 mmol/L (3.5-5.0); eGFR CKD-EPI 108.8 (>60)
[2021-07-10 08:20] LABS: ABS Eosinophils 0.3 10^3/ul (0-0.6); ABS Lymphocytes 0.7 10^3/ul (1.0-4.8); ABS Monocytes 0.6 10^3/ul (0-0.8); Eosinophil % 3.9 %; Hematocrit 30 % (42-52); Hemoglobin 9.9 g/dL (14.0-18.0); Mean Corpuscular HGB Conc 34 g/dL (31-36); Mean Corpuscular Hemoglobin 36 pg (27-31); Mean Corpuscular Volume 107 fL (80-94); Mean Platelet Volume 10.1 fL (7.4-10.4); Platelet Count 131 10^3/uL (150-450); Red Blood Count 2.77 10^6 /uL (4.18-5.48); Red Cell Distribution Width 15 % (10-15); White Blood Count 6.7 10^3/uL (3.5-10.8)
[2021-07-10] MEDS: Multivitamins/Minerals TAB PO SCH (08:27)
[2021-07-10] MEDS: Nystatin SUSPENSION 100,000 UNITS/ML UDC PO SCH ×4 (08:27→21:00)
[2021-07-10] MEDS: Saline FLUSH-CENTRAL 10 ML SYRINGE CENT\\PICC SCH ×2 (08:28→21:05)
[2021-07-10] MEDS: Enoxaparin 40 MG/0.4 ML SYR SUBCUT SCH (14:25)
[2021-07-10] MEDS ORDERED: Magnesium Sulf 4 GM/100 ML IV 4,000 MG/100 ML BAG IVPB ONE (17:42)
[2021-07-10] MEDS ORDERED: Potassium Chlor 20 meq TAB.ER PO ONE (17:43)
[2021-07-10] MEDS: KCL 10 MEQ/50 ML IVPREMIX 10 MEQ/50 ML BAG IV SCH ×3 (18:33→23:11)
[2021-07-11] MEDS: Multivitamins/Minerals TAB PO SCH (07:53)
[2021-07-11] MEDS: Nystatin SUSPENSION 100,000 UNITS/ML UDC PO SCH ×4 (07:53→20:39)
[2021-07-11] MEDS: SPIRIVA Respimat (tiotropium) 2.5 mcg/inh Inhaler INH SCH (08:23)
[2021-07-11] MEDS ORDERED: Magnesium Sulf 4 GM/100 ML IV 4,000 MG/100 ML BAG IVPB ONE (08:29)
[2021-07-11] MEDS ORDERED: Potassium Chlor 20 meq TAB.ER PO ONE (08:30)
[2021-07-11 08:57] LABS: Calcium 8.5 mg/dL (8.6-10.3); Potassium 3.9 mmol/L (3.5-5.0); eGFR CKD-EPI 108.8 (>60)
[2021-07-11] MEDS: Saline FLUSH-CENTRAL 10 ML SYRINGE CENT\\PICC SCH ×2 (10:42→21:06)
[2021-07-11] MEDS: Enoxaparin 40 MG/0.4 ML SYR SUBCUT SCH (13:12)
[2021-07-12] MEDS: SPIRIVA Respimat (tiotropium) 2.5 mcg/inh Inhaler INH SCH (08:31)
[2021-07-12] MEDS: Multivitamins/Minerals TAB PO SCH (09:36)
[2021-07-12] MEDS: Saline FLUSH-CENTRAL 10 ML SYRINGE CENT\\PICC SCH ×2 (09:40→22:30)
[2021-07-12] MEDS: Nystatin SUSPENSION 100,000 UNITS/ML UDC PO SCH ×4 (09:49→20:02)
[2021-07-12 11:11] LABS: Calcium 8.6 mg/dL (8.6-10.3); Magnesium 1.7 mg/dL (1.9-2.7); Potassium 3.5 mmol/L (3.5-5.0)
[2021-07-12] MEDS ORDERED: Magnesium Sulfate IV 3 GM in NS 0.9% 100 ml BAG 100 ML IVPB ONE (14:51)
[2021-07-12] MEDS ORDERED: Potassium Chlor 20 meq TAB.ER PO ONE (14:51)
[2021-07-12] MEDS ORDERED: Magnesium Sulfate 2 GM IV (Premix) IVPB ONE (15:30)
[2021-07-12] MEDS: Enoxaparin 40 MG/0.4 ML SYR SUBCUT SCH (15:44)
[2021-07-12] MEDS ORDERED: Magnesium Sulfate 1 GM IV 1 GM/100 ML BAG IV ONE (16:30)
[2021-07-13 05:43] LABS: Calcium 8.7 mg/dL (8.6-10.3); Phosphorus 3.5 mg/dL (2.5-5.0); Potassium 3.9 mmol/L (3.5-5.0); eGFR CKD-EPI 101.4 (>60)
[2021-07-13] MEDS ORDERED: NS 0.9% 1000 ml BAG 1,000 ML IV ONE (06:43)
[2021-07-13] MEDS: SPIRIVA Respimat (tiotropium) 2.5 mcg/inh Inhaler INH SCH (07:34)
[2021-07-13 08:04] LABS: Osmolality Serum 293 mOsm/kg (275-295)
[2021-07-13] MEDS: Multivitamins/Minerals TAB PO SCH (08:26)
[2021-07-13] MEDS: Saline FLUSH-CENTRAL 10 ML SYRINGE CENT\\PICC SCH ×2 (08:28→19:52)
[2021-07-13] MEDS: Nystatin SUSPENSION 100,000 UNITS/ML UDC PO SCH ×2 (08:28→12:47)
[2021-07-13] MEDS: Enoxaparin 40 MG/0.4 ML SYR SUBCUT SCH (12:51)
[2021-07-13] MEDS: Acetaminophen IV 1 GM/100ML 100 ML IV PRN (19:49)
[2021-07-14 06:47] LABS: Calcium 9.3 mg/dL (8.6-10.3); Magnesium 1.5 mg/dL (1.9-2.7); Potassium 4.4 mmol/L (3.5-5.0); eGFR CKD-EPI 102.7 (>60)
[2021-07-14] MEDS ORDERED: Magnesium Sulf 4 GM/100 ML IV 4,000 MG/100 ML BAG IVPB ONE (07:30)
[2021-07-14] MEDS: SPIRIVA Respimat (tiotropium) 2.5 mcg/inh Inhaler INH SCH (07:38)
[2021-07-14] MEDS: Multivitamins/Minerals TAB PO SCH (08:08)
[2021-07-14] MEDS: Saline FLUSH-CENTRAL 10 ML SYRINGE CENT\\PICC SCH (08:10)
[2021-07-14] MEDS: Enoxaparin 40 MG/0.4 ML SYR SUBCUT SCH (13:29)
[2021-07-14] MEDS: Acetaminophen IV 1 GM/100ML 100 ML IV PRN (20:19)
[2021-07-15] MEDS: SPIRIVA Respimat (tiotropium) 2.5 mcg/inh Inhaler INH SCH (08:36)
[2021-07-15] MEDS ORDERED: Lactulose 30 ml UDC PO SCH (09:00)
[2021-07-15] MEDS: Multivitamins/Minerals TAB PO SCH (09:13)
[2021-07-15] MEDS: Enoxaparin 40 MG/0.4 ML SYR SUBCUT SCH (15:09)
[2021-07-15 17:28] VITALS: BP 115/70
== END 2021-07-15 17:00 | disposition home or self-care (01) | DRG 950 ==
LOC: ED 16:48 → EDHOLD 23:17 → SUATTDRO 23:17 → MEDTELE 06-19 05:31 → ICU 06-19 15:18 → MED 06-26 14:14 → ICU 06-27 20:00 → MEDTELE 07-07 14:03
PROVIDERS: ADMIT Internal Medicine; ATTEND Internal Medicine